=== PATIENT | male | born 1975 | race Caucasian/White ===

== ENCOUNTER 2016-10-22 23:28 | Emergency (ER) | payer MEDICAID ==
[~2016-10-22] VITALS: Ht 177.8 cm; Wt 70.0 kg
[~2016-10-22 23:28] MED LIST: ATOR20TA38 PO; GABA300C16 PO; GLYB5TAB3 PO; INSU100V23 SC; LANT3I SC; METF850T PO; MTF1000T PO; [UNRECOGNIZED DRUG - CODE] MC
[2016-10-22 23:36] VITALS: Ht 177.8 cm; Wt 70.0 kg
[2016-10-23 01:30] VITALS: TEMP 97.8
[2016-10-23] MEDS ORDERED: SOD CHLORIDE 0.9% 1,000 ML IV STA (01:32)
[2016-10-23] MEDS ORDERED: LORAZEPAM 0.5 MG TAB PO ONE (02:00)
[2016-10-23] MEDS ORDERED: SOD CHLORIDE 0.9% 1,000 ML IV ONE (02:00)
[2016-10-23] MEDS ORDERED: INSULIN ASPART [NOVOLOG] 3 ML PEN SC ONE ×2 (02:00→05:30)
[2016-10-23] MEDS ORDERED: LACTATED RINGER'S 1,000 ML IV ONE (02:00)
[2016-10-23 02:08] LABS: EOSINOPHILS # 0.1 10^3/ul (0.0-0.5)
[2016-10-23 02:14] LABS: BASOPHILS % 0.5 % (0.0-2.0); EOSINOPHILS % 1.1 % (0.0-7.0); HEMATOCRIT 41.9 % (42.0-52.0); HEMOGLOBIN 15.4 g/dl (14.0-18.0); LYMPHOCYTES % 35.6 % (15.0-51.0); MEAN CORPUSCULAR HEMOGLOBIN 30.4 pg (29.0-33.0); MEAN CORPUSCULAR HGB CONC 36.8 g/dl (32.0-37.0); MEAN CORPUSCULAR VOLUME 82.6 fl (82.0-101.0); MONOCYTE # 0.5 10^3/ul (0.3-0.9); MONOCYTES % 8.5 % (0.0-11.0); NEUTROPHILS % 53.9 % (39.0-77.0); PLATELET COUNT 150 10^3/UL (140-415); RED BLOOD COUNT 5.07 10^6/ul (4.70-6.10); RED CELL DISTRIBUTION WIDTH 11.9 % (11.5-14.5); WHITE BLOOD COUNT 5.5 10^3/ul (4.8-10.8)
[2016-10-23] MEDS ORDERED: GLUCOSE GEL 15 GRAM TUBE BUCCAL PRN (02:15)
[2016-10-23] MEDS ORDERED: GLUCOSE GEL 15 GRAM TUBE PO PRN ×2 (02:15)
[2016-10-23] MEDS ORDERED: DEXTROSE 50% 50 ML SYRINGE IV PRN ×2 (02:15)
[2016-10-23] MEDS ORDERED: GLUCAGON 1 MG INJ IM PRN (02:15)
[2016-10-23 02:18] LABS: MEAN PLATELET VOLUME 11.2 fl (7.4-10.4)
[2016-10-23 02:28] LABS: ALBUMIN 4.3 g/dl (3.3-4.9)
[2016-10-23 02:29] LABS: CHLORIDE 88 mmol/L (97-110); POTASSIUM 4.8 mmol/L (3.5-5.1); SODIUM 130 mmol/L (135-144)
[2016-10-23 02:31] LABS: ANION GAP 23 (8-16); ASPARTATE AMINO TRANSFERASE 16 IU/L (15-46); BILIRUBIN,INDIRECT 0.3 mg/dl (0-1.1); BILIRUBIN,TOTAL 0.3 mg/dl (0.2-1.3); CARBON DIOXIDE 24 mmol/L (21-31); CREATININE 0.55 mg/dl (0.61-1.24)
[2016-10-23 02:32] LABS: ALANINE AMINOTRANSFERASE 30 IU/L (13-69); ALKALINE PHOSPHATASE 129 IU/L (42-121); BLOOD UREA NITROGEN 16 mg/dl (7-20); CALCIUM 9.7 mg/dl (8.4-10.2); TOTAL PROTEIN 8.2 g/dl (6.1-8.1)
[2016-10-23 02:33] LABS: ADD UMIC NO; URINE BILIRUBIN (Dip) NEGATIVE (NEGATIVE); URINE BLOOD (Dip) NEGATIVE (NEGATIVE); URINE COLOR LT. YELLOW (YELLOW); URINE GLUCOSE (Dip) >=1000 % (NEGATIVE); URINE KETONES (Dip) 15 (NEGATIVE); URINE LEUKOCYTE ESTERASE (Dip) NEGATIVE (NEGATIVE); URINE NITRITE (Dip) NEGATIVE (NEGATIVE); URINE TOTAL PROTEIN (Dip) NEGATIVE (NEGATIVE); URINE UROBILINOGEN (Dip) 0.2 E.U./dL (0.1-1.0)
[2016-10-23] MEDS ORDERED: KETOROLAC 15 MG INJ IV ONE (02:46)
[2016-10-23 03:00] LABS: TROPONIN-I < 0.012 ng/ml (0.00-0.12)
--- NOTE | 2016-10-23 04:12 | ERD ---
ER Documentation Chief Complaint Date/Time DATE: 10/23/16 TIME: 03:57 Chief Complaint states high blood sugar at home HPI This is a 41-year-old man with a history of diabetes mellitus type 2 and recurrent hypoglycemia presenting with elevated blood sugar. He has been using methamphetamines tonight and recently and ran out of his insulin. His blood sugar was checked this evening and it was read as high and is roommate brought him here for evaluation. Patient denies fevers or chills, no dizziness or loss of consciousness, no chest pain or shortness of breath, no abdominal pain, no headache or blurry vision. Patient denies vomiting or diarrhea. ROS All systems reviewed and are negative except as per history of present illness. Medications Home Meds Active Scripts Metformin* (Glucophage*) 1,000 Mg Tablet, 1000 MG PO BID, #40 TAB Prov:JOSE LUIS SPARROW MD 08/16/16 Insulin Regular, Human* (Novolin R*) 100 U/Ml Vial, 0 SC SLIDING SCALE AC, #1 VIAL Prov:ASHLEY PARKER 04/08/16 Glyburide* (Glyburide*) 5 Mg Tablet, 5 MG PO BID, #60 TAB Prov:ASHLEY PARKER 04/08/16 [place], Insulin Disposable (Bd Ultra-Fine Mini Pen Needle) 1 Dis.ndl Dis.needle , 1 DIS.NDL MC QID, #360 3 Refills 1 pen needle four times daily with Lantus and NovoLog Prov:GRIS FIGUEROA MD 11/02/15 Insulin Glargine* (Lantus*) 100 Unit/Ml Soln, 42 UNIT SC QHS for 90 Days, 1 Refill Prov:GRIS FIGUEROA MD 11/02/15 Reported Medications Gabapentin* (Gabapentin*) 300 Mg Capsule, 300 MG PO QHS, #60 CAP 08/16/16 Atorvastatin Calcium* (Atorvastatin Calcium*) 20 Mg Tablet, 20 MG PO QHS, #30 TAB 08/16/16 Metformin Hcl* (Metformin Hcl*) 850 Mg Tablet, 850 MG PO BID, #30 TAB 08/16/16 Allergies Allergies: Coded Allergies: No Known Allergy (Unverified , 10/22/16) PMhx/Soc Diabetes mellitus type 2, methamphetamine abuse, dyslipidemia History of Surgery: No Anesthesia Reaction: No Hx Neurological Disorder: No Hx Respiratory Disorders: No Hx Cardiac Disorders: No Hx Psychiatric Problems: No Hx Miscellaneous Medical Probl: Yes (DM) Hx Alcohol Use: Yes (1x month) Hx Substance Use: Yes (crystal meth, marijuana last taken a few minutes ago) Hx Tobacco Use: Yes (1 pack a day) Smoking Status: Current every day smoker FmHx Family History: diabetes Physical Exam Vitals Vital Signs Date Time Temp Pulse Resp B/P Pulse Ox O2 Delivery O2 Flow Rate FiO2 10/23/16 01:30 97.8 94 20 133/97 100 Room Air 10/22/16 23:36 97.8 115 20 145/89 98 Physical Exam GENERAL: Well-developed, well-nourished, appears agitated and dehydrated, afebrile HEENT: Dry mucous membranes, pink conjunctiva, no cervical spine tenderness or step-off deformities, no goiter, no jaundice or icterus, extraocular movements intact without pain. No submandibular induration, and no pharyngeal erythema NEURO: Alert and oriented 3, cranial nerves II through XII intact bilaterally, pupils equal round reactive to light, no focal deficits or facial asymmetry, sensation intact distally Strength 5/5 in upper and lower extremities bilaterally CARDIAC: Tachycardic and regular, no murmurs rubs or gallops LUNGS: Clear bilaterally no wheezing crackles or stridor ABDOMEN: Soft nontender, no guarding, no rigidity, no rebound, no psoas sign no obturator sign. Normoactive bowel sounds SKIN: Warm and dry to touch, there is a dry superficial chronic appearing pressure ulceration to the sole of the right foot without surrounding skin erythema, no skin discharge and skin is otherwise without ulcers. There are superficial lesions to the skin of the face consistent with methamphetamine abuse and possible subcutaneous drug injection. EXTREMITIES: No clubbing cyanosis or edema, calves are bilaterally symmetrical, no Homans sign, no popliteal cord sign. Distal pulses equal and bilateral PSYCH: Agitated Result Diagram: 10/23/16 01510/23/16 015 Results 24 hrs Laboratory Tests Test 10/22/16 23:41 10/23/16 01:51 10/23/16 02:00 10/23/16 03:01 Bedside Glucose > 595mg/dL Alanine Aminotransferase (ALT/SGPT) 30IU/L Albumin 4.3g/dl Albumin/Globulin Ratio 1.10 Alkaline Phosphatase 129IU/L Anion Gap 23 Aspartate Amino Transf (AST/SGOT) 16IU/L Basophils # 0.010^3/ul Basophils % 0.5% Blood Urea Nitrogen 16mg/dl Calcium Level 9.7mg/dl Carbon Dioxide Level 24mmol/L Chloride Level 88mmol/L Creatinine 0.55mg/dl Direct Bilirubin 0.00mg/dl Eosinophils # 0.110^3/ul Eosinophils % 1.1% Globulin 3.90g/dl Glucose Level mg/dl Hematocrit 41.9% Hemoglobin 15.4g/dl Indirect Bilirubin 0.3mg/dl Lipase 232U/L Lymphocytes # 2.010^3/ul Lymphocytes % 35.6% Mean Corpuscular Hemoglobin 30.4pg Mean Corpuscular Hemoglobin Concent 36.8g/dl Mean Corpuscular Volume 82.6fl Mean Platelet Volume 11.2fl Monocytes # 0.510^3/ul Monocytes % 8.5% Neutrophils # 3.010^3/ul Neutrophils % 53.9% Nucleated Red Blood Cells # 0.010^3/ul Nucleated Red Blood Cells % 0.0/100WBC Platelet Count 68090^3/UL Potassium Level 4.8mmol/L Red Blood Count 5.0710^6/ul Red Cell Distribution Width 11.9% Sodium Level 130mmol/L Total Bilirubin 0.3mg/dl Total Protein 8.2g/dl Troponin I < 0.012ng/ml White Blood Count 5.510^3/ul Urine Bilirubin NEGATIVE Urine Clarity CLEAR Urine Color LT. YELLOW Urine Glucose >=1000% Urine Hemoglobin NEGATIVE Urine Ketones 15 Urine Leukocyte Esterase NEGATIVE Urine Nitrite NEGATIVE Urine Specific [place] <=1.005 Urine Total Protein NEGATIVE Urine Urobilinogen 0.2 E.U./dL Urine pH 5.5 Boy Test N/A Arterial Blood Date Drawn 10/23/2016 3:12:42 AM Arterial Blood Gas Puncture Site VENOUS LINE Blood Gas Modality ROOM AIR Blood Gas Notified Time 10/23/2016 3:16:10 AM Blood Gas Notified Whom MG Blood Gas Specimen Source Blood venous Blood Gas Temperature 37.0C Carboxyhemoglobin 3.4% FiO2 21.0% Venous Blood Base Excess -1.3mmol/L Venous Blood HCO3 25.0mmol/L Venous Blood Methemoglobin 0% Venous Blood Oxygen Saturation 56.4mmHG Venous Blood Oxyhemoglobin 54.5% Venous Blood Total Hemoglobin 17.2g/dl Venous Blood pCO2 (Temp Corrected) 47.5mmHG Venous Blood pH 7.339 Venous Blood pO2 (Temp Corrected) 28.6mmHG Test 10/23/16 04:01 Bedside Glucose 395mg/dL Current Medications Medications (Trade) Dose Ordered Sig/Juhi Route PRN Reason Start Time Stop Time Status Last Admin Dose Admin Sodium Chloride 1,000 ml @ 1,000 mls/hr Q1H STAT IV 10/23/16 01:32 10/23/16 02:31 10/23/16 02:19 Sodium Chloride 1,000 ml @ 1,000 mls/hr Q1H ONCE IV 10/23/16 02:00 10/23/16 02:59 10/23/16 02:19 Lactated Ringer's (Lr) 1,000 ml @ 1,000 mls/hr Q1H ONCE IV 10/23/16 02:00 10/23/16 02:59 10/23/16 02:16 Insulin Aspart (Novolog Insulin Pen) 30 unit ONCE ONCE SC 10/23/16 02:00 10/23/16 02:01 10/23/16 02:15 Lorazepam (Ativan) 0.5 mg ONCE ONCE PO 10/23/16 02:00 10/23/16 02:01 10/23/16 02:15 Miscellaneous Information 1 ea NOTE XX 10/23/16 02:15 Glucose (Glutose) 15 gm Q15M PRN PO DECREASED GLUCOSE 10/23/16 02:15 Glucose (Glutose) 22.5 gm Q15M PRN PO DECREASED GLUCOSE 10/23/16 02:15 Dextrose (D50w Syringe) 25 ml Q15M PRN IV DECREASED GLUCOSE 10/23/16 02:15 Dextrose (D50w Syringe) 50 ml Q15M PRN IV DECREASED GLUCOSE 10/23/16 02:15 Glucagon (Glucagen) 1 mg Q15M PRN IM DECREASED GLUCOSE 10/23/16 02:15 Glucose (Glutose) 15 gm Q15M PRN BUCCAL DECREASED GLUCOSE 10/23/16 02:15 Ketorolac Tromethamine (Toradol) 15 mg ONCE ONCE IV 10/23/16 02:46 10/23/16 02:47 10/23/16 02:51 Insulin Aspart (Novolog Insulin Pen) 20 unit ONCE ONCE SC 10/23/16 05:30 2/11/17 05:31 10/23/16 05:26 Procedures/MDM IV line was established patient was placed on playground monitor rhythm strip revealed a tachycardia at 100 bpm with upright P and T waves. Patient was afebrile. Blood sugar was initially elevated at over 600. I administered 2 L normal saline intravenously as well as 1 L of lactated Ringer 's for dehydration. I administered 30 units of insulin aspart subcutaneous. For agitation I administered lorazepam 1 mg p.o. with good effect. EKG performed, read by me: 94 bpm, normal sinus rhythm, normal axis, no acute ST segment changes, narrow QRS complex, with good R-wave progression in precordial leads. CBC was unremarkable, electrolytes revealed hyponatremia of 130, BUN/creatinine 16/0.6, liver function tests were unremarkable, troponin was negative. Blood sugar was initially over 600 although after above interventions prior to complete fluid resuscitation blood sugar fell to 395. I expect it will fall even more. Urine analysis is negative for infection. VBG revealed a pH of 7.34, PCO2 48. Patient's bicarb is 24. I do not suspect DKA given the patient's lab values and his overall appearance. His blood sugar has fallen and he is able to tolerate p.o. at this time he feels much better. Patient's mental status is also completely normal in fact he was generally hypervigilant due to the amphetamines. Although I considered it I do not suspect hyperosmolar nonketotic state. Critical Care: Time: 36 minutes, this was time separate from other procedures. Treatments/Evaluations: Close monitoring and treatment of unstable vital signs, cardiorespiratory, and neurologic status, while maintaining tight balance of fluid, respiratory, and cardiac interventions. I administered another dose of 20 units insulin aspart subcutaneous injection for continued hyperglycemia. Differential diagnoses considered, included but not limited to acute coronary syndrome, pulmonary embolism, aortic dissection, abdominal aortic aneurysm, sepsis, stroke, meningitis, encephalitis, pneumonia, appendicitis, cholecystitis , bowel obstruction, pyelonephritis, nephrolithiasis, cystitis, as well as metabolic, hematologic, and electrolyte abnormalities. As well as abscess, cellulitis, fractures, and dislocations. Patient feels much better at this time, and vital signs are normal, symptoms have improved. I did give strict instructions to return to the ED if symptoms continue or worsen, patient will otherwise follow-up with primary care physician. Patient understood instructions and agreed to plan. Departure Diagnosis: Primary Impression: Type II diabetes mellitus, uncontrolled Diabetes mellitus complication status: with hyperglycemia Diabetes mellitus assisted insulin use: without assisted use Qualified Code: E11.65 - Uncontrolled type 2 diabetes mellitus with hyperglycemia, without long-term current use of insulin Additional Impressions: Hyperglycemia Dehydration Methamphetamine abuse Condition: Good TONYA TRIANA MD Oct 23, 2016 04:10
[2016-10-23 04:53] LABS: MODE ROOM AIR; MetHgb Venous 0 %; Sample Type Blood venous; Venous COHb 3.4 %; Venous Fraction OxyHgb 54.5 %; Venous Total Hemglobin 17.2 g/dl
[2016-10-23 05:00] VITALS: BP 140/91; PULSE 88; RESP 23
[2016-10-23] MEDS ORDERED: METF500T4 PO (05:45)
[2016-10-23] MEDS ORDERED: NOVO3I SC (05:45)
== END 2016-10-23 05:58 | disposition home or self-care (01) ==
LOC: E/R 23:28
DX: E11.65 Type 2 diabetes mellitus with hyperglycemia (principal); E86.0 Dehydration; F15.20 Other stimulant dependence, uncomplicated; F17.210 Nicotine dependence, cigarettes, uncomplicated; Z79.4 Long term (current) use of insulin; Z79.84 Long term (current) use of oral hypoglycemic drugs
CPT/HCPCS: 36415; 80053; 81003; 82803; 82962; 83690; 84484; 85025; 96372; 96374; J1815; J1885; J7030; J7120; Z7502; Z7610; 93005

== ENCOUNTER 2016-11-16 11:52 | Inpatient (IN) | payer MEDICAID ==
[~2016-11-16] VITALS: Ht 177.8 cm; Wt 75.0 kg
[2016-11-16] MEDS: ACCU-CHEK XX SCH ×7 (00:30→22:53)
[~2016-11-16 11:52] MED LIST changes: +METF500T4 PO; +NOVO3I SC
[2016-11-16] MEDS ORDERED: LACTATED RINGER'S 1,000 ML IV STA (12:02)
[2016-11-16] MEDS ORDERED: SOD CHLORIDE 0.9% 2,000 ML IV STA (12:02)
[2016-11-16] MEDS ORDERED: DEXTROSE 50% 50 ML SYRINGE IV STA (12:05)
[2016-11-16 12:21] LABS: ADD SCAN DIFF NO
[2016-11-16 12:22] LABS: ABNORMAL IP MESSAGE 1; HEMATOCRIT 47.1 % (42.0-52.0); HEMOGLOBIN 16.8 g/dl (14.0-18.0); MEAN CORPUSCULAR HEMOGLOBIN 30.3 pg (29.0-33.0); MEAN CORPUSCULAR HGB CONC 35.7 g/dl (32.0-37.0); MEAN PLATELET VOLUME 10.9 fl (7.4-10.4); PLATELET COUNT 341 10^3/UL (140-415); RED BLOOD COUNT 5.54 10^6/ul (4.70-6.10); WHITE BLOOD COUNT 32.4 10^3/ul (4.8-10.8)
[2016-11-16] MEDS ORDERED: CEFEPIME 2GM/50 ML (PMX) 50 ML IVPB STA (12:27)
[2016-11-16] MEDS ORDERED: LORAZEPAM 2 MG INJ IV ONE (12:30)
[2016-11-16] MEDS ORDERED: VANCOMYCIN 1 GM (PMX) 250 ML IVPB ONE (12:30)
[2016-11-16 12:36] LABS: CHLORIDE 91 mmol/L (97-110); POTASSIUM 5.4 mmol/L (3.5-5.1); SODIUM 126 mmol/L (135-144)
[2016-11-16 12:39] LABS: CREATININE 1.96 mg/dl (0.61-1.24); INR 1.17; PT RATIO 1.2
[2016-11-16 12:40] LABS: BLOOD UREA NITROGEN 38 mg/dl (7-20); CALCIUM 9.1 mg/dl (8.4-10.2); PARTIAL THROMBOPLASTIN TIME 32.2 Sec (25.0-35.0)
[2016-11-16 12:49] LABS: ANION GAP 35 (8-16)
[2016-11-16 12:51] LABS: CARBON DIOXIDE < 5 mmol/L (21-31); GLUCOSE 1011 mg/dl (70-220)
[2016-11-16] MEDS ORDERED: ROCURONIUM 50 MG INJ IV STA (12:52)
[2016-11-16] MEDS ORDERED: PROPOFOL 100 ML IV STA (12:52)
[2016-11-16] MEDS ORDERED: ETOMIDATE 20 MG INJ IV STA (12:52)
[2016-11-16 12:54] LABS: LYMPHOCYTES # 3.9 10^3/ul (0.8-2.9); MONOCYTE # 1.6 10^3/ul (0.3-0.9)
[2016-11-16] MEDS ORDERED: SOD CHLORIDE 0.9% 1,000 ML IV STA (12:54)
[2016-11-16] MEDS ORDERED: MIDAZOLAM (DRIP) 50 mg/50 mL 50 ML IV STA (12:56)
[2016-11-16] MEDS ORDERED: HYDROmorphONE 1 MG/ML SYG IV ONE (13:00)
[2016-11-16 13:14] LABS: ACETAMINOPHEN < 10.0 ug/ml (10.0-30.0); SALICYLATE < 1.0 mg/dl (5.0-30.0)
--- NOTE | 2016-11-16 13:18 | RADRPT ---
PROCEDURE: XR Chest AP portable CLINICAL INDICATION: Post intubation TECHNIQUE: An AP portable radiograph of the chest was submitted. COMPARISON: 04/08/2016 FINDINGS: Support Hardware: The patient has been intubated with the tube tip satisfactory position. Cardiovascular: The cardiovascular silhouette appears unremarkable. Lung [place]: There is been interval development of an extensive alveolar infiltrate within the left lower lobe and a smaller alveolar infiltrate at the right lung base. Pleural Spaces: No pneumothorax or pleural effusion is identified. Osseous Structures: The osseous structures appear intact. Soft Tissues: The soft tissues appear unremarkable. IMPRESSION: 1. Interval satisfactory intubation. 2. Interval development of a large alveolar infiltrate within the left lower lobe and a smaller rachana eolar infiltrate in the right lower lobe. No effusion is identified. Physician Abdelrahman Date Time Electronically viewed and signed by Physician Abdelrahman on 11/16/2016 13:18 /
[2016-11-16 13:25] LABS: ETHANOL < 10.0 mg/dl
[2016-11-16] MEDS ORDERED: INSULIN REGULAR, HUMAN 100 UNIT in SOD CHLORIDE 0.9% 99 ML IV STA ×2 (13:37)
[2016-11-16 13:49] LABS: AADO2 Arterial 222.1 mmHg (7.0-24.0); Allen Test ACCEPTAB; Arterial Base Excess -34.1 mmol/L (-3.0-3); Arterial COHb 0.3 % (0.0-3.0); Arterial Fraction of Oxyhgb 98.7 % (93.0-99.0); Arterial HCO3 2.5 mmol/L (22.0-26.0); Arterial MetHb 0.2 % (0.0-1.5); Arterial Total Hemglobin 15.2 g/dl (12.0-18.0); MODE VENT - AC
[2016-11-16 13:56] LABS: ADD UMIC YES; URINE BILIRUBIN (Dip) NEGATIVE (NEGATIVE); URINE BLOOD (Dip) 2+ (NEGATIVE); URINE COLOR LT. YELLOW (YELLOW); URINE GLUCOSE (Dip) >=1000 % (NEGATIVE); URINE KETONES (Dip) 3+ (NEGATIVE); URINE LEUKOCYTE ESTERASE (Dip) NEGATIVE (NEGATIVE); URINE NITRITE (Dip) NEGATIVE (NEGATIVE); URINE TOTAL PROTEIN (Dip) 1+ (NEGATIVE); URINE UROBILINOGEN (Dip) 0.2 E.U./dL (0.1-1.0)
[2016-11-16 14:11] LABS: BACTERIA,URINE FEW
--- NOTE | 2016-11-16 14:39 | ERA ---
ER Documentation Chief Complaint Date/Time DATE: 11/16/16 TIME: 14:34 Chief Complaint ALOC FOUND ON GOUND BY FRIEND ROS All systems reviewed and are negative except as per history of present illness. Medications Home Meds Active Scripts Insulin Aspart* (Novolog Insulin Pen*) 100 Unit/Ml Soln, 1 UNIT SC WITH BREAKFAST, #1 PKG Prov:TONYA TRIANA MD 10/23/16 Metformin* (Glucophage*) 500 Mg Tab, 500 MG PO BID, #60 TAB Prov:TONYA TRIANA MD 10/23/16 Metformin* (Glucophage*) 1,000 Mg Tablet, 1000 MG PO BID, #40 TAB Prov:JOSE LUIS SPARROW MD 08/16/16 Insulin Regular, Human* (Novolin R*) 100 U/Ml Vial, 0 SC SLIDING SCALE AC, #1 VIAL Prov:ASHLEY PARKER 04/08/16 Glyburide* (Glyburide*) 5 Mg Tablet, 5 MG PO BID, #60 TAB Prov:ASHLEY PRAKER 04/08/16 Insulin Glargine* (Lantus*) 100 Unit/Ml Soln, 42 UNIT SC QHS for 90 Days, 1 Refill Prov:GRIS FIGUEROA MD 11/02/15 Reported Medications Gabapentin* (Gabapentin*) 300 Mg Capsule, 300 MG PO QHS, #60 CAP 08/16/16 Atorvastatin Calcium* (Atorvastatin Calcium*) 20 Mg Tablet, 20 MG PO QHS, #30 TAB 08/16/16 Metformin Hcl* (Metformin Hcl*) 850 Mg Tablet, 850 MG PO BID, #30 TAB 08/16/16 Discontinued Scripts [place], Insulin Disposable (Bd Ultra-Fine Mini Pen Needle) 1 Dis.ndl Dis.needle , 1 DIS.NDL MC QID, #360 3 Refills 1 pen needle four times daily with Lantus and NovoLog Prov:GRIS FIGUEROA MD 11/02/15 Allergies Allergies: Coded Allergies: No Known Allergy (Unverified , 10/22/16) PMhx/Soc History of Surgery: No Anesthesia Reaction: No Hx Neurological Disorder: No Hx Respiratory Disorders: No Hx Cardiac Disorders: No Hx Psychiatric Problems: No Hx Miscellaneous Medical Probl: Yes (DM) Hx Alcohol Use: Yes (1x month) Hx Substance Use: Yes (crystal meth, marijuana ) Hx Tobacco Use: Yes (1 pack a day) Smoking Status: Current every day smoker Physical Exam Vitals Vital Signs Date Time Temp Pulse Resp B/P Pulse Ox O2 Delivery O2 Flow Rate FiO2 11/16/16 14:15 53 21 115/78 100 Mechanical Ventilator 11/16/16 13:31 84.5 60 20 121/86 100 11/16/16 13:28 59 24 100 100 11/16/16 13:15 60 20 121/86 100 Mechanical Ventilator 11/16/16 12:33 49 10 111/76 100 Nasal Cannula 4.0 11/16/16 11:56 97.0 61 12 89 Physical Exam Const: [] Head: Atraumatic Eyes: Normal Conjunctiva ENT: Normal External Ears, Nose and Mouth. Neck: Full range of motion..~ No meningismus. Resp: Clear to auscultation bilaterally Cardio: Regular rate and rhythm, no murmurs Abd: Soft, non tender, non distended. Normal bowel sounds Skin: No petechiae or rashes Back: No midline or flank tenderness Ext: No cyanosis, or edema Neur: Awake and alert Psych: Normal Mood and Affect Result Diagram: 11/16/16 1210 11/16/16 1210 Results 24 hrs Laboratory Tests Test 11/16/16 12:06 11/16/16 12:10 11/16/16 12:52 11/16/16 13:13 Bedside Glucose > 595mg/dL Acetaminophen Level < 10.0ug/ml Activated Partial Thromboplast Time 32.2Sec Anion Gap 35 Band Neutrophils % 9.0% Blood Urea Nitrogen 38mg/dl Calcium Level 9.1mg/dl Carbon Dioxide Level < 5mmol/L Chloride Level 91mmol/L Creatinine 1.96mg/dl Ethyl Alcohol Level < 10.0mg/dl Glucose Level 1011mg/dl Hematocrit 47.1% Hemoglobin 16.8g/dl INR International Normalized Ratio 1.17 Lactic Acid Level 2.0mmol/L Lymphocytes # 3.910^3/ul Lymphocytes % 12.0% Mean Corpuscular Hemoglobin 30.3pg Mean Corpuscular Hemoglobin Concent 35.7g/dl Mean Corpuscular Volume 85.0fl Mean Platelet Volume 10.9fl Monocytes # 1.610^3/ul Monocytes % 5.0% Neutrophils # 24.010^3/ul Neutrophils % 74.0% Platelet Count 34525^3/UL Potassium Level 5.4mmol/L Prothrombin Time 15.0Sec Prothrombin Time Ratio 1.2 Red Blood Count 5.5410^6/ul Red Cell Distribution Width 13.0% Salicylates Level < 1.0mg/dl Sodium Level 126mmol/L White Blood Count 32.410^3/ul Arterial Blood HCO3 2.5mmol/L Arterial Blood Base Excess -34.1mmol/L Arterial Blood Oxygen Saturation 99.2mmHG Boy Test ACCEPTAB Arterial Blood Gas Puncture Site Right Brachial Arterial Blood Carboxyhemoglobin 0.3% Arterial Blood Date Drawn 11/16/2016 1:30:58 PM Arterial Blood Methemoglobin 0.2% Arterial Blood pCO2 (Temp correct) 21.7mmhg Arterial Blood pH (Temp corrected) 6.686 Arterial Blood pO2 (Temp corrected) 469.2mmHG Blood Gas A-a O2 Differential 222.1mmHg Blood Gas Actual Respiration Rate 24 Blood Gas Critical Value Read Back KYARA Riley MD Blood Gas Low PEEP Setting 5.0cmH2O Blood Gas Modality VENT - AC Blood Gas Notified Time 11/16/2016 1:48:42 PM Blood Gas Notified Whom JLD Blood Gas Respiration Rate 24.0 Blood Gas Specimen Source Blood arterial Blood Gas Temperature 37.0C Blood Gas Tidal Volume 500.0mL FiO2 100.0% Oxyhemoglobin Percent 98.7% Total Hemoglobin 15.2g/dl Urine Bacteria FEW Urine Bilirubin NEGATIVE Urine Clarity CLEAR Urine Color LT. YELLOW Urine Glucose >=1000% Urine Hemoglobin 2+ Urine Ketones 3+ Urine Leukocyte Esterase NEGATIVE Urine Microscopic RBC 2-5/HPF Urine Microscopic WBC 0-2/HPF Urine Nitrite NEGATIVE Urine Specific [place] 1.015 Urine Total Protein 1+ Urine Urobilinogen 0.2 E.U./dL Urine pH 5.0 Test 11/16/16 13:31 Bedside Glucose > 595mg/dL Current Medications Medications (Trade) Dose Ordered Sig/Juhi Route PRN Reason Start Time Stop Time Status Last Admin Dose Admin Sodium Chloride 2,000 ml @ 1,000 mls/hr Q2H STAT IV 11/16/16 12:02 11/16/16 14:01 DC 11/16/16 12:15 Lactated Ringer's (Lr) 1,000 ml @ 1,000 mls/hr Q1H STAT IV 11/16/16 12:02 11/16/16 13:01 DC 11/16/16 12:20 Dextrose (D50w Syringe) 50 ml ONCE STAT IV 11/16/16 12:05 11/16/16 12:07 DC Lorazepam 1 mg 1 mg ONCE ONCE IV 11/16/16 12:30 11/16/16 12:31 DC 11/16/16 12:31 Cefepime HCl 50 ml @ 100 mls/hr ONCE STAT IVPB 11/16/16 12:27 11/16/16 12:56 DC 11/16/16 12:35 Vancomycin HCl (Vancocin) 250 ml @ 125 mls/hr ONCE ONCE IVPB 11/16/16 12:30 11/16/16 14:29 DC 11/16/16 13:08 Rocuronium [place] (Zemuron) 70 mg ONCE STAT IV 11/16/16 12:52 11/16/16 12:53 DC Etomidate (Amidate) 20 mg ONCE STAT IV 11/16/16 12:52 11/16/16 12:53 DC Hydromorphone HCl 1 mg 1 mg ONCE ONCE IV 11/16/16 13:00 11/16/16 13:01 DC 11/16/16 13:08 Propofol 100 ml @ 2.1 mls/hr ONCE STAT IV 11/16/16 12:52 11/16/16 12:56 DC Sodium Chloride 1,000 ml @ 1,000 mls/hr Q1H STAT IV 11/16/16 12:54 11/16/16 13:53 DC 11/16/16 13:09 Midazolam HCl 50 ml @ 3 mls/hr ONCE STAT IV 11/16/16 12:56 11/17/16 05:35 11/16/16 13:06 Insulin Human Regular/Sodium Chloride (Humulin R/NS) 100 ml @ 7 mls/hr TITRATE STAT IV 11/16/16 13:37 11/17/16 03:54 11/16/16 14:18 Procedures/MDM EKG read by me: Rate/Rhythm: Sinus bradycardia rate of 58 Intervals: Normal Impression: Sinus bradycardia without evidence of ischemia CT brain pending at this time. Admit MDM: Patient's infectious symptoms have not stabilized and the patient is at risk of rapid decompensation. The patient will be admitted for careful hydration, antibiotic therapy, and infectious source control. Severe Sepsis criteria: Infectious source: Unclear etiology End organ damage indicated by: Lactate greater than 2 and altered mental status Sepsis Management: Time of recognition of sepsis: 12:10 Within 3 hours of recognition: Blood cultures x 2 before broad-spectrum antibiotics: [Yes] 30 ml/kg NS bolus [Completed] Initial lactate 2.0 Repeat lactate pending Time of recognition of septic shock: [No septic shock] Septic Shock Assessment: Any lactic acid > 4.0 [No] Persistent hypotension (SBP < 90 or 40 mmHg drop, MAP < 65) despite 30 mL/kg IV fluid bolus [No] Volume Re-assessment for Septic Shock (post 30 ml/kg bolus): No septic shock at this time Persistent Hypotension Treatment: Comfort care [No] Central line [Not Required] Vasopressor started [Not required] I considered further perfusion assessment with CVP measurement, SCVO2, bedside ultrasound volume assessment, passive leg raise, trial of further fluid bolus. And proceeded with [30 ml/kg fluid bolus of NSS, broad spectrum antibiotics, and admission.] The patient has acute diabetic ketoacidosis with a bicarb of less than 5. Sugar is greater than 1000. Patient was given 4 L for fluid resuscitation. The patient needed to be intubated as well he was in the emergency department his work of breathing decreased as he tired out. He needed to be intubated for airway protection. The patient was started on a tidal volume of 500 and a respiratory rate of 24 to help compensate for his significant acidosis. His ABG shows a pH of 6.68. He is extremely sick. Accepting Care Team Current data and ongoing care discussed. Admitting Physician: Dr. Ma as the patient has been admitted to Dr. 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 Provision of immediate and broad-spectrum antibiotic therapy. Simultaneous assessment for possible sources in order to direct targeted therapy. Consideration for invasive and chemical support to prevent cardiopulmonary collapse. Endotracheal Intubation by me: Pre assessment performed. Pre-oxygenation performed with 100% oxygen RSI: Performed w/o complication or hypoxic events. Medications as ordered. Blade: MAC 4 Glidescope ET Tube: 7.5 cm Depth: 23 cm at the lip Intubation confirmed by colorimetric CO2, equal breath sounds, quiet over the stomach. Chest X-ray 1V Interpreted by me: 0 cm above the kameron ET tube. Normal soft tissue, No pneumothorax. The ET tube was withdrawn 3 cm by respiratory on my request. 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
[2016-11-16 14:49] LABS: BARBITURATES NEGATIVE (NEGATIVE); BENZODIAZEPINES NEGATIVE (NEGATIVE); CANNABINOIDS NEGATIVE (NEGATIVE); COCAINE NEGATIVE (NEGATIVE); OPIATES NEGATIVE (NEGATIVE)
--- NOTE | 2016-11-16 14:51 | RADRPT ---
PROCEDURE: CT brain without contrast CLINICAL INDICATION: Hyperglycemia TECHNIQUE: CT of the brain without contrast was performed on a multidetector CT scanner, with multi planar reformats. One or more of the following dose reduction techniques were used: Automated expos ure control, adjustment in mA and / or kV according to patient size, use of iterative reconstructive technique. CTDIvol = 40 mGy; DLP = 634 mGy-cm. COMPARISON: None available FINDINGS: No acute intracranial hemorrhage is identified. No extra-axial fluid collection is seen. There is no mass effect. No midline shift is identified. Ventricles and sulci are within normal limits for size and configuration. The density of the brain is within normal limits. Denise-white differentiation is preserved. There is mild right parietal scalp swelling. No underlying fracture is identified. The osseous str uctures are unremarkable. Mastoid air cells and imaged paranasal sinuses grossly clear. IMPRESSION: Mild right parietal scalp swelling, without evidence of acute intracranial pathology. RPTAT: TT .Jimmie Carr MD, MD Date Time Electronically viewed and signed by .Jimmie Carr MD, on 11/16/2016 14:50 .O/
[2016-11-16] MEDS ORDERED: ACETAMINOPHEN 650MG/20.3ML CUP PO PRN (15:30)
[2016-11-16] MEDS ORDERED: NACL 0.9% 3 ML SYG IV SCH (15:30)
[2016-11-16] MEDS ORDERED: ALBUTEROL 0.083% (NEB) 2.5 MG/3 ML AMP NEB PRN (15:30)
[2016-11-16] MEDS ORDERED: IPRATROPIUM (NEB) 0.5 MG/2.5 ML AMP NEB PRN (15:30)
[2016-11-16 15:35] LABS: CHLORIDE 103 mmol/L (97-110); SODIUM 133 mmol/L (135-144)
[2016-11-16 15:36] LABS: POTASSIUM 4.7 mmol/L (3.5-5.1)
[2016-11-16 15:38] LABS: CREATININE 1.43 mg/dl (0.61-1.24)
[2016-11-16 15:39] LABS: BLOOD UREA NITROGEN 34 mg/dl (7-20); CALCIUM 7.8 mg/dl (8.4-10.2)
[2016-11-16 15:59] LABS: ANION GAP 30 (8-16)
[2016-11-16 16:00] LABS: CARBON DIOXIDE < 5 mmol/L (21-31); GLUCOSE 809 mg/dl (70-220)
--- NOTE | 2016-11-16 16:10 | CONS ---
DATE OF ADMISSION: 11/16/2016 DATE OF CONSULTATION: 11/16/2016 TYPE OF CONSULTATION: Infectious Disease. REASON FOR CONSULTATION: Antibiotic management. HISTORY OF PRESENT ILLNESS: Tariq Oglesby is a 41-year-old male with numerous problems who was found with altered level of consciousness, found on the ground by a friend and brought into the emergency room. His past problems include: 1. Insulin-dependent diabetes mellitus. 2. Diabetic neuropathy. 3. Hyperlipidemia. 4. Use of crystal meth and marijuana. PAST MEDICAL HISTORY: Operations as outlined. FAMILY HISTORY: Noncontributory. SOCIAL HISTORY: He smokes a pack a day for many years. He drinks. He abuses drugs. ALLERGIES: NONE TO PENICILLIN, SULFA OR FOODS. MEDICATIONS: Per chart. REVIEW OF SYSTEMS: As per HPI. LABORATORY DATA: On admission, his white count was 32.4, H and H 16.8 and 47.1, platelet count 341, 000. BUN and creatinine 38/1.96. His glucose was 1011. His CO2 was less than 5 consistent with se rafael metabolic acidosis. A chest x-ray showed intubation, interval development of extensive alveolar infiltrates within the l eft lower lobe and small alveolar infiltrates at the right lung base. No pneumothorax or pleural ef fusion. White count was 32.4, H and H 16.8 and 47.1 as noted previously, platelet count 341,000. CT scan of the brain was done which showed mild parietal scalp swelling without evidence of acute in tracranial pathology, probably as a result of his fall. PHYSICAL EXAMINATION GENERAL: Patient is intubated on a respirator. SKIN: Without generalized rash. HEENT: Within normal limits, slight swelling of the parietal aspect of the skull. ET tube. NECK: Supple. LYMPH NODES: None palpable. CHEST: Decreased breath sounds at the bases. HEART: Without murmur or gallop. ABDOMEN: Soft, nontender, without organosplenomegaly or masses. EXTREMITIES: Without cyanosis, clubbing, or edema. RECTAL AND GENITAL: Deferred. NEUROLOGIC: No focal neurological abnormalities. IMPRESSION AND PLAN: The patient was started on vancomycin and cefepime. It was felt that he was in septic shock. Lactic acid was greater than 2. Blood cultures were drawn. The patient has diabetic ketoacidosis with coma as well as sepsis with acute respiratory failure. We will continue him on la s current regimen of vancomycin and cefepime. I will dictate my findings to Dr. Ma. Dictated By: SARAHY LOU MD, JD/CLAUDY Conf#: [id number] DID#: [id number]
--- NOTE | 2016-11-16 16:16 | HP ---
DATE OF ADMISSION: 11/16/2016 HISTORY OF PRESENT ILLNESS: The patient is a 41-year-old male known to me from previous ad mission. The patient was previously admitted a year ago for diabetic hyperosmolar nonketotic state. The patient with history of diabetes mellitus, history of hypertension and medical noncompliance. The patient was brought to the emergency room by a friend who found him on the ground. The patient was unresponsive and had to be intubated for airway protection. The patient was placed on electromechanical technologist al ventilator. The patient's blood glucose was 1000 on admission. The patient was started on insul in drip. White blood cells were also elevated. The patient was resuscitated with IV fluids. The p atient underwent a chest x-ray which revealed interval development of large alveolar infiltrate with in the left lower lobe and small alveolar infiltrate in the right lower lobe. No effusion is identi fied during inspection at intervals of intubation. After blood cultures collected, the patient was started on broad spectrum antibiotics and was given vancomycin and cefepime. Patient's drug screen came back positive for amphetamine. Unfortunately, patient cannot provide any history. Most of the history was obtained from talking to nursing and medical staff at the emergency room and from medic al records. The patient's EKG reveals sinus bradycardia at a rate of 58. The patient will be admit anna for further management in the intensive care unit. PAST MEDICAL HISTORY: Per HPI. PAST SURGICAL HISTORY: Status post foreign body removal from the left eye more than 10 years ago. FAMILY HISTORY: Patient's father from cardiac problems at the age of 70, no family history of diabetes. SOCIAL HISTORY: Patient is a cigarette smoker, smokes about 1 pack of cigarettes per day, smoked fo r more than 10 years. ALLERGIES: NO KNOWN ALLERGIES. MEDICATIONS: From previous admission, the patient was discharged with a prescription for: 1. Lantus, NovoLog with meals and Metformin. 2. Glyburide. 3. Gabapentin. 4. Atorvastatin. REVIEW OF SYSTEMS: A 12-point review is unable to obtain due to patient's condition. PHYSICAL ASSESSMENT: GENERAL: Well-developed, well-nourished male, currently unresponsive, orally intubated. VITAL SIGNS: Temperature is 97.0, pulse is 53, blood pressure 115/78, respiratory rate 21, oxygen s aturation 100% on FIO2. HEENT: Pupils pinpoint. Oral mucosa is pink and moist. NECK: Supple, no cervical lymphadenopathy, no thyromegaly. LUNGS: Diminished at the bases. CARDIOVASCULAR: Normal S1, S2. No murmurs, gallops, clicks, rubs noted. ABDOMEN: Flat, soft, nondistended, nontender. Bowel sounds hypoactive. EXTREMITIES: There is no edema, clubbing, cyanosis. Pulses equal bilaterally 2+. SKIN: There is no rash, petechiae noted. NEUROLOGIC: Patient is unresponsive. Does not follow any commands. LABORATORY DATA: On admission, CBC: White blood cells 32.4, hemoglobin 16.8, hematocrit 47.1, plat elets 341. Chemistry: Sodium is 126, potassium 5.4, chloride 91, carbon dioxide 5, anion gap 35, B UN is 38, creatinine 1.96, glucose 1011. Lactic acid 2.0, calcium is 9.1. PT is ____, INR is 1.17, APTT 32.2. ASSESSMENT AND PLAN 1. Severe diabetic ketoacidosis with coma. 2. Diabetes mellitus type 2. Continue insulin drip. Dr. Andre is asked to see patient in endocr inology consultation. Continue IV fluids. 3. Severe sepsis. We will follow up on urine, blood and sputum cultures. 4. Possible community-acquired pneumonia. 5. Acute respiratory failure. Continue ventilatory support and Dr. Torres will be following the p atient in pulmonology consultation. 6. Altered level of consciousness. 7. Amphetamine screen positive. We will obtain a CT of the head when patient is stable. 8. Continue sequential compression device for deep venous thrombosis prophylaxis and Protonix for p eptic ulcer disease prophylaxis. Further recommendations based on clinical course. 9. We will ask Dr. Callaway to see patient in infectious disease consultation. Further recommendatio ns based on clinical course. Plan of care discussed with Dr. Newton. Dictated By: ALEA WHITAKER COIL STRAPPER for EMILIA NEWTON MD SR/NTS Conf#: [id number] DID#: [id number]
[2016-11-16 16:35] LABS: PHOSPHORUS 7.8 mg/dl (2.5-4.9)
[2016-11-16 16:36] LABS: MAGNESIUM 2.2 mg/dl (1.7-2.5)
[2016-11-16 16:46] LABS: CHLORIDE 105 mmol/L (97-110); POTASSIUM 4.4 mmol/L (3.5-5.1); SODIUM 137 mmol/L (135-144)
[2016-11-16 16:49] LABS: BLOOD UREA NITROGEN 35 mg/dl (7-20)
[2016-11-16 16:50] LABS: CALCIUM 8.6 mg/dl (8.4-10.2)
[2016-11-16] MEDS ORDERED: DEXTROSE 50% 50 ML SYRINGE IV PRN ×2 (17:00)
[2016-11-16] MEDS ORDERED: POTASSIUM CHLORIDE 40 MEQ in SOD CHLORIDE 0.9% 1,000 ML IV SCH (17:00)
[2016-11-16] MEDS ORDERED: INSULIN REGULAR, HUMAN 100 UNIT in SOD CHLORIDE 0.9% 99 ML IV SCH ×2 (17:00)
[2016-11-16 17:06] LABS: ANION GAP 31 (8-16); CARBON DIOXIDE < 5 mmol/L (21-31); GLUCOSE 769 mg/dl (70-220)
[2016-11-16 18:20] LABS: CHLORIDE 107 mmol/L (97-110)
[2016-11-16 18:21] LABS: POTASSIUM 4.1 mmol/L (3.5-5.1); SODIUM 139 mmol/L (135-144)
[2016-11-16 18:23] LABS: CREATININE 1.37 mg/dl (0.61-1.24)
--- NOTE | 2016-11-16 18:23 | CONS ---
Date/Time of Note Date/Time of Note DATE: 11/16/16 TIME: 18:14 Assessment/Plan Assessment/Plan Problems: (1) DKA (diabetic ketoacidoses) Status: Acute Comment: pH as low as I have seen. Cont. IV insulin drip at 0.1 mg/kg/hr and isotonic IVF at 250 mL/hr. Monitor electrolytes and replace. Will follow with you. Qualifiers: Qualified Code: E13.11 - Diabetic ketoacidosis with coma associated with other specified diabetes mellitus (2) Type II diabetes mellitus, uncontrolled Status: Chronic Comment: Rule out type 1 diabetes. Has not been checked here before. Qualifiers: Qualified Code: E11.8 - Uncontrolled type 2 diabetes mellitus with complication, unspecified chcf insulin use status Consultation Date/Type/Reason Admit Date/Time 11/16/2016 Date of Consultation: Nov 16, 2016 Type of Consultation: Endocrinology Reason for Consultation DKA Referring Provider: ALEA WHITAKER Hx of Present Illness 41 y/o H M w/ h/o poorly managed DM, type unknown, previously admitted to this institution twice in the past, both times w/ DM out of control (OOC). Pt. found down and brought into [facility]. In ER in DKA w/ glucose > 1000 mg/dL. Pt. w/ profound Kussmaul breathing and required intubation for ventilatory support. pH 6.69. Ketones (+). Pt. started on insulin drip and endo consulted. Subjective hx not possible: pt non-verbal, pt critical status Past Medical History Medical History: diabetes, other (non-compliance) Past Surgical History Past Surgical Hx: other (FB removal L eye) Family History Significant Family History: heart disease (father) Social History Alcohol Use: other (unknown) Smoking Status: Current every day smoker Drug Use: other (urine drug screen (+) for amphetamines) Exam/Review of Systems Vital Signs Vitals VS - Last 72 Hours, by Label Date Time Temp Pulse Resp B/P Pulse Ox O2 Delivery O2 Flow Rate FiO2 11/16/16 17:30 96.8 63 20 110/80 100 Mechanical Ventilator 11/16/16 17:01 58 24 100 70 11/16/16 16:45 61 20 108/77 100 Mechanical Ventilator 11/16/16 15:45 57 20 117/86 100 Mechanical Ventilator 11/16/16 15:30 95.8 60 20 125/89 100 11/16/16 15:20 53 24 70 11/16/16 14:45 53 21 118/84 100 Mechanical Ventilator 11/16/16 14:15 53 21 115/78 100 Mechanical Ventilator 11/16/16 13:31 84.5 60 20 121/86 100 11/16/16 13:28 59 24 100 100 11/16/16 13:15 60 20 121/86 100 Mechanical Ventilator 11/16/16 12:33 49 10 111/76 100 Nasal Cannula 4.0 11/16/16 11:56 97.0 61 12 89 Vital Signs Date Time Temp Pulse Resp B/P Pulse Ox O2 Delivery O2 Flow Rate FiO2 11/16/16 17:30 96.8 63 20 110/80 100 Mechanical Ventilator 11/16/16 17:01 70 11/16/16 12:33 4.0 Exam Constitutional: non-verbal, other (sedated), well developed, No alert, No oriented Head: atraumatic, normocephalic Eyes: other (chemosis B) ENMT: intubated, mucosa pink and moist, nl external ears & nose Neck: non-tender, supple, No bruits, No masses, No thyromegaly Respiratory: clear to auscultation, normal air movement Cardiovascular: nl pulses, regular rate and rhythm, No edema, No murmurs/extra sounds, No rub Gastrointestinal: bowel sounds, nl liver, spleen, non-tender, soft, No mass, No rebound or guarding Musculoskeletal: nl extremities to inspection Extremities: normal pulses, No clubbing, No cyanosis, No edema Neurological: unresponsive (sedated) Results Result Diagram: 11/16/16 1210 11/16/16 1620 Results 24 hrs Laboratory Tests Test 11/16/16 12:06 11/16/16 12:10 11/16/16 12:52 11/16/16 13:13 Bedside Glucose > 595 *H Acetaminophen Level < 10.0 L Activated Partial Thromboplast Time 32.2 Anion Gap 35 H Band Neutrophils % 9.0 H Blood Urea Nitrogen 38 H Calcium Level 9.1 Carbon Dioxide Level < 5 *L Chloride Level 91 L Creatinine 1.96 H Ethyl Alcohol Level < 10.0 Glucose Level 1011 *H Hematocrit 47.1 Hemoglobin 16.8 INR International Normalized Ratio 1.17 Lactic Acid Level 2.0 Lymphocytes # 3.9 H Lymphocytes % 12.0 L Mean Corpuscular Hemoglobin 30.3 Mean Corpuscular Hemoglobin Concent 35.7 Mean Corpuscular Volume 85.0 Mean Platelet Volume 10.9 H Monocytes # 1.6 H Monocytes % 5.0 Neutrophils # 24.0 H Neutrophils % 74.0 Platelet Count 341 # Potassium Level 5.4 H Prothrombin Time 15.0 H Prothrombin Time Ratio 1.2 Red Blood Count 5.54 Red Cell Distribution Width 13.0 Salicylates Level < 1.0 L Sodium Level 126 L White Blood Count 32.4 #H Arterial Blood HCO3 2.5 *L Arterial Blood Base Excess -34.1 L Arterial Blood Oxygen Saturation 99.2 H Boy Test ACCEPTAB Arterial Blood Gas Puncture Site Right Brachial Arterial Blood Carboxyhemoglobin 0.3 Arterial Blood Date Drawn 11/16/2016 1:30:58 PM Arterial Blood Methemoglobin 0.2 Arterial Blood pCO2 (Temp correct) 21.7 L Arterial Blood pH (Temp corrected) 6.686 *L Arterial Blood pO2 (Temp corrected) 469.2 H Blood Gas A-a O2 Differential 222.1 H Blood Gas Actual Respiration Rate 24 Blood Gas Critical Value Read Back KYARA Riley MD Blood Gas Low PEEP Setting 5.0 Blood Gas Modality VENT - AC Blood Gas Notified Time 11/16/2016 1:48:42 PM Blood Gas Notified Whom JLD Blood Gas Respiration Rate 24.0 Blood Gas Specimen Source Blood arterial Blood Gas Temperature 37.0 Blood Gas Tidal Volume 500.0 FiO2 100.0 Oxyhemoglobin Percent 98.7 Total Hemoglobin 15.2 Urine Amphetamines Screen POSITIVE Urine Bacteria FEW Urine Barbiturates NEGATIVE Urine Benzodiazepines Screen NEGATIVE Urine Bilirubin NEGATIVE Urine Cannabinoids NEGATIVE Urine Clarity CLEAR Urine Cocaine Screen NEGATIVE Urine Color LT. YELLOW Urine Glucose >=1000 Urine Hemoglobin 2+ H Urine Ketones 3+ H Urine Leukocyte Esterase NEGATIVE Urine Microscopic RBC 2-5 Urine Microscopic WBC 0-2 Urine Nitrite NEGATIVE Urine Opiates Screen NEGATIVE Urine Specific Rose 1.015 Urine Total Protein 1+ H Urine Urobilinogen 0.2 E.U./dL Urine pH 5.0 Test 11/16/16 13:31 11/16/16 14:05 11/16/16 14:10 11/16/16 15:25 Bedside Glucose > 595 *H > 595 *H Anion Gap 30 H Blood Urea Nitrogen 34 H Calcium Level 7.8 L Carbon Dioxide Level < 5 *L Chloride Level 103 # Creatinine 1.43 H Glucose Level 809 #*H Lactic Acid Level 1.4 Potassium Level 4.7 Sodium Level 133 L Troponin I < 0.012 Magnesium Level 2.2 Phosphorus Level 7.8 H Test 11/16/16 16:20 11/16/16 16:36 11/16/16 17:34 Anion Gap 31 H Blood Urea Nitrogen 35 H Calcium Level 8.6 Carbon Dioxide Level < 5 *L Chloride Level 105 Creatinine 1.40 H Glucose Level 769 *H Potassium Level 4.4 Sodium Level 137 Bedside Glucose > 595 *H > 595 *H Medications Medications Current Medications Ondansetron HCl (Zofran Inj) 4 mg Q6H PRN IV NAUSEA AND/OR VOMITING; Start 11/16 at 15:30 Acetaminophen (Tylenol Liquid) 650 mg Q6H PRN PO PAIN LEVEL 1-3 OR FEVER; Start 11/16/16 at 15:30 Morphine Sulfate (morphine) 2 mg Q4H PRN IV PAIN LEVEL 7-10; Start 11/16/16 at 15:30 Pantoprazole (Protonix Iv) 40 mg DAILY@06 IV ; Start 11/17/16 at 06:00 Dextrose (D50w Syringe) 50 ml Q15M PRN IV For BS 50 or less; Start 11/16/16 at 17:00 Dextrose (D50w Syringe) 25 ml Q15M PRN IV BS between 50-70; Start 11/16/16 at 17 :00 Diagnostic Test (Pha) 1 ea 1 ea Q1H XX Last administered on 11/16/16 17:36; Admin Dose 1 EA; Start 11/16/16 at 17:00 Potassium Chloride/Sodium Chloride (KCl/NS) 1,020 ml @ 250 mls/hr Q4H5M IV Last administered on 11/16/16 17:28; Admin Dose 250 MLS/HR; Start 11/16/16 at 17: 00 ROEG PAEZ MD Nov 16, 2016 18:22
[2016-11-16 18:24] LABS: BLOOD UREA NITROGEN 35 mg/dl (7-20); CALCIUM 8.7 mg/dl (8.4-10.2)
[2016-11-16 18:36] LABS: ANION GAP 31 (8-16); CARBON DIOXIDE < 5 mmol/L (21-31); GLUCOSE 698 mg/dl (70-220)
[2016-11-16 19:44] VITALS: BP 98/66; PULSE 77; RESP 24
[2016-11-16 20:49] VITALS: Ht 177.8 cm; Wt 75.0 kg
[2016-11-16 20:52] VITALS: BP 91/64; PULSE 89; RESP 18
[2016-11-16 21:33] VITALS: BP 87/56; PULSE 96; RESP 25
[2016-11-16 21:36] LABS: POTASSIUM 4.9 mmol/L (3.5-5.1)
[2016-11-16 21:39] LABS: CREATININE 1.16 mg/dl (0.61-1.24)
[2016-11-16 21:40] LABS: CALCIUM 8.5 mg/dl (8.4-10.2)
[2016-11-16 21:59] LABS: AADO2 Arterial 219.6 mmHg (7.0-24.0); Allen Test ACCEPTAB; Arterial Base Excess -24.7 mmol/L (-3.0-3); Arterial COHb 0.3 % (0.0-3.0); Arterial Fraction of Oxyhgb 97.6 % (93.0-99.0); Arterial HCO3 5.3 mmol/L (22.0-26.0); Arterial MetHb 0.3 % (0.0-1.5); Arterial Total Hemglobin 17.5 g/dl (12.0-18.0); MODE VENT - AC
[2016-11-16] MEDS ORDERED: SOD CHLORIDE 0.9% 1,000 ML IV ONE (22:00)
[2016-11-16 22:48] VITALS: BP 97/64; PULSE 102; PULSE 103; RESP 30
[2016-11-16] MEDS ORDERED: NS + KCL 20 MEQ 1,000 ML IV SCH (23:00)
[2016-11-16] MEDS ORDERED: VANCOMYCIN IV PER PHARMACY XX SCH (23:00)
[2016-11-17] VITALS (34 sets, daily range): BP systolic 89–155; BP diastolic 59–90; PULSE 89–115; RESP 23–35; TEMP 100
[2016-11-17] MEDS ORDERED: ETOMIDATE 20 MG INJ ONE
[2016-11-17] MEDS ORDERED: ROCURONIUM 50 MG INJ ONE
[2016-11-17] MEDS ORDERED: IMIPENEM/CILASTATIN 500 MG in SOD CHLORIDE 0.9% 250 ML IVPB SCH ×2
[2016-11-17 00:14] LABS: POTASSIUM 4.5 mmol/L (3.5-5.1)
[2016-11-17 00:16] LABS: CREATININE 1.05 mg/dl (0.61-1.24)
[2016-11-17 00:17] LABS: CALCIUM 8.3 mg/dl (8.4-10.2)
[2016-11-17] MEDS: MIDAZOLAM (DRIP) 50 mg/50 mL 50 ML IV SCH ×3 (00:18→23:02)
[2016-11-17] MEDS: ACCU-CHEK XX SCH ×24 (01:00→23:11)
[2016-11-17] MEDS ORDERED: VANCOMYCIN 1.25 GM in SOD CHLORIDE 0.9% 250 ML IVPB SCH (01:00)
[2016-11-17] MEDS: IMIPENEM-CILAST 500MG IV (PMX) 100 ML IVPB SCH ×4 (01:27→18:06)
[2016-11-17 01:46] LABS: POTASSIUM 4.4 mmol/L (3.5-5.1)
[2016-11-17] MEDS: D5W-0.45 NACL + KCL 20 MEQ 1,000 ML IV SCH ×2 (01:46→06:06)
[2016-11-17 01:49] LABS: CREATININE 0.95 mg/dl (0.61-1.24)
[2016-11-17 01:50] LABS: CALCIUM 8.1 mg/dl (8.4-10.2)
[2016-11-17 03:56] LABS: ADD SCAN DIFF NO
[2016-11-17 04:01] LABS: BASOPHILS % 0.1 % (0.0-2.0); HEMOGLOBIN 15.2 g/dl (14.0-18.0); LYMPHOCYTES # 1.2 10^3/ul (0.8-2.9); LYMPHOCYTES % 6.5 % (15.0-51.0); MEAN CORPUSCULAR HEMOGLOBIN 29.8 pg (29.0-33.0); MEAN CORPUSCULAR VOLUME 78.4 fl (82.0-101.0); MEAN PLATELET VOLUME 10.8 fl (7.4-10.4); MONOCYTE # 1.3 10^3/ul (0.3-0.9); MONOCYTES % 7.1 % (0.0-11.0); NEUTROPHIL # 14.6 10^3/ul (1.6-7.5); NEUTROPHILS % 82.7 % (39.0-77.0); PLATELET COUNT 225 10^3/UL (140-415); RED CELL DISTRIBUTION WIDTH 12.5 % (11.5-14.5); WHITE BLOOD COUNT 17.7 10^3/ul (4.8-10.8)
[2016-11-17 04:20] LABS: POTASSIUM 4.3 mmol/L (3.5-5.1)
[2016-11-17 04:22] LABS: CREATININE 0.87 mg/dl (0.61-1.24)
[2016-11-17 04:23] LABS: CALCIUM 8.5 mg/dl (8.4-10.2)
[2016-11-17 05:50] LABS: POTASSIUM 4.1 mmol/L (3.5-5.1)
[2016-11-17 05:53] LABS: CREATININE 0.83 mg/dl (0.61-1.24)
[2016-11-17 05:54] LABS: CALCIUM 8.2 mg/dl (8.4-10.2)
[2016-11-17] MEDS: PANTOPRAZOLE 40 MG INJ IV SCH (07:04)
--- NOTE | 2016-11-17 07:11 | RADRPT ---
PROCEDURE: XR Chest 1 View. CLINICAL INDICATION: Shortness of breath TECHNIQUE: AP view of the chest were obtained. COMPARISON: November 16, 2016 FINDINGS: The cardiomediastinal silhouette is within normal limits. Endotracheal tube is stable and appears in grossly appropriate location. Nasogastric tube has its distal end in the expected location of the stomach. The lungs are hyperexpanded. Elevation right hemidiaphragm continues to be identified. L eft lower lobe infiltrates have mildly decreased. Significant residual remains. Right basilar infi ltrates are stable. The osseous structures are unchanged. IMPRESSION: Nasogastric tube with its distal end in the expected location of the stomach. Hyperexpanded lungs with stable elevation of the right hemidiaphragm. Interval decrease in left lower lobe infiltrates. Significant residual remains. Stable infiltrates at the right lung base. RPTAT: AA .Guevara Cloud MD, Date Time Electronically viewed and signed by .Guevara Cloud MD, on 11/17/2016 07:11 .P/
[2016-11-17] MEDS ORDERED: POTASSIUM PHOSPHATE 30 MM in SOD CHLORIDE 0.9% 250 ML IVPB ONE (07:30)
[2016-11-17] MEDS: D5-0.2 NACL + KCL 20 MEQ 1,000 ML IV SCH ×4 (09:29→23:02)
[2016-11-17 10:00] LABS: POTASSIUM 4.1 mmol/L (3.5-5.1)
[2016-11-17 10:02] LABS: CREATININE 0.76 mg/dl (0.61-1.24)
[2016-11-17 10:03] LABS: CALCIUM 8.7 mg/dl (8.4-10.2)
[2016-11-17] MEDS: VANCOMYCIN 1 GM in NS 250 ML IVPB SCH ×2 (10:32→19:10)
--- NOTE | 2016-11-17 12:01 | CONS ---
Date/Time of Note Date/Time of Note DATE: 11/17/16 TIME: 11:58 Assessment/Plan Assessment/Plan Additional Assessment/Plan Chest x-ray was reviewed from yesterday which is showing left lower lobe infiltrate, chest x-ray also was reviewed from today which is showing significant improvement. Ventilator settings; AC of 24, tidal volume 500, PEEP of 5, 50% FiO2. Assessment recommendations; 1. Patient admitted for DKA as well as left lower lobe pneumonia possibly aspiration. 2. Severe metabolic acidosis with interval improvement. 3. History of hypertension. 4. History of noncompliance of medications. Continue current treatment. Continue current antibiotics. IV insulin drip. Fluid resuscitation. Wean down FiO2 to keep O2 sat around 92-94%. Obtain a repeat serum chemistry. Consultation Date/Type/Reason Admit Date/Time 11/16/2016 Date of Consultation: Nov 17, 2016 Type of Consultation: Pulmonary/critical care Reason for Consultation Pulmonary consultation obtained for evaluation of respiratory failure, pneumonia and DKA. History presenting; patient is a 41-year-old [place] male who was brought into the emergency room yesterday after he was found unresponsive at home. Upon evaluation here the patient was found to be in severe diverticular acidosis. He was intubated on scene by paramedics. Chest x-ray also was done which is showing left lower lobe pneumonia. By the time I saw the patient in ER the patient is or intubated sedated and did not appear to be in any distress. History was obtained from medical records. Past medical history; 1. History of diabetes insulin-dependent. 2. Hyperlipidemia. 3. Questionable compliance of medications 4. Hypertension. Allergies; none. Social history; patient is a current smoker. Family history; father has had coronary artery disease. Occupational history; not available. Review of systems; currently unable to be obtained. General exam; young male, or intubated, sedated currently in no distress. Past Medical History Medical History: diabetes, other (non-compliance) Past Surgical History Past Surgical Hx: other (FB removal L eye) Social History Alcohol Use: other (unknown) Smoking Status: Current every day smoker Drug Use: other (urine drug screen (+) for amphetamines) Exam/Review of Systems Vital Signs Vitals Vital Signs Date Time Temp Pulse Resp B/P Pulse Ox O2 Delivery O2 Flow Rate FiO2 11/17/16 11:07 92 28 116/88 100 11/17/16 09:13 Mechanical Ventilator 11/17/16 07:20 50 11/17/16 07:00 100.0 11/16/16 12:33 4.0 Intake and Output 11/16/16 11/16/16 11/17/16 15:00 23:00 07:00 Intake Total 4050 ml 2250 ml 1650 ml Output Total 1600 ml 2100 ml 1150 ml Balance 2450 ml 150 ml 500 ml Exam HEENT examination; supple neck, no JVD. No lymphadenopathy. Midline trachea. No thyromegaly. Orally intubated. No neck masses. Chest examination; clear to auscultation bilaterally. S1-S2 audible, no murmurs. Regular rhythm. Abdomen examination; soft, nondistended. No organomegaly. Bowel sounds audible. Umbilicus is inverted. Extremity examination; no peripheral edema. Pulses 1+ bilaterally. 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 Results Result Diagram: 11/17/16 0350 11/17/16 0920 Results 24 hrs Laboratory Tests Test 11/16/16 12:06 11/16/16 12:10 11/16/16 12:52 11/16/16 13:13 Bedside Glucose > 595 *H Acetaminophen Level < 10.0 L Activated Partial Thromboplast Time 32.2 Anion Gap 35 H Band Neutrophils % 9.0 H Blood Urea Nitrogen 38 H Calcium Level 9.1 Carbon Dioxide Level < 5 *L Chloride Level 91 L Creatinine 1.96 H Ethyl Alcohol Level < 10.0 Glucose Level 1011 *H Hematocrit 47.1 Hemoglobin 16.8 INR International Normalized Ratio 1.17 Lactic Acid Level 2.0 Lymphocytes # 3.9 H Lymphocytes % 12.0 L Mean Corpuscular Hemoglobin 30.3 Mean Corpuscular Hemoglobin Concent 35.7 Mean Corpuscular Volume 85.0 Mean Platelet Volume 10.9 H Monocytes # 1.6 H Monocytes % 5.0 Neutrophils # 24.0 H Neutrophils % 74.0 Platelet Count 341 # Potassium Level 5.4 H Prothrombin Time 15.0 H Prothrombin Time Ratio 1.2 Red Blood Count 5.54 Red Cell Distribution Width 13.0 Salicylates Level < 1.0 L Sodium Level 126 L White Blood Count 32.4 #H Arterial Blood HCO3 2.5 *L Arterial Blood Base Excess -34.1 L Arterial Blood Oxygen Saturation 99.2 H Boy Test ACCEPTAB Arterial Blood Gas Puncture Site Right Brachial Arterial Blood Carboxyhemoglobin 0.3 Arterial Blood Date Drawn 11/16/2016 1:30:58 PM Arterial Blood Methemoglobin 0.2 Arterial Blood pCO2 (Temp correct) 21.7 L Arterial Blood pH (Temp corrected) 6.686 *L Arterial Blood pO2 (Temp corrected) 469.2 H Blood Gas A-a O2 Differential 222.1 H Blood Gas Actual Respiration Rate 24 Blood Gas Critical Value Read Back KYARA Riley MD Blood Gas Low PEEP Setting 5.0 Blood Gas Modality VENT - AC Blood Gas Notified Time 11/16/2016 1:48:42 PM Blood Gas Notified Whom JLD Blood Gas Respiration Rate 24.0 Blood Gas Specimen Source Blood arterial Blood Gas Temperature 37.0 Blood Gas Tidal Volume 500.0 FiO2 100.0 Oxyhemoglobin Percent 98.7 Total Hemoglobin 15.2 Urine Amphetamines Screen POSITIVE Urine Bacteria FEW Urine Barbiturates NEGATIVE Urine Benzodiazepines Screen NEGATIVE Urine Bilirubin NEGATIVE Urine Cannabinoids NEGATIVE Urine Clarity CLEAR Urine Cocaine Screen NEGATIVE Urine Color LT. YELLOW Urine Glucose >=1000 Urine Hemoglobin 2+ H Urine Ketones 3+ H Urine Leukocyte Esterase NEGATIVE Urine Microscopic RBC 2-5 Urine Microscopic WBC 0-2 Urine Nitrite NEGATIVE Urine Opiates Screen NEGATIVE Urine Specific [place] 1.015 Urine Total Protein 1+ H Urine Urobilinogen 0.2 E.U./dL Urine pH 5.0 Test 11/16/16 13:31 11/16/16 14:05 11/16/16 14:10 11/16/16 15:25 Bedside Glucose > 595 *H > 595 *H Anion Gap 30 H Blood Urea Nitrogen 34 H Calcium Level 7.8 L Carbon Dioxide Level < 5 *L Chloride Level 103 # Creatinine 1.43 H Glucose Level 809 #*H Lactic Acid Level 1.4 Potassium Level 4.7 Sodium Level 133 L Troponin I < 0.012 Magnesium Level 2.2 Phosphorus Level 7.8 H Test 11/16/16 16:20 11/16/16 16:36 11/16/16 17:34 11/16/16 17:35 Anion Gap 31 H 31 H Blood Urea Nitrogen 35 H 35 H Calcium Level 8.6 8.7 Carbon Dioxide Level < 5 *L < 5 *L Chloride Level 105 107 Creatinine 1.40 H 1.37 H Glucose Level 769 *H 698 *H Potassium Level 4.4 4.1 Sodium Level 137 139 Bedside Glucose > 595 *H > 595 *H Lactic Acid Level 1.3 Phosphorus Level 6.6 H Test 11/16/16 18:48 11/16/16 19:48 11/16/16 21:10 11/16/16 21:30 Bedside Glucose 593 *H 565 *H 458 *H Anion Gap 26 H Blood Urea Nitrogen 37 H Calcium Level 8.5 Carbon Dioxide Level 7 *L Chloride Level 114 H Creatinine 1.16 Glucose Level 528 #*H Potassium Level 4.9 Sodium Level 142 Troponin I < 0.012 Test 11/16/16 21:33 11/16/16 22:19 11/16/16 23:23 11/16/16 23:40 Arterial Blood HCO3 5.3 *L Arterial Blood Base Excess -24.7 L Arterial Blood Oxygen Saturation 98.2 H Boy Test ACCEPTAB Arterial Blood Gas Puncture Site Right Radial Arterial Blood Carboxyhemoglobin 0.3 Arterial Blood Date Drawn 11/16/2016 9:45:54 PM Arterial Blood Methemoglobin 0.3 Arterial Blood pCO2 (Temp correct) 19.5 L Arterial Blood pH (Temp corrected) 7.032 *L Arterial Blood pO2 (Temp corrected) 118.6 H Blood Gas A-a O2 Differential 219.6 H Blood Gas Actual Respiration Rate 26 Blood Gas Critical Value Read Back QIAN QUINTERO Blood Gas Inspiratory Pressure 18.0 Blood Gas Low PEEP Setting 5.0 Blood Gas Modality VENT - AC Blood Gas Notified Time 11/16/2016 9:58:32 PM Blood Gas Notified Whom Blood Gas Respiration Rate 24.0 Blood Gas Specimen Source Blood arterial Blood Gas Temperature 34.0 Blood Gas Tidal Volume 500.0 FiO2 50.0 Oxyhemoglobin Percent 97.6 Total Hemoglobin 17.5 Bedside Glucose 413 *H 373 H Anion Gap 23 H Blood Urea Nitrogen 37 H Calcium Level 8.3 L Carbon Dioxide Level 9 *L Chloride Level 115 H Creatinine 1.05 Glucose Level 355 #H Potassium Level 4.5 Sodium Level 142 Test 11/17/16 00:51 11/17/16 01:25 11/17/16 02:04 11/17/16 03:03 Bedside Glucose 268 H 276 H 308 H Anion Gap 18 H Blood Urea Nitrogen 36 H Calcium Level 8.1 L Carbon Dioxide Level 11 L Chloride Level 117 H Creatinine 0.95 Glucose Level 272 H Potassium Level 4.4 Sodium Level 142 Test 11/17/16 03:50 11/17/16 04:27 11/17/16 05:12 11/17/16 05:54 Anion Gap 14 15 Basophils # 0.0 Basophils % 0.1 Blood Urea Nitrogen 38 H 36 H Calcium Level 8.5 8.2 L Carbon Dioxide Level 14 L 14 L Chloride Level 119 H 117 H Creatinine 0.87 0.83 Eosinophils # 0.0 Eosinophils % 0.0 Glucose Level 320 H 312 H Hematocrit 40.0 L Hemoglobin 15.2 Lymphocytes # 1.2 Lymphocytes % 6.5 L Mean Corpuscular Hemoglobin 29.8 Mean Corpuscular Hemoglobin Concent 38.0 H Mean Corpuscular Volume 78.4 L Mean Platelet Volume 10.8 H Monocytes # 1.3 H Monocytes % 7.1 Neutrophils # 14.6 H Neutrophils % 82.7 H Nucleated Red Blood Cells # 0.0 Nucleated Red Blood Cells % 0.0 Phosphorus Level 1.9 #L Platelet Count 225 # Potassium Level 4.3 4.1 Red Blood Count 5.10 Red Cell Distribution Width 12.5 Sodium Level 143 142 Troponin I < 0.012 White Blood Count 17.7 #H Bedside Glucose 346 H 314 H Test 11/17/16 07:20 11/17/16 08:38 11/17/16 09:16 11/17/16 09:20 Bedside Glucose 299 H 313 H 297 H Anion Gap 14 Blood Urea Nitrogen 34 H Calcium Level 8.7 Carbon Dioxide Level 15 L Chloride Level 117 H Creatinine 0.76 Glucose Level 294 H Potassium Level 4.1 Sodium Level 142 Test 11/17/16 10:04 11/17/16 11:06 Bedside Glucose 251 H 226 H Medications Medications Current Medications Ondansetron HCl (Zofran Inj) 4 mg Q6H PRN IV NAUSEA AND/OR VOMITING; Start 11/16 at 15:30 Acetaminophen (Tylenol Liquid) 650 mg Q6H PRN PO PAIN LEVEL 1-3 OR FEVER; Start 11/16/16 at 15:30 Morphine Sulfate (morphine) 2 mg Q4H PRN IV PAIN LEVEL 7-10; Start 11/16/16 at 15:30 Pantoprazole (Protonix Iv) 40 mg DAILY@06 IV Last administered on 11/17/16t 07: 04; Admin Dose 40 MG; Start 11/17/16 at 06:00 Dextrose (D50w Syringe) 50 ml Q15M PRN IV For BS 50 or less; Start 11/16/16 at 17:00 Dextrose (D50w Syringe) 25 ml Q15M PRN IV BS between 50-70; Start 11/16/16 at 17 :00 Diagnostic Test (Pha) 1 ea 1 ea Q1H XX Last administered on 11/17/16 09:32; Admin Dose 1 EA; Start 11/16/16 at 17:00 Imipenem/ Cilastatin Sodium 100 ml @ 100 mls/hr Q6 IVPB Last administered on 07:05; Admin Dose 100 MLS/HR; Start 11/17/16 at 00:00 Midazolam HCl 50 ml @ 2 mls/hr TITRATE IV Last administered on 11/17/16 01:45; Admin Dose 2 MLS/HR; Start 11/17/16 at 00:08 Potassium Chloride/Dextrose/ Sod Cl 1,000 ml @ 150 mls/hr Q6H40M IV Last administered on 11/17/16 09:29; Admin Dose 150 MLS/HR; Start 11/17/16 at 07:30 Vancomycin HCl (Vancocin) 250 ml @ 125 mls/hr Q8H IVPB Last administered on 10:32; Admin Dose 125 MLS/HR; Start 11/17/16 at 10:00 Miscellaneous Information (*Rx Drug Level Order Reminder*) VANCO TROUGH @ 0, 100 ON... ONCE ONCE XX ; Start 11/18/16 at 01:00; Stop 11/18/16 at 01:01 RIDDHI VELÁSQUEZ Nov 17, 2016 12:01
[2016-11-17] MEDS: ENOXAPARIN 30 MG/0.3 ML SYG SC SCH (13:27)
--- NOTE | 2016-11-17 14:22 | PN ---
DATE: 11/17/2016 SUBJECTIVE: The patient is intubated and sedated with Versed, on insulin drip, lying comfortably in bed. VITAL SIGNS: Temperature 100, pulse 98, respirations 28, blood pressure 116/88, saturation 100 on 5 0 FIO2. LABORATORY: WBC 17.7, H and H 15.2 and 40, platelets 225, neutrophils 82.7, no bands. BUN 34, crea tinine 0.76. Urinalysis on admission was negative. MICROBIOLOGY: Urine culture negative. DIAGNOSTICS: CT of the brain on admission revealed no evidence of acute intracranial pathology. est x-ray shows left lower lobe infiltrates. INDWELLINGS: NG tube, endotracheal tube, Hooper, peripheral IV. ANTIMICROBIALS: 1. Vancomycin. 2. Imipenem. PHYSICAL EXAMINATION: GENERAL: This is well-developed, middle-aged man who is intubated, sedated and in no distr ess. HEENT: Head atraumatic, normocephalic. Sclerae anicteric. Buccal mucosa dry. NECK: Supple, trachea midline. CHEST: Rise symmetrical. Breath sounds diminished at the bases. HEART: S1, S2. ABDOMEN: Soft. Bowel sounds present. EXTREMITIES: No cyanosis. ASSESSMENT: 1. Sepsis. 2. Diabetic ketoacidosis. 3. Acute respiratory failure. 4. Pneumonia, possibly aspiration. 5. Metabolic acidosis. 6. Polysubstance use. PLAN: The patient remains stable. We are going to send blood and sputum cultures. Continue on cur rent antibiotics. Follow recommendations of consultants. Dictated By: SANJAY GOEL SEO ENGINEER for SARAHY LAGOS/CLAUDY Conf#: [id number] DID#: [id number]
[2016-11-17 14:41] LABS: POTASSIUM 4.1 mmol/L (3.5-5.1)
[2016-11-17 14:43] LABS: CREATININE 0.7 mg/dl (0.61-1.24)
[2016-11-17 14:44] LABS: CALCIUM 8.3 mg/dl (8.4-10.2)
--- NOTE | 2016-11-17 14:51 | PN ---
Date/Time of Note Date/Time of Note DATE: 11/17/16 TIME: 14:46 Assessment/Plan VTE Prophylaxis VTE Prophylaxis Intervention: SCD's Lines/Catheters Urinary Cath still in place: Yes Reason Cath still needed: urinary retention Assessment/Plan Chief Complaint/Hosp Course ASSESSMENT AND PLAN 1. Severe diabetic ketoacidosis with coma. Continue insulin drip. Dr. Andre is asked to see patient in endocrinology consultation. Continue IV fluids. 2. Diabetes mellitus type 2. 3. Severe sepsis. We will follow up on urine, blood and sputum cultures. Dr. Callaway to see patient in infectious disease consultation. Continue broad- spectrum antibiotics. 4. Possible community-acquired pneumonia. 5. Acute respiratory failure. Continue ventilatory support and Dr. Torres is following the patient in pulmonology consultation. 6. Altered level of consciousness. CT head is negative. 7. Amphetamine screen positive. Continue sequential compression device for deep venous thrombosis prophylaxis and Protonix for peptic ulcer disease prophylaxis. Further recommendations based on clinical course. Plan of care discussed with Dr. Ma. Problems: Subjective 24 Hr Interval Summary Free Text/Dictation Patient is continued on insulin drip, restless during sedation vacation, orally intubated on ventilator support and sedation. Patient moves all extremities. Exam/Review of Systems Vital Signs Vitals Vital Signs Date Time Temp Pulse Resp B/P Pulse Ox O2 Delivery O2 Flow Rate FiO2 11/17/16 11:50 98 31 98 50 11/17/16 11:07 116/88 11/17/16 09:13 Mechanical Ventilator 11/17/16 07:00 100.0 11/16/16 12:33 4.0 Intake and Output 11/16/16 11/16/16 11/17/16 15:00 23:00 07:00 Intake Total 4050 ml 2250 ml 1650 ml Output Total 1600 ml 2100 ml 1150 ml Balance 2450 ml 150 ml 500 ml Exam PHYSICAL ASSESSMENT: GENERAL: Well-developed, well-nourished male, currently unresponsive, orally intubated. HEENT: Pupils pinpoint. Oral mucosa is pink and moist. NECK: Supple, no cervical lymphadenopathy, no thyromegaly. LUNGS: Diminished at the bases. CARDIOVASCULAR: Normal S1, S2. No murmurs, gallops, clicks, rubs noted. ABDOMEN: Flat, soft, nondistended, nontender. Bowel sounds hypoactive. EXTREMITIES: There is no edema, clubbing, cyanosis. Pulses equal bilaterally 2 +. SKIN: There is no rash, petechiae noted. NEUROLOGIC: Sedated. Results Result Diagram: 11/17/16 0350 11/17/16 0920 Results 24 hrs Laboratory Tests Test 11/16/16 15:25 11/16/16 16:20 11/16/16 16:36 11/16/16 17:34 Bedside Glucose > 595 *H > 595 *H > 595 *H Anion Gap 31 H Blood Urea Nitrogen 35 H Calcium Level 8.6 Carbon Dioxide Level < 5 *L Chloride Level 105 Creatinine 1.40 H Glucose Level 769 *H Potassium Level 4.4 Sodium Level 137 Test 11/16/16 17:35 11/16/16 18:48 11/16/16 19:48 11/16/16 21:10 Anion Gap 31 H 26 H Blood Urea Nitrogen 35 H 37 H Calcium Level 8.7 8.5 Carbon Dioxide Level < 5 *L 7 *L Chloride Level 107 114 H Creatinine 1.37 H 1.16 Glucose Level 698 *H 528 #*H Lactic Acid Level 1.3 Phosphorus Level 6.6 H Potassium Level 4.1 4.9 Sodium Level 139 142 Bedside Glucose 593 *H 565 *H Troponin I < 0.012 Test 11/16/16 21:30 11/16/16 21:33 11/16/16 22:19 11/16/16 23:23 Bedside Glucose 458 *H 413 *H 373 H Arterial Blood HCO3 5.3 *L Arterial Blood Base Excess -24.7 L Arterial Blood Oxygen Saturation 98.2 H Boy Test ACCEPTAB Arterial Blood Gas Puncture Site Right Radial Arterial Blood Carboxyhemoglobin 0.3 Arterial Blood Date Drawn 11/16/2016 9:45:54 PM Arterial Blood Methemoglobin 0.3 Arterial Blood pCO2 (Temp correct) 19.5 L Arterial Blood pH (Temp corrected) 7.032 *L Arterial Blood pO2 (Temp corrected) 118.6 H Blood Gas A-a O2 Differential 219.6 H Blood Gas Actual Respiration Rate 26 Blood Gas Critical Value Read Back QIAN RN Blood Gas Inspiratory Pressure 18.0 Blood Gas Low PEEP Setting 5.0 Blood Gas Modality VENT - AC Blood Gas Notified Time 11/16/2016 9:58:32 PM Blood Gas Notified Whom MH Blood Gas Respiration Rate 24.0 Blood Gas Specimen Source Blood arterial Blood Gas Temperature 34.0 Blood Gas Tidal Volume 500.0 FiO2 50.0 Oxyhemoglobin Percent 97.6 Total Hemoglobin 17.5 Test 11/16/16 23:40 11/17/16 00:51 11/17/16 01:25 11/17/16 02:04 Anion Gap 23 H 18 H Blood Urea Nitrogen 37 H 36 H Calcium Level 8.3 L 8.1 L Carbon Dioxide Level 9 *L 11 L Chloride Level 115 H 117 H Creatinine 1.05 0.95 Glucose Level 355 #H 272 H Potassium Level 4.5 4.4 Sodium Level 142 142 Bedside Glucose 268 H 276 H Test 11/17/16 03:03 11/17/16 03:50 11/17/16 04:27 11/17/16 05:12 Bedside Glucose 308 H 346 H Anion Gap 14 15 Basophils # 0.0 Basophils % 0.1 Blood Urea Nitrogen 38 H 36 H Calcium Level 8.5 8.2 L Carbon Dioxide Level 14 L 14 L Chloride Level 119 H 117 H Creatinine 0.87 0.83 Eosinophils # 0.0 Eosinophils % 0.0 Glucose Level 320 H 312 H Hematocrit 40.0 L Hemoglobin 15.2 Lymphocytes # 1.2 Lymphocytes % 6.5 L Mean Corpuscular Hemoglobin 29.8 Mean Corpuscular Hemoglobin Concent 38.0 H Mean Corpuscular Volume 78.4 L Mean Platelet Volume 10.8 H Monocytes # 1.3 H Monocytes % 7.1 Neutrophils # 14.6 H Neutrophils % 82.7 H Nucleated Red Blood Cells # 0.0 Nucleated Red Blood Cells % 0.0 Phosphorus Level 1.9 #L Platelet Count 225 # Potassium Level 4.3 4.1 Red Blood Count 5.10 Red Cell Distribution Width 12.5 Sodium Level 143 142 Troponin I < 0.012 White Blood Count 17.7 #H Test 11/17/16 05:54 11/17/16 07:20 11/17/16 08:38 11/17/16 09:16 Bedside Glucose 314 H 299 H 313 H 297 H Test 11/17/16 09:20 11/17/16 10:04 11/17/16 11:06 11/17/16 12:39 Anion Gap 14 Blood Urea Nitrogen 34 H Calcium Level 8.7 Carbon Dioxide Level 15 L Chloride Level 117 H Creatinine 0.76 Glucose Level 294 H Potassium Level 4.1 Sodium Level 142 Bedside Glucose 251 H 226 H 221 H Test 11/17/16 13:28 11/17/16 14:02 Bedside Glucose 173 186 Medications Medications Current Medications Ondansetron HCl (Zofran Inj) 4 mg Q6H PRN IV NAUSEA AND/OR VOMITING; Start 11/16 at 15:30 Acetaminophen (Tylenol Liquid) 650 mg Q6H PRN PO PAIN LEVEL 1-3 OR FEVER; Start 11/16/16 at 15:30 Morphine Sulfate (morphine) 2 mg Q4H PRN IV PAIN LEVEL 7-10; Start 11/16/16 at 15:30 Pantoprazole (Protonix Iv) 40 mg DAILY@06 IV Last administered on 11/17/16 07: 04; Admin Dose 40 MG; Start 11/17/16 at 06:00 Dextrose (D50w Syringe) 50 ml Q15M PRN IV For BS 50 or less; Start 11/16/16 at 17:00 Dextrose (D50w Syringe) 25 ml Q15M PRN IV BS between 50-70; Start 11/16/16 at 17 :00 Diagnostic Test (Pha) 1 ea 1 ea Q1H XX Last administered on 11/17/16 14:03; Admin Dose 1 EA; Start 11/16/16 at 17:00 Imipenem/ Cilastatin Sodium 100 ml @ 100 mls/hr Q6 IVPB Last administered on 13:26; Admin Dose 100 MLS/HR; Start 11/17/16 at 00:00 Midazolam HCl 50 ml @ 2 mls/hr TITRATE IV Last administered on 11/17/16 01:45; Admin Dose 2 MLS/HR; Start 11/17/16 at 00:08 Potassium Chloride/Dextrose/ Sod Cl 1,000 ml @ 200 mls/hr Q5H IV Last administered on 11/17/16 14:05; Admin Dose 200 MLS/HR; Start 11/17/16 at 07:30 Vancomycin HCl (Vancocin) 250 ml @ 125 mls/hr Q8H IVPB Last administered on 10:32; Admin Dose 125 MLS/HR; Start 11/17/16 at 10:00 Miscellaneous Information (*Rx Drug Level Order Reminder*) VANCO TROUGH @ 0, 100 ON... ONCE ONCE XX ; Start 11/18/16 at 01:00; Stop 11/18/16 at 01:01 Enoxaparin Sodium (Lovenox) 30 mg DAILY SC Last administered on 11/17/16t 13:27 ; Admin Dose 30 MG; Start 11/17/16 at 13:00 Eye Lubricant (Artificial Tears Oph) 2 drop QID BOTH EYES ; Start 11/17/16 at 17: 00 ALEA WHITAKER Nov 17, 2016 14:50
--- NOTE | 2016-11-17 16:21 | CONS ---
Date/Time of Note Date/Time of Note DATE: 11/17/16 TIME: 16:16 Assessment/Plan Assessment/Plan Problems: (1) DKA (diabetic ketoacidoses) Status: Acute Comment: DKA nearing resolution. AG closed. Have reduced tonicity of IVF in attempt to allow CO2 to increase as Cl- decreases. Expect by next lab draw, CO2 will be normal or near enough to normal that pt. can safely be switched to insulin drip protocol to control blood glucose and allow primary team to attempt to recover him from the rest of his critical state. Qualifiers: Diabetes mellitus type: other specified (including ROBERT) Diabetes mellitus complication detail: with coma Qualified Code: E13.11 - Diabetic ketoacidosis with coma associated with other specified diabetes mellitus Consultation Date/Type/Reason Admit Date/Time Nov 17, 2016 at 11:30 Initial Consult Date 11/17/16 Type of Consultation: Endocirnology Reason for Consultation DKA Referring Provider: ALEA WHITAKER 24 HR Interval Summary Subjective hx not possible: pt non-verbal, pt critical status Exam/Review of Systems Vital Signs Vitals VS - Last 72 Hours, by Label Date Time Temp Pulse Resp B/P Pulse Ox O2 Delivery O2 Flow Rate FiO2 11/17/16 15:10 96 28 100 35 11/17/16 13:50 96 28 100 40 11/17/16 11:50 98 31 98 50 11/17/16 11:07 92 28 116/88 100 11/17/16 09:13 94 28 15/79 100 Mechanical Ventilator 11/17/16 08:49 92 27 113/77 100 11/17/16 07:20 94 27 100 50 11/17/16 07:00 100.0 93 26 122/75 100 Mechanical Ventilator 11/17/16 06:20 99.6 94 26 96/74 100 11/17/16 05:32 98 23 89/67 100 Mechanical Ventilator 11/17/16 04:50 101 28 100 50 11/17/16 04:43 100 11/17/16 04:14 99 30 101/74 100 Mechanical Ventilator 11/17/16 03:25 100 27 100 50 11/17/16 01:59 111 35 95/64 100 Mechanical Ventilator 11/17/16 01:38 99.5 11/17/16 01:37 112 35 96/63 100 Mechanical Ventilator 11/17/16 01:05 108 30 100 50 11/17/16 00:58 112 33 96/63 100 Mechanical Ventilator 11/17/16 00:05 99.5 115 31 91/59 100 BIPAP 11/17/16 00:00 114 11/16/16 23:53 114 31 91/59 100 Mechanical Ventilator 11/16/16 23:15 110 29 100 50 11/16/16 22:48 96.2 103 30 97/64 100 Mechanical Ventilator 102 11/16/16 21:33 92.8 96 25 87/56 99 11/16/16 21:15 95 26 100 50 11/16/16 20:52 89 18 91/64 100 Mechanical Ventilator 11/16/16 20:05 80 28 100 50 11/16/16 19:44 88.9 77 24 98/66 100 Mechanical Ventilator 11/16/16 18:15 67 20 104/70 100 Mechanical Ventilator 11/16/16 17:30 96.8 63 20 110/80 100 Mechanical Ventilator 11/16/16 17:01 58 24 100 70 11/16/16 16:45 61 20 108/77 100 Mechanical Ventilator 11/16/16 15:45 57 20 117/86 100 Mechanical Ventilator 11/16/16 15:30 95.8 60 20 125/89 100 11/16/16 15:20 53 24 70 11/16/16 14:45 53 21 118/84 100 Mechanical Ventilator 11/16/16 14:15 53 21 115/78 100 Mechanical Ventilator 11/16/16 13:31 84.5 60 20 121/86 100 11/16/16 13:28 59 24 100 100 11/16/16 13:15 60 20 121/86 100 Mechanical Ventilator 11/16/16 12:33 49 10 111/76 100 Nasal Cannula 4.0 11/16/16 11:56 97.0 61 12 89 Vital Signs Date Time Temp Pulse Resp B/P Pulse Ox O2 Delivery O2 Flow Rate FiO2 11/17/16 15:10 96 28 100 35 11/17/16 11:07 116/88 11/17/16 09:13 Mechanical Ventilator 11/17/16 07:00 100.0 11/16/16 12:33 4.0 Intake and Output 11/16/16 11/16/16 11/17/16 15:00 23:00 07:00 Intake Total 4050 ml 2250 ml 1650 ml Output Total 1600 ml 2100 ml 1150 ml Balance 2450 ml 150 ml 500 ml Exam Constitutional: non-verbal, well developed, No alert ENMT: intubated Respiratory: clear to auscultation, normal air movement Cardiovascular: nl pulses, regular rate and rhythm, No edema, No murmurs/extra sounds, No rub Gastrointestinal: bowel sounds, nl liver, spleen, non-tender, soft, No mass, No rebound or guarding Musculoskeletal: nl extremities to inspection Extremities: normal pulses, No clubbing, No cyanosis, No edema Neurological: unresponsive Additional Comments Bedside Glucose - 72 Hours Test 11/16/16 12:06 11/16/16 13:31 11/16/16 15:25 11/16/16 16:36 Bedside Glucose > 595mg/dL (70-220) *H > 595mg/dL (70-220) *H > 595mg/dL (70-220) *H > 595mg/dL (70-220) *H Test 11/16/16 17:34 11/16/16 18:48 11/16/16 19:48 11/16/16 21:30 Bedside Glucose > 595mg/dL (70-220) *H 593mg/dL (70-220) *H 565mg/dL (70-220) *H 458mg/dL (70-220) *H Test 11/16/16 22:19 11/16/16 23:23 11/17/16 00:51 11/17/16 02:04 Bedside Glucose 413mg/dL (70-220) *H 373mg/dL (70-220) H 268mg/dL (70-220) H 276mg/dL (70-220) H Test 11/17/16 03:03 11/17/16 04:27 11/17/16 05:54 11/17/16 07:20 Bedside Glucose 308mg/dL (70-220) H 346mg/dL (70-220) H 314mg/dL (70-220) H 299mg/dL (70-220) H Test 11/17/16 08:38 11/17/16 09:16 11/17/16 10:04 11/17/16 11:06 Bedside Glucose 313mg/dL (70-220) H 297mg/dL (70-220) H 251mg/dL (70-220) H 226mg/dL (70-220) H Test 11/17/16 12:39 11/17/16 13:28 11/17/16 14:02 11/17/16 15:15 Bedside Glucose 221mg/dL (70-220) H 173mg/dL (70-220) 186mg/dL (70-220) 163mg/dL (70-220) Results Result Diagram: 11/17/16 0350 11/17/16 1340 Results 24 hrs Laboratory Tests Test 11/16/16 16:20 11/16/16 16:36 11/16/16 17:34 11/16/16 17:35 Anion Gap 31 H 31 H Blood Urea Nitrogen 35 H 35 H Calcium Level 8.6 8.7 Carbon Dioxide Level < 5 *L < 5 *L Chloride Level 105 107 Creatinine 1.40 H 1.37 H Glucose Level 769 *H 698 *H Potassium Level 4.4 4.1 Sodium Level 137 139 Bedside Glucose > 595 *H > 595 *H Lactic Acid Level 1.3 Phosphorus Level 6.6 H Test 11/16/16 18:48 11/16/16 19:48 11/16/16 21:10 11/16/16 21:30 Bedside Glucose 593 *H 565 *H 458 *H Anion Gap 26 H Blood Urea Nitrogen 37 H Calcium Level 8.5 Carbon Dioxide Level 7 *L Chloride Level 114 H Creatinine 1.16 Glucose Level 528 #*H Potassium Level 4.9 Sodium Level 142 Troponin I < 0.012 Test 11/16/16 21:33 11/16/16 22:19 11/16/16 23:23 11/16/16 23:40 Arterial Blood HCO3 5.3 *L Arterial Blood Base Excess -24.7 L Arterial Blood Oxygen Saturation 98.2 H Boy Test ACCEPTAB Arterial Blood Gas Puncture Site Right Radial Arterial Blood Carboxyhemoglobin 0.3 Arterial Blood Date Drawn 11/16/2016 9:45:54 PM Arterial Blood Methemoglobin 0.3 Arterial Blood pCO2 (Temp correct) 19.5 L Arterial Blood pH (Temp corrected) 7.032 *L Arterial Blood pO2 (Temp corrected) 118.6 H Blood Gas A-a O2 Differential 219.6 H Blood Gas Actual Respiration Rate 26 Blood Gas Critical Value Read Back QIAN RN Blood Gas Inspiratory Pressure 18.0 Blood Gas Low PEEP Setting 5.0 Blood Gas Modality VENT - AC Blood Gas Notified Time 11/16/2016 9:58:32 PM Blood Gas Notified Whom Blood Gas Respiration Rate 24.0 Blood Gas Specimen Source Blood arterial Blood Gas Temperature 34.0 Blood Gas Tidal Volume 500.0 FiO2 50.0 Oxyhemoglobin Percent 97.6 Total Hemoglobin 17.5 Bedside Glucose 413 *H 373 H Anion Gap 23 H Blood Urea Nitrogen 37 H Calcium Level 8.3 L Carbon Dioxide Level 9 *L Chloride Level 115 H Creatinine 1.05 Glucose Level 355 #H Potassium Level 4.5 Sodium Level 142 Test 11/17/16 00:51 11/17/16 01:25 11/17/16 02:04 11/17/16 03:03 Bedside Glucose 268 H 276 H 308 H Anion Gap 18 H Blood Urea Nitrogen 36 H Calcium Level 8.1 L Carbon Dioxide Level 11 L Chloride Level 117 H Creatinine 0.95 Glucose Level 272 H Potassium Level 4.4 Sodium Level 142 Test 11/17/16 03:50 11/17/16 04:27 11/17/16 05:12 11/17/16 05:54 Anion Gap 14 15 Basophils # 0.0 Basophils % 0.1 Blood Urea Nitrogen 38 H 36 H Calcium Level 8.5 8.2 L Carbon Dioxide Level 14 L 14 L Chloride Level 119 H 117 H Creatinine 0.87 0.83 Eosinophils # 0.0 Eosinophils % 0.0 Glucose Level 320 H 312 H Hematocrit 40.0 L Hemoglobin 15.2 Lymphocytes # 1.2 Lymphocytes % 6.5 L Mean Corpuscular Hemoglobin 29.8 Mean Corpuscular Hemoglobin Concent 38.0 H Mean Corpuscular Volume 78.4 L Mean Platelet Volume 10.8 H Monocytes # 1.3 H Monocytes % 7.1 Neutrophils # 14.6 H Neutrophils % 82.7 H Nucleated Red Blood Cells # 0.0 Nucleated Red Blood Cells % 0.0 Phosphorus Level 1.9 #L Platelet Count 225 # Potassium Level 4.3 4.1 Red Blood Count 5.10 Red Cell Distribution Width 12.5 Sodium Level 143 142 Troponin I < 0.012 White Blood Count 17.7 #H Bedside Glucose 346 H 314 H Test 11/17/16 07:20 11/17/16 08:38 11/17/16 09:16 11/17/16 09:20 Bedside Glucose 299 H 313 H 297 H Anion Gap 14 Blood Urea Nitrogen 34 H Calcium Level 8.7 Carbon Dioxide Level 15 L Chloride Level 117 H Creatinine 0.76 Glucose Level 294 H Potassium Level 4.1 Sodium Level 142 Test 11/17/16 10:04 11/17/16 11:06 11/17/16 12:39 11/17/16 13:28 Bedside Glucose 251 H 226 H 221 H 173 Test 11/17/16 13:40 11/17/16 14:02 11/17/16 15:15 Anion Gap 14 Blood Urea Nitrogen 31 H Calcium Level 8.3 L Carbon Dioxide Level 17 L Chloride Level 115 H Creatinine 0.70 Glucose Level 191 # Potassium Level 4.1 Sodium Level 142 Bedside Glucose 186 163 Medications Medications Current Medications Ondansetron HCl (Zofran Inj) 4 mg Q6H PRN IV NAUSEA AND/OR VOMITING; Start 11/16 at 15:30 Acetaminophen (Tylenol Liquid) 650 mg Q6H PRN PO PAIN LEVEL 1-3 OR FEVER; Start 11/16/16 at 15:30 Morphine Sulfate (morphine) 2 mg Q4H PRN IV PAIN LEVEL 7-10; Start 11/16/16 at 15:30 Pantoprazole (Protonix Iv) 40 mg DAILY@06 IV Last administered on 11/17/16 07: 04; Admin Dose 40 MG; Start 11/17/16 at 06:00 Dextrose (D50w Syringe) 50 ml Q15M PRN IV For BS 50 or less; Start 11/16/16 at 17:00 Dextrose (D50w Syringe) 25 ml Q15M PRN IV BS between 50-70; Start 11/16/16 at 17 :00 Diagnostic Test (Pha) 1 ea 1 ea Q1H XX Last administered on 11/17/16 15:18; Admin Dose 1 EA; Start 11/16/16 at 17:00 Imipenem/ Cilastatin Sodium 100 ml @ 100 mls/hr Q6 IVPB Last administered on 13:26; Admin Dose 100 MLS/HR; Start 11/17/16 at 00:00 Midazolam HCl 50 ml @ 2 mls/hr TITRATE IV Last administered on 11/17/16 01:45; Admin Dose 2 MLS/HR; Start 11/17/16 at 00:08 Potassium Chloride/Dextrose/ Sod Cl 1,000 ml @ 200 mls/hr Q5H IV Last administered on 11/17/16 14:05; Admin Dose 200 MLS/HR; Start 11/17/16 at 07:30 Vancomycin HCl (Vancocin) 250 ml @ 125 mls/hr Q8H IVPB Last administered on 10:32; Admin Dose 125 MLS/HR; Start 11/17/16 at 10:00 Miscellaneous Information (*Rx Drug Level Order Reminder*) VANCO TROUGH @ 0, 100 ON... ONCE ONCE XX ; Start 11/18/16 at 01:00; Stop 11/18/16 at 01:01 Enoxaparin Sodium (Lovenox) 30 mg DAILY SC Last administered on 11/17/16 13:27 ; Admin Dose 30 MG; Start 11/17/16 at 13:00 Eye Lubricant (Artificial Tears Oph) 2 drop QID BOTH EYES ; Start 11/17/16 at 17: 00 ROGE PAEZ MD Nov 17, 2016 16:20
[2016-11-17] MEDS ORDERED: DEXTROSE 50% 50 ML SYRINGE IV PRN ×2 (17:30)
[2016-11-17 18:06] LABS: POTASSIUM 3.8 mmol/L (3.5-5.1)
[2016-11-17] MEDS: ARTIFICIAL TEARS 15 ML OPH BOTH EYES SCH ×2 (18:06→21:03)
[2016-11-17 18:09] LABS: CREATININE 0.55 mg/dl (0.61-1.24)
[2016-11-17 18:10] LABS: CALCIUM 8.5 mg/dl (8.4-10.2)
[2016-11-17] MEDS: INSULIN REGULAR, HUMAN 100 UNIT in SOD CHLORIDE 0.9% 99 ML IV SCH ×2 (18:16)
[2016-11-17] MEDS ORDERED: MIDAZOLAM (DRIP) 50 mg/50 mL 50 ML IV SCH (18:30)
[2016-11-17 21:36] LABS: POTASSIUM 3.7 mmol/L (3.5-5.1)
[2016-11-17 21:38] LABS: CREATININE 0.57 mg/dl (0.61-1.24)
[2016-11-17 21:39] LABS: CALCIUM 8.7 mg/dl (8.4-10.2)
[2016-11-18] VITALS (40 sets, daily range): BP systolic 120–153; BP diastolic 78–100; PULSE 81–97; RESP 14–26
[2016-11-18] MEDS: morphine 2 MG INJ IV PRN ×2 (00:11→07:36)
[2016-11-18] MEDS: IMIPENEM-CILAST 500MG IV (PMX) 100 ML IVPB SCH ×5 (00:14→23:54)
[2016-11-18] MEDS: ACCU-CHEK XX SCH ×16 (00:15→23:54)
[2016-11-18] MEDS: VANCOMYCIN 1 GM in NS 250 ML IVPB SCH ×2 (02:30→10:36)
[2016-11-18] MEDS: D5-0.2 NACL + KCL 20 MEQ 1,000 ML IV SCH ×5 (05:03→21:00)
[2016-11-18] MEDS: PANTOPRAZOLE 40 MG INJ IV SCH (05:55)
[2016-11-18 07:21] LABS: ADD SCAN DIFF NO
[2016-11-18 07:26] LABS: BASOPHILS % 0.2 % (0.0-2.0); EOSINOPHILS # 0.1 10^3/ul (0.0-0.5); EOSINOPHILS % 0.3 % (0.0-7.0); HEMATOCRIT 39.6 % (42.0-52.0); HEMOGLOBIN 14.8 g/dl (14.0-18.0); LYMPHOCYTES # 3.1 10^3/ul (0.8-2.9); LYMPHOCYTES % 19.9 % (15.0-51.0); MEAN CORPUSCULAR HGB CONC 37.4 g/dl (32.0-37.0); MEAN CORPUSCULAR VOLUME 80.3 fl (82.0-101.0); MEAN PLATELET VOLUME 10.4 fl (7.4-10.4); MONOCYTE # 1.1 10^3/ul (0.3-0.9); NEUTROPHIL # 11.1 10^3/ul (1.6-7.5); NEUTROPHILS % 70.1 % (39.0-77.0); PLATELET COUNT 167 10^3/UL (140-415); RED BLOOD COUNT 4.93 10^6/ul (4.70-6.10); RED CELL DISTRIBUTION WIDTH 13.5 % (11.5-14.5); WHITE BLOOD COUNT 15.8 10^3/ul (4.8-10.8)
[2016-11-18 07:41] LABS: POTASSIUM 3.4 mmol/L (3.5-5.1)
[2016-11-18 07:44] LABS: CREATININE 0.47 mg/dl (0.61-1.24)
[2016-11-18 07:45] LABS: CALCIUM 8.5 mg/dl (8.4-10.2)
[2016-11-18] MEDS: ARTIFICIAL TEARS 15 ML OPH BOTH EYES SCH ×4 (08:24→20:15)
--- NOTE | 2016-11-18 08:55 | PN ---
Date/Time of Note Date/Time of Note DATE: 11/18/16 TIME: 08:38 Assessment/Plan VTE Prophylaxis VTE Prophylaxis Intervention: SCD's Lines/Catheters IV Catheter Type (from [facility]): Peripheral IV Urinary Cath still in place: Yes Reason Cath still needed: urinary retention Assessment/Plan Assessment/Plan 1. Severe diabetic ketoacidosis with coma. Continue insulin drip. - Dr. Andre in endocrinology consultation. - Continue IV fluids. 2. Diabetes mellitus type 2. - Glycemic control 3. Severe sepsis. - per Dr. Callaway in infectious disease consultation. Continue broad- spectrum antibiotics. - follow up on urine, blood and sputum cultures. 4. Possible community-acquired pneumonia. 5. Acute respiratory failure. - per Dr. Torres in pulmonology consultation. - Continue ventilatory support and 6. Altered level of consciousness. CT head is negative. 7. Amphetamine screen positive. 8. Hypokalemia- replet KCL, AM LABS 9. Amphetamine screen positive. 10. Sequential compression device for deep venous thrombosis prophylaxis 11. Protonix for peptic ulcer disease prophylaxis. Further recommendations based on clinical course. Total critical time spent is 40 mins.Plan of care discussed with Dr. Ma. Subjective 24 Hr Interval Summary Free Text/Dictation NAD, patient remains intubated, bs stable, ogt noted- connected to low intermittent suction, on versed at 5mcg/hr, insulin drip, d5 1/4 NS + 2- k , sacrum/coccyx DTI . afebrile. dw staff Subjective hx not possible: pt non-verbal Constitutional: requiring IVF, requiring O2 Exam/Review of Systems Vital Signs Vitals Vital Signs Date Time Temp Pulse Resp B/P Pulse Ox O2 Delivery O2 Flow Rate FiO2 11/18/16 08:00 88 24 123/86 100 Mechanical Ventilator 11/18/16 07:30 98.2 11/18/16 05:19 30 11/16/16 12:33 4.0 Intake and Output 11/17/16 11/17/16 11/18/16 15:00 23:00 07:00 Intake Total 9 ml 733.5 ml 1210.5 ml Output Total 1350 ml 1805 ml 1190 ml Balance -1341 ml -1071.5 ml 20.5 ml Exam Constitutional: non-verbal Psych: confusion Head: atraumatic Eyes: nl sclera ENMT: nl external ears & nose Neck: non-tender Respiratory: diminished breath sounds (bilateral at bases) Cardiovascular: nl pulses Gastrointestinal: non-tender, soft Musculoskeletal: nl extremities to inspection Extremities: normal pulses Neurological: unresponsive Skin: other (sacrum/coccyx DTI) Lymph: nontender Results Result Diagram: 11/18/16 0700 11/18/16 0700 Results 24 hrs Laboratory Tests Test 11/17/16 09:16 11/17/16 09:20 11/17/16 10:04 11/17/16 11:06 Bedside Glucose 297 H 251 H 226 H Anion Gap 14 Blood Urea Nitrogen 34 H Calcium Level 8.7 Carbon Dioxide Level 15 L Chloride Level 117 H Creatinine 0.76 Glucose Level 294 H Potassium Level 4.1 Sodium Level 142 Test 11/17/16 12:39 11/17/16 13:28 11/17/16 13:40 11/17/16 14:02 Bedside Glucose 221 H 173 186 Anion Gap 14 Blood Urea Nitrogen 31 H Calcium Level 8.3 L Carbon Dioxide Level 17 L Chloride Level 115 H Creatinine 0.70 Glucose Level 191 # Potassium Level 4.1 Sodium Level 142 Test 11/17/16 15:15 11/17/16 17:02 11/17/16 17:17 11/17/16 18:07 Bedside Glucose 163 136 151 Anion Gap 12 Blood Urea Nitrogen 28 H Calcium Level 8.5 Carbon Dioxide Level 17 L Chloride Level 115 H Creatinine 0.55 L Glucose Level 161 Potassium Level 3.8 Sodium Level 140 Test 11/17/16 19:12 11/17/16 20:03 11/17/16 20:35 11/17/16 21:00 Bedside Glucose 209 211 176 Anion Gap 12 Blood Urea Nitrogen 26 H Calcium Level 8.7 Carbon Dioxide Level 19 L Chloride Level 113 H Creatinine 0.57 L Glucose Level 192 Potassium Level 3.7 Sodium Level 140 Test 11/17/16 21:52 11/17/16 22:55 11/17/16 23:52 11/18/16 00:53 Bedside Glucose 196 239 H 227 H 143 Test 11/18/16 00:55 11/18/16 01:50 11/18/16 02:55 11/18/16 04:52 Vancomycin Level Trough 16.2 Bedside Glucose 91 91 120 Test 11/18/16 06:55 11/18/16 07:00 Bedside Glucose 111 Anion Gap 11 Basophils # 0.0 Basophils % 0.2 Blood Urea Nitrogen 20 Calcium Level 8.5 Carbon Dioxide Level 19 L Chloride Level 114 H Creatinine 0.47 L Eosinophils # 0.1 Eosinophils % 0.3 Glucose Level 112 # Hematocrit 39.6 L Hemoglobin 14.8 Lymphocytes # 3.1 H Lymphocytes % 19.9 Mean Corpuscular Hemoglobin 30.0 Mean Corpuscular Hemoglobin Concent 37.4 H Mean Corpuscular Volume 80.3 L Mean Platelet Volume 10.4 Monocytes # 1.1 H Monocytes % 7.0 Neutrophils # 11.1 H Neutrophils % 70.1 Nucleated Red Blood Cells # 0.0 Nucleated Red Blood Cells % 0.0 Platelet Count 167 # Potassium Level 3.4 L Red Blood Count 4.93 Red Cell Distribution Width 13.5 Sodium Level 141 White Blood Count 15.8 H Medications Medications Current Medications Ondansetron HCl (Zofran Inj) 4 mg Q6H PRN IV NAUSEA AND/OR VOMITING; Start 11/16 at 15:30 Acetaminophen (Tylenol Liquid) 650 mg Q6H PRN PO PAIN LEVEL 1-3 OR FEVER; Start 11/16/16 at 15:30 Morphine Sulfate (morphine) 2 mg Q4H PRN IV PAIN LEVEL 7-10 Last administered on 11/18/16 07:36; Admin Dose 2 MG; Start 11/16/16 at 15:30 Pantoprazole 40 mg 40 mg DAILY@06 IV Last administered on 11/18/16 05:55; Admin Dose 40 MG; Start 11/17/16 at 06:00 Imipenem/ Cilastatin Sodium 100 ml @ 100 mls/hr Q6 IVPB Last administered on 05:55; Admin Dose 100 MLS/HR; Start 11/17/16 at 00:00 Midazolam HCl 50 ml @ 2 mls/hr TITRATE IV Last administered on 11/17/16 23:02; Admin Dose 2 MLS/HR; Start 11/17/16 at 00:08 Potassium Chloride/Dextrose/ Sod Cl 1,000 ml @ 200 mls/hr Q5H IV Last administered on 11/18/16 08:23; Admin Dose 200 MLS/HR; Start 11/17/16 at 07:30 Vancomycin HCl (Vancocin) 250 ml @ 125 mls/hr Q8H IVPB Last administered on 02:30; Admin Dose 125 MLS/HR; Start 11/17/16 at 10:00 Enoxaparin Sodium (Lovenox) 30 mg DAILY SC Last administered on 11/17/16 13:27 ; Admin Dose 30 MG; Start 11/17/16 at 13:00 Eye Lubricant (Artificial Tears Oph) 2 drop QID BOTH EYES Last administered on 11/18/16 08:24; Admin Dose 2 DROP; Start 11/17/16 at 17:00 Dextrose (D50w Syringe) 25 ml Q15M PRN IV Till BS 80 mg/dL or above x2; Start 11/17/16 at 17:30 Dextrose 50 ml 50 ml Q15M PRN IV Till BS 80 mg/dL or above x2; Start 11/17/16 at 17:30 Midazolam HCl (Versed) 50 ml @ 1 mls/hr TITRATE IV ; Start 11/17/16 at 18:30 Diagnostic Test (Pha) (Accucheck) 1 ea Q2 XX ; Start 11/18/16 at 09:00 HANNAH DIAS Nov 18, 2016 08:51
[2016-11-18] MEDS: ENOXAPARIN 30 MG/0.3 ML SYG SC SCH (09:00)
[2016-11-18] MEDS ORDERED: POTASSIUM CHLORIDE 20 MEQ in SOD CHLORIDE 0.9% 100 ML IVPB ONE (09:00)
[2016-11-18] MEDS ORDERED: POTASSIUM CHLORIDE 50 ML IVPB SCH (09:00)
--- NOTE | 2016-11-18 09:50 | CONS ---
Date/Time of Note Date/Time of Note DATE: 11/18/16 TIME: 09:46 Assessment/Plan Assessment/Plan Additional Assessment/Plan Ventilator settings; AC of 24, tidal volume 500, PEEP of 5, 40% FiO2. Assessment recommendations; 1. Patient admitted for DKA and respiratory failure, with interval resolution of DKA. 2. Left lower lobe pneumonia with significant radiological improvement. Possibly aspiration pneumonia. 3. History of diabetes with frequent admissions. 4. History of hypertension. 5. History of noncompliance with medications. Decrease assist control rate to 14, discontinue sedation. When the patient is off sedation, he will be evaluated for weaning from ventilator. Meanwhile continue current treatment. We will plan on follow-up chest x-ray in 24 hours. Consultation Date/Type/Reason Admit Date/Time Nov 17, 2016 at 11:30 Initial Consult Date 11/17/16 Type of Consultation: Pulmonary/critical care Referring Provider: ALEA WHITAKER 24 HR Interval Summary Free Text/Dictation Patient condition remains critical. Still on full ventilatory support. Patient also has been on Versed drip for sedation. Has remained hemodynamically stable. Next General examination; young male, orally intubated, sedated. Currently in no distress Exam/Review of Systems Vital Signs Vitals Vital Signs Date Time Temp Pulse Resp B/P Pulse Ox O2 Delivery O2 Flow Rate FiO2 11/18/16 08:00 88 24 123/86 100 Mechanical Ventilator 11/18/16 07:30 98.2 11/18/16 05:19 30 11/16/16 12:33 4.0 Intake and Output 11/17/16 11/17/16 11/18/16 15:00 23:00 07:00 Intake Total 9 ml 733.5 ml 1210.5 ml Output Total 1350 ml 1805 ml 1190 ml Balance -1341 ml -1071.5 ml 20.5 ml Exam HEENT exam; supple, no JVD. No lymphadenopathy. Midline trachea. No thyromegaly. Orally intubated. Pupils are equal bilaterally. Fair dentition. No neck masses. Chest examination; clear to auscultation bilaterally. S1-S2 audible, no murmurs. Regular rhythm. Abdomen examination; soft, nondistended. No organomegaly. Both audible. Extremity examination; no peripheral edema. Pulses 2+ bilaterally. There is no clubbing. 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 Results Result Diagram: 11/18/16 0700 11/18/16 0700 Results 24 hrs Laboratory Tests Test 11/17/16 10:04 11/17/16 11:06 11/17/16 12:39 11/17/16 13:28 Bedside Glucose 251 H 226 H 221 H 173 Test 11/17/16 13:40 11/17/16 14:02 11/17/16 15:15 11/17/16 17:02 Anion Gap 14 Blood Urea Nitrogen 31 H Calcium Level 8.3 L Carbon Dioxide Level 17 L Chloride Level 115 H Creatinine 0.70 Glucose Level 191 # Potassium Level 4.1 Sodium Level 142 Bedside Glucose 186 163 136 Test 11/17/16 17:17 11/17/16 18:07 11/17/16 19:12 11/17/16 20:03 Anion Gap 12 Blood Urea Nitrogen 28 H Calcium Level 8.5 Carbon Dioxide Level 17 L Chloride Level 115 H Creatinine 0.55 L Glucose Level 161 Potassium Level 3.8 Sodium Level 140 Bedside Glucose 151 209 211 Test 11/17/16 20:35 11/17/16 21:00 11/17/16 21:52 11/17/16 22:55 Anion Gap 12 Blood Urea Nitrogen 26 H Calcium Level 8.7 Carbon Dioxide Level 19 L Chloride Level 113 H Creatinine 0.57 L Glucose Level 192 Potassium Level 3.7 Sodium Level 140 Bedside Glucose 176 196 239 H Test 11/17/16 23:52 11/18/16 00:53 11/18/16 00:55 11/18/16 01:50 Bedside Glucose 227 H 143 91 Vancomycin Level Trough 16.2 Test 11/18/16 02:55 11/18/16 04:52 11/18/16 06:55 11/18/16 07:00 Bedside Glucose 91 120 111 Anion Gap 11 Basophils # 0.0 Basophils % 0.2 Blood Urea Nitrogen 20 Calcium Level 8.5 Carbon Dioxide Level 19 L Chloride Level 114 H Creatinine 0.47 L Eosinophils # 0.1 Eosinophils % 0.3 Glucose Level 112 # Hematocrit 39.6 L Hemoglobin 14.8 Lymphocytes # 3.1 H Lymphocytes % 19.9 Mean Corpuscular Hemoglobin 30.0 Mean Corpuscular Hemoglobin Concent 37.4 H Mean Corpuscular Volume 80.3 L Mean Platelet Volume 10.4 Monocytes # 1.1 H Monocytes % 7.0 Neutrophils # 11.1 H Neutrophils % 70.1 Nucleated Red Blood Cells # 0.0 Nucleated Red Blood Cells % 0.0 Platelet Count 167 # Potassium Level 3.4 L Red Blood Count 4.93 Red Cell Distribution Width 13.5 Sodium Level 141 White Blood Count 15.8 H Test 11/18/16 08:54 Bedside Glucose 150 Medications Medications Current Medications Ondansetron HCl (Zofran Inj) 4 mg Q6H PRN IV NAUSEA AND/OR VOMITING; Start 11/16 at 15:30 Acetaminophen (Tylenol Liquid) 650 mg Q6H PRN PO PAIN LEVEL 1-3 OR FEVER; Start 11/16/16 at 15:30 Morphine Sulfate (morphine) 2 mg Q4H PRN IV PAIN LEVEL 7-10 Last administered on 11/18/16 07:36; Admin Dose 2 MG; Start 11/16/16 at 15:30 Pantoprazole 40 mg 40 mg DAILY@06 IV Last administered on 11/18/16 05:55; Admin Dose 40 MG; Start 11/17/16 at 06:00 Imipenem/ Cilastatin Sodium 100 ml @ 100 mls/hr Q6 IVPB Last administered on 05:55; Admin Dose 100 MLS/HR; Start 11/17/16 at 00:00 Midazolam HCl 50 ml @ 2 mls/hr TITRATE IV Last administered on 11/17/16 23:02; Admin Dose 2 MLS/HR; Start 11/17/16 at 00:08 Potassium Chloride/Dextrose/ Sod Cl 1,000 ml @ 200 mls/hr Q5H IV Last administered on 11/18/16 08:23; Admin Dose 200 MLS/HR; Start 11/17/16 at 07:30 Vancomycin HCl (Vancocin) 250 ml @ 125 mls/hr Q8H IVPB Last administered on 02:30; Admin Dose 125 MLS/HR; Start 11/17/16 at 10:00 Enoxaparin Sodium (Lovenox) 30 mg DAILY SC Last administered on 11/18/16 09:00 ; Admin Dose 30 MG; Start 11/17/16 at 13:00 Eye Lubricant (Artificial Tears Oph) 2 drop QID BOTH EYES Last administered on 11/18/16 08:24; Admin Dose 2 DROP; Start 11/17/16 at 17:00 Dextrose (D50w Syringe) 25 ml Q15M PRN IV Till BS 80 mg/dL or above x2; Start 11/17/16 at 17:30 Dextrose 50 ml 50 ml Q15M PRN IV Till BS 80 mg/dL or above x2; Start 11/17/16 at 17:30 Midazolam HCl (Versed) 50 ml @ 1 mls/hr TITRATE IV ; Start 11/17/16 at 18:30 Diagnostic Test (Pha) 1 ea 1 ea Q2 XX Last administered on 11/18/16 08:55; Admin Dose 1 EA; Start 11/18/16 at 09:00 Potassium Chloride (KCl 20 MEQ/50 ML SW) 50 ml @ 25 mls/hr ONCE IVPB Last administered on 11/18/16 09:01; Admin Dose 25 MLS/HR; Start 11/18/16 at 09:00; Stop 11/18/16 at 10:59 RIDDHI VELÁSQUEZ Nov 18, 2016 09:50
--- NOTE | 2016-11-18 13:16 | PN ---
DATE: 11/18/2016 SUBJECTIVE: No events overnight. No fevers. The patient is off sedation, still on insulin drip, i ntubated. Looks comfortable. LABORATORIES: WBC 15.8, platelets 167, no shift, no bands. BUN 20, creatinine 0.47. MICROBIOLOGY: Urine culture remains negative. Blood cultures pending. Sputum culture pending. INDWELLINGS: Endotracheal tube, NG tube, Hooper catheter. PHYSICAL EXAMINATION: GENERAL: Well-developed, middle-aged man who is in no distress. HEENT: Head atraumatic, normocephalic. Sclerae anicteric. Buccal mucosa dry. NECK: Supple. CHEST: Rise symmetrical. Breath sounds diminished to bases. HEART: S1, S2. ABDOMEN: Soft. Bowel tones present. EXTREMITIES: Without cyanosis. ASSESSMENT: 1. Severe sepsis. 2. Acute respiratory failure. 3. Pneumonia, possibly aspiration. 4. Diabetic ketoacidosis. 1. History of polysubstance abuse with positive urine drug screen for amphetamines. PLAN: Continue present care, antibiotics. Await final cultures. Weaning trial as per pulmonary. Endocrinology recommendations. Dictated By: SANJAY GOEL LEAD FRONT END DEVELOPER for SARAHY LAGOS/NTS Conf#: [id number] DID#: [id number]
--- NOTE | 2016-11-18 17:37 | CONS ---
Date/Time of Note Date/Time of Note DATE: 11/18/16 TIME: 17:34 Assessment/Plan Assessment/Plan Problems: (1) DKA (diabetic ketoacidoses) Status: Resolved Comment: This am CO2 19. Should be sufficient to say DKA resolved. Pt. changed to protocol insulin drip. Qualifiers: Diabetes mellitus type: other specified (including ROBERT) Diabetes mellitus complication detail: with coma Qualified Code: E13.11 - Diabetic ketoacidosis with coma associated with other specified diabetes mellitus (2) Type II diabetes mellitus, uncontrolled Status: Chronic Comment: Continue on insulin drip per protocol. Start lantus 18 units (weight- based dose) tonight and tomorrow will be able to turn drip off once pt. passes swallow eval. Will start Novolog 9 qac once pt. passes swallow eval. 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 insulin use: unspecified termite renewal inspector insulin use status Qualified Code: E11.8 - Uncontrolled type 2 diabetes mellitus with complication, unspecified [facility] insulin use status Consultation Date/Type/Reason Admit Date/Time Nov 17, 2016 at 11:30 Initial Consult Date 11/17/16 Type of Consultation: Endocrinology Reason for Consultation DKA Referring Provider: ALEA WHITAKER 24 HR Interval Summary Subjective hx not possible: pt non-verbal Exam/Review of Systems Vital Signs Vitals VS - Last 72 Hours, by Label Date Time Temp Pulse Resp B/P Pulse Ox O2 Delivery O2 Flow Rate FiO2 11/18/16 16:00 Nasal Cannula 3.0 11/18/16 16:00 85 11/18/16 16:00 97.7 85 20 140/87 100 Mechanical Ventilator 11/18/16 15:45 90 20 143/88 100 Mechanical Ventilator 11/18/16 15:30 93 22 131/97 100 Mechanical Ventilator 11/18/16 15:15 85 19 140/83 100 Mechanical Ventilator 11/18/16 15:00 89 16 147/84 100 Mechanical Ventilator 11/18/16 14:35 100 3.0 11/18/16 14:35 3.0 11/18/16 14:00 88 18 144/98 100 Mechanical Ventilator 11/18/16 13:09 30 11/18/16 13:09 95 21 100 30 11/18/16 13:00 85 18 141/94 100 Mechanical Ventilator 11/18/16 12:00 82 11/18/16 12:00 97.7 84 14 135/100 100 Mechanical Ventilator 11/18/16 11:45 99 16 100 30 11/18/16 11:30 84 18 133/87 100 Mechanical Ventilator 11/18/16 11:00 84 16 129/90 100 Mechanical Ventilator 11/18/16 10:30 87 19 134/93 100 Mechanical Ventilator 11/18/16 10:00 85 16 144/94 100 Mechanical Ventilator 11/18/16 09:47 92 18 100 30 11/18/16 09:30 87 19 148/98 100 Mechanical Ventilator 11/18/16 09:00 84 24 132/93 100 Mechanical Ventilator 11/18/16 08:30 86 24 120/86 100 Mechanical Ventilator 11/18/16 08:10 84 24 100 30 11/18/16 08:00 88 24 123/86 100 Mechanical Ventilator 11/18/16 08:00 90 11/18/16 08:00 30 11/18/16 07:30 98.2 94 26 151/92 100 Mechanical Ventilator 11/18/16 07:00 85 24 153/100 100 Mechanical Ventilator 11/18/16 06:30 87 24 150/93 100 Mechanical Ventilator 11/18/16 06:00 86 24 150/89 100 Mechanical Ventilator 11/18/16 05:19 83 24 100 30 11/18/16 05:00 87 24 133/89 100 Mechanical Ventilator 11/18/16 04:00 97.1 88 24 143/85 100 Mechanical Ventilator 11/18/16 04:00 85 11/18/16 03:05 91 24 100 30 11/18/16 03:00 92 24 130/85 100 Mechanical Ventilator 11/18/16 02:00 96 24 127/78 100 Mechanical Ventilator 11/18/16 01:46 96 24 100 30 11/18/16 01:00 97 23 124/80 100 Mechanical Ventilator 11/18/16 00:00 97.5 91 24 141/82 100 Mechanical Ventilator 11/18/16 00:00 95 11/17/16 23:11 91 24 100 30 11/17/16 23:00 89 24 145/83 100 Mechanical Ventilator 11/17/16 22:00 92 24 149/90 100 Mechanical Ventilator 11/17/16 21:24 91 24 100 30 11/17/16 21:00 93 24 139/85 100 Mechanical Ventilator 11/17/16 20:00 97.7 92 24 148/89 100 Mechanical Ventilator 11/17/16 20:00 90 11/17/16 20:00 30 11/17/16 19:47 90 24 100 30 11/17/16 19:00 89 24 143/79 100 Mechanical Ventilator 11/17/16 18:30 90 24 135/81 100 Mechanical Ventilator 11/17/16 18:00 93 26 132/78 100 Mechanical Ventilator 11/17/16 17:30 92 28 132/78 100 Mechanical Ventilator 11/17/16 17:00 97 28 137/85 100 Mechanical Ventilator 11/17/16 16:55 95 26 100 30 11/17/16 16:30 99.0 100 26 138/88 100 Mechanical Ventilator 11/17/16 16:00 101 11/17/16 16:00 100 26 134/89 100 Mechanical Ventilator 11/17/16 15:30 98 26 131/86 100 11/17/16 15:10 96 28 100 35 11/17/16 15:00 97 30 136/89 100 Mechanical Ventilator 11/17/16 14:30 95 25 134/84 100 11/17/16 14:00 95 27 141/88 Mechanical Ventilator 11/17/16 13:50 96 28 100 40 11/17/16 13:30 25 137/76 11/17/16 13:00 95 27 136/72 100 Mechanical Ventilator 11/17/16 12:30 96 26 121/78 11/17/16 12:00 98.9 100 33 155/71 100 Mechanical Ventilator 11/17/16 12:00 50 11/17/16 11:50 98 31 98 50 11/17/16 11:07 92 28 116/88 100 11/17/16 09:13 94 28 15/79 100 Mechanical Ventilator 11/17/16 08:49 92 27 113/77 100 11/17/16 07:20 94 27 100 50 11/17/16 07:00 100.0 93 26 122/75 100 Mechanical Ventilator 11/17/16 06:20 99.6 94 26 96/74 100 11/17/16 05:32 98 23 89/67 100 Mechanical Ventilator 11/17/16 04:50 101 28 100 50 11/17/16 04:43 100 11/17/16 04:14 99 30 101/74 100 Mechanical Ventilator 11/17/16 03:25 100 27 100 50 11/17/16 01:59 111 35 95/64 100 Mechanical Ventilator 11/17/16 01:38 99.5 11/17/16 01:37 112 35 96/63 100 Mechanical Ventilator 11/17/16 01:05 108 30 100 50 11/17/16 00:58 112 33 96/63 100 Mechanical Ventilator 11/17/16 00:05 99.5 115 31 91/59 100 BIPAP 11/17/16 00:00 114 11/16/16 23:53 114 31 91/59 100 Mechanical Ventilator 11/16/16 23:15 110 29 100 50 11/16/16 22:48 96.2 103 30 97/64 100 Mechanical Ventilator 102 11/16/16 21:33 92.8 96 25 87/56 99 11/16/16 21:15 95 26 100 50 11/16/16 20:52 89 18 91/64 100 Mechanical Ventilator 11/16/16 20:05 80 28 100 50 11/16/16 19:44 88.9 77 24 98/66 100 Mechanical Ventilator 11/16/16 18:15 67 20 104/70 100 Mechanical Ventilator 11/16/16 17:30 96.8 63 20 110/80 100 Mechanical Ventilator 11/16/16 17:01 58 24 100 70 11/16/16 16:45 61 20 108/77 100 Mechanical Ventilator 11/16/16 15:45 57 20 117/86 100 Mechanical Ventilator 11/16/16 15:30 95.8 60 20 125/89 100 11/16/16 15:20 53 24 70 11/16/16 14:45 53 21 118/84 100 Mechanical Ventilator 11/16/16 14:15 53 21 115/78 100 Mechanical Ventilator 11/16/16 13:31 84.5 60 20 121/86 100 11/16/16 13:28 59 24 100 100 11/16/16 13:15 60 20 121/86 100 Mechanical Ventilator 11/16/16 12:33 49 10 111/76 100 Nasal Cannula 4.0 11/16/16 11:56 97.0 61 12 89 Vital Signs Date Time Temp Pulse Resp B/P Pulse Ox O2 Delivery O2 Flow Rate FiO2 11/18/16 16:00 Nasal Cannula 3.0 11/18/16 16:00 85 11/18/16 16:00 97.7 20 140/87 100 11/18/16 13:09 30 Intake and Output 11/17/16 11/17/16 11/18/16 15:00 23:00 07:00 Intake Total 9 ml 733.5 ml 1210.5 ml Output Total 1350 ml 1805 ml 1190 ml Balance -1341 ml -1071.5 ml 20.5 ml Exam Constitutional: non-verbal, well developed, No alert Psych: nl mood/affect, no complaints ENMT: No intubated Respiratory: clear to auscultation, normal air movement Cardiovascular: nl pulses, regular rate and rhythm, No edema, No murmurs/extra sounds, No rub Gastrointestinal: bowel sounds, nl liver, spleen, non-tender, soft, No mass, No rebound or guarding Musculoskeletal: nl extremities to inspection Extremities: normal pulses, No clubbing, No cyanosis, No edema Neurological: unresponsive Additional Comments Bedside Glucose - 72 Hours Test 11/16/16 12:06 11/16/16 13:31 11/16/16 15:25 11/16/16 16:36 Bedside Glucose > 595mg/dL (70-220) *H > 595mg/dL (70-220) *H > 595mg/dL (70-220) *H > 595mg/dL (70-220) *H Test 11/16/16 17:34 11/16/16 18:48 11/16/16 19:48 11/16/16 21:30 Bedside Glucose > 595mg/dL (70-220) *H 593mg/dL (70-220) *H 565mg/dL (70-220) *H 458mg/dL (70-220) *H Test 11/16/16 22:19 11/16/16 23:23 11/17/16 00:51 11/17/16 02:04 Bedside Glucose 413mg/dL (70-220) *H 373mg/dL (70-220) H 268mg/dL (70-220) H 276mg/dL (70-220) H Test 11/17/16 03:03 11/17/16 04:27 11/17/16 05:54 11/17/16 07:20 Bedside Glucose 308mg/dL (70-220) H 346mg/dL (70-220) H 314mg/dL (70-220) H 299mg/dL (70-220) H Test 11/17/16 08:38 11/17/16 09:16 11/17/16 10:04 11/17/16 11:06 Bedside Glucose 313mg/dL (70-220) H 297mg/dL (70-220) H 251mg/dL (70-220) H 226mg/dL (70-220) H Test 11/17/16 12:39 11/17/16 13:28 11/17/16 14:02 11/17/16 15:15 Bedside Glucose 221mg/dL (70-220) H 173mg/dL (70-220) 186mg/dL (70-220) 163mg/dL (70-220) Test 11/17/16 17:02 11/17/16 18:07 11/17/16 19:12 11/17/16 20:03 Bedside Glucose 136mg/dL (70-220) 151mg/dL (70-220) 209mg/dL (70-220) 211mg/dL (70-220) Test 11/17/16 21:00 11/17/16 21:52 11/17/16 22:55 11/17/16 23:52 Bedside Glucose 176mg/dL (70-220) 196mg/dL (70-220) 239mg/dL (70-220) H 227mg/dL (70-220) H Test 11/18/16 00:53 11/18/16 01:50 11/18/16 02:55 11/18/16 04:52 Bedside Glucose 143mg/dL (70-220) 91mg/dL (70-220) 91mg/dL (70-220) 120mg/dL (70-220) Test 11/18/16 06:55 11/18/16 08:54 11/18/16 11:09 11/18/16 13:13 Bedside Glucose 111mg/dL (70-220) 150mg/dL (70-220) 148mg/dL (70-220) 129mg/dL (70-220) Test 11/18/16 14:57 11/18/16 17:07 Bedside Glucose 105mg/dL (70-220) 160mg/dL (70-220) Results Result Diagram: 11/18/16 0700 11/18/16 0700 Results 24 hrs Laboratory Tests Test 11/17/16 18:07 11/17/16 19:12 11/17/16 20:03 11/17/16 20:35 Bedside Glucose 151 209 211 Anion Gap 12 Blood Urea Nitrogen 26 H Calcium Level 8.7 Carbon Dioxide Level 19 L Chloride Level 113 H Creatinine 0.57 L Glucose Level 192 Potassium Level 3.7 Sodium Level 140 Test 11/17/16 21:00 11/17/16 21:52 11/17/16 22:55 11/17/16 23:52 Bedside Glucose 176 196 239 H 227 H Test 11/18/16 00:53 11/18/16 00:55 11/18/16 01:50 11/18/16 02:55 Bedside Glucose 143 91 91 Vancomycin Level Trough 16.2 Test 11/18/16 04:52 11/18/16 06:55 11/18/16 07:00 11/18/16 08:54 Bedside Glucose 120 111 150 Anion Gap 11 Basophils # 0.0 Basophils % 0.2 Blood Urea Nitrogen 20 Calcium Level 8.5 Carbon Dioxide Level 19 L Chloride Level 114 H Creatinine 0.47 L Eosinophils # 0.1 Eosinophils % 0.3 Glucose Level 112 # Hematocrit 39.6 L Hemoglobin 14.8 Lymphocytes # 3.1 H Lymphocytes % 19.9 Mean Corpuscular Hemoglobin 30.0 Mean Corpuscular Hemoglobin Concent 37.4 H Mean Corpuscular Volume 80.3 L Mean Platelet Volume 10.4 Monocytes # 1.1 H Monocytes % 7.0 Neutrophils # 11.1 H Neutrophils % 70.1 Nucleated Red Blood Cells # 0.0 Nucleated Red Blood Cells % 0.0 Platelet Count 167 # Potassium Level 3.4 L Red Blood Count 4.93 Red Cell Distribution Width 13.5 Sodium Level 141 White Blood Count 15.8 H Test 11/18/16 11:09 11/18/16 13:13 11/18/16 14:57 11/18/16 17:07 Bedside Glucose 148 129 105 160 Medications Medications Current Medications Ondansetron HCl (Zofran Inj) 4 mg Q6H PRN IV NAUSEA AND/OR VOMITING; Start 11/16 at 15:30 Acetaminophen (Tylenol Liquid) 650 mg Q6H PRN PO PAIN LEVEL 1-3 OR FEVER; Start 11/16/16 at 15:30 Morphine Sulfate (morphine) 2 mg Q4H PRN IV PAIN LEVEL 7-10 Last administered on 11/18/16 07:36; Admin Dose 2 MG; Start 11/16/16 at 15:30 Pantoprazole 40 mg 40 mg DAILY@06 IV Last administered on 11/18/16 05:55; Admin Dose 40 MG; Start 11/17/16 at 06:00 Imipenem/ Cilastatin Sodium 100 ml @ 100 mls/hr Q6 IVPB Last administered on 17:15; Admin Dose 100 MLS/HR; Start 11/17/16 at 00:00 Midazolam HCl 50 ml @ 2 mls/hr TITRATE IV Last administered on 11/17/16 23:02; Admin Dose 2 MLS/HR; Start 11/17/16 at 00:08 Potassium Chloride/Dextrose/ Sod Cl (D5-1/4ns + KCl 20 Meq) 1,000 ml @ 200 mls/ hr Q5H IV Last administered on 11/18/16 15:01; Admin Dose 200 MLS/HR; Start 11/17/16 at 07:30 Enoxaparin Sodium (Lovenox) 30 mg DAILY SC Last administered on 11/18/16 09:00 ; Admin Dose 30 MG; Start 11/17/16 at 13:00 Eye Lubricant (Artificial Tears Oph) 2 drop QID BOTH EYES Last administered on 11/18/16 17:09; Admin Dose 2 DROP; Start 11/17/16 at 17:00 Dextrose (D50w Syringe) 25 ml Q15M PRN IV Till BS 80 mg/dL or above x2; Start 11/17/16 at 17:30 Dextrose (D50w Syringe) 50 ml Q15M PRN IV Till BS 80 mg/dL or above x2; Start 11/17/16 at 17:30 Diagnostic Test (Pha) 1 ea 1 ea Q2 XX Last administered on 11/18/16 17:09; Admin Dose 1 EA; Start 11/18/16 at 09:00 Vancomycin HCl/ Sodium Chloride (Vancocin/NS) 150 ml @ 75 mls/hr Q8H IVPB ; Start 11/18/16 at 18:00 ROGE PAEZ MD Nov 18, 2016 17:37
[2016-11-18] MEDS: VANCOMYCIN 750 MG in SOD CHLORIDE 0.9% 150 ML IVPB SCH (18:13)
[2016-11-18] MEDS: INSULIN GLARGINE [LANtus] 3 ML PEN SC SCH (20:22)
[2016-11-19] VITALS (21 sets, daily range): BP systolic 98–134; BP diastolic 54–96; PULSE 77–109; RESP 15–25
[2016-11-19] MEDS: ACCU-CHEK XX SCH ×11 (01:04→23:00)
[2016-11-19] MEDS: INSULIN REGULAR, HUMAN 100 UNIT in SOD CHLORIDE 0.9% 99 ML IV SCH ×2 (02:00)
[2016-11-19] MEDS: VANCOMYCIN 750 MG in SOD CHLORIDE 0.9% 150 ML IVPB SCH (02:11)
[2016-11-19] MEDS: D5-0.2 NACL + KCL 20 MEQ 1,000 ML IV SCH ×2 (03:00→08:17)
[2016-11-19 05:00] LABS: ADD SCAN DIFF NO
[2016-11-19 05:06] LABS: BASOPHILS % 0.2 % (0.0-2.0); EOSINOPHILS % 0.3 % (0.0-7.0); HEMATOCRIT 38.6 % (42.0-52.0); HEMOGLOBIN 14.6 g/dl (14.0-18.0); LYMPHOCYTES # 1.6 10^3/ul (0.8-2.9); LYMPHOCYTES % 15.4 % (15.0-51.0); MEAN CORPUSCULAR HEMOGLOBIN 30.2 pg (29.0-33.0); MEAN CORPUSCULAR VOLUME 79.9 fl (82.0-101.0); MEAN PLATELET VOLUME 10.3 fl (7.4-10.4); MONOCYTE # 0.6 10^3/ul (0.3-0.9); MONOCYTES % 5.8 % (0.0-11.0); NEUTROPHIL # 8.2 10^3/ul (1.6-7.5); NEUTROPHILS % 77.7 % (39.0-77.0); PLATELET COUNT 178 10^3/UL (140-415); RED BLOOD COUNT 4.83 10^6/ul (4.70-6.10); RED CELL DISTRIBUTION WIDTH 13.2 % (11.5-14.5); WHITE BLOOD COUNT 10.6 10^3/ul (4.8-10.8)
[2016-11-19 05:11] LABS: MEAN CORPUSCULAR HGB CONC 37.8 g/dl (32.0-37.0)
[2016-11-19 05:24] LABS: ALBUMIN 2.6 g/dl (3.3-4.9)
[2016-11-19 05:25] LABS: POTASSIUM 3.3 mmol/L (3.5-5.1)
[2016-11-19 05:27] LABS: ALBUMIN/GLOBULIN RATIO 0.83; BILIRUBIN,INDIRECT 0.6 mg/dl (0-1.1); BILIRUBIN,TOTAL 0.6 mg/dl (0.2-1.3); CREATININE 0.39 mg/dl (0.61-1.24); TOTAL PROTEIN 5.7 g/dl (6.1-8.1)
[2016-11-19 05:28] LABS: CALCIUM 8.8 mg/dl (8.4-10.2)
[2016-11-19] MEDS: IMIPENEM-CILAST 500MG IV (PMX) 100 ML IVPB SCH (06:29)
[2016-11-19] MEDS: PANTOPRAZOLE 40 MG INJ IV SCH (06:29)
--- NOTE | 2016-11-19 09:02 | RADRPT ---
PROCEDURE: XR Chest. CLINICAL INDICATION: Pneumonia TECHNIQUE: A single AP view of the chest was obtained. COMPARISON: None. FINDINGS: The endotracheal tube and enteric tube have been removed. There are bibasilar interstitial opacities. No focal airspace opacification, pleural effusion or pn eumothorax is seen. The cardiomediastinal silhouette is within normal limits for size. The osseous structures are unremarkable. IMPRESSION: 1. Bibasilar interstitial opacities, at least partially related to atelectasis. Findings are mildl y improved when compared to the prior examination. 2. Interval removal of endotracheal tube and enteric tube. RPTAT: HH .Shelia Varghese MD, Date Time Electronically viewed and signed by .Shelia Varghese MD, on 11/19/2016 09:02 .G/
[2016-11-19] MEDS: ARTIFICIAL TEARS 15 ML OPH BOTH EYES SCH ×4 (09:52→22:13)
[2016-11-19] MEDS: ENOXAPARIN 30 MG/0.3 ML SYG SC SCH (09:59)
--- NOTE | 2016-11-19 10:17 | CONS ---
Date/Time of Note Date/Time of Note DATE: 11/19/16 TIME: 10:14 Assessment/Plan Assessment/Plan Additional Assessment/Plan Chest x-ray was reviewed from today reviewed showing a very minimal if any infiltrate left upper lobe. Next Assessment recommendations; 1. Patient admitted for severe DKA with interval resolution. 2. Scant left lower lobe pneumonia clinically and pathologically markedly improved. Likely from aspiration. 3. History of noncompliance of medications. Patient can be transferred to the medical floor. At this time I would recommend stopping vancomycin with continuation of imipenem only. We are going to sign off, thanks for the consult. Please reconsult if needed. Consultation Date/Type/Reason Admit Date/Time Nov 17, 2016 at 11:30 Initial Consult Date 11/17/16 Type of Consultation: Pulmonary/critical care Referring Provider: ALEA WHITAKER 24 HR Interval Summary Free Text/Dictation Patient condition is stable. He was successfully intubated yesterday afternoon. Remains awake and alert. Denies any nausea, vomiting. Any shortness of breath. General exam; young male, currently in no distress, awake and alert. Exam/Review of Systems Vital Signs Vitals Vital Signs Date Time Temp Pulse Resp B/P Pulse Ox O2 Delivery O2 Flow Rate FiO2 11/19/16 08:15 98.1 94 20 127/79 97 Room Air 11/19/16 02:00 3.0 11/18/16 13:09 30 Intake and Output 11/18/16 11/18/16 11/19/16 14:59 22:59 06:59 Intake Total 1737 ml 1320 ml 1820 ml Output Total 1380 ml 1950 ml 3100 ml Balance 357 ml -630 ml -1280 ml Exam HEENT exam; supple neck, no JVD. No lymphadenopathy. Midline trachea. No thyromegaly. Pharynx is clear. Pupils are midsize and reactive to light bilaterally. Chest examination; clear to auscultation bilaterally. S1-S2 audible, no murmurs. Regular rhythm. Abdomen examination; soft, nondistended. No organomegaly. Bowel sounds audible. Nontender. Extremity examination; no peripheral edema. Pulses 2+ bilaterally. TRANSCRIPTION COORDINATOR examination; no focal deficit. Results Result Diagram: 11/19/16 0450 11/19/16 0450 Results 24 hrs Laboratory Tests Test 11/18/16 11:09 11/18/16 13:13 11/18/16 14:57 11/18/16 17:07 Bedside Glucose 148 129 105 160 Test 11/18/16 19:24 11/18/16 20:18 11/18/16 21:11 11/18/16 22:58 Bedside Glucose 162 140 134 167 Test 11/19/16 01:03 11/19/16 03:00 11/19/16 04:50 11/19/16 05:05 Bedside Glucose 178 167 97 Alanine Aminotransferase (ALT/SGPT) 35 Albumin 2.6 L Albumin/Globulin Ratio 0.83 Alkaline Phosphatase 103 Anion Gap 13 Aspartate Amino Transf (AST/SGOT) 41 Basophils # 0.0 Basophils % 0.2 Blood Urea Nitrogen 7 # Calcium Level 8.8 Carbon Dioxide Level 25 Chloride Level 108 Creatinine 0.39 L Direct Bilirubin 0.00 Eosinophils # 0.0 Eosinophils % 0.3 Globulin 3.10 Glucose Level 124 Hematocrit 38.6 L Hemoglobin 14.6 Indirect Bilirubin 0.6 Lymphocytes # 1.6 Lymphocytes % 15.4 Mean Corpuscular Hemoglobin 30.2 Mean Corpuscular Hemoglobin Concent 37.8 H Mean Corpuscular Volume 79.9 L Mean Platelet Volume 10.3 Monocytes # 0.6 Monocytes % 5.8 Neutrophils # 8.2 H Neutrophils % 77.7 H Nucleated Red Blood Cells # 0.0 Nucleated Red Blood Cells % 0.0 Phosphorus Level 2.3 L Platelet Count 178 Potassium Level 3.3 L Red Blood Count 4.83 Red Cell Distribution Width 13.2 Sodium Level 143 Total Bilirubin 0.6 Total Protein 5.7 L White Blood Count 10.6 # Test 11/19/16 06:56 11/19/16 08:13 11/19/16 09:58 Bedside Glucose 163 174 220 Medications Medications Current Medications Ondansetron HCl (Zofran Inj) 4 mg Q6H PRN IV NAUSEA AND/OR VOMITING; Start 11/16 at 15:30 Acetaminophen (Tylenol Liquid) 650 mg Q6H PRN PO PAIN LEVEL 1-3 OR FEVER; Start 11/16/16 at 15:30 Morphine Sulfate (morphine) 2 mg Q4H PRN IV PAIN LEVEL 7-10 Last administered on 11/18/16t 07:36; Admin Dose 2 MG; Start 11/16/16 at 15:30 Pantoprazole 40 mg 40 mg DAILY@06 IV Last administered on 11/19/16 06:29; Admin Dose 40 MG; Start 11/17/16 at 06:00 Imipenem/ Cilastatin Sodium 100 ml @ 100 mls/hr Q6 IVPB Last administered on 06:29; Admin Dose 100 MLS/HR; Start 11/17/16 at 00:00 Midazolam HCl 50 ml @ 2 mls/hr TITRATE IV Last administered on 11/17/16 23:02; Admin Dose 2 MLS/HR; Start 11/17/16 at 00:08 Potassium Chloride/Dextrose/ Sod Cl (D5-1/4ns + KCl 20 Meq) 1,000 ml @ 200 mls/ hr Q5H IV Last administered on 11/19/16 08:17; Admin Dose 200 MLS/HR; Start at 07:30 Enoxaparin Sodium (Lovenox) 30 mg DAILY SC Last administered on 11/19/16 09:59 ; Admin Dose 30 MG; Start 11/17/16 at 13:00 Eye Lubricant (Artificial Tears Oph) 2 drop QID BOTH EYES Last administered on 11/19/16 09:52; Admin Dose 2 DROP; Start 11/17/16 at 17:00 Dextrose (D50w Syringe) 25 ml Q15M PRN IV Till BS 80 mg/dL or above x2; Start 11/17/16 at 17:30 Dextrose (D50w Syringe) 50 ml Q15M PRN IV Till BS 80 mg/dL or above x2; Start 11/17/16 at 17:30 Diagnostic Test (Pha) 1 ea 1 ea Q2 XX Last administered on 11/19/16 06:58; Admin Dose 1 EA; Start 11/18/16 at 09:00 Vancomycin HCl/ Sodium Chloride (Vancocin/NS) 150 ml @ 75 mls/hr Q8H IVPB Last administered on 11/19/16 02:11; Admin Dose 75 MLS/HR; Start 11/18/16 at 18: 00 Insulin Glargine (Lantus) 18 unit DAILY@20 SC Last administered on 11/18/16 20: 22; Admin Dose 18 UNIT; Start 11/18/16 at 20:00 RIDDHI VELÁSQUEZ Nov 19, 2016 10:16
--- NOTE | 2016-11-19 10:57 | PN ---
DATE: 11/19/2016 SUBJECTIVE: The patient was extubated. He is alert, looks comfortable, denies pain and wants to ea t. VITAL SIGNS: Stable. Temperature 98.1, pulse 91, respirations 20, blood pressure 107/61, saturatio n 98 on room air. LABORATORY: WBC 10.6, platelets 178, neutrophils 77.7. BUN 7, creatinine 0.39. MICROBIOLOGY: Cultures have been negative. DIAGNOSTICS: Chest x-ray today is mildly improved compared to prior examination. PHYSICAL EXAMINATION: GENERAL: Well-developed, middle-aged, man who is alert, in no distress. HEENT: Head atraumatic, normocephalic. Sclerae anicteric. Buccal mucosa pink, dry. NECK: Supple, trachea midline. CHEST: Rise symmetrical. Breath sounds diminished at the bases. HEART: S1, S2. ABDOMEN: Soft, bowel tones present. EXTREMITIES: Without cyanosis. ASSESSMENT: 1. Resolving sepsis. 2. Acute respiratory failure secondary to pneumonia, possibly aspiration. 3. Poorly controlled diabetes with diabetic ketoacidosis. 4. Substance abuse. PLAN: The patient remains stable post-extubation. All cultures have been negative. Chest x-ray im proving. We are going to change antibiotics to cefepime. Continue anti-aspiration measures. Kaylee olivera recommendations of consultants. Above was discussed with . Dictated By: SANJAY GOEL TORPEDO MAN for SARAHY LAGOS/CLAUDY Conf#: [id number] DID#: [id number]
[2016-11-19] MEDS: INSULIN ASPART [NOVOLOG] 3 ML PEN SC SCH ×5 (11:30→22:18)
[2016-11-19] MEDS: CEFEPIME 1GM/50 ML (PMX) 50 ML IVPB SCH ×2 (12:36→22:14)
--- NOTE | 2016-11-19 13:29 | PN ---
Date/Time of Note Date/Time of Note DATE: 11/19/16 TIME: 13:25 Assessment/Plan VTE Prophylaxis VTE Prophylaxis Intervention: SCD's Lines/Catheters IV Catheter Type (from [facility]): Peripheral IV Central line still needed: Yes Urinary Cath still in place: Yes Reason Cath still needed: urinary retention Assessment/Plan Chief Complaint/Hosp Course ASSESSMENT AND PLAN - Severe diabetic ketoacidosis with coma. Continue insulin per endo. Dr. Andre is following in endocrinology consultation. - Diabetes mellitus type 2. - Severe sepsis [address] Callaway is following in infectious disease consultation. Continue broad-spectrum antibiotics. - Community-acquired pneumonia vs aspiration. - Acute respiratory failure, resolving. Dr Disla s following the patient in pulmonology consultation. - Altered level of consciousness. CT head is negative. - Amphetamine screen positive. Continue sequential compression device for deep venous thrombosis prophylaxis and Protonix for peptic ulcer disease prophylaxis. Further recommendations based on clinical course. Plan of care discussed with Dr. Ma. Problems: Subjective 24 Hr Interval Summary Free Text/Dictation Patient is awake to name and situation, forgetful, unstable gait, was extubated yesterday, VS are stable, weaned off Insulin drip. Exam/Review of Systems Vital Signs Vitals Vital Signs Date Time Temp Pulse Resp B/P Pulse Ox O2 Delivery O2 Flow Rate FiO2 11/19/16 12:00 109 11/19/16 11:00 98.5 24 118/73 96 Room Air 11/19/16 02:00 3.0 11/18/16 13:09 30 Intake and Output 11/18/16 11/18/16 11/19/16 15:00 23:00 07:00 Intake Total 1737 ml 1523 ml 1818 ml Output Total 1405 ml 2175 ml 2725 ml Balance 332 ml -652 ml -907 ml Exam PHYSICAL ASSESSMENT: GENERAL: Well-developed, well-nourished male, awake alert HEENT: Head is normocephalic, PERRLA. NECK: Supple, no cervical lymphadenopathy, no thyromegaly. LUNGS: Diminished at the bases. CARDIOVASCULAR: Normal S1, S2. No murmurs, gallops, clicks, rubs noted. ABDOMEN: Flat, soft, nondistended, nontender. Bowel sounds present. EXTREMITIES: There is no edema, clubbing, cyanosis. Pulses equal bilaterally 2 +. SKIN: There is no rash, petechiae noted. NEUROLOGIC: Awake alert Results Result Diagram: 11/19/16 0450 11/19/16 0450 Results 24 hrs Laboratory Tests Test 11/18/16 14:57 11/18/16 17:07 11/18/16 19:24 11/18/16 20:18 Bedside Glucose 105 160 162 140 Test 11/18/16 21:11 11/18/16 22:58 11/19/16 01:03 11/19/16 03:00 Bedside Glucose 134 167 178 167 Test 11/19/16 04:50 11/19/16 05:05 11/19/16 06:56 11/19/16 08:13 Alanine Aminotransferase (ALT/SGPT) 35 Albumin 2.6 L Albumin/Globulin Ratio 0.83 Alkaline Phosphatase 103 Anion Gap 13 Aspartate Amino Transf (AST/SGOT) 41 Basophils # 0.0 Basophils % 0.2 Blood Urea Nitrogen 7 # Calcium Level 8.8 Carbon Dioxide Level 25 Chloride Level 108 Creatinine 0.39 L Direct Bilirubin 0.00 Eosinophils # 0.0 Eosinophils % 0.3 Globulin 3.10 Glucose Level 124 Hematocrit 38.6 L Hemoglobin 14.6 Indirect Bilirubin 0.6 Lymphocytes # 1.6 Lymphocytes % 15.4 Mean Corpuscular Hemoglobin 30.2 Mean Corpuscular Hemoglobin Concent 37.8 H Mean Corpuscular Volume 79.9 L Mean Platelet Volume 10.3 Monocytes # 0.6 Monocytes % 5.8 Neutrophils # 8.2 H Neutrophils % 77.7 H Nucleated Red Blood Cells # 0.0 Nucleated Red Blood Cells % 0.0 Phosphorus Level 2.3 L Platelet Count 178 Potassium Level 3.3 L Red Blood Count 4.83 Red Cell Distribution Width 13.2 Sodium Level 143 Total Bilirubin 0.6 Total Protein 5.7 L White Blood Count 10.6 # Bedside Glucose 97 163 174 Test 11/19/16 09:58 11/19/16 11:56 Bedside Glucose 220 89 Medications Medications Current Medications Ondansetron HCl (Zofran Inj) 4 mg Q6H PRN IV NAUSEA AND/OR VOMITING; Start 11/16 at 15:30 Acetaminophen (Tylenol Liquid) 650 mg Q6H PRN PO PAIN LEVEL 1-3 OR FEVER; Start 11/16/16 at 15:30 Morphine Sulfate (morphine) 2 mg Q4H PRN IV PAIN LEVEL 7-10 Last administered on 11/18/16 07:36; Admin Dose 2 MG; Start 11/16/16 at 15:30 Pantoprazole 40 mg 40 mg DAILY@06 IV Last administered on 11/19/16 06:29; Admin Dose 40 MG; Start 11/17/16 at 06:00 Midazolam HCl (Versed) 50 ml @ 2 mls/hr TITRATE IV Last administered on 23:02; Admin Dose 2 MLS/HR; Start 11/17/16 at 00:08 Enoxaparin Sodium (Lovenox) 30 mg DAILY SC Last administered on 11/19/16 09:59 ; Admin Dose 30 MG; Start 11/17/16 at 13:00 Eye Lubricant (Artificial Tears Oph) 2 drop QID BOTH EYES Last administered on 11/19/16 12:36; Admin Dose 2 DROP; Start 11/17/16 at 17:00 Dextrose (D50w Syringe) 25 ml Q15M PRN IV Till BS 80 mg/dL or above x2; Start 11/17/16 at 17:30 Dextrose (D50w Syringe) 50 ml Q15M PRN IV Till BS 80 mg/dL or above x2; Start 11/17/16 at 17:30 Diagnostic Test (Pha) (Accucheck) 1 ea Q2 XX Last administered on 11/19/16 06: 58; Admin Dose 1 EA; Start 11/18/16 at 09:00 Insulin Glargine 18 unit 18 unit DAILY@20 SC Last administered on 11/18/16 20: 22; Admin Dose 18 UNIT; Start 11/18/16 at 20:00 Cefepime HCl (Maxipime 1gm/50 ml (Pmx)) 50 ml @ 100 mls/hr Q12 IVPB Last administered on 11/19/16 12:36; Admin Dose 100 MLS/HR; Start 11/19/16 at 12:00 ALEA WHITAKER Nov 19, 2016 13:29
--- NOTE | 2016-11-19 17:00 | CONS ---
Date/Time of Note Date/Time of Note DATE: 11/19/16 TIME: 16:57 Assessment/Plan Assessment/Plan Problems: (1) Type II diabetes mellitus, uncontrolled Status: Chronic Comment: Suspect actually T1DM. Antibodies and c-peptide levels pending. Pt. has been advised he must stay on insulin to live. Cont. weight-based insulin, lantus 18 qhs, Novolog 9 qac. Will follow. Qualifiers: Diabetes mellitus complication status: with unspecified complications Diabetes mellitus termite helper insulin use: unspecified termite helper insulin use status Qualified Code: E11.8 - Uncontrolled type 2 diabetes mellitus with complication, unspecified termite helper insulin use status Consultation Date/Type/Reason Admit Date/Time Nov 17, 2016 at 11:30 Initial Consult Date 11/17/16 Type of Consultation: Endocrinology Reason for Consultation DKA Referring Provider: ALEA WHITAKER 24 HR Interval Summary Free Text/Dictation pt. awake. Able to state that he stopped taking insulin b/c he was homeless and his sister kicked him out. Constitutional: improved, no complaints Detailed Summary Respiratory: no complaints Cardiovascular: no complaints Gastrointestinal: no complaints Genitourinary: no complaints Musculoskeletal: no complaints Neurologic: no complaints Exam/Review of Systems Vital Signs Vitals VS - Last 72 Hours, by Label Date Time Temp Pulse Resp B/P Pulse Ox O2 Delivery O2 Flow Rate FiO2 11/19/16 16:21 92 11/19/16 15:20 97.4 117/74 96 Room Air 11/19/16 15:00 94 22 117/75 97 Room Air 11/19/16 13:00 92 20 118/78 99 Room Air 11/19/16 12:00 109 11/19/16 11:00 98.5 94 24 118/73 96 Room Air 11/19/16 10:00 91 21 107/61 98 Room Air 11/19/16 09:00 88 21 115/79 98 Room Air 11/19/16 08:15 98.1 94 20 127/79 97 Room Air 11/19/16 08:00 89 11/19/16 07:00 92 22 124/72 97 Room Air 11/19/16 06:00 100 25 122/74 97 Room Air 11/19/16 05:00 98.2 92 25 119/67 96 Room Air 11/19/16 04:00 77 16 134/72 100 Room Air 11/19/16 04:00 85 11/19/16 03:00 93 17 120/80 98 Room Air 11/19/16 02:00 86 20 127/84 100 Nasal Cannula 3.0 11/19/16 01:12 3.0 11/19/16 01:00 98.0 87 15 126/91 100 Nasal Cannula 3.0 11/19/16 00:00 86 17 132/96 100 Nasal Cannula 3.0 11/19/16 00:00 86 11/18/16 23:00 88 19 133/92 100 Nasal Cannula 3.0 11/18/16 22:00 81 19 136/90 100 Nasal Cannula 3.0 11/18/16 21:50 3.0 11/18/16 21:00 82 17 141/95 100 Nasal Cannula 3.0 11/18/16 20:15 Nasal Cannula 3.0 11/18/16 20:00 98.1 87 19 141/88 100 Nasal Cannula 3.0 11/18/16 20:00 86 11/18/16 19:00 86 18 149/99 100 Nasal Cannula 3.0 11/18/16 18:00 87 21 143/94 100 Nasal Cannula 3.0 11/18/16 17:00 89 21 137/83 100 Nasal Cannula 3.0 11/18/16 16:00 Nasal Cannula 3.0 11/18/16 16:00 85 11/18/16 16:00 97.7 85 20 140/87 100 Nasal Cannula 3.0 11/18/16 15:45 90 20 143/88 100 Nasal Cannula 3.0 11/18/16 15:30 93 22 131/97 100 Nasal Cannula 3.0 11/18/16 15:15 85 19 140/83 100 Nasal Cannula 3.0 11/18/16 15:00 89 16 147/84 100 Nasal Cannula 3.0 11/18/16 14:35 100 3.0 11/18/16 14:35 3.0 11/18/16 14:00 88 18 144/98 100 Mechanical Ventilator 11/18/16 13:09 30 11/18/16 13:09 95 21 100 30 11/18/16 13:00 85 18 141/94 100 Mechanical Ventilator 11/18/16 12:00 82 11/18/16 12:00 97.7 84 14 135/100 100 Mechanical Ventilator 11/18/16 11:45 99 16 100 30 11/18/16 11:30 84 18 133/87 100 Mechanical Ventilator 11/18/16 11:00 84 16 129/90 100 Mechanical Ventilator 11/18/16 10:30 87 19 134/93 100 Mechanical Ventilator 11/18/16 10:00 85 16 144/94 100 Mechanical Ventilator 11/18/16 09:47 92 18 100 30 11/18/16 09:30 87 19 148/98 100 Mechanical Ventilator 11/18/16 09:00 84 24 132/93 100 Mechanical Ventilator 11/18/16 08:30 86 24 120/86 100 Mechanical Ventilator 11/18/16 08:10 84 24 100 30 11/18/16 08:00 88 24 123/86 100 Mechanical Ventilator 11/18/16 08:00 90 11/18/16 08:00 30 11/18/16 07:30 98.2 94 26 151/92 100 Mechanical Ventilator 11/18/16 07:00 85 24 153/100 100 Mechanical Ventilator 11/18/16 06:30 87 24 150/93 100 Mechanical Ventilator 11/18/16 06:00 86 24 150/89 100 Mechanical Ventilator 11/18/16 05:19 83 24 100 30 11/18/16 05:00 87 24 133/89 100 Mechanical Ventilator 11/18/16 04:00 97.1 88 24 143/85 100 Mechanical Ventilator 11/18/16 04:00 85 11/18/16 03:05 91 24 100 30 11/18/16 03:00 92 24 130/85 100 Mechanical Ventilator 11/18/16 02:00 96 24 127/78 100 Mechanical Ventilator 11/18/16 01:46 96 24 100 30 11/18/16 01:00 97 23 124/80 100 Mechanical Ventilator 11/18/16 00:00 97.5 91 24 141/82 100 Mechanical Ventilator 11/18/16 00:00 95 11/17/16 23:11 91 24 100 30 11/17/16 23:00 89 24 145/83 100 Mechanical Ventilator 11/17/16 22:00 92 24 149/90 100 Mechanical Ventilator 11/17/16 21:24 91 24 100 30 11/17/16 21:00 93 24 139/85 100 Mechanical Ventilator 11/17/16 20:00 97.7 92 24 148/89 100 Mechanical Ventilator 11/17/16 20:00 90 11/17/16 20:00 30 11/17/16 19:47 90 24 100 30 11/17/16 19:00 89 24 143/79 100 Mechanical Ventilator 11/17/16 18:30 90 24 135/81 100 Mechanical Ventilator 11/17/16 18:00 93 26 132/78 100 Mechanical Ventilator 11/17/16 17:30 92 28 132/78 100 Mechanical Ventilator 11/17/16 17:00 97 28 137/85 100 Mechanical Ventilator 11/17/16 16:55 95 26 100 30 11/17/16 16:30 99.0 100 26 138/88 100 Mechanical Ventilator 11/17/16 16:00 101 11/17/16 16:00 100 26 134/89 100 Mechanical Ventilator 11/17/16 15:30 98 26 131/86 100 11/17/16 15:10 96 28 100 35 11/17/16 15:00 97 30 136/89 100 Mechanical Ventilator 11/17/16 14:30 95 25 134/84 100 11/17/16 14:00 95 27 141/88 Mechanical Ventilator 11/17/16 13:50 96 28 100 40 11/17/16 13:30 25 137/76 11/17/16 13:00 95 27 136/72 100 Mechanical Ventilator 11/17/16 12:30 96 26 121/78 11/17/16 12:00 98.9 100 33 155/71 100 Mechanical Ventilator 11/17/16 12:00 50 11/17/16 11:50 98 31 98 50 11/17/16 11:07 92 28 116/88 100 11/17/16 09:13 94 28 15/79 100 Mechanical Ventilator 11/17/16 08:49 92 27 113/77 100 11/17/16 07:20 94 27 100 50 11/17/16 07:00 100.0 93 26 122/75 100 Mechanical Ventilator 11/17/16 06:20 99.6 94 26 96/74 100 11/17/16 05:32 98 23 89/67 100 Mechanical Ventilator 11/17/16 04:50 101 28 100 50 11/17/16 04:43 100 11/17/16 04:14 99 30 101/74 100 Mechanical Ventilator 11/17/16 03:25 100 27 100 50 11/17/16 01:59 111 35 95/64 100 Mechanical Ventilator 11/17/16 01:38 99.5 11/17/16 01:37 112 35 96/63 100 Mechanical Ventilator 11/17/16 01:05 108 30 100 50 11/17/16 00:58 112 33 96/63 100 Mechanical Ventilator 11/17/16 00:05 99.5 115 31 91/59 100 BIPAP 11/17/16 00:00 114 11/16/16 23:53 114 31 91/59 100 Mechanical Ventilator 11/16/16 23:15 110 29 100 50 11/16/16 22:48 96.2 103 30 97/64 100 Mechanical Ventilator 102 11/16/16 21:33 92.8 96 25 87/56 99 11/16/16 21:15 95 26 100 50 11/16/16 20:52 89 18 91/64 100 Mechanical Ventilator 11/16/16 20:05 80 28 100 50 11/16/16 19:44 88.9 77 24 98/66 100 Mechanical Ventilator 11/16/16 18:15 67 20 104/70 100 Mechanical Ventilator 11/16/16 17:30 96.8 63 20 110/80 100 Mechanical Ventilator 11/16/16 17:01 58 24 100 70 Vital Signs Date Time Temp Pulse Resp B/P Pulse Ox O2 Delivery O2 Flow Rate FiO2 11/19/16 16:21 92 11/19/16 15:20 97.4 117/74 96 Room Air 11/19/16 15:00 22 11/19/16 02:00 3.0 11/18/16 13:09 30 Intake and Output 11/18/16 11/18/16 11/19/16 15:00 23:00 07:00 Intake Total 1737 ml 1523 ml 1818 ml Output Total 1405 ml 2175 ml 2725 ml Balance 332 ml -652 ml -907 ml Exam Constitutional: alert, oriented, well developed Psych: nl mood/affect, no complaints Respiratory: clear to auscultation, normal air movement Cardiovascular: nl pulses, regular rate and rhythm, No edema, No murmurs/extra sounds, No rub Gastrointestinal: bowel sounds, nl liver, spleen, non-tender, soft, No mass, No rebound or guarding Extremities: normal pulses, No clubbing, No cyanosis, No edema Neurological: MOUNTER HAND II-XII intact, lethargic, nl strength, No nl speech (slow) Additional Comments Bedside Glucose - 72 Hours Test 11/16/16 17:34 11/16/16 18:48 11/16/16 19:48 11/16/16 21:30 Bedside Glucose > 595mg/dL (70-220) *H 593mg/dL (70-220) *H 565mg/dL (70-220) *H 458mg/dL (70-220) *H Test 11/16/16 22:19 11/16/16 23:23 11/17/16 00:51 11/17/16 02:04 Bedside Glucose 413mg/dL (70-220) *H 373mg/dL (70-220) H 268mg/dL (70-220) H 276mg/dL (70-220) H Test 11/17/16 03:03 11/17/16 04:27 11/17/16 05:54 11/17/16 07:20 Bedside Glucose 308mg/dL (70-220) H 346mg/dL (70-220) H 314mg/dL (70-220) H 299mg/dL (70-220) H Test 11/17/16 08:38 11/17/16 09:16 11/17/16 10:04 11/17/16 11:06 Bedside Glucose 313mg/dL (70-220) H 297mg/dL (70-220) H 251mg/dL (70-220) H 226mg/dL (70-220) H Test 11/17/16 12:39 11/17/16 13:28 11/17/16 14:02 11/17/16 15:15 Bedside Glucose 221mg/dL (70-220) H 173mg/dL (70-220) 186mg/dL (70-220) 163mg/dL (70-220) Test 11/17/16 17:02 11/17/16 18:07 11/17/16 19:12 11/17/16 20:03 Bedside Glucose 136mg/dL (70-220) 151mg/dL (70-220) 209mg/dL (70-220) 211mg/dL (70-220) Test 11/17/16 21:00 11/17/16 21:52 11/17/16 22:55 11/17/16 23:52 Bedside Glucose 176mg/dL (70-220) 196mg/dL (70-220) 239mg/dL (70-220) H 227mg/dL (70-220) H Test 11/18/16 00:53 11/18/16 01:50 11/18/16 02:55 11/18/16 04:52 Bedside Glucose 143mg/dL (70-220) 91mg/dL (70-220) 91mg/dL (70-220) 120mg/dL (70-220) Test 11/18/16 06:55 11/18/16 08:54 11/18/16 11:09 11/18/16 13:13 Bedside Glucose 111mg/dL (70-220) 150mg/dL (70-220) 148mg/dL (70-220) 129mg/dL (70-220) Test 11/18/16 14:57 11/18/16 17:07 11/18/16 19:24 11/18/16 20:18 Bedside Glucose 105mg/dL (70-220) 160mg/dL (70-220) 162mg/dL (70-220) 140mg/dL (70-220) Test 11/18/16 21:11 11/18/16 22:58 11/19/16 01:03 11/19/16 03:00 Bedside Glucose 134mg/dL (70-220) 167mg/dL (70-220) 178mg/dL (70-220) 167mg/dL (70-220) Test 11/19/16 05:05 11/19/16 06:56 11/19/16 08:13 11/19/16 09:58 Bedside Glucose 97mg/dL (70-220) 163mg/dL (70-220) 174mg/dL (70-220) 220mg/dL (70-220) Test 11/19/16 11:56 Bedside Glucose 89mg/dL (70-220) Results Result Diagram: 11/19/16 0450 11/19/16 0450 Results 24 hrs Laboratory Tests Test 11/18/16 17:07 11/18/16 19:24 11/18/16 20:18 11/18/16 21:11 Bedside Glucose 160 162 140 134 Test 11/18/16 22:58 11/19/16 01:03 11/19/16 03:00 11/19/16 04:50 Bedside Glucose 167 178 167 Alanine Aminotransferase (ALT/SGPT) 35 Albumin 2.6 L Albumin/Globulin Ratio 0.83 Alkaline Phosphatase 103 Anion Gap 13 Aspartate Amino Transf (AST/SGOT) 41 Basophils # 0.0 Basophils % 0.2 Blood Urea Nitrogen 7 # Calcium Level 8.8 Carbon Dioxide Level 25 Chloride Level 108 Creatinine 0.39 L Direct Bilirubin 0.00 Eosinophils # 0.0 Eosinophils % 0.3 Globulin 3.10 Glucose Level 124 Hematocrit 38.6 L Hemoglobin 14.6 Indirect Bilirubin 0.6 Lymphocytes # 1.6 Lymphocytes % 15.4 Mean Corpuscular Hemoglobin 30.2 Mean Corpuscular Hemoglobin Concent 37.8 H Mean Corpuscular Volume 79.9 L Mean Platelet Volume 10.3 Monocytes # 0.6 Monocytes % 5.8 Neutrophils # 8.2 H Neutrophils % 77.7 H Nucleated Red Blood Cells # 0.0 Nucleated Red Blood Cells % 0.0 Phosphorus Level 2.3 L Platelet Count 178 Potassium Level 3.3 L Red Blood Count 4.83 Red Cell Distribution Width 13.2 Sodium Level 143 Total Bilirubin 0.6 Total Protein 5.7 L White Blood Count 10.6 # Test 11/19/16 05:05 11/19/16 06:56 11/19/16 08:13 11/19/16 09:58 Bedside Glucose 97 163 174 220 Test 11/19/16 11:56 Bedside Glucose 89 Medications Medications Current Medications Ondansetron HCl (Zofran Inj) 4 mg Q6H PRN IV NAUSEA AND/OR VOMITING; Start 11/16 at 15:30 Acetaminophen (Tylenol Liquid) 650 mg Q6H PRN PO PAIN LEVEL 1-3 OR FEVER; Start 11/16/16 at 15:30 Morphine Sulfate (morphine) 2 mg Q4H PRN IV PAIN LEVEL 7-10 Last administered on 11/18/16 07:36; Admin Dose 2 MG; Start 11/16/16 at 15:30 Pantoprazole 40 mg 40 mg DAILY@06 IV Last administered on 11/19/16 06:29; Admin Dose 40 MG; Start 11/17/16 at 06:00 Midazolam HCl (Versed) 50 ml @ 2 mls/hr TITRATE IV Last administered on 23:02; Admin Dose 2 MLS/HR; Start 11/17/16 at 00:08 Enoxaparin Sodium (Lovenox) 30 mg DAILY SC Last administered on 11/19/16 09:59 ; Admin Dose 30 MG; Start 11/17/16 at 13:00 Eye Lubricant (Artificial Tears Oph) 2 drop QID BOTH EYES Last administered on 11/19/16 12:36; Admin Dose 2 DROP; Start 11/17/16 at 17:00 Dextrose (D50w Syringe) 25 ml Q15M PRN IV Till BS 80 mg/dL or above x2; Start 11/17/16 at 17:30 Dextrose (D50w Syringe) 50 ml Q15M PRN IV Till BS 80 mg/dL or above x2; Start 11/17/16 at 17:30 Diagnostic Test (Pha) (Accucheck) 1 ea Q2 XX Last administered on 11/19/16 06: 58; Admin Dose 1 EA; Start 11/18/16 at 09:00 Insulin Glargine 18 unit 18 unit DAILY@20 SC Last administered on 11/18/16 20: 22; Admin Dose 18 UNIT; Start 11/18/16 at 20:00 Cefepime HCl (Maxipime 1gm/50 ml (Pmx)) 50 ml @ 100 mls/hr Q12 IVPB Last administered on 11/19/16 12:36; Admin Dose 100 MLS/HR; Start 11/19/16 at 12:00 ROGE PAEZ MD Nov 19, 2016 17:00
[2016-11-19] MEDS: INSULIN GLARGINE [LANtus] 3 ML PEN SC SCH (23:32)
[2016-11-20] VITALS (11 sets, daily range): BP systolic 112–131; BP diastolic 65–86; PULSE 85–94; RESP 18–20
[2016-11-20] MEDS: ACCU-CHEK XX SCH ×12 (01:00→23:00)
[2016-11-20] MEDS ORDERED: ACCU-CHEK XX SCH (02:00)
[2016-11-20] MEDS: PANTOPRAZOLE 40 MG INJ IV SCH (06:00)
[2016-11-20] MEDS: INSULIN ASPART [NOVOLOG] 3 ML PEN SC SCH ×7 (08:10→20:35)
[2016-11-20] MEDS: ARTIFICIAL TEARS 15 ML OPH BOTH EYES SCH ×4 (08:13→20:32)
[2016-11-20] MEDS: CEFEPIME 1GM/50 ML (PMX) 50 ML IVPB SCH ×2 (08:13→20:33)
[2016-11-20] MEDS: ENOXAPARIN 30 MG/0.3 ML SYG SC SCH (08:19)
--- NOTE | 2016-11-20 09:24 | CONS ---
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 This means type 1 diabetes and means he must have access to insulin. We will continue to adjust his regimen. Qualifiers: Diabetes mellitus type: other specified (including ROBERT) Diabetes mellitus complication detail: with coma Qualified Code: E13.11 - Diabetic ketoacidosis with coma associated with other specified diabetes mellitus (2) Noncompliance with medication regimen Status: Acute Comment: Counseled Consultation Date/Type/Reason Admit Date/Time Nov 17, 2016 at 11:30 Initial Consult Date 11/17/16 Type of Consultation: Endocrinology Reason for Consultation Diabetes mellitus type 1 presenting with DKA. Referring Provider: ALEA WHITAKER 24 HR Interval Summary Constitutional: no complaints Exam/Review of Systems Vital Signs Vitals Vital Signs Date Time Temp Pulse Resp B/P Pulse Ox O2 Delivery O2 Flow Rate FiO2 11/20/16 08:23 89 11/20/16 07:30 3.0 32 11/20/16 06:56 98.0 18 131/79 98 11/19/16 15:20 Room Air Intake and Output 11/19/16 11/19/16 11/20/16 15:00 23:00 07:00 Intake Total 660 ml 440 ml 1420 ml Output Total 1800 ml 650 ml 2450 ml Balance -1140 ml -210 ml -1030 ml Exam Constitutional: alert, oriented Respiratory: clear to auscultation, normal air movement Cardiovascular: nl pulses, regular rate and rhythm Results Result Diagram: 11/19/16 0450 11/19/16 0450 Results 24 hrs Laboratory Tests Test 11/19/16 09:58 11/19/16 11:56 11/19/16 17:52 11/19/16 22:10 Bedside Glucose 220 89 152 284 H Test 11/19/16 23:26 11/20/16 01:21 11/20/16 03:47 11/20/16 05:59 Bedside Glucose 267 H 237 H 252 H 258 H Test 11/20/16 07:44 11/20/16 09:04 Bedside Glucose 280 H 357 H Medications Medications Current Medications Ondansetron HCl (Zofran Inj) 4 mg Q6H PRN IV NAUSEA AND/OR VOMITING; Start 11/16 at 15:30 Acetaminophen (Tylenol Liquid) 650 mg Q6H PRN PO PAIN LEVEL 1-3 OR FEVER; Start 11/16/16 at 15:30 Morphine Sulfate (morphine) 2 mg Q4H PRN IV PAIN LEVEL 7-10 Last administered on 11/18/16 07:36; Admin Dose 2 MG; Start 11/16/16 at 15:30 Pantoprazole 40 mg 40 mg DAILY@06 IV Last administered on 11/20/16 06:00; Admin Dose 40 MG; Start 11/17/16 at 06:00 Midazolam HCl (Versed) 50 ml @ 2 mls/hr TITRATE IV Last administered on 23:02; Admin Dose 2 MLS/HR; Start 11/17/16 at 00:08 Enoxaparin Sodium (Lovenox) 30 mg DAILY SC Last administered on 11/20/16 08:19 ; Admin Dose 30 MG; Start 11/17/16 at 13:00 Eye Lubricant (Artificial Tears Oph) 2 drop QID BOTH EYES Last administered on 11/20/16 08:13; Admin Dose 2 DROP; Start 11/17/16 at 17:00 Dextrose (D50w Syringe) 25 ml Q15M PRN IV Till BS 80 mg/dL or above x2; Start 11/17/16 at 17:30 Dextrose (D50w Syringe) 50 ml Q15M PRN IV Till BS 80 mg/dL or above x2; Start 11/17/16 at 17:30 Diagnostic Test (Pha) (Accucheck) 1 ea Q2 XX Last administered on 11/20/16 09: 05; Admin Dose 1 EA; Start 11/18/16 at 09:00 Insulin Glargine 18 unit 18 unit DAILY@20 SC Last administered on 11/19/16 23: 32; Admin Dose 18 UNIT; Start 11/18/16 at 20:00 Cefepime HCl (Maxipime 1gm/50 ml (Pmx)) 50 ml @ 100 mls/hr Q12 IVPB Last administered on 11/20/16 08:13; Admin Dose 100 MLS/HR; Start 11/19/16 at 12:00 YASMIN LAMB MD Nov 20, 2016 09:24
--- NOTE | 2016-11-20 09:32 | CONS ---
Date/Time of Note Date/Time of Note DATE: 11/20/16 TIME: 09:31 Assessment/Plan Assessment/Plan Chief Complaint/Hosp Course ID PROGRESS NOTE TOTAL ABX DAY #4 => Cefepime s/p Vanco 24H INTERVAL SUMMARY * Awake, Alert, oriented, stable post extubation, feels better * Afebrile, WBC normalized * Patient reports recent (-)HIV test @ [facility] PHYSICAL EXAMINATION: GENERAL: Thin appearing 41 yo M HEENT: Unremarkable NECK: Supple, full ROM CHEST: Equal chest rise bilaterally, without dyspnea on observation HEART: Pulse RRR ABDOMEN: Soft EXTREMITIES: Warm SKIN: See hard chart skin assessment ID ASSESSMENT: 41 yo M admit with: 1. Sepsis on admission w/fevers/leukocytosis, hypotension = RESOLVED 2. Acute respiratory failure secondary to pneumonia, possibly aspiration =>s/p mechanical vent now Extubated * RESPIRATORY CULTURE Preliminary Organism 1 BRIAN ALBICANS QUANTITY 1+ Organism 2 STAPHYLOCOCCUS AUREUS QUANTITY RARE 3. Poorly controlled diabetes with diabetic ketoacidosis. 4. QUERY hx of Substance abuse? Denies hx of ETOH/illicit drugs * Amphetamine screen positive * w/recent (-)HIV screen @ [facility] 3-weeks ago (-)MRSA Nares INVASIVES: PIV ABX ALLERGY: KNDA CURRENT ABX: TOTAL ABX DAY #4 => Cefepime s/p Vanco ID RECOMMENDATIONS: 1. Await final ID STAPH PNA and will taper ABX to PO tomorrow 2. DC planning he reports he is homeless and is hoping for placement in suitable housing situation / Problems: Consultation Date/Type/Reason Admit Date/Time Nov 17, 2016 at 11:30 Initial Consult Date 11/17/16 Type of Consultation: ID Referring Provider: ALEA WHITAKER Exam/Review of Systems Vital Signs Vitals Vital Signs Date Time Temp Pulse Resp B/P Pulse Ox O2 Delivery O2 Flow Rate FiO2 11/20/16 08:23 89 11/20/16 07:30 3.0 32 11/20/16 06:56 98.0 18 131/79 98 11/19/16 15:20 Room Air Intake and Output 11/19/16 11/19/16 11/20/16 15:00 23:00 07:00 Intake Total 660 ml 440 ml 1420 ml Output Total 1800 ml 650 ml 2450 ml Balance -1140 ml -210 ml -1030 ml Results Result Diagram: 11/19/16 0450 11/19/16 0450 Results 24 hrs Laboratory Tests Test 11/19/16 09:58 11/19/16 11:56 11/19/16 17:52 11/19/16 22:10 Bedside Glucose 220 89 152 284 H Test 11/19/16 23:26 11/20/16 01:21 11/20/16 03:47 11/20/16 05:59 Bedside Glucose 267 H 237 H 252 H 258 H Test 11/20/16 07:44 11/20/16 09:04 Bedside Glucose 280 H 357 H Medications Medications Current Medications Ondansetron HCl (Zofran Inj) 4 mg Q6H PRN IV NAUSEA AND/OR VOMITING; Start 11/16 at 15:30 Acetaminophen (Tylenol Liquid) 650 mg Q6H PRN PO PAIN LEVEL 1-3 OR FEVER; Start 11/16/16 at 15:30 Morphine Sulfate (morphine) 2 mg Q4H PRN IV PAIN LEVEL 7-10 Last administered on 11/18/16 07:36; Admin Dose 2 MG; Start 11/16/16 at 15:30 Pantoprazole 40 mg 40 mg DAILY@06 IV Last administered on 11/20/16 06:00; Admin Dose 40 MG; Start 11/17/16 at 06:00 Midazolam HCl (Versed) 50 ml @ 2 mls/hr TITRATE IV Last administered on 23:02; Admin Dose 2 MLS/HR; Start 11/17/16 at 00:08 Enoxaparin Sodium (Lovenox) 30 mg DAILY SC Last administered on 11/20/16 08:19 ; Admin Dose 30 MG; Start 11/17/16 at 13:00 Eye Lubricant (Artificial Tears Oph) 2 drop QID BOTH EYES Last administered on 11/20/16 08:13; Admin Dose 2 DROP; Start 11/17/16 at 17:00 Dextrose (D50w Syringe) 25 ml Q15M PRN IV Till BS 80 mg/dL or above x2; Start 11/17/16 at 17:30 Dextrose (D50w Syringe) 50 ml Q15M PRN IV Till BS 80 mg/dL or above x2; Start 11/17/16 at 17:30 Diagnostic Test (Pha) 1 ea 1 ea Q2 XX Last administered on 11/20/16 09:05; Admin Dose 1 EA; Start 11/18/16 at 09:00 Cefepime HCl (Maxipime 1gm/50 ml (Pmx)) 50 ml @ 100 mls/hr Q12 IVPB Last administered on 11/20/16 08:13; Admin Dose 100 MLS/HR; Start 11/19/16 at 12:00 Insulin Glargine (Lantus) 20 unit DAILY@20 SC ; Start 11/20/16 at 20:00; Status THAI DIAZ NP Nov 20, 2016 09:32
[2016-11-20 10:19] LABS: ADD SCAN DIFF NO
[2016-11-20 10:24] LABS: BASOPHILS % 0.3 % (0.0-2.0); EOSINOPHILS # 0.1 10^3/ul (0.0-0.5); EOSINOPHILS % 0.9 % (0.0-7.0); HEMATOCRIT 36.2 % (42.0-52.0); HEMOGLOBIN 13.3 g/dl (14.0-18.0); LYMPHOCYTES # 1.2 10^3/ul (0.8-2.9); LYMPHOCYTES % 16.4 % (15.0-51.0); MEAN CORPUSCULAR HEMOGLOBIN 30.2 pg (29.0-33.0); MEAN CORPUSCULAR HGB CONC 36.7 g/dl (32.0-37.0); MEAN CORPUSCULAR VOLUME 82.1 fl (82.0-101.0); MEAN PLATELET VOLUME 10.5 fl (7.4-10.4); MONOCYTE # 0.5 10^3/ul (0.3-0.9); MONOCYTES % 6.9 % (0.0-11.0); NEUTROPHIL # 5.7 10^3/ul (1.6-7.5); NEUTROPHILS % 75.2 % (39.0-77.0); PLATELET COUNT 170 10^3/UL (140-415); RED BLOOD COUNT 4.41 10^6/ul (4.70-6.10); RED CELL DISTRIBUTION WIDTH 12.7 % (11.5-14.5); WHITE BLOOD COUNT 7.6 10^3/ul (4.8-10.8)
[2016-11-20 10:38] LABS: POTASSIUM 3.3 mmol/L (3.5-5.1)
[2016-11-20 10:41] LABS: CREATININE 0.47 mg/dl (0.61-1.24)
[2016-11-20 10:42] LABS: CALCIUM 8.7 mg/dl (8.4-10.2)
--- NOTE | 2016-11-20 13:04 | PN ---
Date/Time of Note Date/Time of Note DATE: 11/20/16 TIME: 13:03 Assessment/Plan VTE Prophylaxis VTE Prophylaxis Intervention: SCD's Lines/Catheters IV C[facility] Type (from [facility] Saline Lock Urinary Cath still in place: Yes Reason Cath still needed: urinary retention Assessment/Plan Assessment/Plan 1. Severe diabetic ketoacidosis with coma. Continue insulin drip. - Dr. Andre in endocrinology consultation. - Continue IV fluids. 2. Diabetes mellitus type 2. - Glycemic control 3. Severe sepsis secondary PNA. - per Dr. Callaway in infectious disease consultation. Continue broad- spectrum antibiotics. - follow up on urine, blood and sputum cultures. 4. Possible community-acquired pneumonia. 5. Acute respiratory failure. - per Dr. Torres in pulmonology consultation. - Continue ventilatory support and 6. Altered level of consciousness. CT head is negative. 6. Metabolic Encephalopathy 7. Amphetamine screen positive. 8. Hypokalemia- replet KCL, AM LABS 9. Amphetamine screen positive. 10. Sequential compression device for deep venous thrombosis prophylaxis 11. Protonix for peptic ulcer disease prophylaxis. Further recommendations based on clinical course. Total critical time spent is 40 mins.Plan of care discussed with Dr. Ma. Subjective 24 Hr Interval Summary Free Text/Dictation NAD, patient remains intubated, ogt noted- connected to low intermittent suction , on versed , insulin drip, d5 1/4 NS + 2- k , sacrum/coccyx DTI . afebrile. dw staff Constitutional: no complaints Eyes: no complaints ENT: no complaints Respiratory: no complaints Cardiovascular: no complaints Gastrointestinal: no complaints Genitourinary: no complaints Musculoskeletal: no complaints Skin: no complaints Neurologic: no complaints Endocrine: no complaints Psychological: no complaints Immunologic: no complaints Exam/Review of Systems Vital Signs Vitals Vital Signs Date Time Temp Pulse Resp B/P Pulse Ox O2 Delivery O2 Flow Rate FiO2 11/20/16 11:54 98.3 93 20 117/65 98 11/20/16 07:30 3.0 32 11/19/16 15:20 Room Air Intake and Output 11/19/16 11/19/16 11/20/16 15:00 23:00 07:00 Intake Total 660 ml 440 ml 1420 ml Output Total 1800 ml 650 ml 2450 ml Balance -1140 ml -210 ml -1030 ml Exam Constitutional: alert, oriented, well developed Psych: no complaints Head: atraumatic Eyes: EOMI, PERRL, nl sclera ENMT: nl external ears & nose Neck: non-tender Respiratory: diminished breath sounds Cardiovascular: nl pulses Gastrointestinal: non-tender, soft Musculoskeletal: nl extremities to inspection Extremities: normal pulses Neurological: nl mental status, nl speech Skin: nl turgor Lymph: nontender Results Result Diagram: 11/20/16 0953 11/20/16 0953 Results 24 hrs Laboratory Tests Test 11/19/16 17:52 11/19/16 22:10 11/19/16 23:26 11/20/16 01:21 Bedside Glucose 152 284 H 267 H 237 H Test 11/20/16 03:47 11/20/16 05:59 11/20/16 07:44 11/20/16 09:04 Bedside Glucose 252 H 258 H 280 H 357 H Test 11/20/16 09:53 11/20/16 11:17 Anion Gap 11 Basophils # 0.0 Basophils % 0.3 Blood Urea Nitrogen 9 Calcium Level 8.7 Carbon Dioxide Level 29 Chloride Level 101 Creatinine 0.47 L Eosinophils # 0.1 Eosinophils % 0.9 Glucose Level 296 #H Hematocrit 36.2 L Hemoglobin 13.3 L Lymphocytes # 1.2 Lymphocytes % 16.4 Mean Corpuscular Hemoglobin 30.2 Mean Corpuscular Hemoglobin Concent 36.7 Mean Corpuscular Volume 82.1 Mean Platelet Volume 10.5 H Monocytes # 0.5 Monocytes % 6.9 Neutrophils # 5.7 Neutrophils % 75.2 Nucleated Red Blood Cells # 0.0 Nucleated Red Blood Cells % 0.0 Platelet Count 170 Potassium Level 3.3 L Red Blood Count 4.41 L Red Cell Distribution Width 12.7 Sodium Level 138 White Blood Count 7.6 # Bedside Glucose 290 H Medications Medications Current Medications Ondansetron HCl (Zofran Inj) 4 mg Q6H PRN IV NAUSEA AND/OR VOMITING; Start 11/16 at 15:30 Acetaminophen (Tylenol Liquid) 650 mg Q6H PRN PO PAIN LEVEL 1-3 OR FEVER; Start 11/16/16 at 15:30 Morphine Sulfate (morphine) 2 mg Q4H PRN IV PAIN LEVEL 7-10 Last administered on 11/18/16t 07:36; Admin Dose 2 MG; Start 11/16/16 at 15:30 Enoxaparin Sodium (Lovenox) 30 mg DAILY SC Last administered on 11/20/16 08:19 ; Admin Dose 30 MG; Start 11/17/16 at 13:00 Eye Lubricant (Artificial Tears Oph) 2 drop QID BOTH EYES Last administered on 11/20/16 08:13; Admin Dose 2 DROP; Start 11/17/16 at 17:00 Dextrose (D50w Syringe) 25 ml Q15M PRN IV Till BS 80 mg/dL or above x2; Start 11/17/16 at 17:30 Dextrose (D50w Syringe) 50 ml Q15M PRN IV Till BS 80 mg/dL or above x2; Start 11/17/16 at 17:30 Diagnostic Test (Pha) 1 ea 1 ea Q2 XX Last administered on 11/20/16 11:23; Admin Dose 1 EA; Start 11/18/16 at 09:00 Cefepime HCl (Maxipime 1gm/50 ml (Pmx)) 50 ml @ 100 mls/hr Q12 IVPB Last administered on 11/20/16 08:13; Admin Dose 100 MLS/HR; Start 11/19/16 at 12:00 Insulin Glargine (Lantus) 20 unit DAILY@20 SC ; Start 11/20/16 at 20:00 Pantoprazole (Protonix Tab) 40 mg DAILY@06 PO ; Start 11/21/16 at 06:00 HANNAH DIAS Nov 20, 2016 13:04
[2016-11-20] MEDS: morphine 2 MG INJ IV PRN (17:39)
[2016-11-20] MEDS ORDERED: POTASSIUM CHLORIDE 20 MEQ in SOD CHLORIDE 0.9% 100 ML IVPB ONE (18:30)
[2016-11-20] MEDS ORDERED: INSULIN GLARGINE [LANtus] 3 ML PEN SC SCH (20:00)
[2016-11-20] MEDS ORDERED: POTASSIUM CHLORIDE (SR) 20 MEQ TAB PO ONE (21:00)
[2016-11-21] VITALS (11 sets, daily range): BP systolic 118–148; BP diastolic 75–93; PULSE 84–93; RESP 18–19
[2016-11-21] MEDS: ACCU-CHEK XX SCH ×12 (01:00→23:29)
[2016-11-21] MEDS: PANTOPRAZOLE (EC) 40 MG TAB PO SCH (05:54)
[2016-11-21 06:05] LABS: ADD SCAN DIFF NO
[2016-11-21 06:08] LABS: BASOPHILS % 0.5 % (0.0-2.0); EOSINOPHILS # 0.1 10^3/ul (0.0-0.5); EOSINOPHILS % 2.1 % (0.0-7.0); HEMATOCRIT 37.3 % (42.0-52.0); HEMOGLOBIN 13.5 g/dl (14.0-18.0); LYMPHOCYTES % 33.2 % (15.0-51.0); MEAN CORPUSCULAR HEMOGLOBIN 29.8 pg (29.0-33.0); MEAN CORPUSCULAR HGB CONC 36.2 g/dl (32.0-37.0); MEAN CORPUSCULAR VOLUME 82.3 fl (82.0-101.0); MEAN PLATELET VOLUME 10.2 fl (7.4-10.4); MONOCYTE # 0.6 10^3/ul (0.3-0.9); MONOCYTES % 10.5 % (0.0-11.0); NEUTROPHIL # 3.3 10^3/ul (1.6-7.5); NEUTROPHILS % 53.4 % (39.0-77.0); PLATELET COUNT 202 10^3/UL (140-415); RED BLOOD COUNT 4.53 10^6/ul (4.70-6.10); RED CELL DISTRIBUTION WIDTH 12.5 % (11.5-14.5); WHITE BLOOD COUNT 6.1 10^3/ul (4.8-10.8)
[2016-11-21 06:23] LABS: CREATININE 0.44 mg/dl (0.61-1.24)
[2016-11-21 06:24] LABS: CALCIUM 8.7 mg/dl (8.4-10.2)
[2016-11-21 07:01] LABS: POTASSIUM 3.7 mmol/L (3.5-5.1)
[2016-11-21] MEDS: ARTIFICIAL TEARS 15 ML OPH BOTH EYES SCH ×4 (08:25→20:08)
[2016-11-21] MEDS: CEFEPIME 1GM/50 ML (PMX) 50 ML IVPB SCH (08:25)
[2016-11-21] MEDS: ENOXAPARIN 30 MG/0.3 ML SYG SC SCH (08:32)
[2016-11-21] MEDS: INSULIN ASPART [NOVOLOG] 3 ML PEN SC SCH ×7 (08:32→21:35)
--- NOTE | 2016-11-21 12:44 | CONS ---
Date/Time of Note Date/Time of Note DATE: 11/21/16 TIME: 12:42 Assessment/Plan Assessment/Plan Problems: (1) Type II diabetes mellitus, uncontrolled Status: Chronic Comment: As noted in prior notes this patient has pancreatic beta cell insufficiency with resistance. As such being on insulin therapy is a mandate. Discharge planning will be critical. 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 Consultation Date/Type/Reason Admit Date/Time Nov 17, 2016 at 11:30 Initial Consult Date 11/17/16 Type of Consultation: Endocrinology Reason for Consultation Diabetes mellitus type 1 with some degree of insulin resistance Referring Provider: ALEA WHITAKER 24 HR Interval Summary Free Text/Dictation No changes Exam/Review of Systems Vital Signs Vitals Vital Signs Date Time Temp Pulse Resp B/P Pulse Ox O2 Delivery O2 Flow Rate FiO2 11/21/16 11:41 97.9 92 19 148/93 97 11/21/16 09:51 21 11/20/16 18:19 3.0 11/19/16 15:20 Room Air Intake and Output 11/20/16 11/20/16 11/21/16 15:00 23:00 07:00 Intake Total 50 ml 1500 ml 400 ml Output Total 3000 ml 1300 ml Balance 50 ml -1500 ml -900 ml Exam No changes Results Result Diagram: 11/21/16 0529 11/21/16 0529 Results 24 hrs Laboratory Tests Test 11/20/16 13:32 11/20/16 15:29 11/20/16 17:31 11/20/16 20:25 Bedside Glucose 299 H 199 133 192 Test 11/21/16 00:15 11/21/16 03:13 11/21/16 05:29 11/21/16 05:56 Bedside Glucose 165 198 202 Anion Gap 10 Basophils # 0.0 Basophils % 0.5 Blood Urea Nitrogen 10 Calcium Level 8.7 Carbon Dioxide Level 33 H Chloride Level 100 Creatinine 0.44 L Eosinophils # 0.1 Eosinophils % 2.1 Glucose Level 219 Hematocrit 37.3 L Hemoglobin 13.5 L Lymphocytes # 2.0 Lymphocytes % 33.2 Mean Corpuscular Hemoglobin 29.8 Mean Corpuscular Hemoglobin Concent 36.2 Mean Corpuscular Volume 82.3 Mean Platelet Volume 10.2 Monocytes # 0.6 Monocytes % 10.5 Neutrophils # 3.3 Neutrophils % 53.4 Nucleated Red Blood Cells # 0.0 Nucleated Red Blood Cells % 0.0 Platelet Count 202 Potassium Level 3.7 Red Blood Count 4.53 L Red Cell Distribution Width 12.5 Sodium Level 139 White Blood Count 6.1 Test 11/21/16 07:43 11/21/16 09:57 11/21/16 10:56 11/21/16 11:41 Bedside Glucose 215 260 H 238 H Lab Scanned Report REFERENCE LAB Medications Medications Current Medications Ondansetron HCl (Zofran Inj) 4 mg Q6H PRN IV NAUSEA AND/OR VOMITING; Start 11/16 at 15:30 Acetaminophen (Tylenol Liquid) 650 mg Q6H PRN PO PAIN LEVEL 1-3 OR FEVER; Start 11/16/16 at 15:30 Morphine Sulfate (morphine) 2 mg Q4H PRN IV PAIN LEVEL 7-10 Last administered on 11/20/16 17:39; Admin Dose 2 MG; Start 11/16/16 at 15:30 Enoxaparin Sodium (Lovenox) 30 mg DAILY SC Last administered on 11/21/16 08:32 ; Admin Dose 30 MG; Start 11/17/16 at 13:00 Eye Lubricant (Artificial Tears Oph) 2 drop QID BOTH EYES Last administered on 11/21/16 12:27; Admin Dose 2 DROP; Start 11/17/16 at 17:00 Dextrose (D50w Syringe) 25 ml Q15M PRN IV Till BS 80 mg/dL or above x2; Start 11/17/16 at 17:30 Dextrose (D50w Syringe) 50 ml Q15M PRN IV Till BS 80 mg/dL or above x2; Start 11/17/16 at 17:30 Diagnostic Test (Pha) 1 ea 1 ea Q2 XX Last administered on 11/21/16 12:03; Admin Dose 1 EA; Start 11/18/16 at 09:00 Cefepime HCl (Maxipime 1gm/50 ml (Pmx)) 50 ml @ 100 mls/hr Q12 IVPB Last administered on 11/21/16 08:25; Admin Dose 100 MLS/HR; Start 11/19/16 at 12:00 Pantoprazole (Protonix Tab) 40 mg DAILY@06 PO Last administered on 11/21/16t 05 :54; Admin Dose 40 MG; Start 11/21/16 at 06:00 Influenza Virus Vaccine (Fluzone) 0.5 ml ONCE ONCE IM* ; Start 11/22/16 at 09:00 ; Stop 11/22/16 at 09:01 YASMIN LAMB MD Nov 21, 2016 12:44
--- NOTE | 2016-11-21 14:56 | PN ---
Date/Time of Note Date/Time of Note DATE: 11/21/16 TIME: 14:55 Assessment/Plan VTE Prophylaxis VTE Prophylaxis Intervention: SCD's Lines/Catheters IV [facility] Saline Lock Urinary Cath still in place: Yes Reason Cath still needed: urinary retention Assessment/Plan Assessment/Plan 1. Severe diabetic ketoacidosis with coma. Continue insulin drip. - Dr. Andre in endocrinology consultation. - Continue IV fluids. 2. Acute metabolic encephalopathy 2. Diabetes mellitus type 2. - Glycemic control 3. Severe sepsis secondary PNA. - per Dr. Callaway in infectious disease consultation. Continue Levaquin - follow up on urine, blood and sputum cultures. - aspiration precautions 4. Community-acquired pneumonia vs aspiration. - per ID - aspiration precautions 5. Acute respiratory failure, resolved. - per Dr. Torres in pulmonology consultation. - Continue ventilatory support - aspiration precautions 6. Altered level of consciousness. CT head is negative. 7. Sacrococcyx DTI present on admission, continue current wound care, vitamin C , multivitamins, offloading 8. Hypokalemia- resolved, AM LABS 9. Amphetamine screen positive. 10. Sequential compression device for deep venous thrombosis prophylaxis 11. Protonix for peptic ulcer disease prophylaxis. Further recommendations based on clinical course. Total critical time spent is 30 mins.Plan of care discussed with Dr. Ma. Subjective 24 Hr Interval Summary Constitutional: other (c/o generelized weakness) Eyes: no complaints ENT: no complaints Respiratory: no complaints Cardiovascular: no complaints Gastrointestinal: no complaints Genitourinary: no complaints Musculoskeletal: no complaints Skin: no complaints Neurologic: no complaints Endocrine: no complaints Lymphatic: no complaints Psychological: no complaints Immunologic: no complaints Exam/Review of Systems Vital Signs Vitals Vital Signs Date Time Temp Pulse Resp B/P Pulse Ox O2 Delivery O2 Flow Rate FiO2 11/21/16 12:52 21 11/21/16 12:44 93 11/21/16 11:41 97.9 19 148/93 97 11/20/16 18:19 3.0 11/19/16 15:20 Room Air Intake and Output 11/20/16 11/20/16 11/21/16 15:00 23:00 07:00 Intake Total 50 ml 1500 ml 400 ml Output Total 3000 ml 1300 ml Balance 50 ml -1500 ml -900 ml Exam Constitutional: alert, oriented, well developed Eyes: EOMI, PERRL, nl sclera ENMT: nl external ears & nose Neck: non-tender Respiratory: clear to auscultation Cardiovascular: nl pulses Gastrointestinal: non-tender, soft Musculoskeletal: nl extremities to inspection Extremities: normal pulses Neurological: nl mental status, nl speech Skin: nl turgor Lymph: nontender Results Result Diagram: 11/21/16 0529 11/21/16 0529 Results 24 hrs Laboratory Tests Test 11/20/16 15:29 11/20/16 17:31 11/20/16 20:25 11/21/16 00:15 Bedside Glucose 199 133 192 165 Test 11/21/16 03:13 11/21/16 05:29 11/21/16 05:56 11/21/16 07:43 Bedside Glucose 198 202 215 Anion Gap 10 Basophils # 0.0 Basophils % 0.5 Blood Urea Nitrogen 10 Calcium Level 8.7 Carbon Dioxide Level 33 H Chloride Level 100 Creatinine 0.44 L Eosinophils # 0.1 Eosinophils % 2.1 Glucose Level 219 Hematocrit 37.3 L Hemoglobin 13.5 L Lymphocytes # 2.0 Lymphocytes % 33.2 Mean Corpuscular Hemoglobin 29.8 Mean Corpuscular Hemoglobin Concent 36.2 Mean Corpuscular Volume 82.3 Mean Platelet Volume 10.2 Monocytes # 0.6 Monocytes % 10.5 Neutrophils # 3.3 Neutrophils % 53.4 Nucleated Red Blood Cells # 0.0 Nucleated Red Blood Cells % 0.0 Platelet Count 202 Potassium Level 3.7 Red Blood Count 4.53 L Red Cell Distribution Width 12.5 Sodium Level 139 White Blood Count 6.1 Test 11/21/16 09:57 11/21/16 10:56 11/21/16 11:41 11/21/16 13:04 Bedside Glucose 260 H 238 H 304 H Lab Scanned Report REFERENCE LAB Medications Medications Current Medications Ondansetron HCl (Zofran Inj) 4 mg Q6H PRN IV NAUSEA AND/OR VOMITING; Start 11/16 at 15:30 Acetaminophen (Tylenol Liquid) 650 mg Q6H PRN PO PAIN LEVEL 1-3 OR FEVER; Start 11/16/16 at 15:30 Morphine Sulfate (morphine) 2 mg Q4H PRN IV PAIN LEVEL 7-10 Last administered on 11/20/16t 17:39; Admin Dose 2 MG; Start 11/16/16 at 15:30 Enoxaparin Sodium (Lovenox) 30 mg DAILY SC Last administered on 11/21/16 08:32 ; Admin Dose 30 MG; Start 11/17/16 at 13:00 Eye Lubricant (Artificial Tears Oph) 2 drop QID BOTH EYES Last administered on 11/21/16 12:27; Admin Dose 2 DROP; Start 11/17/16 at 17:00 Dextrose (D50w Syringe) 25 ml Q15M PRN IV Till BS 80 mg/dL or above x2; Start 11/17/16 at 17:30 Dextrose (D50w Syringe) 50 ml Q15M PRN IV Till BS 80 mg/dL or above x2; Start 11/17/16 at 17:30 Diagnostic Test (Pha) 1 ea 1 ea Q2 XX Last administered on 11/21/16 13:00; Admin Dose 1 EA; Start 11/18/16 at 09:00 Cefepime HCl (Maxipime 1gm/50 ml (Pmx)) 50 ml @ 100 mls/hr Q12 IVPB Last administered on 11/21/16 08:25; Admin Dose 100 MLS/HR; Start 11/19/16 at 12:00 Pantoprazole (Protonix Tab) 40 mg DAILY@06 PO Last administered on 11/21/16 05 :54; Admin Dose 40 MG; Start 11/21/16 at 06:00 Influenza Virus Vaccine (Fluzone) 0.5 ml ONCE ONCE IM* ; Start 11/22/16 at 09:00 ; Stop 11/22/16 at 09:01 Insulin Glargine (Lantus) 24 unit DAILY@20 SC ; Start 11/21/16 at 20:00 HANNAH DIAS Nov 21, 2016 14:56
--- NOTE | 2016-11-21 15:01 | CONS ---
Date/Time of Note Date/Time of Note DATE: 11/21/16 TIME: 14:51 Assessment/Plan Assessment/Plan Chief Complaint/Hosp Course ID PROGRESS NOTE TOTAL ABX DAY #5 => Cefepime s/p Vanco 24H INTERVAL SUMMARY * Clinically much improved => Awake, Alert, oriented, Afebrile, WBC normalized * Per notes: Pt is a Type1-DM and needs insulin * Patient reports recent (-)HIV test @ [facility] RESPIRATORY CULTURE Final Organism 1 BRIAN ALBICANS QUANTITY 1+ Organism 2 STAPHYLOCOCCUS AUREUS QUANTITY RARE S AUREUS M.I.C. RX --------- --- CEFAZOLIN S CIPROFLOXACIN <=0.5 S CLINDAMYCIN <=0.25 S DOXYCYCLINE S ERYTHROMYCIN <=0.25 S LEVOFLOXACIN 0.25 S OXACILLIN 0.5 S PENICILLIN-G >=0.5 R RIFAMPIN <=0.5 S VANCOMYCIN <=0.5 S TRIMETHOPRIM/SULFAMETHOXAZOLE <=10 S PHYSICAL EXAMINATION: GENERAL: Thin appearing 41 yo M HEENT: Unremarkable NECK: Supple, full ROM CHEST: Equal chest rise bilaterally, without dyspnea on observation HEART: Pulse RRR ABDOMEN: Soft EXTREMITIES: Warm SKIN: See hard chart skin assessment ID ASSESSMENT: 41 yo M admit with: 1. Sepsis on admission w/fevers/leukocytosis, hypotension = RESOLVED 2. s/p Acute respiratory failure secondary to pneumonia, possibly aspiration => s/p mechanical vent now Extubated * RESPIRATORY CULTURE Final Organism 1 BRIAN ALBICANS QUANTITY 1+ Organism 2 STAPHYLOCOCCUS AUREUS => (+)BARRON QUANTITY RARE 3. Poorly controlled DM-T1 s/p DKA 4. QUERY hx of Substance abuse? Denies hx of ETOH/illicit drugs * Amphetamine screen positive * w/recent (-)HIV screen @ [facility] 3-weeks ago (-)MRSA Nares INVASIVES: PIV ABX ALLERGY: KNDA CURRENT ABX: TOTAL ABX DAY #5 => Cefepime s/p Vanco ID RECOMMENDATIONS: 1. DC Cefepime -> taper to Levaquin 500mg po x 3 days 2. Oral Nystatin swish/spit 2. DC planning he reports he is homeless and is hoping for placement in suitable housing situation / Problems: Consultation Date/Type/Reason Admit Date/Time Nov 17, 2016 at 11:30 Initial Consult Date 11/17/16 Type of Consultation: ID Referring Provider: ALEA WHITAKER Exam/Review of Systems Vital Signs Vitals Vital Signs Date Time Temp Pulse Resp B/P Pulse Ox O2 Delivery O2 Flow Rate FiO2 11/21/16 12:52 21 11/21/16 12:44 93 11/21/16 11:41 97.9 19 148/93 97 11/20/16 18:19 3.0 11/19/16 15:20 Room Air Intake and Output 11/20/16 11/20/16 11/21/16 15:00 23:00 07:00 Intake Total 50 ml 1500 ml 400 ml Output Total 3000 ml 1300 ml Balance 50 ml -1500 ml -900 ml Results Result Diagram: 11/21/16 0529 11/21/16 0529 Results 24 hrs Laboratory Tests Test 11/20/16 15:29 11/20/16 17:31 11/20/16 20:25 11/21/16 00:15 Bedside Glucose 199 133 192 165 Test 11/21/16 03:13 11/21/16 05:29 11/21/16 05:56 11/21/16 07:43 Bedside Glucose 198 202 215 Anion Gap 10 Basophils # 0.0 Basophils % 0.5 Blood Urea Nitrogen 10 Calcium Level 8.7 Carbon Dioxide Level 33 H Chloride Level 100 Creatinine 0.44 L Eosinophils # 0.1 Eosinophils % 2.1 Glucose Level 219 Hematocrit 37.3 L Hemoglobin 13.5 L Lymphocytes # 2.0 Lymphocytes % 33.2 Mean Corpuscular Hemoglobin 29.8 Mean Corpuscular Hemoglobin Concent 36.2 Mean Corpuscular Volume 82.3 Mean Platelet Volume 10.2 Monocytes # 0.6 Monocytes % 10.5 Neutrophils # 3.3 Neutrophils % 53.4 Nucleated Red Blood Cells # 0.0 Nucleated Red Blood Cells % 0.0 Platelet Count 202 Potassium Level 3.7 Red Blood Count 4.53 L Red Cell Distribution Width 12.5 Sodium Level 139 White Blood Count 6.1 Test 11/21/16 09:57 11/21/16 10:56 11/21/16 11:41 11/21/16 13:04 Bedside Glucose 260 H 238 H 304 H Lab Scanned Report REFERENCE LAB Medications Medications Current Medications Ondansetron HCl (Zofran Inj) 4 mg Q6H PRN IV NAUSEA AND/OR VOMITING; Start 11/16 at 15:30 Acetaminophen (Tylenol Liquid) 650 mg Q6H PRN PO PAIN LEVEL 1-3 OR FEVER; Start 11/16/16 at 15:30 Morphine Sulfate (morphine) 2 mg Q4H PRN IV PAIN LEVEL 7-10 Last administered on 11/20/16 17:39; Admin Dose 2 MG; Start 11/16/16 at 15:30 Enoxaparin Sodium (Lovenox) 30 mg DAILY SC Last administered on 11/21/16 08:32 ; Admin Dose 30 MG; Start 11/17/16 at 13:00 Eye Lubricant (Artificial Tears Oph) 2 drop QID BOTH EYES Last administered on 11/21/16 12:27; Admin Dose 2 DROP; Start 11/17/16 at 17:00 Dextrose (D50w Syringe) 25 ml Q15M PRN IV Till BS 80 mg/dL or above x2; Start 11/17/16 at 17:30 Dextrose (D50w Syringe) 50 ml Q15M PRN IV Till BS 80 mg/dL or above x2; Start 11/17/16 at 17:30 Diagnostic Test (Pha) 1 ea 1 ea Q2 XX Last administered on 11/21/16 13:00; Admin Dose 1 EA; Start 11/18/16 at 09:00 Cefepime HCl (Maxipime 1gm/50 ml (Pmx)) 50 ml @ 100 mls/hr Q12 IVPB Last administered on 11/21/16 08:25; Admin Dose 100 MLS/HR; Start 11/19/16 at 12:00 Pantoprazole (Protonix Tab) 40 mg DAILY@06 PO Last administered on 11/21/16 05 :54; Admin Dose 40 MG; Start 11/21/16 at 06:00 Influenza Virus Vaccine (Fluzone) 0.5 ml ONCE ONCE IM* ; Start 11/22/16 at 09:00 ; Stop 11/22/16 at 09:01 Insulin Glargine (Lantus) 24 unit DAILY@20 SC ; Start 3/12/17 at 20:00 THAI GARRETT NP Nov 21, 2016 15:01
[2016-11-21] MEDS ORDERED: GLUCAGON 1 MG INJ IM PRN (15:30)
[2016-11-21] MEDS ORDERED: GLUCOSE GEL 15 GRAM TUBE BUCCAL PRN (15:30)
[2016-11-21] MEDS ORDERED: GLUCOSE GEL 15 GRAM TUBE PO PRN ×2 (15:30)
[2016-11-21] MEDS ORDERED: DEXTROSE 50% 50 ML SYRINGE IV PRN (15:30)
[2016-11-21] MEDS: LEVOFLOXACIN 500 MG TAB PO SCH (16:34)
[2016-11-21] MEDS: NYSTATIN SUSP 5 ML CUP PO SCH ×2 (16:34→20:08)
[2016-11-21] MEDS ORDERED: INSULIN GLARGINE [LANtus] 3 ML PEN SC SCH (20:00)
[2016-11-22] VITALS (13 sets, daily range): BP systolic 119–144; BP diastolic 61–84; PULSE 83–92; RESP 18–20
[2016-11-22] MEDS: ACCU-CHEK XX SCH ×7 (01:00→17:21)
[2016-11-22] MEDS: LEVOFLOXACIN 500 MG TAB PO SCH (06:03)
[2016-11-22] MEDS: PANTOPRAZOLE (EC) 40 MG TAB PO SCH (06:03)
[2016-11-22 07:06] LABS: ADD SCAN DIFF NO
[2016-11-22 07:18] LABS: BASOPHILS % 0.5 % (0.0-2.0); EOSINOPHILS # 0.1 10^3/ul (0.0-0.5); EOSINOPHILS % 1.8 % (0.0-7.0); HEMATOCRIT 36.1 % (42.0-52.0); HEMOGLOBIN 12.8 g/dl (14.0-18.0); LYMPHOCYTES # 2.4 10^3/ul (0.8-2.9); LYMPHOCYTES % 35.9 % (15.0-51.0); MEAN CORPUSCULAR HGB CONC 35.5 g/dl (32.0-37.0); MEAN CORPUSCULAR VOLUME 84.7 fl (82.0-101.0); MEAN PLATELET VOLUME 9.8 fl (7.4-10.4); MONOCYTE # 0.9 10^3/ul (0.3-0.9); MONOCYTES % 13.7 % (0.0-11.0); NEUTROPHIL # 3.2 10^3/ul (1.6-7.5); NEUTROPHILS % 47.6 % (39.0-77.0); PLATELET COUNT 231 10^3/UL (140-415); RED BLOOD COUNT 4.26 10^6/ul (4.70-6.10); RED CELL DISTRIBUTION WIDTH 12.6 % (11.5-14.5); WHITE BLOOD COUNT 6.7 10^3/ul (4.8-10.8)
[2016-11-22 07:32] LABS: CREATININE 0.42 mg/dl (0.61-1.24); POTASSIUM 3.3 mmol/L (3.5-5.1)
[2016-11-22 07:33] LABS: CALCIUM 8.3 mg/dl (8.4-10.2)
[2016-11-22] MEDS: NYSTATIN SUSP 5 ML CUP PO SCH ×4 (08:30→20:14)
[2016-11-22] MEDS: ARTIFICIAL TEARS 15 ML OPH BOTH EYES SCH ×4 (08:30→20:14)
[2016-11-22] MEDS: ENOXAPARIN 30 MG/0.3 ML SYG SC SCH (08:34)
[2016-11-22] MEDS: INSULIN ASPART [NOVOLOG] 3 ML PEN SC SCH ×7 (08:35→20:22)
[2016-11-22] MEDS ORDERED: INFLUENZA VIRUS VACCINE 0.5 ML (DISPENSING) IM* ONE (09:00)
--- NOTE | 2016-11-22 12:38 | CONS ---
Date/Time of Note Date/Time of Note DATE: 11/22/16 TIME: 12:37 Assessment/Plan Assessment/Plan Chief Complaint/Hosp Course SUBJECTIVE: The patient is alert, looks comfortable, denies pain, no fevers PHYSICAL EXAMINATION: GENERAL: Well-developed, middle-aged, man who is alert, in no distress. HEENT: Head atraumatic, normocephalic. Sclerae anicteric. Buccal mucosa pink , dry. NECK: Supple, trachea midline. CHEST: Rise symmetrical. Breath sounds diminished at the bases. HEART: S1, S2. ABDOMEN: Soft, bowel tones present. EXTREMITIES: Without cyanosis. ASSESSMENT: 1. Resolving sepsis. 2. S/p acute respiratory failure secondary to pneumonia, possibly aspiration. 3. Poorly controlled diabetes ==> s/p diabetic ketoacidosis. 4. Substance abuse. PLAN: The patient remains stable, continue Levaquin, dc Hooper. Follow recommendations of consultants DW patient Problems: Consultation Date/Type/Reason Admit Date/Time Nov 17, 2016 at 11:30 Initial Consult Date 11/17/16 Type of Consultation: ID Referring Provider: ALEA WHITAKER Exam/Review of Systems Vital Signs Vitals Vital Signs Date Time Temp Pulse Resp B/P Pulse Ox O2 Delivery O2 Flow Rate FiO2 11/22/16 08:21 92 11/22/16 07:53 98.0 18 122/79 98 11/21/16 17:53 21 11/20/16 18:19 3.0 11/19/16 15:20 Room Air Intake and Output 11/21/16 11/21/16 11/22/16 15:00 23:00 07:00 Intake Total 1000 ml 500 ml Output Total 2100 ml 2000 ml Balance -1100 ml -1500 ml Results Result Diagram: 11/22/16 0600 11/22/16 0600 Results 24 hrs Laboratory Tests Test 11/21/16 13:04 11/21/16 15:19 11/21/16 16:35 11/21/16 19:42 Bedside Glucose 304 H 117 167 275 H Test 11/21/16 21:27 11/21/16 23:29 11/22/16 02:32 11/22/16 06:00 Bedside Glucose 201 241 H 312 H Anion Gap 11 Basophils # 0.0 Basophils % 0.5 Blood Urea Nitrogen 9 Calcium Level 8.3 L Carbon Dioxide Level 33 H Chloride Level 95 L Creatinine 0.42 L Eosinophils # 0.1 Eosinophils % 1.8 Glucose Level 236 H Hematocrit 36.1 L Hemoglobin 12.8 L Lymphocytes # 2.4 Lymphocytes % 35.9 Mean Corpuscular Hemoglobin 30.0 Mean Corpuscular Hemoglobin Concent 35.5 Mean Corpuscular Volume 84.7 Mean Platelet Volume 9.8 Monocytes # 0.9 Monocytes % 13.7 H Neutrophils # 3.2 Neutrophils % 47.6 Nucleated Red Blood Cells # 0.0 Nucleated Red Blood Cells % 0.0 Platelet Count 231 Potassium Level 3.3 L Red Blood Count 4.26 L Red Cell Distribution Width 12.6 Sodium Level 136 White Blood Count 6.7 Test 11/22/16 06:02 11/22/16 08:06 11/22/16 09:55 11/22/16 11:51 Bedside Glucose 226 H 201 290 H 331 H Medications Medications Current Medications Ondansetron HCl (Zofran Inj) 4 mg Q6H PRN IV NAUSEA AND/OR VOMITING; Start 11/16 at 15:30 Acetaminophen (Tylenol Liquid) 650 mg Q6H PRN PO PAIN LEVEL 1-3 OR FEVER; Start 11/16/16 at 15:30 Morphine Sulfate (morphine) 2 mg Q4H PRN IV PAIN LEVEL 7-10 Last administered on 11/20/16 17:39; Admin Dose 2 MG; Start 11/16/16 at 15:30 Enoxaparin Sodium (Lovenox) 30 mg DAILY SC Last administered on 11/22/16 08:34 ; Admin Dose 30 MG; Start 11/17/16 at 13:00 Eye Lubricant (Artificial Tears Oph) 2 drop QID BOTH EYES Last administered on 11/22/16 08:30; Admin Dose 2 DROP; Start 11/17/16 at 17:00 Pantoprazole (Protonix Tab) 40 mg DAILY@06 PO Last administered on 11/22/16 06 :03; Admin Dose 40 MG; Start 11/21/16 at 06:00 Insulin Glargine (Lantus) 24 unit DAILY@20 SC Last administered on 11/21/16 20 :40; Admin Dose 24 UNIT; Start 11/21/16 at 20:00 Levofloxacin (Levaquin) 500 mg DAILY@06 PO Last administered on 11/22/16 06:03 ; Admin Dose 500 MG; Start 11/21/16 at 15:00; Stop 11/24/16 at 16:00 Nystatin (Nystatin Susp) 5 ml QID PO Last administered on 11/22/16 08:30; Admin Dose 5 ML; Start 11/21/16 at 17:00; Stop 11/24/16 at 16:00 Miscellaneous Information 1 ea NOTE XX ; Start 11/21/16 at 15:30 Glucose (Glutose) 15 gm Q15M PRN PO DECREASED GLUCOSE; Start 11/21/16 at 15:30 Glucose (Glutose) 22.5 gm Q15M PRN PO DECREASED GLUCOSE; Start 11/21/16 at 15: 30 Dextrose (D50w Syringe) 25 ml Q15M PRN IV DECREASED GLUCOSE; Start 11/21/16 at 15:30 Dextrose (D50w Syringe) 50 ml Q15M PRN IV DECREASED GLUCOSE; Start 11/21/16 at 15:30 Glucagon (Glucagen) 1 mg Q15M PRN IM DECREASED GLUCOSE; Start 11/21/16 at 15:30 Glucose (Glutose) 15 gm Q15M PRN BUCCAL DECREASED GLUCOSE; Start 11/21/16 at 15 :30 SANJAY GOEL NP Nov 22, 2016 12:38
--- NOTE | 2016-11-22 17:50 | CONS ---
Date/Time of Note Date/Time of Note DATE: 11/22/16 TIME: 17:47 Assessment/Plan Assessment/Plan Problems: (1) Type II diabetes mellitus, uncontrolled Status: Chronic Comment: FS remain above goal. Increase lantus from 24 to 32 qhs. Increase Novolog from 13 qac to 16 qac. Increase intensity of correction from mild to moderate. Will monitor and reeval tomorrow. Await results of antibody studies. Qualifiers: Diabetes mellitus complication status: with unspecified complications Diabetes mellitus mcfp insulin use: unspecified mcfp insulin use status Qualified Code: E11.8 - Uncontrolled type 2 diabetes mellitus with complication, unspecified mcfp insulin use status (2) Homelessness Status: Chronic Comment: Pt. needs to be d/c'ed somewhere safe that he can continue to adhere w / his insulin after d/c. Consultation Date/Type/Reason Admit Date/Time Nov 17, 2016 at 11:30 Initial Consult Date 11/17/16 Type of Consultation: Endocrinology Reason for Consultation DKA Referring Provider: ALEA WHITAKER 24 HR Interval Summary Constitutional: improved, no complaints Detailed Summary Respiratory: no complaints Cardiovascular: no complaints Gastrointestinal: no complaints Genitourinary: no complaints Musculoskeletal: no complaints Neurologic: no complaints Exam/Review of Systems Vital Signs Vitals VS - Last 72 Hours, by Label Date Time Temp Pulse Resp B/P Pulse Ox O2 Delivery O2 Flow Rate FiO2 11/22/16 16:50 98.0 87 18 125/61 78 11/22/16 16:28 86 11/22/16 13:01 98.0 89 18 144/63 98 11/22/16 12:16 89 11/22/16 08:21 92 11/22/16 07:53 98.0 82 18 122/79 98 11/22/16 04:52 89 11/22/16 04:13 98.2 85 19 119/77 97 11/22/16 00:59 87 11/22/16 00:00 98.6 88 18 126/84 98 11/21/16 20:29 87 11/21/16 20:23 98.8 85 18 119/79 99 11/21/16 17:53 21 11/21/16 16:25 86 11/21/16 12:52 21 11/21/16 12:44 93 11/21/16 11:41 97.9 92 19 148/93 97 11/21/16 09:51 21 11/21/16 08:35 85 11/21/16 07:24 97.6 89 18 126/81 98 11/21/16 04:36 98.3 88 19 122/85 99 11/21/16 04:23 84 11/21/16 00:53 86 11/21/16 00:36 98.2 87 19 118/75 99 11/20/16 21:02 95 21 11/20/16 20:59 82 20 95 21 11/20/16 20:34 85 11/20/16 19:37 98.0 85 20 119/79 98 11/20/16 18:19 3.0 32 11/20/16 16:11 87 11/20/16 15:38 98.0 88 20 112/67 98 11/20/16 12:19 87 11/20/16 11:54 98.3 93 20 117/65 98 11/20/16 08:23 89 11/20/16 07:30 3.0 32 11/20/16 06:56 98.0 92 18 131/79 98 11/20/16 04:22 91 11/20/16 03:26 98.3 90 20 131/86 99 11/20/16 00:19 94 11/19/16 23:41 98.1 75 20 103/59 97 11/19/16 20:54 97.9 78 20 98/54 97 11/19/16 20:31 89 Vital Signs Date Time Temp Pulse Resp B/P Pulse Ox O2 Delivery O2 Flow Rate FiO2 11/22/16 16:50 98.0 87 18 125/61 78 11/21/16 17:53 21 11/20/16 18:19 3.0 11/19/16 15:20 Room Air Intake and Output 11/21/16 11/21/16 11/22/16 15:00 23:00 07:00 Intake Total 1000 ml 500 ml Output Total 2100 ml 2000 ml Balance -1100 ml -1500 ml Exam Constitutional: alert, oriented, well developed Respiratory: clear to auscultation, normal air movement Cardiovascular: nl pulses, regular rate and rhythm, No edema, No murmurs/extra sounds, No rub Gastrointestinal: bowel sounds, nl liver, spleen, non-tender, soft, No mass, No rebound or guarding Musculoskeletal: nl extremities to inspection Extremities: normal pulses, No clubbing, No cyanosis, No edema Neurological: MOSAIC LAYER II-XII intact, nl mental status, nl speech, nl strength Additional Comments Bedside Glucose - 72 Hours Test 11/19/16 17:52 11/19/16 22:10 11/19/16 23:26 11/20/16 01:21 Bedside Glucose 152mg/dL (70-220) 284mg/dL (70-220) H 267mg/dL (70-220) H 237mg/dL (70-220) H Test 11/20/16 03:47 11/20/16 05:59 11/20/16 07:44 11/20/16 09:04 Bedside Glucose 252mg/dL (70-220) H 258mg/dL (70-220) H 280mg/dL (70-220) H 357mg/dL (70-220) H Test 11/20/16 11:17 11/20/16 13:32 11/20/16 15:29 11/20/16 17:31 Bedside Glucose 290mg/dL (70-220) H 299mg/dL (70-220) H 199mg/dL (70-220) 133mg/dL (70-220) Test 11/20/16 20:25 11/21/16 00:15 11/21/16 03:13 11/21/16 05:56 Bedside Glucose 192mg/dL (70-220) 165mg/dL (70-220) 198mg/dL (70-220) 202mg/dL (70-220) Test 11/21/16 07:43 11/21/16 09:57 11/21/16 11:41 11/21/16 13:04 Bedside Glucose 215mg/dL (70-220) 260mg/dL (70-220) H 238mg/dL (70-220) H 304mg/dL (70-220) H Test 11/21/16 15:19 11/21/16 16:35 11/21/16 19:42 11/21/16 21:27 Bedside Glucose 117mg/dL (70-220) 167mg/dL (70-220) 275mg/dL (70-220) H 201mg/dL (70-220) Test 11/21/16 23:29 11/22/16 02:32 11/22/16 06:02 11/22/16 08:06 Bedside Glucose 241mg/dL (70-220) H 312mg/dL (70-220) H 226mg/dL (70-220) H 201mg/dL (70-220) Test 11/22/16 09:55 11/22/16 11:51 11/22/16 17:20 Bedside Glucose 290mg/dL (70-220) H 331mg/dL (70-220) H 195mg/dL (70-220) Results Result Diagram: 11/22/16 0600 11/22/16 0600 Results 24 hrs Laboratory Tests Test 11/21/16 19:42 11/21/16 21:27 11/21/16 23:29 11/22/16 02:32 Bedside Glucose 275 H 201 241 H 312 H Test 11/22/16 06:00 11/22/16 06:02 11/22/16 08:06 11/22/16 09:55 Anion Gap 11 Basophils # 0.0 Basophils % 0.5 Blood Urea Nitrogen 9 Calcium Level 8.3 L Carbon Dioxide Level 33 H Chloride Level 95 L Creatinine 0.42 L Eosinophils # 0.1 Eosinophils % 1.8 Glucose Level 236 H Hematocrit 36.1 L Hemoglobin 12.8 L Lymphocytes # 2.4 Lymphocytes % 35.9 Mean Corpuscular Hemoglobin 30.0 Mean Corpuscular Hemoglobin Concent 35.5 Mean Corpuscular Volume 84.7 Mean Platelet Volume 9.8 Monocytes # 0.9 Monocytes % 13.7 H Neutrophils # 3.2 Neutrophils % 47.6 Nucleated Red Blood Cells # 0.0 Nucleated Red Blood Cells % 0.0 Platelet Count 231 Potassium Level 3.3 L Red Blood Count 4.26 L Red Cell Distribution Width 12.6 Sodium Level 136 White Blood Count 6.7 Bedside Glucose 226 H 201 290 H Test 11/22/16 11:51 11/22/16 17:20 Bedside Glucose 331 H 195 Medications Medications Current Medications Ondansetron HCl (Zofran Inj) 4 mg Q6H PRN IV NAUSEA AND/OR VOMITING; Start 11/16 at 15:30 Acetaminophen (Tylenol Liquid) 650 mg Q6H PRN PO PAIN LEVEL 1-3 OR FEVER; Start 11/16/16 at 15:30 Morphine Sulfate (morphine) 2 mg Q4H PRN IV PAIN LEVEL 7-10 Last administered on 11/20/16 17:39; Admin Dose 2 MG; Start 11/16/16 at 15:30 Enoxaparin Sodium (Lovenox) 30 mg DAILY SC Last administered on 11/22/16 08:34 ; Admin Dose 30 MG; Start 11/17/16 at 13:00 Eye Lubricant (Artificial Tears Oph) 2 drop QID BOTH EYES Last administered on 11/22/16 17:21; Admin Dose 2 DROP; Start 11/17/16 at 17:00 Pantoprazole (Protonix Tab) 40 mg DAILY@06 PO Last administered on 11/22/16 06 :03; Admin Dose 40 MG; Start 11/21/16 at 06:00 Levofloxacin (Levaquin) 500 mg DAILY@06 PO Last administered on 11/22/16 06:03 ; Admin Dose 500 MG; Start 11/21/16 at 15:00; Stop 11/24/16 at 16:00 Nystatin (Nystatin Susp) 5 ml QID PO Last administered on 11/22/16 17:21; Admin Dose 5 ML; Start 11/21/16 at 17:00; Stop 11/24/16 at 16:00 Miscellaneous Information 1 ea NOTE XX ; Start 11/21/16 at 15:30 Glucose (Glutose) 15 gm Q15M PRN PO DECREASED GLUCOSE; Start 11/21/16 at 15:30 Glucose (Glutose) 22.5 gm Q15M PRN PO DECREASED GLUCOSE; Start 11/21/16 at 15: 30 Dextrose (D50w Syringe) 25 ml Q15M PRN IV DECREASED GLUCOSE; Start 11/21/16 at 15:30 Dextrose (D50w Syringe) 50 ml Q15M PRN IV DECREASED GLUCOSE; Start 11/21/16 at 15:30 Glucagon (Glucagen) 1 mg Q15M PRN IM DECREASED GLUCOSE; Start 11/21/16 at 15:30 Glucose (Glutose) 15 gm Q15M PRN BUCCAL DECREASED GLUCOSE; Start 11/21/16 at 15 :30 Insulin Glargine (Lantus) 32 unit DAILY@20 SC ; Start 11/22/16 at 20:00 Diagnostic Test (Pha) (Accucheck) 1 ea 02 XX ; Start 11/23/16 at 02:00 ROGE PAEZ MD Nov 22, 2016 17:50
--- NOTE | 2016-11-22 18:40 | PN ---
Date/Time of Note Date/Time of Note DATE: 11/22/16 TIME: 18:36 Assessment/Plan VTE Prophylaxis VTE Prophylaxis Intervention: SCD's Lines/Catheters IV C[facility]ter Type (from [facility] Saline Lock Urinary Cath still in place: No Assessment/Plan Chief Complaint/Hosp Course ASSESSMENT AND PLAN - Severe diabetic ketoacidosis with coma, resolved. Dr. Andre is following in endocrinology consultation. - Diabetes mellitus type 2. Continue Lantus , pre-meal NovoLog and NovoLog per sliding scale. - Acute metabolic encephalopathy, resolved. - Severe sepsis 2 PNA, resolved. Dr. Callaway is following in infectious disease consultation. Continue Levaquin. - Community-acquired pneumonia vs aspiration. - Acute respiratory failure, resolved. Dr Disla s following the patient in pulmonology consultation. - Altered level of consciousness. CT head is negative. - Amphetamine screen positive. - Homelessness, telephonic nurse case manager and social insurance analyst for discharge planning. Continue sequential compression device for deep venous thrombosis prophylaxis and Protonix for peptic ulcer disease prophylaxis. Further recommendations based on clinical course. Plan of care discussed with Dr. Ma. Problems: Subjective 24 Hr Interval Summary Free Text/Dictation Patient is awake alert follow immediate commands, Hooper discontinued, patient still with unstable gait, continue physical therapy. Sinus rhythm on telemetry. Exam/Review of Systems Vital Signs Vitals Vital Signs Date Time Temp Pulse Resp B/P Pulse Ox O2 Delivery O2 Flow Rate FiO2 11/22/16 16:50 98.0 87 18 125/61 78 11/21/16 17:53 21 11/20/16 18:19 3.0 11/19/16 15:20 Room Air Intake and Output 11/21/16 11/21/16 11/22/16 15:00 23:00 07:00 Intake Total 1000 ml 500 ml Output Total 2100 ml 2000 ml Balance -1100 ml -1500 ml Exam PHYSICAL ASSESSMENT: GENERAL: Well-developed, well-nourished male, awake alert HEENT: Head is normocephalic, PERRLA. NECK: Supple, no cervical lymphadenopathy, no thyromegaly. LUNGS: Diminished at the bases. CARDIOVASCULAR: Normal S1, S2. No murmurs, gallops, clicks, rubs noted. ABDOMEN: Flat, soft, nondistended, nontender. Bowel sounds present. EXTREMITIES: There is no edema, clubbing, cyanosis. Pulses equal bilaterally 2 +. SKIN: There is no rash, petechiae noted. NEUROLOGIC: Awake alert Results Result Diagram: 11/22/16 0600 11/22/16 0600 Results 24 hrs Laboratory Tests Test 11/21/16 19:42 11/21/16 21:27 11/21/16 23:29 11/22/16 02:32 Bedside Glucose 275 H 201 241 H 312 H Test 11/22/16 06:00 11/22/16 06:02 11/22/16 08:06 11/22/16 09:55 Anion Gap 11 Basophils # 0.0 Basophils % 0.5 Blood Urea Nitrogen 9 Calcium Level 8.3 L Carbon Dioxide Level 33 H Chloride Level 95 L Creatinine 0.42 L Eosinophils # 0.1 Eosinophils % 1.8 Glucose Level 236 H Hematocrit 36.1 L Hemoglobin 12.8 L Lymphocytes # 2.4 Lymphocytes % 35.9 Mean Corpuscular Hemoglobin 30.0 Mean Corpuscular Hemoglobin Concent 35.5 Mean Corpuscular Volume 84.7 Mean Platelet Volume 9.8 Monocytes # 0.9 Monocytes % 13.7 H Neutrophils # 3.2 Neutrophils % 47.6 Nucleated Red Blood Cells # 0.0 Nucleated Red Blood Cells % 0.0 Platelet Count 231 Potassium Level 3.3 L Red Blood Count 4.26 L Red Cell Distribution Width 12.6 Sodium Level 136 White Blood Count 6.7 Bedside Glucose 226 H 201 290 H Test 11/22/16 11:51 11/22/16 17:20 Bedside Glucose 331 H 195 Medications Medications Current Medications Ondansetron HCl (Zofran Inj) 4 mg Q6H PRN IV NAUSEA AND/OR VOMITING; Start 11/16 at 15:30 Acetaminophen (Tylenol Liquid) 650 mg Q6H PRN PO PAIN LEVEL 1-3 OR FEVER; Start 11/16/16 at 15:30 Morphine Sulfate (morphine) 2 mg Q4H PRN IV PAIN LEVEL 7-10 Last administered on 11/20/16 17:39; Admin Dose 2 MG; Start 11/16/16 at 15:30 Enoxaparin Sodium (Lovenox) 30 mg DAILY SC Last administered on 11/22/16 08:34 ; Admin Dose 30 MG; Start 11/17/16 at 13:00 Eye Lubricant (Artificial Tears Oph) 2 drop QID BOTH EYES Last administered on 11/22/16 17:21; Admin Dose 2 DROP; Start 11/17/16 at 17:00 Pantoprazole (Protonix Tab) 40 mg DAILY@06 PO Last administered on 11/22/16 06 :03; Admin Dose 40 MG; Start 11/21/16 at 06:00 Levofloxacin (Levaquin) 500 mg DAILY@06 PO Last administered on 11/22/16 06:03 ; Admin Dose 500 MG; Start 11/21/16 at 15:00; Stop 11/24/16 at 16:00 Nystatin (Nystatin Susp) 5 ml QID PO Last administered on 11/22/16 17:21; Admin Dose 5 ML; Start 11/21/16 at 17:00; Stop 11/24/16 at 16:00 Miscellaneous Information 1 ea NOTE XX ; Start 11/21/16 at 15:30 Glucose (Glutose) 15 gm Q15M PRN PO DECREASED GLUCOSE; Start 11/21/16 at 15:30 Glucose (Glutose) 22.5 gm Q15M PRN PO DECREASED GLUCOSE; Start 11/21/16 at 15: 30 Dextrose (D50w Syringe) 25 ml Q15M PRN IV DECREASED GLUCOSE; Start 11/21/16 at 15:30 Dextrose (D50w Syringe) 50 ml Q15M PRN IV DECREASED GLUCOSE; Start 11/21/16 at 15:30 Glucagon (Glucagen) 1 mg Q15M PRN IM DECREASED GLUCOSE; Start 11/21/16 at 15:30 Glucose (Glutose) 15 gm Q15M PRN BUCCAL DECREASED GLUCOSE; Start 11/21/16 at 15 :30 Insulin Glargine (Lantus) 32 unit DAILY@20 SC ; Start 11/22/16 at 20:00 Diagnostic Test (Pha) (Accucheck) 1 ea 02 XX ; Start 11/23/16 at 02:00 ALEA WHITAKER Nov 22, 2016 18:40
[2016-11-22] MEDS: INSULIN GLARGINE [LANtus] 3 ML PEN SC SCH (20:17)
[2016-11-23] MEDS: ACCU-CHEK XX SCH (02:00)
[2016-11-23 02:53] VITALS: BP 124/70; PULSE 86; RESP 19
[2016-11-23 04:49] LABS: ADD SCAN DIFF NO
[2016-11-23 05:07] LABS: BASOPHILS % 0.5 % (0.0-2.0); EOSINOPHILS # 0.2 10^3/ul (0.0-0.5); EOSINOPHILS % 2.7 % (0.0-7.0); HEMATOCRIT 36.4 % (42.0-52.0); HEMOGLOBIN 13.1 g/dl (14.0-18.0); LYMPHOCYTES # 1.9 10^3/ul (0.8-2.9); MEAN CORPUSCULAR HEMOGLOBIN 30.1 pg (29.0-33.0); MEAN CORPUSCULAR VOLUME 83.7 fl (82.0-101.0); MEAN PLATELET VOLUME 9.2 fl (7.4-10.4); MONOCYTE # 0.9 10^3/ul (0.3-0.9); MONOCYTES % 16.3 % (0.0-11.0); NEUTROPHIL # 2.6 10^3/ul (1.6-7.5); NEUTROPHILS % 46.1 % (39.0-77.0); PLATELET COUNT 299 10^3/UL (140-415); RED BLOOD COUNT 4.35 10^6/ul (4.70-6.10); RED CELL DISTRIBUTION WIDTH 12.2 % (11.5-14.5); WHITE BLOOD COUNT 5.7 10^3/ul (4.8-10.8)
[2016-11-23 05:23] LABS: POTASSIUM 3.4 mmol/L (3.5-5.1)
[2016-11-23 05:25] LABS: CREATININE 0.43 mg/dl (0.61-1.24)
[2016-11-23 05:26] LABS: CALCIUM 8.5 mg/dl (8.4-10.2)
[2016-11-23] MEDS ORDERED: POTASSIUM CHLORIDE (SR) 20 MEQ TAB PO STA (05:51)
[2016-11-23] MEDS: PANTOPRAZOLE (EC) 40 MG TAB PO SCH (06:22)
[2016-11-23] MEDS: LEVOFLOXACIN 500 MG TAB PO SCH (07:10)
[2016-11-23 07:34] VITALS: BP 126/84; RESP 20
[2016-11-23] MEDS: INSULIN ASPART [NOVOLOG] 3 ML PEN SC SCH ×7 (07:55→20:11)
[2016-11-23] MEDS: NYSTATIN SUSP 5 ML CUP PO SCH ×4 (09:04→20:10)
[2016-11-23] MEDS: ARTIFICIAL TEARS 15 ML OPH BOTH EYES SCH ×4 (09:04→20:10)
[2016-11-23] MEDS: ENOXAPARIN 30 MG/0.3 ML SYG SC SCH (09:05)
[2016-11-23] MEDS: COLLAGENASE 30 GM TUBE TOP SCH (12:30)
--- NOTE | 2016-11-23 15:07 | PN ---
Date/Time of Note Date/Time of Note DATE: 11/23/16 TIME: 15:02 Assessment/Plan VTE Prophylaxis VTE Prophylaxis Intervention: SCD's Lines/Catheters [facility] Lock Urinary Cath still in place: No Assessment/Plan Chief Complaint/Hosp Course ASSESSMENT AND PLAN - Severe diabetic ketoacidosis with coma, resolved. Dr. Andre is following in endocrinology consultation. - Diabetes mellitus type 2. Continue Lantus , pre-meal NovoLog and NovoLog per sliding scale. - Acute metabolic encephalopathy, resolved. - Severe sepsis 2 PNA, resolved. Dr. Callaway is following in infectious disease consultation. Continue Levaquin. - Community-acquired pneumonia vs aspiration. - Acute respiratory failure, resolved. Dr Disla s following the patient in pulmonology consultation. - Altered level of consciousness. CT head is negative. - Sacrococcyx DTI present on admission, continue current wound care, vitamin C, multivitamins, offloading - Amphetamine screen positive. - Homelessness, disability case manager and social services counselor for discharge planning. Continue sequential compression device for deep venous thrombosis prophylaxis and Protonix for peptic ulcer disease prophylaxis. Further recommendations based on clinical course. Plan of care discussed with Dr. Ma. Problems: Subjective 24 Hr Interval Summary Free Text/Dictation Patient is awake alert, blood sugar is stable, no nausea no vomiting. Exam/Review of Systems Vital Signs Vitals Vital Signs Date Time Temp Pulse Resp B/P Pulse Ox O2 Delivery O2 Flow Rate FiO2 11/23/16 07:34 99.0 73 20 126/84 97 11/23/16 02:53 Room Air 11/21/16 17:53 21 11/20/16 18:19 3.0 Intake and Output 11/22/16 11/22/16 11/23/16 15:00 23:00 07:00 Intake Total 800 ml 240 ml Output Total 2900 ml 600 ml Balance -2100 ml -360 ml Exam PHYSICAL ASSESSMENT: GENERAL: Well-developed, well-nourished male, awake alert HEENT: Head is normocephalic, PERRLA. NECK: Supple, no cervical lymphadenopathy, no thyromegaly. LUNGS: Diminished at the bases. CARDIOVASCULAR: Normal S1, S2. No murmurs, gallops, clicks, rubs noted. ABDOMEN: Flat, soft, nondistended, nontender. Bowel sounds present. EXTREMITIES: There is no edema, clubbing, cyanosis. Pulses equal bilaterally 2 +. SKIN: There is no rash, petechiae noted. NEUROLOGIC: Awake alert Results Result Diagram: 11/23/16 0425 11/23/16 0425 Results 24 hrs Laboratory Tests Test 11/22/16 17:20 11/22/16 20:12 11/23/16 04:25 11/23/16 07:52 Bedside Glucose 195 174 165 Anion Gap 11 Basophils # 0.0 Basophils % 0.5 Blood Urea Nitrogen 10 Calcium Level 8.5 Carbon Dioxide Level 34 H Chloride Level 97 Creatinine 0.43 L Eosinophils # 0.2 Eosinophils % 2.7 Glucose Level 219 Hematocrit 36.4 L Hemoglobin 13.1 L Lymphocytes # 1.9 Lymphocytes % 34.0 Mean Corpuscular Hemoglobin 30.1 Mean Corpuscular Hemoglobin Concent 36.0 Mean Corpuscular Volume 83.7 Mean Platelet Volume 9.2 Monocytes # 0.9 Monocytes % 16.3 H Neutrophils # 2.6 Neutrophils % 46.1 Nucleated Red Blood Cells # 0.0 Nucleated Red Blood Cells % 0.0 Platelet Count 299 # Potassium Level 3.4 L Prealbumin 13.5 L Red Blood Count 4.35 L Red Cell Distribution Width 12.2 Sodium Level 139 White Blood Count 5.7 Test 11/23/16 12:02 Bedside Glucose 186 Medications Medications Current Medications Ondansetron HCl (Zofran Inj) 4 mg Q6H PRN IV NAUSEA AND/OR VOMITING; Start 11/16 at 15:30 Acetaminophen (Tylenol Liquid) 650 mg Q6H PRN PO PAIN LEVEL 1-3 OR FEVER; Start 11/16/16 at 15:30 Morphine Sulfate (morphine) 2 mg Q4H PRN IV PAIN LEVEL 7-10 Last administered on 11/20/16 17:39; Admin Dose 2 MG; Start 11/16/16 at 15:30 Enoxaparin Sodium (Lovenox) 30 mg DAILY SC Last administered on 11/23/16 09:05 ; Admin Dose 30 MG; Start 11/17/16 at 13:00 Eye Lubricant (Artificial Tears Oph) 2 drop QID BOTH EYES Last administered on 11/23/16 14:02; Admin Dose 2 DROP; Start 11/17/16 at 17:00 Pantoprazole (Protonix Tab) 40 mg DAILY@06 PO Last administered on 11/23/16 06 :22; Admin Dose 40 MG; Start 11/21/16 at 06:00 Levofloxacin (Levaquin) 500 mg DAILY@06 PO Last administered on 11/23/16 07:10 ; Admin Dose 500 MG; Start 11/21/16 at 15:00; Stop 11/24/16 at 16:00 Nystatin (Nystatin Susp) 5 ml QID PO Last administered on 11/23/16 14:02; Admin Dose 5 ML; Start 11/21/16 at 17:00; Stop 11/24/16 at 16:00 Miscellaneous Information 1 ea NOTE XX ; Start 11/21/16 at 15:30 Glucose (Glutose) 15 gm Q15M PRN PO DECREASED GLUCOSE; Start 11/21/16 at 15:30 Glucose (Glutose) 22.5 gm Q15M PRN PO DECREASED GLUCOSE; Start 11/21/16 at 15: 30 Dextrose (D50w Syringe) 25 ml Q15M PRN IV DECREASED GLUCOSE; Start 11/21/16 at 15:30 Dextrose (D50w Syringe) 50 ml Q15M PRN IV DECREASED GLUCOSE; Start 11/21/16 at 15:30 Glucagon (Glucagen) 1 mg Q15M PRN IM DECREASED GLUCOSE; Start 11/21/16 at 15:30 Glucose (Glutose) 15 gm Q15M PRN BUCCAL DECREASED GLUCOSE; Start 11/21/16 at 15 :30 Insulin Glargine (Lantus) 32 unit DAILY@20 SC Last administered on 11/22/16 20 :17; Admin Dose 32 UNIT; Start 11/22/16 at 20:00 Diagnostic Test (Pha) (Accucheck) 1 ea 02 XX ; Start 11/23/16 at 02:00 Collagenase (Santyl) 1 applic DAILY TOP Last administered on 11/23/16 12:30; Admin Dose 1 APPLIC; Start 11/23/16 at 12:30 ALEA WHITAKER Nov 23, 2016 15:07
--- NOTE | 2016-11-23 19:24 | CONS ---
Date/Time of Note Date/Time of Note DATE: 11/23/16 TIME: 19:21 Assessment/Plan Assessment/Plan Problems: (1) Type II diabetes mellitus, uncontrolled Status: Chronic Comment: Improved glycemic control. Cont. current insulin doses. Await insulin antibody levels to help determine DM type. Qualifiers: Diabetes mellitus complication status: with unspecified complications Diabetes mellitus buttermaker continuous churn insulin use: unspecified buttermaker continuous churn insulin use status Qualified Code: E11.8 - Uncontrolled type 2 diabetes mellitus with complication, unspecified residential insulin use status (2) Homelessness Status: Chronic Comment: SW consult to help w/ placement so that pt. does not get readmitted due to insulin deficiency. Consultation Date/Type/Reason Admit Date/Time Nov 17, 2016 at 11:30 Initial Consult Date 11/17/16 Type of Consultation: Endocrinology Reason for Consultation DKA Referring Provider: ALEA WHITAKER 24 HR Interval Summary Constitutional: improved, no complaints Detailed Summary Respiratory: no complaints Cardiovascular: no complaints Gastrointestinal: no complaints Genitourinary: no complaints Musculoskeletal: no complaints Neurologic: no complaints Exam/Review of Systems Vital Signs Vitals VS - Last 72 Hours, by Label Date Time Temp Pulse Resp B/P Pulse Ox O2 Delivery O2 Flow Rate FiO2 11/23/16 07:34 99.0 73 20 126/84 97 11/23/16 02:53 97.9 86 19 124/70 98 Room Air 11/22/16 23:57 97.6 90 20 128/70 84 11/22/16 20:32 83 11/22/16 19:55 98.2 20 121/77 99 11/22/16 16:50 98.0 87 18 125/61 78 11/22/16 16:28 86 11/22/16 13:01 98.0 89 18 144/63 98 11/22/16 12:16 89 11/22/16 08:21 92 11/22/16 07:53 98.0 82 18 122/79 98 11/22/16 04:52 89 11/22/16 04:13 98.2 85 19 119/77 97 11/22/16 00:59 87 11/22/16 00:00 98.6 88 18 126/84 98 11/21/16 20:29 87 11/21/16 20:23 98.8 85 18 119/79 99 11/21/16 17:53 21 3/12/17 16:25 86 11/21/16 12:52 21 11/21/16 12:44 93 11/21/16 11:41 97.9 92 19 148/93 97 11/21/16 09:51 21 11/21/16 08:35 85 11/21/16 07:24 97.6 89 18 126/81 98 11/21/16 04:36 98.3 88 19 122/85 99 11/21/16 04:23 84 11/21/16 00:53 86 11/21/16 00:36 98.2 87 19 118/75 99 11/20/16 21:02 95 21 11/20/16 20:59 82 20 95 21 11/20/16 20:34 85 11/20/16 19:37 98.0 85 20 119/79 98 Vital Signs Date Time Temp Pulse Resp B/P Pulse Ox O2 Delivery O2 Flow Rate FiO2 11/23/16 07:34 99.0 73 20 126/84 97 11/23/16 02:53 Room Air 11/21/16 17:53 21 11/20/16 18:19 3.0 Intake and Output 11/22/16 11/22/16 11/23/16 15:00 23:00 07:00 Intake Total 800 ml 240 ml Output Total 2900 ml 600 ml Balance -2100 ml -360 ml Exam Constitutional: alert, oriented, well developed Psych: nl mood/affect, no complaints Respiratory: clear to auscultation, normal air movement Cardiovascular: nl pulses, regular rate and rhythm, No edema, No murmurs/extra sounds, No rub Gastrointestinal: bowel sounds, nl liver, spleen, non-tender, soft, No mass, No rebound or guarding Musculoskeletal: nl extremities to inspection Extremities: normal pulses, No clubbing, No cyanosis, No edema Neurological: LOT ASSOCIATE II-XII intact, nl mental status, nl speech, nl strength Additional Comments Bedside Glucose - 72 Hours Test 11/20/16 20:25 11/21/16 00:15 11/21/16 03:13 11/21/16 05:56 Bedside Glucose 192mg/dL (70-220) 165mg/dL (70-220) 198mg/dL (70-220) 202mg/dL (70-220) Test 11/21/16 07:43 11/21/16 09:57 11/21/16 11:41 11/21/16 13:04 Bedside Glucose 215mg/dL (70-220) 260mg/dL (70-220) H 238mg/dL (70-220) H 304mg/dL (70-220) H Test 11/21/16 15:19 11/21/16 16:35 11/21/16 19:42 11/21/16 21:27 Bedside Glucose 117mg/dL (70-220) 167mg/dL (70-220) 275mg/dL (70-220) H 201mg/dL (70-220) Test 11/21/16 23:29 11/22/16 02:32 11/22/16 06:02 11/22/16 08:06 Bedside Glucose 241mg/dL (70-220) H 312mg/dL (70-220) H 226mg/dL (70-220) H 201mg/dL (70-220) Test 11/22/16 09:55 11/22/16 11:51 11/22/16 17:20 11/22/16 20:12 Bedside Glucose 290mg/dL (70-220) H 331mg/dL (70-220) H 195mg/dL (70-220) 174mg/dL (70-220) Test 11/23/16 07:52 11/23/16 12:02 11/23/16 17:52 Bedside Glucose 165mg/dL (70-220) 186mg/dL (70-220) 121mg/dL (70-220) Results Result Diagram: 11/23/16 0425 11/23/16 0425 Results 24 hrs Laboratory Tests Test 11/22/16 20:12 11/23/16 04:25 11/23/16 07:52 11/23/16 12:02 Bedside Glucose 174 165 186 Anion Gap 11 Basophils # 0.0 Basophils % 0.5 Blood Urea Nitrogen 10 Calcium Level 8.5 Carbon Dioxide Level 34 H Chloride Level 97 Creatinine 0.43 L Eosinophils # 0.2 Eosinophils % 2.7 Glucose Level 219 Hematocrit 36.4 L Hemoglobin 13.1 L Lymphocytes # 1.9 Lymphocytes % 34.0 Mean Corpuscular Hemoglobin 30.1 Mean Corpuscular Hemoglobin Concent 36.0 Mean Corpuscular Volume 83.7 Mean Platelet Volume 9.2 Monocytes # 0.9 Monocytes % 16.3 H Neutrophils # 2.6 Neutrophils % 46.1 Nucleated Red Blood Cells # 0.0 Nucleated Red Blood Cells % 0.0 Platelet Count 299 # Potassium Level 3.4 L Prealbumin 13.5 L Red Blood Count 4.35 L Red Cell Distribution Width 12.2 Sodium Level 139 White Blood Count 5.7 Test 11/23/16 17:52 Bedside Glucose 121 Medications Medications Current Medications Ondansetron HCl (Zofran Inj) 4 mg Q6H PRN IV NAUSEA AND/OR VOMITING; Start 11/16 at 15:30 Acetaminophen (Tylenol Liquid) 650 mg Q6H PRN PO PAIN LEVEL 1-3 OR FEVER; Start 11/16/16 at 15:30 Morphine Sulfate (morphine) 2 mg Q4H PRN IV PAIN LEVEL 7-10 Last administered on 11/20/16 17:39; Admin Dose 2 MG; Start 11/16/16 at 15:30 Enoxaparin Sodium (Lovenox) 30 mg DAILY SC Last administered on 11/23/16 09:05 ; Admin Dose 30 MG; Start 11/17/16 at 13:00 Eye Lubricant (Artificial Tears Oph) 2 drop QID BOTH EYES Last administered on 11/23/16 17:51; Admin Dose 2 DROP; Start 11/17/16 at 17:00 Pantoprazole (Protonix Tab) 40 mg DAILY@06 PO Last administered on 11/23/16 06 :22; Admin Dose 40 MG; Start 11/21/16 at 06:00 Levofloxacin (Levaquin) 500 mg DAILY@06 PO Last administered on 11/23/16 07:10 ; Admin Dose 500 MG; Start 11/21/16 at 15:00; Stop 11/24/16 at 16:00 Nystatin (Nystatin Susp) 5 ml QID PO Last administered on 11/23/16 17:51; Admin Dose 5 ML; Start 11/21/16 at 17:00; Stop 11/24/16 at 16:00 Miscellaneous Information 1 ea NOTE XX ; Start 11/21/16 at 15:30 Glucose (Glutose) 15 gm Q15M PRN PO DECREASED GLUCOSE; Start 11/21/16 at 15:30 Glucose (Glutose) 22.5 gm Q15M PRN PO DECREASED GLUCOSE; Start 11/21/16 at 15: 30 Dextrose (D50w Syringe) 25 ml Q15M PRN IV DECREASED GLUCOSE; Start 11/21/16 at 15:30 Dextrose (D50w Syringe) 50 ml Q15M PRN IV DECREASED GLUCOSE; Start 11/21/16 at 15:30 Glucagon (Glucagen) 1 mg Q15M PRN IM DECREASED GLUCOSE; Start 11/21/16 at 15:30 Glucose (Glutose) 15 gm Q15M PRN BUCCAL DECREASED GLUCOSE; Start 11/21/16 at 15 :30 Insulin Glargine (Lantus) 32 unit DAILY@20 SC Last administered on 11/22/16t 20 :17; Admin Dose 32 UNIT; Start 11/22/16 at 20:00 Diagnostic Test (Pha) (Accucheck) 1 ea 02 XX ; Start 11/23/16 at 02:00 Collagenase (Santyl) 1 applic DAILY TOP Last administered on 11/23/16t 12:30; Admin Dose 1 APPLIC; Start 11/23/16 at 12:30 Ascorbic Acid (Vitamin C) 500 mg BID GTB ; Start 11/23/16 at 21:00 Multivitamins Therapeutic (Theragran) 1 tab DAILY PO ; Start 11/24/16 at 09:00 ROGE PAEZ MD Nov 23, 2016 19:24
[2016-11-23 19:42] VITALS: BP 125/76; RESP 20
[2016-11-23] MEDS: ASCORBIC ACID 500 MG TAB GTB SCH (20:10)
[2016-11-23] MEDS: INSULIN GLARGINE [LANtus] 3 ML PEN SC SCH (20:15)
[2016-11-24] MEDS: ACCU-CHEK XX SCH (02:00)
[2016-11-24 05:01] LABS: ADD SCAN DIFF NO
[2016-11-24 05:19] LABS: BASOPHIL # 0.1 10^3/ul (0.0-0.1); BASOPHILS % 0.7 % (0.0-2.0); EOSINOPHILS # 0.2 10^3/ul (0.0-0.5); EOSINOPHILS % 2.4 % (0.0-7.0); HEMATOCRIT 37.2 % (42.0-52.0); HEMOGLOBIN 13.2 g/dl (14.0-18.0); LYMPHOCYTES # 2.3 10^3/ul (0.8-2.9); LYMPHOCYTES % 31.9 % (15.0-51.0); MEAN CORPUSCULAR HEMOGLOBIN 30.3 pg (29.0-33.0); MEAN CORPUSCULAR HGB CONC 35.5 g/dl (32.0-37.0); MEAN CORPUSCULAR VOLUME 85.3 fl (82.0-101.0); NEUTROPHIL # 3.6 10^3/ul (1.6-7.5); NEUTROPHILS % 50.4 % (39.0-77.0); PLATELET COUNT 378 10^3/UL (140-415); RED BLOOD COUNT 4.36 10^6/ul (4.70-6.10); RED CELL DISTRIBUTION WIDTH 12.4 % (11.5-14.5); WHITE BLOOD COUNT 7.1 10^3/ul (4.8-10.8)
[2016-11-24] MEDS: LEVOFLOXACIN 500 MG TAB PO SCH (05:20)
[2016-11-24] MEDS: PANTOPRAZOLE (EC) 40 MG TAB PO SCH (05:20)
[2016-11-24 05:42] LABS: POTASSIUM 3.6 mmol/L (3.5-5.1)
[2016-11-24 05:44] LABS: CREATININE 0.46 mg/dl (0.61-1.24)
[2016-11-24 05:46] LABS: CALCIUM 8.6 mg/dl (8.4-10.2)
[2016-11-24] MEDS: COLLAGENASE 30 GM TUBE TOP SCH ×2 (06:22→08:42)
[2016-11-24 07:45] VITALS: BP 138/87; RESP 20
[2016-11-24] MEDS: INSULIN ASPART [NOVOLOG] 3 ML PEN SC SCH ×7 (08:00→21:10)
[2016-11-24] MEDS: ASCORBIC ACID 500 MG TAB GTB SCH ×2 (08:31→21:03)
[2016-11-24] MEDS: NYSTATIN SUSP 5 ML CUP PO SCH ×2 (08:31→13:20)
[2016-11-24] MEDS: ENOXAPARIN 30 MG/0.3 ML SYG SC SCH (08:32)
[2016-11-24] MEDS: MULTIVITAMINS THERAPEUTIC TAB PO SCH (08:36)
[2016-11-24] MEDS: ARTIFICIAL TEARS 15 ML OPH BOTH EYES SCH ×4 (08:36→21:03)
--- NOTE | 2016-11-24 12:25 | PN ---
Date/Time of Note Date/Time of Note DATE: 11/24/16 TIME: 12:24 Assessment/Plan VTE Prophylaxis VTE Prophylaxis Intervention: SCD's Lines/Catheters [facility]from [facility] Urinary Cath still in place: No Assessment/Plan Chief Complaint/Hosp Course ASSESSMENT AND PLAN - Severe diabetic ketoacidosis with coma, resolved. Dr. Andre is following in endocrinology consultation. - Diabetes mellitus type 2. Continue Lantus , pre-meal NovoLog and NovoLog per sliding scale. - Acute metabolic encephalopathy, resolved. - Severe sepsis 2 PNA, resolved. Dr. Callaway is following in infectious disease consultation. Continue Levaquin. - Community-acquired pneumonia vs aspiration. - Acute respiratory failure, resolved. Dr Disla s following the patient in pulmonology consultation. - Altered level of consciousness. CT head is negative. - Sacrococcyx DTI present on admission, continue current wound care, vitamin C, multivitamins, offloading - Amphetamine screen positive. - Homelessness, bottle caser and addiction social worker for discharge planning. Continue sequential compression device for deep venous thrombosis prophylaxis and Protonix for peptic ulcer disease prophylaxis. Further recommendations based on clinical course. Plan of care discussed with Dr. Ma. Problems: Exam/Review of Systems Vital Signs Vitals Vital Signs Date Time Temp Pulse Resp B/P Pulse Ox O2 Delivery O2 Flow Rate FiO2 11/24/16 07:45 98.5 89 20 138/87 98 11/23/16 02:53 Room Air 11/21/16 17:53 21 11/20/16 18:19 3.0 Intake and Output 11/23/16 11/23/16 11/24/16 15:00 23:00 07:00 Intake Total 1440 ml 1050 ml Output Total 1800 ml 1600 ml Balance -360 ml -550 ml Exam PHYSICAL ASSESSMENT: GENERAL: Well-developed, well-nourished male, awake alert HEENT: Head is normocephalic, PERRLA. NECK: Supple, no cervical lymphadenopathy, no thyromegaly. LUNGS: Diminished at the bases. CARDIOVASCULAR: Normal S1, S2. No murmurs, gallops, clicks, rubs noted. ABDOMEN: Flat, soft, nondistended, nontender. Bowel sounds present. EXTREMITIES: There is no edema, clubbing, cyanosis. Pulses equal bilaterally 2 +. SKIN: There is no rash, petechiae noted. NEUROLOGIC: Awake alert Results Result Diagram: 11/24/16 0420 11/24/16 0420 Results 24 hrs Laboratory Tests Test 11/23/16 17:52 11/23/16 19:35 11/24/16 02:17 11/24/16 04:20 Bedside Glucose 121 137 94 Anion Gap 11 Basophils # 0.1 Basophils % 0.7 Blood Urea Nitrogen 8 Calcium Level 8.6 Carbon Dioxide Level 36 H Chloride Level 97 Creatinine 0.46 L Eosinophils # 0.2 Eosinophils % 2.4 Glucose Level 108 # Hematocrit 37.2 L Hemoglobin 13.2 L Lymphocytes # 2.3 Lymphocytes % 31.9 Mean Corpuscular Hemoglobin 30.3 Mean Corpuscular Hemoglobin Concent 35.5 Mean Corpuscular Volume 85.3 Mean Platelet Volume 9.0 Monocytes # 1.0 H Monocytes % 14.0 H Neutrophils # 3.6 Neutrophils % 50.4 Nucleated Red Blood Cells # 0.0 Nucleated Red Blood Cells % 0.0 Platelet Count 378 # Potassium Level 3.6 Red Blood Count 4.36 L Red Cell Distribution Width 12.4 Sodium Level 140 White Blood Count 7.1 # Test 11/24/16 07:49 11/24/16 11:23 Bedside Glucose 131 88 Medications Medications Current Medications Ondansetron HCl (Zofran Inj) 4 mg Q6H PRN IV NAUSEA AND/OR VOMITING; Start 11/16 at 15:30 Acetaminophen (Tylenol Liquid) 650 mg Q6H PRN PO PAIN LEVEL 1-3 OR FEVER; Start 11/16/16 at 15:30 Morphine Sulfate (morphine) 2 mg Q4H PRN IV PAIN LEVEL 7-10 Last administered on 11/20/16 17:39; Admin Dose 2 MG; Start 11/16/16 at 15:30 Enoxaparin Sodium (Lovenox) 30 mg DAILY SC Last administered on 11/24/16 08:32 ; Admin Dose 30 MG; Start 11/17/16 at 13:00 Eye Lubricant (Artificial Tears Oph) 2 drop QID BOTH EYES Last administered on 11/24/16 08:36; Admin Dose 2 DROP; Start 11/17/16 at 17:00 Pantoprazole (Protonix Tab) 40 mg DAILY@06 PO Last administered on 11/24/16 05 :20; Admin Dose 40 MG; Start 11/21/16 at 06:00 Levofloxacin (Levaquin) 500 mg DAILY@06 PO Last administered on 11/24/16 05:20 ; Admin Dose 500 MG; Start 11/21/16 at 15:00; Stop 11/24/16 at 16:00 Nystatin (Nystatin Susp) 5 ml QID PO Last administered on 11/24/16 08:31; Admin Dose 5 ML; Start 11/21/16 at 17:00; Stop 11/24/16 at 16:00 Miscellaneous Information 1 ea NOTE XX ; Start 11/21/16 at 15:30 Glucose (Glutose) 15 gm Q15M PRN PO DECREASED GLUCOSE; Start 11/21/16 at 15:30 Glucose (Glutose) 22.5 gm Q15M PRN PO DECREASED GLUCOSE; Start 11/21/16 at 15: 30 Dextrose (D50w Syringe) 25 ml Q15M PRN IV DECREASED GLUCOSE; Start 11/21/16 at 15:30 Dextrose (D50w Syringe) 50 ml Q15M PRN IV DECREASED GLUCOSE; Start 11/21/16 at 15:30 Glucagon (Glucagen) 1 mg Q15M PRN IM DECREASED GLUCOSE; Start 11/21/16 at 15:30 Glucose (Glutose) 15 gm Q15M PRN BUCCAL DECREASED GLUCOSE; Start 11/21/16 at 15 :30 Insulin Glargine (Lantus) 32 unit DAILY@20 SC Last administered on 11/23/16 20 :15; Admin Dose 32 UNIT; Start 11/22/16 at 20:00 Diagnostic Test (Pha) (Accucheck) 1 ea 02 XX ; Start 11/23/16 at 02:00 Collagenase (Santyl) 1 applic DAILY TOP Last administered on 11/24/16 06:22; Admin Dose 1 APPLIC; Start 11/23/16 at 12:30 Ascorbic Acid (Vitamin C) 500 mg BID GTB Last administered on 11/24/16 08:31; Admin Dose 500 MG; Start 11/23/16 at 21:00 Multivitamins Therapeutic (Theragran) 1 tab DAILY PO Last administered on 08:36; Admin Dose 1 TAB; Start 11/24/16 at 09:00 ALEA WHITAKER Nov 24, 2016 12:24
[2016-11-24] MEDS ORDERED: INSULIN GLARGINE [LANtus] 3 ML PEN SC SCH (20:00)
[2016-11-24 20:02] VITALS: BP 118/74; RESP 18
--- NOTE | 2016-11-24 20:34 | CONS ---
Date/Time of Note Date/Time of Note DATE: 11/24/16 TIME: 20:23 Assessment/Plan Assessment/Plan Problems: (1) Type II diabetes mellitus, uncontrolled Status: Chronic Comment: Pt. w/ hypoglycemia today. Will reduce lantus from 32 to 28 qhs and Novolog from 16 qac to 12 qac. Qualifiers: Diabetes mellitus complication status: with unspecified complications Diabetes mellitus buttermaker continuous churn insulin use: unspecified buttermaker continuous churn insulin use status Qualified Code: E11.8 - Uncontrolled type 2 diabetes mellitus with complication, unspecified half-way insulin use status (2) Homelessness Status: Chronic Comment: Pt. will go to sober living on d/c which should improve his chances for a good outcome. Appreciate SW arranging this. Consultation Date/Type/Reason Admit Date/Time Nov 17, 2016 at 11:30 Initial Consult Date 11/17/16 Type of Consultation: Endocrinology Reason for Consultation DKA Referring Provider: ALEA WHITAKER 24 HR Interval Summary Constitutional: improved, no complaints Detailed Summary Respiratory: no complaints Cardiovascular: no complaints Gastrointestinal: no complaints Genitourinary: no complaints Musculoskeletal: no complaints Neurologic: no complaints Exam/Review of Systems Vital Signs Vitals VS - Last 72 Hours, by Label Date Time Temp Pulse Resp B/P Pulse Ox O2 Delivery O2 Flow Rate FiO2 11/24/16 07:45 98.5 89 20 138/87 98 11/23/16 19:42 98.4 90 20 125/76 99 11/23/16 07:34 99.0 73 20 126/84 97 11/23/16 02:53 97.9 86 19 124/70 98 Room Air 11/22/16 23:57 97.6 90 20 128/70 84 11/22/16 20:32 83 11/22/16 19:55 98.2 20 121/77 99 11/22/16 16:50 98.0 87 18 125/61 78 11/22/16 16:28 86 11/22/16 13:01 98.0 89 18 144/63 98 11/22/16 12:16 89 11/22/16 08:21 92 11/22/16 07:53 98.0 82 18 122/79 98 11/22/16 04:52 89 11/22/16 04:13 98.2 85 19 119/77 97 11/22/16 00:59 87 11/22/16 00:00 98.6 88 18 126/84 98 11/21/16 20:29 87 Vital Signs Date Time Temp Pulse Resp B/P Pulse Ox O2 Delivery O2 Flow Rate FiO2 11/24/16 07:45 98.5 89 20 138/87 98 11/23/16 02:53 Room Air 11/21/16 17:53 21 11/20/16 18:19 3.0 Intake and Output 11/23/16 11/23/16 11/24/16 15:00 23:00 07:00 Intake Total 1440 ml 1050 ml Output Total 1800 ml 1600 ml Balance -360 ml -550 ml Exam Constitutional: alert, oriented, well developed Psych: nl mood/affect, no complaints Respiratory: clear to auscultation, normal air movement Cardiovascular: nl pulses, regular rate and rhythm, No edema, No murmurs/extra sounds, No rub Gastrointestinal: bowel sounds, nl liver, spleen, non-tender, soft, No mass, No rebound or guarding Musculoskeletal: nl extremities to inspection Extremities: normal pulses Neurological: PROMOTION OFFICER II-XII intact, nl mental status, nl speech, nl strength Additional Comments Bedside Glucose - 72 Hours Test 11/21/16 21:27 11/21/16 23:29 11/22/16 02:32 11/22/16 06:02 Bedside Glucose 201mg/dL (70-220) 241mg/dL (70-220) H 312mg/dL (70-220) H 226mg/dL (70-220) H Test 11/22/16 08:06 11/22/16 09:55 11/22/16 11:51 11/22/16 17:20 Bedside Glucose 201mg/dL (70-220) 290mg/dL (70-220) H 331mg/dL (70-220) H 195mg/dL (70-220) Test 11/22/16 20:12 11/23/16 07:52 11/23/16 12:02 11/23/16 17:52 Bedside Glucose 174mg/dL (70-220) 165mg/dL (70-220) 186mg/dL (70-220) 121mg/dL (70-220) Test 11/23/16 19:35 11/24/16 02:17 11/24/16 07:49 11/24/16 11:23 Bedside Glucose 137mg/dL (70-220) 94mg/dL (70-220) 131mg/dL (70-220) 88mg/dL (70-220) Test 11/24/16 13:36 11/24/16 14:03 11/24/16 14:39 11/24/16 16:54 Bedside Glucose 49mg/dL (70-220) *L 84mg/dL (70-220) 87mg/dL (70-220) 239mg/dL (70-220) H Results Result Diagram: 11/24/16 0420 11/24/16 1400 Results 24 hrs Laboratory Tests Test 11/24/16 02:17 11/24/16 04:20 11/24/16 07:49 11/24/16 11:23 Bedside Glucose 94 131 88 Anion Gap 11 Basophils # 0.1 Basophils % 0.7 Blood Urea Nitrogen 8 Calcium Level 8.6 Carbon Dioxide Level 36 H Chloride Level 97 Creatinine 0.46 L Eosinophils # 0.2 Eosinophils % 2.4 Glucose Level 108 # Hematocrit 37.2 L Hemoglobin 13.2 L Lymphocytes # 2.3 Lymphocytes % 31.9 Mean Corpuscular Hemoglobin 30.3 Mean Corpuscular Hemoglobin Concent 35.5 Mean Corpuscular Volume 85.3 Mean Platelet Volume 9.0 Monocytes # 1.0 H Monocytes % 14.0 H Neutrophils # 3.6 Neutrophils % 50.4 Nucleated Red Blood Cells # 0.0 Nucleated Red Blood Cells % 0.0 Platelet Count 378 # Potassium Level 3.6 Red Blood Count 4.36 L Red Cell Distribution Width 12.4 Sodium Level 140 White Blood Count 7.1 # Test 11/24/16 13:36 11/24/16 14:00 11/24/16 14:03 11/24/16 14:39 Bedside Glucose 49 *L 84 87 Glucose Level 69 #L Test 11/24/16 16:54 Bedside Glucose 239 H Medications Medications Current Medications Ondansetron HCl (Zofran Inj) 4 mg Q6H PRN IV NAUSEA AND/OR VOMITING; Start 11/16 at 15:30 Acetaminophen (Tylenol Liquid) 650 mg Q6H PRN PO PAIN LEVEL 1-3 OR FEVER; Start 11/16/16 at 15:30 Morphine Sulfate (morphine) 2 mg Q4H PRN IV PAIN LEVEL 7-10 Last administered on 11/20/16 17:39; Admin Dose 2 MG; Start 11/16/16 at 15:30 Enoxaparin Sodium (Lovenox) 30 mg DAILY SC Last administered on 11/24/16 08:32 ; Admin Dose 30 MG; Start 11/17/16 at 13:00 Eye Lubricant (Artificial Tears Oph) 2 drop QID BOTH EYES Last administered on 11/24/16 16:57; Admin Dose 2 DROP; Start 11/17/16 at 17:00 Pantoprazole (Protonix Tab) 40 mg DAILY@06 PO Last administered on 11/24/16 05 :20; Admin Dose 40 MG; Start 11/21/16 at 06:00 Miscellaneous Information 1 ea NOTE XX ; Start 11/21/16 at 15:30 Glucose (Glutose) 15 gm Q15M PRN PO DECREASED GLUCOSE; Start 11/21/16 at 15:30 Glucose (Glutose) 22.5 gm Q15M PRN PO DECREASED GLUCOSE; Start 11/21/16 at 15: 30 Dextrose (D50w Syringe) 25 ml Q15M PRN IV DECREASED GLUCOSE; Start 11/21/16 at 15:30 Dextrose (D50w Syringe) 50 ml Q15M PRN IV DECREASED GLUCOSE; Start 11/21/16 at 15:30 Glucagon (Glucagen) 1 mg Q15M PRN IM DECREASED GLUCOSE; Start 11/21/16 at 15:30 Glucose (Glutose) 15 gm Q15M PRN BUCCAL DECREASED GLUCOSE; Start 11/21/16 at 15 :30 Diagnostic Test (Pha) (Accucheck) 1 ea 02 XX ; Start 11/23/16 at 02:00 Collagenase (Santyl) 1 applic DAILY TOP Last administered on 11/24/16 06:22; Admin Dose 1 APPLIC; Start 11/23/16 at 12:30 Ascorbic Acid (Vitamin C) 500 mg BID GTB Last administered on 11/24/16 08:31; Admin Dose 500 MG; Start 11/23/16 at 21:00 Multivitamins Therapeutic (Theragran) 1 tab DAILY PO Last administered on 08:36; Admin Dose 1 TAB; Start 11/24/16 at 09:00 Insulin Glargine (Lantus) 28 unit DAILY@20 SC Last administered on 3/15/17at 20 :10; Admin Dose 28 UNIT; Start 11/24/16 at 20:00 ROGE PAEZ MD Nov 24, 2016 20:33
[2016-11-25] MEDS: ACCU-CHEK XX SCH (02:15)
[2016-11-25] MEDS: PANTOPRAZOLE (EC) 40 MG TAB PO SCH (05:38)
[2016-11-25 08:08] VITALS: BP 133/88; RESP 20
[2016-11-25] MEDS: ASCORBIC ACID 500 MG TAB GTB SCH ×2 (09:06→20:42)
[2016-11-25] MEDS: ARTIFICIAL TEARS 15 ML OPH BOTH EYES SCH ×4 (09:06→20:42)
[2016-11-25] MEDS: MULTIVITAMINS THERAPEUTIC TAB PO SCH (09:06)
[2016-11-25] MEDS: INSULIN ASPART [NOVOLOG] 3 ML PEN SC SCH ×7 (09:07→20:57)
[2016-11-25] MEDS: ENOXAPARIN 30 MG/0.3 ML SYG SC SCH (09:08)
[2016-11-25] MEDS: COLLAGENASE 30 GM TUBE TOP SCH (09:10)
--- NOTE | 2016-11-25 16:01 | PN ---
Date/Time of Note Date/Time of Note DATE: 11/25/16 TIME: 15:59 Assessment/Plan VTE Prophylaxis VTE Prophylaxis Intervention: SCD's Lines/Catheters [facility] Sal[facility] Lock Urinary Cath still in place: No Assessment/Plan Assessment/Plan 1. Severe diabetic ketoacidosis with coma - resolved - Dr. Andre in endocrinology consultation. - Continue IV fluids. 2. Acute metabolic encephalopathy, resolved. 2. Diabetes mellitus type 2. - Glycemic control 3. Severe sepsis secondary PNA. - per Dr. Callaway in infectious disease consultation. Continue Levaquin - follow up on urine, blood and sputum cultures. - aspiration precautions 4. Community-acquired pneumonia vs aspiration. - per ID - aspiration precautions 5. Acute respiratory failure, resolved. - per Dr. Torres in pulmonology consultation. - Continue ventilatory support - aspiration precautions 6. Altered level of consciousness. CT head is negative. 7. Sacrococcyx DTI present on admission, continue current wound care, vitamin C , multivitamins, offloading 8. Hypokalemia- resolved, AM LABS 9. Amphetamine screen positive. 10. Sequential compression device for deep venous thrombosis prophylaxis 11. Protonix for peptic ulcer disease prophylaxis. 12. Homelessness, counseling case manager and social insurance administrator for discharge planning. Further recommendations based on clinical course.Plan of care discussed with Dr. Ma. Subjective 24 Hr Interval Summary Constitutional: requiring IVF, requiring O2 Exam/Review of Systems Vital Signs Vitals Vital Signs Date Time Temp Pulse Resp B/P Pulse Ox O2 Delivery O2 Flow Rate FiO2 11/25/16 08:08 98.1 85 20 133/88 100 11/23/16 02:53 Room Air 11/21/16 17:53 21 Intake and Output 11/24/16 11/24/16 11/25/16 15:00 23:00 07:00 Intake Total 1800 ml 1200 ml Output Total 1700 ml 1500 ml Balance 100 ml -300 ml Results Result Diagram: 11/24/16 0420 11/24/16 1400 Results 24 hrs Laboratory Tests Test 11/24/16 16:54 11/24/16 20:08 11/24/16 21:08 11/25/16 02:11 Bedside Glucose 239 H 203 209 189 Test 11/25/16 09:05 11/25/16 09:25 11/25/16 11:38 Bedside Glucose 234 H 190 Lab Scanned Report REFERENCE LAB Medications Medications Current Medications Ondansetron HCl (Zofran Inj) 4 mg Q6H PRN IV NAUSEA AND/OR VOMITING; Start 11/16 at 15:30 Acetaminophen (Tylenol Liquid) 650 mg Q6H PRN PO PAIN LEVEL 1-3 OR FEVER; Start 11/16/16 at 15:30 Morphine Sulfate (morphine) 2 mg Q4H PRN IV PAIN LEVEL 7-10 Last administered on 11/20/16 17:39; Admin Dose 2 MG; Start 11/16/16 at 15:30 Enoxaparin Sodium (Lovenox) 30 mg DAILY SC Last administered on 11/25/16 09:08 ; Admin Dose 30 MG; Start 11/17/16 at 13:00 Eye Lubricant (Artificial Tears Oph) 2 drop QID BOTH EYES Last administered on 11/25/16 11:45; Admin Dose 2 DROP; Start 11/17/16 at 17:00 Pantoprazole (Protonix Tab) 40 mg DAILY@06 PO Last administered on 11/25/16 05 :38; Admin Dose 40 MG; Start 11/21/16 at 06:00 Miscellaneous Information 1 ea NOTE XX ; Start 11/21/16 at 15:30 Glucose (Glutose) 15 gm Q15M PRN PO DECREASED GLUCOSE; Start 11/21/16 at 15:30 Glucose (Glutose) 22.5 gm Q15M PRN PO DECREASED GLUCOSE; Start 11/21/16 at 15: 30 Dextrose (D50w Syringe) 25 ml Q15M PRN IV DECREASED GLUCOSE; Start 11/21/16 at 15:30 Dextrose (D50w Syringe) 50 ml Q15M PRN IV DECREASED GLUCOSE; Start 11/21/16 at 15:30 Glucagon (Glucagen) 1 mg Q15M PRN IM DECREASED GLUCOSE; Start 11/21/16 at 15:30 Glucose (Glutose) 15 gm Q15M PRN BUCCAL DECREASED GLUCOSE; Start 11/21/16 at 15 :30 Diagnostic Test (Pha) (Accucheck) 1 ea 02 XX Last administered on 11/25/16 02: 15; Admin Dose 1 EA; Start 11/23/16 at 02:00 Collagenase (Santyl) 1 applic DAILY TOP Last administered on 11/25/16 09:10; Admin Dose 1 APPLIC; Start 11/23/16 at 12:30 Ascorbic Acid (Vitamin C) 500 mg BID GTB Last administered on 11/25/16 09:06; Admin Dose 500 MG; Start 11/23/16 at 21:00 Multivitamins Therapeutic (Theragran) 1 tab DAILY PO Last administered on 09:06; Admin Dose 1 TAB; Start 11/24/16 at 09:00 Insulin Glargine (Lantus) 30 unit DAILY@20 SC ; Start 11/25/16 at 20:00 HANNAH DIAS Nov 25, 2016 16:00
--- NOTE | 2016-11-25 18:20 | CONS ---
Date/Time of Note Date/Time of Note DATE: 11/25/16 TIME: 18:18 Assessment/Plan Assessment/Plan Problems: (1) Type II diabetes mellitus, uncontrolled Status: Chronic Comment: T2DM generally confirmed w/ 2 antibodies (-) for T1DM. Insulin doses more effective today. Cont. Lantus 30 qhs, Novolog 14 qac. Qualifiers: Diabetes mellitus complication status: with unspecified complications Diabetes mellitus detention insulin use: unspecified detention insulin use status Qualified Code: E11.8 - Uncontrolled type 2 diabetes mellitus with complication, unspecified manager long term care insulin use status Consultation Date/Type/Reason Admit Date/Time Nov 17, 2016 at 11:30 Initial Consult Date 11/17/16 Type of Consultation: Endocrinology Reason for Consultation DKA Referring Provider: ALEA WHITAKER 24 HR Interval Summary Subjective hx not possible: pt non-verbal (sleeping) Exam/Review of Systems Vital Signs Vitals VS - Last 72 Hours, by Label Date Time Temp Pulse Resp B/P Pulse Ox O2 Delivery O2 Flow Rate FiO2 11/25/16 08:08 98.1 85 20 133/88 100 11/24/16 20:02 98.4 103 18 118/74 99 11/24/16 07:45 98.5 89 20 138/87 98 11/23/16 19:42 98.4 90 20 125/76 99 11/23/16 07:34 99.0 73 20 126/84 97 11/23/16 02:53 97.9 86 19 124/70 98 Room Air 11/22/16 23:57 97.6 90 20 128/70 84 11/22/16 20:32 83 11/22/16 19:55 98.2 20 121/77 99 Vital Signs Date Time Temp Pulse Resp B/P Pulse Ox O2 Delivery O2 Flow Rate FiO2 11/25/16 08:08 98.1 85 20 133/88 100 11/23/16 02:53 Room Air 11/21/16 17:53 21 Intake and Output 11/24/16 11/24/16 11/25/16 15:00 23:00 07:00 Intake Total 1800 ml 1200 ml Output Total 1700 ml 1500 ml Balance 100 ml -300 ml Exam Constitutional: non-verbal (sleeping) Respiratory: clear to auscultation, normal air movement Cardiovascular: nl pulses, regular rate and rhythm, No edema, No murmurs/extra sounds, No rub Gastrointestinal: bowel sounds, nl liver, spleen, non-tender, soft, No mass, No rebound or guarding Musculoskeletal: nl extremities to inspection Extremities: normal pulses, No clubbing, No cyanosis, No edema Neurological: ADULT CAREGIVER II-XII intact, nl mental status, nl speech, nl strength Additional Comments Bedside Glucose - 72 Hours Test 11/22/16 20:12 11/23/16 07:52 11/23/16 12:02 11/23/16 17:52 Bedside Glucose 174mg/dL (70-220) 165mg/dL (70-220) 186mg/dL (70-220) 121mg/dL (70-220) Test 11/23/16 19:35 11/24/16 02:17 11/24/16 07:49 11/24/16 11:23 Bedside Glucose 137mg/dL (70-220) 94mg/dL (70-220) 131mg/dL (70-220) 88mg/dL (70-220) Test 11/24/16 13:36 11/24/16 14:03 11/24/16 14:39 11/24/16 16:54 Bedside Glucose 49mg/dL (70-220) *L 84mg/dL (70-220) 87mg/dL (70-220) 239mg/dL (70-220) H Test 11/24/16 20:08 11/24/16 21:08 11/25/16 02:11 11/25/16 09:05 Bedside Glucose 203mg/dL (70-220) 209mg/dL (70-220) 189mg/dL (70-220) 234mg/dL (70-220) H Test 11/25/16 11:38 11/25/16 16:54 Bedside Glucose 190mg/dL (70-220) 98mg/dL (70-220) Results Result Diagram: 11/24/16 0420 11/24/16 1400 Results 24 hrs Laboratory Tests Test 11/24/16 20:08 11/24/16 21:08 11/25/16 02:11 11/25/16 09:05 Bedside Glucose 203 209 189 234 H Test 11/25/16 09:25 11/25/16 11:38 11/25/16 16:54 Lab Scanned Report REFERENCE LAB Bedside Glucose 190 98 Medications Medications Current Medications Ondansetron HCl (Zofran Inj) 4 mg Q6H PRN IV NAUSEA AND/OR VOMITING; Start 11/16 at 15:30 Acetaminophen (Tylenol Liquid) 650 mg Q6H PRN PO PAIN LEVEL 1-3 OR FEVER; Start 11/16/16 at 15:30 Morphine Sulfate (morphine) 2 mg Q4H PRN IV PAIN LEVEL 7-10 Last administered on 11/20/16 17:39; Admin Dose 2 MG; Start 11/16/16 at 15:30 Enoxaparin Sodium (Lovenox) 30 mg DAILY SC Last administered on 11/25/16 09:08 ; Admin Dose 30 MG; Start 11/17/16 at 13:00 Eye Lubricant (Artificial Tears Oph) 2 drop QID BOTH EYES Last administered on 11/25/16 17:21; Admin Dose 2 DROP; Start 11/17/16 at 17:00 Pantoprazole (Protonix Tab) 40 mg DAILY@06 PO Last administered on 11/25/16 05 :38; Admin Dose 40 MG; Start 11/21/16 at 06:00 Miscellaneous Information 1 ea NOTE XX ; Start 11/21/16 at 15:30 Glucose (Glutose) 15 gm Q15M PRN PO DECREASED GLUCOSE; Start 11/21/16 at 15:30 Glucose (Glutose) 22.5 gm Q15M PRN PO DECREASED GLUCOSE; Start 11/21/16 at 15: 30 Dextrose (D50w Syringe) 25 ml Q15M PRN IV DECREASED GLUCOSE; Start 11/21/16 at 15:30 Dextrose (D50w Syringe) 50 ml Q15M PRN IV DECREASED GLUCOSE; Start 11/21/16 at 15:30 Glucagon (Glucagen) 1 mg Q15M PRN IM DECREASED GLUCOSE; Start 11/21/16 at 15:30 Glucose (Glutose) 15 gm Q15M PRN BUCCAL DECREASED GLUCOSE; Start 11/21/16 at 15 :30 Diagnostic Test (Pha) (Accucheck) 1 ea 02 XX Last administered on 11/25/16 02: 15; Admin Dose 1 EA; Start 11/23/16 at 02:00 Collagenase (Santyl) 1 applic DAILY TOP Last administered on 11/25/16 09:10; Admin Dose 1 APPLIC; Start 11/23/16 at 12:30 Ascorbic Acid (Vitamin C) 500 mg BID GTB Last administered on 11/25/16 09:06; Admin Dose 500 MG; Start 11/23/16 at 21:00 Multivitamins Therapeutic (Theragran) 1 tab DAILY PO Last administered on 09:06; Admin Dose 1 TAB; Start 11/24/16 at 09:00 Insulin Glargine (Lantus) 30 unit DAILY@20 SC ; Start 11/25/16 at 20:00 ROGE PAEZ MD Nov 25, 2016 18:19
[2016-11-25 20:00] VITALS: BP 123/80; RESP 19
[2016-11-25] MEDS: INSULIN GLARGINE [LANtus] 3 ML PEN SC SCH (20:05)
[2016-11-26] MEDS: ACCU-CHEK XX SCH (02:00)
[2016-11-26] MEDS: PANTOPRAZOLE (EC) 40 MG TAB PO SCH (05:18)
[2016-11-26 05:21] LABS: ADD SCAN DIFF NO
[2016-11-26 05:25] LABS: BASOPHIL # 0.1 10^3/ul (0.0-0.1); BASOPHILS % 0.6 % (0.0-2.0); EOSINOPHILS # 0.1 10^3/ul (0.0-0.5); EOSINOPHILS % 1.3 % (0.0-7.0); HEMATOCRIT 38.2 % (42.0-52.0); HEMOGLOBIN 13.1 g/dl (14.0-18.0); LYMPHOCYTES # 2.9 10^3/ul (0.8-2.9); LYMPHOCYTES % 34.4 % (15.0-51.0); MEAN CORPUSCULAR HEMOGLOBIN 29.4 pg (29.0-33.0); MEAN CORPUSCULAR HGB CONC 34.3 g/dl (32.0-37.0); MEAN CORPUSCULAR VOLUME 85.8 fl (82.0-101.0); MEAN PLATELET VOLUME 8.7 fl (7.4-10.4); MONOCYTE # 0.7 10^3/ul (0.3-0.9); MONOCYTES % 8.6 % (0.0-11.0); NEUTROPHIL # 4.6 10^3/ul (1.6-7.5); NEUTROPHILS % 54.7 % (39.0-77.0); PLATELET COUNT 467 10^3/UL (140-415); RED BLOOD COUNT 4.45 10^6/ul (4.70-6.10); RED CELL DISTRIBUTION WIDTH 12.9 % (11.5-14.5); WHITE BLOOD COUNT 8.4 10^3/ul (4.8-10.8)
[2016-11-26 05:57] LABS: CREATININE 0.54 mg/dl (0.61-1.24)
[2016-11-26 05:58] LABS: CALCIUM 8.7 mg/dl (8.4-10.2)
[2016-11-26 07:45] VITALS: BP 131/84; RESP 20
[2016-11-26] MEDS: INSULIN ASPART [NOVOLOG] 3 ML PEN SC SCH ×7 (08:03→20:55)
[2016-11-26] MEDS: ARTIFICIAL TEARS 15 ML OPH BOTH EYES SCH ×4 (08:53→20:54)
[2016-11-26] MEDS: ASCORBIC ACID 500 MG TAB GTB SCH ×2 (08:53→20:55)
[2016-11-26] MEDS: MULTIVITAMINS THERAPEUTIC TAB PO SCH (08:53)
[2016-11-26] MEDS: ENOXAPARIN 30 MG/0.3 ML SYG SC SCH (08:55)
[2016-11-26] MEDS: COLLAGENASE 30 GM TUBE TOP SCH (09:48)
--- NOTE | 2016-11-26 17:17 | CONS ---
Date/Time of Note Date/Time of Note DATE: 11/26/16 TIME: 17:14 Assessment/Plan Assessment/Plan Problems: (1) Type II diabetes mellitus, uncontrolled Status: Chronic Comment: Uncertain why pt. w/ fasting hyperglycemia today. However, the alternating from high to low-normal, back to high today is due to too intense of correction while mealtime dose is insufficient. Will increase mealtime dose of Novolog from 14 to 15 units qac and decrease correction from moderate to mild. Reeval tomorrow if still in house. Qualifiers: Diabetes mellitus complication status: with unspecified complications Diabetes mellitus exhibition organiser insulin use: unspecified senior care insulin use status Qualified Code: E11.8 - Uncontrolled type 2 diabetes mellitus with complication, unspecified exhibition organiser insulin use status Consultation Date/Type/Reason Admit Date/Time Nov 17, 2016 at 11:30 Initial Consult Date 11/17/16 Type of Consultation: Endocrinology Reason for Consultation DKA Referring Provider: ALEA WHITAKER 24 HR Interval Summary Constitutional: improved, no complaints Detailed Summary Respiratory: no complaints Cardiovascular: no complaints Gastrointestinal: no complaints Genitourinary: no complaints Musculoskeletal: no complaints Neurologic: no complaints Exam/Review of Systems Vital Signs Vitals VS - Last 72 Hours, by Label Date Time Temp Pulse Resp B/P Pulse Ox O2 Delivery O2 Flow Rate FiO2 11/26/16 07:45 98.6 76 20 131/84 98 11/25/16 20:00 98.1 105 19 123/80 100 11/25/16 08:08 98.1 85 20 133/88 100 11/24/16 20:02 98.4 103 18 118/74 99 11/24/16 07:45 98.5 89 20 138/87 98 11/23/16 19:42 98.4 90 20 125/76 99 Vital Signs Date Time Temp Pulse Resp B/P Pulse Ox O2 Delivery O2 Flow Rate FiO2 11/26/16 07:45 98.6 76 20 131/84 98 11/23/16 02:53 Room Air Intake and Output 11/25/16 11/25/16 11/26/16 15:00 23:00 07:00 Intake Total 880 ml 1050 ml Balance 880 ml 1050 ml Exam Constitutional: alert, oriented, well developed Psych: nl mood/affect, no complaints Respiratory: clear to auscultation, normal air movement Cardiovascular: nl pulses, regular rate and rhythm, No edema, No murmurs/extra sounds, No rub Gastrointestinal: bowel sounds, nl liver, spleen, non-tender, soft, No mass, No rebound or guarding Musculoskeletal: nl extremities to inspection Extremities: normal pulses, No clubbing, No cyanosis, No edema Neurological: CMO & PRESIDENT II-XII intact, nl mental status, nl speech, nl strength Additional Comments Bedside Glucose - 72 Hours Test 11/23/16 17:52 11/23/16 19:35 11/24/16 02:17 11/24/16 07:49 Bedside Glucose 121mg/dL (70-220) 137mg/dL (70-220) 94mg/dL (70-220) 131mg/dL (70-220) Test 11/24/16 11:23 11/24/16 13:36 11/24/16 14:03 11/24/16 14:39 Bedside Glucose 88mg/dL (70-220) 49mg/dL (70-220) *L 84mg/dL (70-220) 87mg/dL (70-220) Test 11/24/16 16:54 11/24/16 20:08 11/24/16 21:08 11/25/16 02:11 Bedside Glucose 239mg/dL (70-220) H 203mg/dL (70-220) 209mg/dL (70-220) 189mg/dL (70-220) Test 11/25/16 09:05 11/25/16 11:38 11/25/16 16:54 11/25/16 20:02 Bedside Glucose 234mg/dL (70-220) H 190mg/dL (70-220) 98mg/dL (70-220) 89mg/dL (70-220) Test 11/25/16 20:57 11/26/16 07:24 11/26/16 11:20 11/26/16 16:56 Bedside Glucose 122mg/dL (70-220) 218mg/dL (70-220) 77mg/dL (70-220) 208mg/dL (70-220) Results Result Diagram: 11/26/16 0430 11/26/16 0430 Results 24 hrs Laboratory Tests Test 11/25/16 20:02 11/25/16 20:57 11/26/16 04:30 11/26/16 07:24 Bedside Glucose 89 122 218 Anion Gap 13 Basophils # 0.1 Basophils % 0.6 Blood Urea Nitrogen 12 Calcium Level 8.7 Carbon Dioxide Level 34 H Chloride Level 95 L Creatinine 0.54 L Eosinophils # 0.1 Eosinophils % 1.3 Glucose Level 241 #H Hematocrit 38.2 L Hemoglobin 13.1 L Lymphocytes # 2.9 Lymphocytes % 34.4 Mean Corpuscular Hemoglobin 29.4 Mean Corpuscular Hemoglobin Concent 34.3 Mean Corpuscular Volume 85.8 Mean Platelet Volume 8.7 Monocytes # 0.7 Monocytes % 8.6 Neutrophils # 4.6 Neutrophils % 54.7 Nucleated Red Blood Cells # 0.0 Nucleated Red Blood Cells % 0.0 Platelet Count 467 #H Potassium Level 4.0 Red Blood Count 4.45 L Red Cell Distribution Width 12.9 Sodium Level 138 White Blood Count 8.4 Test 11/26/16 11:20 11/26/16 16:56 Bedside Glucose 77 208 Medications Medications Current Medications Ondansetron HCl (Zofran Inj) 4 mg Q6H PRN IV NAUSEA AND/OR VOMITING; Start 11/16 at 15:30 Acetaminophen (Tylenol Liquid) 650 mg Q6H PRN PO PAIN LEVEL 1-3 OR FEVER; Start 11/16/16 at 15:30 Morphine Sulfate (morphine) 2 mg Q4H PRN IV PAIN LEVEL 7-10 Last administered on 11/20/16 17:39; Admin Dose 2 MG; Start 11/16/16 at 15:30 Enoxaparin Sodium (Lovenox) 30 mg DAILY SC Last administered on 11/26/16 08:55 ; Admin Dose 30 MG; Start 11/17/16 at 13:00 Eye Lubricant (Artificial Tears Oph) 2 drop QID BOTH EYES Last administered on 11/26/16 13:13; Admin Dose 2 DROP; Start 11/17/16 at 17:00 Pantoprazole (Protonix Tab) 40 mg DAILY@06 PO Last administered on 11/26/16 05 :18; Admin Dose 40 MG; Start 11/21/16 at 06:00 Miscellaneous Information 1 ea NOTE XX ; Start 11/21/16 at 15:30 Glucose (Glutose) 15 gm Q15M PRN PO DECREASED GLUCOSE; Start 3/12/17 at 15:30 Glucose (Glutose) 22.5 gm Q15M PRN PO DECREASED GLUCOSE; Start 11/21/16 at 15: 30 Dextrose (D50w Syringe) 25 ml Q15M PRN IV DECREASED GLUCOSE; Start 11/21/16 at 15:30 Dextrose (D50w Syringe) 50 ml Q15M PRN IV DECREASED GLUCOSE; Start 11/21/16 at 15:30 Glucagon (Glucagen) 1 mg Q15M PRN IM DECREASED GLUCOSE; Start 11/21/16 at 15:30 Glucose (Glutose) 15 gm Q15M PRN BUCCAL DECREASED GLUCOSE; Start 11/21/16 at 15 :30 Diagnostic Test (Pha) (Accucheck) 1 ea 02 XX Last administered on 11/25/16 02: 15; Admin Dose 1 EA; Start 11/23/16 at 02:00 Collagenase (Santyl) 1 applic DAILY TOP Last administered on 11/26/16 09:48; Admin Dose 1 APPLIC; Start 11/23/16 at 12:30 Ascorbic Acid (Vitamin C) 500 mg BID GTB Last administered on 11/26/16 08:53; Admin Dose 500 MG; Start 11/23/16 at 21:00 Multivitamins Therapeutic (Theragran) 1 tab DAILY PO Last administered on 08:53; Admin Dose 1 TAB; Start 11/24/16 at 09:00 Insulin Glargine (Lantus) 30 unit DAILY@20 SC Last administered on 11/25/16 20 :05; Admin Dose 30 UNIT; Start 11/25/16 at 20:00 ROGE PAEZ MD Nov 26, 2016 17:17
[2016-11-26 20:00] VITALS: BP 118/75; PULSE 86; RESP 17
--- NOTE | 2016-11-26 20:22 | PN ---
Date/Time of Note Date/Time of Note DATE: 11/26/16 TIME: 20:20 Assessment/Plan VTE Prophylaxis VTE Prophylaxis Intervention: SCD's Lines/Catheters IV [facility] Type ([facility] Urinary Cath still in place: No Assessment/Plan Chief Complaint/Hosp Course ASSESSMENT AND PLAN - Severe diabetic ketoacidosis with coma, resolved. Dr. Andre is following in endocrinology consultation. - Diabetes mellitus type 2. Continue Lantus , pre-meal NovoLog and NovoLog per sliding scale. - Acute metabolic encephalopathy, resolved. - Severe sepsis 2 PNA, resolved. Dr. Callaway is following in infectious disease consultation. Continue Levaquin. - Community-acquired pneumonia vs aspiration. - Acute respiratory failure, resolved. Dr Disla s following the patient in pulmonology consultation. - Altered level of consciousness. CT head is negative. - Sacrococcyx DTI present on admission, continue current wound care, vitamin C, multivitamins, offloading - Amphetamine screen positive. - Homelessness, telephonic case manager and social economist for discharge planning. Pending placement. Continue sequential compression device for deep venous thrombosis prophylaxis and Protonix for peptic ulcer disease prophylaxis. Further recommendations based on clinical course. Plan of care discussed with Dr. Ma. Problems: Subjective 24 Hr Interval Summary Free Text/Dictation No change in patient's condition, blood sugar is relatively controlled, continue to follow-up endocrinology recommendations, patient remains afebrile, tolerates current diet well. Exam/Review of Systems Vital Signs Vitals Vital Signs Date Time Temp Pulse Resp B/P Pulse Ox O2 Delivery O2 Flow Rate FiO2 11/26/16 07:45 98.6 76 20 131/84 98 11/23/16 02:53 Room Air Intake and Output 11/25/16 11/25/16 11/26/16 15:00 23:00 07:00 Intake Total 880 ml 1050 ml Balance 880 ml 1050 ml Exam PHYSICAL ASSESSMENT: GENERAL: Well-developed, well-nourished male, awake alert HEENT: Head is normocephalic, PERRLA. NECK: Supple, no cervical lymphadenopathy, no thyromegaly. LUNGS: Diminished at the bases. CARDIOVASCULAR: Normal S1, S2. No murmurs, gallops, clicks, rubs noted. ABDOMEN: Flat, soft, nondistended, nontender. Bowel sounds present. EXTREMITIES: There is no edema, clubbing, cyanosis. Pulses equal bilaterally 2 +. SKIN: There is no rash, petechiae noted. NEUROLOGIC: Awake alert Results Result Diagram: 11/26/16 0430 11/26/16 0430 Results 24 hrs Laboratory Tests Test 11/25/16 20:57 11/26/16 04:30 11/26/16 07:24 11/26/16 11:20 Bedside Glucose 122 218 77 Anion Gap 13 Basophils # 0.1 Basophils % 0.6 Blood Urea Nitrogen 12 Calcium Level 8.7 Carbon Dioxide Level 34 H Chloride Level 95 L Creatinine 0.54 L Eosinophils # 0.1 Eosinophils % 1.3 Glucose Level 241 #H Hematocrit 38.2 L Hemoglobin 13.1 L Lymphocytes # 2.9 Lymphocytes % 34.4 Mean Corpuscular Hemoglobin 29.4 Mean Corpuscular Hemoglobin Concent 34.3 Mean Corpuscular Volume 85.8 Mean Platelet Volume 8.7 Monocytes # 0.7 Monocytes % 8.6 Neutrophils # 4.6 Neutrophils % 54.7 Nucleated Red Blood Cells # 0.0 Nucleated Red Blood Cells % 0.0 Platelet Count 467 #H Potassium Level 4.0 Red Blood Count 4.45 L Red Cell Distribution Width 12.9 Sodium Level 138 White Blood Count 8.4 Test 11/26/16 16:56 Bedside Glucose 208 Medications Medications Current Medications Ondansetron HCl (Zofran Inj) 4 mg Q6H PRN IV NAUSEA AND/OR VOMITING; Start 11/16 at 15:30 Acetaminophen (Tylenol Liquid) 650 mg Q6H PRN PO PAIN LEVEL 1-3 OR FEVER; Start 11/16/16 at 15:30 Morphine Sulfate (morphine) 2 mg Q4H PRN IV PAIN LEVEL 7-10 Last administered on 11/20/16 17:39; Admin Dose 2 MG; Start 11/16/16 at 15:30 Enoxaparin Sodium (Lovenox) 30 mg DAILY SC Last administered on 11/26/16 08:55 ; Admin Dose 30 MG; Start 11/17/16 at 13:00 Eye Lubricant (Artificial Tears Oph) 2 drop QID BOTH EYES Last administered on 11/26/16 17:35; Admin Dose 2 DROP; Start 11/17/16 at 17:00 Pantoprazole (Protonix Tab) 40 mg DAILY@06 PO Last administered on 11/26/16 05 :18; Admin Dose 40 MG; Start 11/21/16 at 06:00 Miscellaneous Information 1 ea NOTE XX ; Start 11/21/16 at 15:30 Glucose (Glutose) 15 gm Q15M PRN PO DECREASED GLUCOSE; Start 11/21/16 at 15:30 Glucose (Glutose) 22.5 gm Q15M PRN PO DECREASED GLUCOSE; Start 11/21/16 at 15: 30 Dextrose (D50w Syringe) 25 ml Q15M PRN IV DECREASED GLUCOSE; Start 11/21/16 at 15:30 Dextrose (D50w Syringe) 50 ml Q15M PRN IV DECREASED GLUCOSE; Start 11/21/16 at 15:30 Glucagon (Glucagen) 1 mg Q15M PRN IM DECREASED GLUCOSE; Start 11/21/16 at 15:30 Glucose (Glutose) 15 gm Q15M PRN BUCCAL DECREASED GLUCOSE; Start 11/21/16 at 15 :30 Diagnostic Test (Pha) (Accucheck) 1 ea 02 XX Last administered on 11/25/16 02: 15; Admin Dose 1 EA; Start 11/23/16 at 02:00 Collagenase (Santyl) 1 applic DAILY TOP Last administered on 11/26/16 09:48; Admin Dose 1 APPLIC; Start 11/23/16 at 12:30 Ascorbic Acid (Vitamin C) 500 mg BID GTB Last administered on 11/26/16 08:53; Admin Dose 500 MG; Start 11/23/16 at 21:00 Multivitamins Therapeutic (Theragran) 1 tab DAILY PO Last administered on 08:53; Admin Dose 1 TAB; Start 11/24/16 at 09:00 Insulin Glargine (Lantus) 30 unit DAILY@20 SC Last administered on 11/25/16 20 :05; Admin Dose 30 UNIT; Start 11/25/16 at 20:00 ALEA WHITAKER Nov 26, 2016 20:22
[2016-11-26 20:46] VITALS: BP 118/75; RESP 17
[2016-11-26] MEDS: INSULIN GLARGINE [LANtus] 3 ML PEN SC SCH (20:54)
[2016-11-27] MEDS ORDERED: ACCU-CHEK XX SCH (02:00)
[2016-11-27] MEDS: ACCU-CHEK XX SCH (02:00)
[2016-11-27] MEDS: PANTOPRAZOLE (EC) 40 MG TAB PO SCH (05:28)
[2016-11-27] MEDS: INSULIN ASPART [NOVOLOG] 3 ML PEN SC SCH ×7 (08:02→21:00)
[2016-11-27] MEDS: ASCORBIC ACID 500 MG TAB GTB SCH ×2 (08:44→21:04)
[2016-11-27] MEDS: MULTIVITAMINS THERAPEUTIC TAB PO SCH (08:44)
[2016-11-27] MEDS: ARTIFICIAL TEARS 15 ML OPH BOTH EYES SCH ×4 (08:44→21:03)
[2016-11-27] MEDS: ENOXAPARIN 30 MG/0.3 ML SYG SC SCH (08:45)
[2016-11-27] MEDS: COLLAGENASE 30 GM TUBE TOP SCH (08:46)
[2016-11-27 08:50] VITALS: BP 137/88; RESP 18
[2016-11-27] MEDS: LINAGLIPTIN 5 MG TABLET PO SCH (11:51)
--- NOTE | 2016-11-27 12:36 | CONS ---
Date/Time of Note Date/Time of Note DATE: 11/27/16 TIME: 12:33 Assessment/Plan Assessment/Plan Problems: (1) Type II diabetes mellitus, uncontrolled Status: Chronic Comment: Hyperglycemic overnight, likely due to nursing administration of free carb snack. Although pt. common antibody negative, will check c-peptide. Add metformin 500 mg bid and tradjenta 5 mg daily to see if this has any effect on smoothing out these high glucose episodes. Qualifiers: Diabetes mellitus complication status: with unspecified complications Diabetes mellitus supervisor intermediates insulin use: unspecified care home insulin use status Qualified Code: E11.8 - Uncontrolled type 2 diabetes mellitus with complication, unspecified supervisor intermediates insulin use status Consultation Date/Type/Reason Admit Date/Time Nov 17, 2016 at 11:30 Initial Consult Date 11/17/16 Type of Consultation: Endocrinology Reason for Consultation DKA Referring Provider: ALEA WHITAKER 24 HR Interval Summary Constitutional: improved, no complaints Detailed Summary Respiratory: no complaints Cardiovascular: no complaints Gastrointestinal: no complaints Genitourinary: no complaints Musculoskeletal: no complaints Neurologic: no complaints Exam/Review of Systems Vital Signs Vitals VS - Last 72 Hours, by Label Date Time Temp Pulse Resp B/P Pulse Ox O2 Delivery O2 Flow Rate FiO2 11/27/16 08:50 97.8 84 18 137/88 96 11/26/16 20:46 99.0 86 17 118/75 98 11/26/16 20:00 99.0 86 17 118/75 98 Room Air 11/26/16 07:45 98.6 76 20 131/84 98 11/25/16 20:00 98.1 105 19 123/80 100 11/25/16 08:08 98.1 85 20 133/88 100 11/24/16 20:02 98.4 103 18 118/74 99 Vital Signs Date Time Temp Pulse Resp B/P Pulse Ox O2 Delivery O2 Flow Rate FiO2 11/27/16 08:50 97.8 84 18 137/88 96 11/26/16 20:00 Room Air Intake and Output 11/26/16 11/26/16 11/27/16 15:00 23:00 07:00 Intake Total 1200 ml 1200 ml Output Total 1200 ml Balance 0 ml 1200 ml Exam Constitutional: alert, oriented, well developed Psych: nl mood/affect, no complaints Respiratory: clear to auscultation, normal air movement Cardiovascular: nl pulses, regular rate and rhythm, No edema, No murmurs/extra sounds, No rub Gastrointestinal: bowel sounds, nl liver, spleen, non-tender, soft, No mass, No rebound or guarding Musculoskeletal: nl extremities to inspection Extremities: normal pulses, No clubbing, No cyanosis, No edema Neurological: SOLAR ELECTRIC PRACTITIONER II-XII intact, nl mental status, nl speech, nl strength Additional Comments Bedside Glucose - 72 Hours Test 11/24/16 13:36 11/24/16 14:03 11/24/16 14:39 11/24/16 16:54 Bedside Glucose 49mg/dL (70-220) *L 84mg/dL (70-220) 87mg/dL (70-220) 239mg/dL (70-220) H Test 11/24/16 20:08 11/24/16 21:08 11/25/16 02:11 11/25/16 09:05 Bedside Glucose 203mg/dL (70-220) 209mg/dL (70-220) 189mg/dL (70-220) 234mg/dL (70-220) H Test 11/25/16 11:38 11/25/16 16:54 11/25/16 20:02 11/25/16 20:57 Bedside Glucose 190mg/dL (70-220) 98mg/dL (70-220) 89mg/dL (70-220) 122mg/dL (70-220) Test 11/26/16 07:24 11/26/16 11:20 11/26/16 16:56 11/26/16 20:51 Bedside Glucose 218mg/dL (70-220) 77mg/dL (70-220) 208mg/dL (70-220) 128mg/dL (70-220) Test 11/27/16 03:51 11/27/16 07:34 11/27/16 11:14 Bedside Glucose 363mg/dL (70-220) H 279mg/dL (70-220) H 136mg/dL (70-220) Results Result Diagram: 11/26/1642911/26/16 0430 Results 24 hrs Laboratory Tests Test 11/26/16 16:56 11/26/16 20:51 11/27/16 03:51 11/27/16 07:34 Bedside Glucose 208 128 363 H 279 H Test 11/27/16 11:14 Bedside Glucose 136 Medications Medications Current Medications Ondansetron HCl (Zofran Inj) 4 mg Q6H PRN IV NAUSEA AND/OR VOMITING; Start 11/16 at 15:30 Acetaminophen (Tylenol Liquid) 650 mg Q6H PRN PO PAIN LEVEL 1-3 OR FEVER; Start 11/16/16 at 15:30 Morphine Sulfate (morphine) 2 mg Q4H PRN IV PAIN LEVEL 7-10 Last administered on 11/20/16 17:39; Admin Dose 2 MG; Start 11/16/16 at 15:30 Enoxaparin Sodium (Lovenox) 30 mg DAILY SC Last administered on 11/27/16 08:45 ; Admin Dose 30 MG; Start 11/17/16 at 13:00 Eye Lubricant (Artificial Tears Oph) 2 drop QID BOTH EYES Last administered on 11/27/16 08:44; Admin Dose 2 DROP; Start 11/17/16 at 17:00 Pantoprazole (Protonix Tab) 40 mg DAILY@06 PO Last administered on 11/27/16 05 :28; Admin Dose 40 MG; Start 11/21/16 at 06:00 Miscellaneous Information 1 ea NOTE XX ; Start 11/21/16 at 15:30 Glucose (Glutose) 15 gm Q15M PRN PO DECREASED GLUCOSE; Start 11/21/16 at 15:30 Glucose (Glutose) 22.5 gm Q15M PRN PO DECREASED GLUCOSE; Start 11/21/16 at 15: 30 Dextrose (D50w Syringe) 25 ml Q15M PRN IV DECREASED GLUCOSE; Start 11/21/16 at 15:30 Dextrose (D50w Syringe) 50 ml Q15M PRN IV DECREASED GLUCOSE; Start 11/21/16 at 15:30 Glucagon (Glucagen) 1 mg Q15M PRN IM DECREASED GLUCOSE; Start 11/21/16 at 15:30 Glucose (Glutose) 15 gm Q15M PRN BUCCAL DECREASED GLUCOSE; Start 11/21/16 at 15 :30 Diagnostic Test (Pha) (Accucheck) 1 ea 02 XX Last administered on 11/25/16 02: 15; Admin Dose 1 EA; Start 11/23/16 at 02:00 Collagenase (Santyl) 1 applic DAILY TOP Last administered on 11/27/16 08:46; Admin Dose 1 APPLIC; Start 11/23/16 at 12:30 Ascorbic Acid (Vitamin C) 500 mg BID GTB Last administered on 11/27/16 08:44; Admin Dose 500 MG; Start 11/23/16 at 21:00 Multivitamins Therapeutic (Theragran) 1 tab DAILY PO Last administered on 08:44; Admin Dose 1 TAB; Start 11/24/16 at 09:00 Insulin Glargine (Lantus) 30 unit DAILY@20 SC Last administered on 11/26/16 20 :54; Admin Dose 30 UNIT; Start 11/25/16 at 20:00 Linagliptin (Tradjenta) 5 mg DAILY PO Last administered on 11/27/16 11:51; Admin Dose 5 MG; Start 11/27/16 at 11:30 ROGE PAEZ MD Nov 27, 2016 12:36
--- NOTE | 2016-11-27 13:01 | PN ---
Date/Time of Note Date/Time of Note DATE: 11/27/16 TIME: 13:00 Assessment/Plan VTE Prophylaxis VTE Prophylaxis Intervention: other Lines/Catheters [facility] Saline Lock Urinary Cath still in place: No Assessment/Plan Chief Complaint/Hosp Course - Severe diabetic ketoacidosis with coma, resolved. Dr. Andre is following in endocrinology consultation. - Diabetes mellitus type 2. Continue Lantus , pre-meal NovoLog and NovoLog per sliding scale. - Acute metabolic encephalopathy, resolved. - Severe sepsis 2 PNA, resolved. Dr. Callaway is following in infectious disease consultation. Continue Levaquin. - Community-acquired pneumonia vs aspiration. - Acute respiratory failure, resolved. Dr Disla s following the patient in pulmonology consultation. - Altered level of consciousness. CT head is negative. - Sacrococcyx DTI present on admission, continue current wound care, vitamin C, multivitamins, offloading - Amphetamine screen positive. - Homelessness, rifle case repairer and social research assistant for discharge planning. Problems: Subjective 24 Hr Interval Summary Free Text/Dictation Patient has no complaints, is doing ok Exam/Review of Systems Vital Signs Vitals Vital Signs Date Time Temp Pulse Resp B/P Pulse Ox O2 Delivery O2 Flow Rate FiO2 11/27/16 08:50 97.8 84 18 137/88 96 11/26/16 20:00 Room Air Intake and Output 11/26/16 11/26/16 11/27/16 15:00 23:00 07:00 Intake Total 1200 ml 1200 ml Output Total 1200 ml Balance 0 ml 1200 ml Exam Constitutional: well developed Head: atraumatic, normocephalic Neck: supple Respiratory: clear to auscultation Cardiovascular: regular rate and rhythm Gastrointestinal: non-tender, soft Extremities: normal pulses Results Result Diagram: 11/26/16 0430 11/26/16 0430 Results 24 hrs Laboratory Tests Test 11/26/16 16:56 11/26/16 20:51 11/27/16 03:51 11/27/16 07:34 Bedside Glucose 208 128 363 H 279 H Test 11/27/16 11:14 11/27/16 12:47 Bedside Glucose 136 198 Medications Medications Current Medications Ondansetron HCl (Zofran Inj) 4 mg Q6H PRN IV NAUSEA AND/OR VOMITING; Start 11/16 at 15:30 Acetaminophen (Tylenol Liquid) 650 mg Q6H PRN PO PAIN LEVEL 1-3 OR FEVER; Start 11/16/16 at 15:30 Morphine Sulfate (morphine) 2 mg Q4H PRN IV PAIN LEVEL 7-10 Last administered on 11/20/16 17:39; Admin Dose 2 MG; Start 11/16/16 at 15:30 Enoxaparin Sodium (Lovenox) 30 mg DAILY SC Last administered on 11/27/16 08:45 ; Admin Dose 30 MG; Start 11/17/16 at 13:00 Eye Lubricant (Artificial Tears Oph) 2 drop QID BOTH EYES Last administered on 11/27/16 12:38; Admin Dose 2 DROP; Start 11/17/16 at 17:00 Pantoprazole (Protonix Tab) 40 mg DAILY@06 PO Last administered on 11/27/16 05 :28; Admin Dose 40 MG; Start 11/21/16 at 06:00 Miscellaneous Information 1 ea NOTE XX ; Start 11/21/16 at 15:30 Glucose (Glutose) 15 gm Q15M PRN PO DECREASED GLUCOSE; Start 11/21/16 at 15:30 Glucose (Glutose) 22.5 gm Q15M PRN PO DECREASED GLUCOSE; Start 11/21/16 at 15: 30 Dextrose (D50w Syringe) 25 ml Q15M PRN IV DECREASED GLUCOSE; Start 11/21/16 at 15:30 Dextrose (D50w Syringe) 50 ml Q15M PRN IV DECREASED GLUCOSE; Start 11/21/16 at 15:30 Glucagon (Glucagen) 1 mg Q15M PRN IM DECREASED GLUCOSE; Start 11/21/16 at 15:30 Glucose (Glutose) 15 gm Q15M PRN BUCCAL DECREASED GLUCOSE; Start 11/21/16 at 15 :30 Diagnostic Test (Pha) (Accucheck) 1 ea 02 XX Last administered on 11/25/16 02: 15; Admin Dose 1 EA; Start 11/23/16 at 02:00 Collagenase (Santyl) 1 applic DAILY TOP Last administered on 11/27/16 08:46; Admin Dose 1 APPLIC; Start 11/23/16 at 12:30 Ascorbic Acid (Vitamin C) 500 mg BID GTB Last administered on 11/27/16 08:44; Admin Dose 500 MG; Start 11/23/16 at 21:00 Multivitamins Therapeutic (Theragran) 1 tab DAILY PO Last administered on 08:44; Admin Dose 1 TAB; Start 11/24/16 at 09:00 Insulin Glargine (Lantus) 30 unit DAILY@20 SC Last administered on 11/26/16 20 :54; Admin Dose 30 UNIT; Start 11/25/16 at 20:00 Linagliptin (Tradjenta) 5 mg DAILY PO Last administered on 11/27/16 11:51; Admin Dose 5 MG; Start 11/27/16 at 11:30 KAYLEE BARBA Nov 27, 2016 13:01
[2016-11-27] MEDS: metFORMIN (XR) 500 MG TAB PO SCH (17:21)
[2016-11-27 20:00] VITALS: BP 115/65; PULSE 87; RESP 16
[2016-11-27 20:24] VITALS: BP 115/65; RESP 16
[2016-11-27] MEDS: INSULIN GLARGINE [LANtus] 3 ML PEN SC SCH (21:02)
[2016-11-28] MEDS: ACCU-CHEK XX SCH (02:00)
[2016-11-28] MEDS: PANTOPRAZOLE (EC) 40 MG TAB PO SCH (05:14)
[2016-11-28 08:29] VITALS: BP 121/74; RESP 18
[2016-11-28] MEDS: ARTIFICIAL TEARS 15 ML OPH BOTH EYES SCH ×4 (08:34→21:08)
[2016-11-28] MEDS: LINAGLIPTIN 5 MG TABLET PO SCH (08:34)
[2016-11-28] MEDS: metFORMIN (XR) 500 MG TAB PO SCH ×2 (08:34→17:32)
[2016-11-28] MEDS: MULTIVITAMINS THERAPEUTIC TAB PO SCH (08:34)
[2016-11-28] MEDS: ASCORBIC ACID 500 MG TAB GTB SCH ×2 (08:34→21:08)
[2016-11-28] MEDS: ENOXAPARIN 30 MG/0.3 ML SYG SC SCH (08:35)
[2016-11-28] MEDS: INSULIN ASPART [NOVOLOG] 3 ML PEN SC SCH ×7 (08:36→21:00)
[2016-11-28] MEDS: COLLAGENASE 30 GM TUBE TOP SCH (11:44)
--- NOTE | 2016-11-28 12:30 | PN ---
Date/Time of Note Date/Time of Note DATE: 11/28/16 TIME: 12:30 Assessment/Plan VTE Prophylaxis VTE Prophylaxis Intervention: other Lines/Catheters IV C[facility]ter Type (from [facility]): Saline Lock Urinary Cath still in place: No Assessment/Plan Chief Complaint/Hosp Course - Severe diabetic ketoacidosis with coma, resolved. Dr. Andre is following in endocrinology consultation. - Diabetes mellitus type 2. Continue Lantus , pre-meal NovoLog and NovoLog per sliding scale. - Acute metabolic encephalopathy, resolved. - Severe sepsis 2 PNA, resolved. Dr. Callaway is following in infectious disease consultation. Continue Levaquin. - Community-acquired pneumonia vs aspiration. - Acute respiratory failure, resolved. Dr Disla s following the patient in pulmonology consultation. - Altered level of consciousness. CT head is negative. - Sacrococcyx DTI present on admission, continue current wound care, vitamin C, multivitamins, offloading - Amphetamine screen positive. - Homelessness, case preparer and liner and transition social worker for discharge planning. Problems: Subjective 24 Hr Interval Summary Free Text/Dictation Patient has no complaints Exam/Review of Systems Vital Signs Vitals Vital Signs Date Time Temp Pulse Resp B/P Pulse Ox O2 Delivery O2 Flow Rate FiO2 11/28/16 08:29 98.6 88 18 121/74 98 11/27/16 20:00 Room Air Intake and Output 11/27/16 11/27/16 11/28/16 15:00 23:00 07:00 Intake Total 1800 ml 750 ml Balance 1800 ml 750 ml Exam Constitutional: well developed Head: atraumatic, normocephalic Neck: supple Respiratory: clear to auscultation Cardiovascular: regular rate and rhythm Gastrointestinal: non-tender, soft Extremities: normal pulses Results Result Diagram: 11/26/16 0430 11/26/16 0430 Results 24 hrs Laboratory Tests Test 11/27/16 12:47 11/27/16 16:52 11/27/16 20:59 11/28/16 07:49 Bedside Glucose 198 148 115 162 Test 11/28/16 11:46 Bedside Glucose 129 Medications Medications Current Medications Ondansetron HCl (Zofran Inj) 4 mg Q6H PRN IV NAUSEA AND/OR VOMITING; Start 11/16 at 15:30 Acetaminophen (Tylenol Liquid) 650 mg Q6H PRN PO PAIN LEVEL 1-3 OR FEVER Last administered on 11/27/16 18:33; Admin Dose 650 MG; Start 11/16/16 at 15:30 Morphine Sulfate (morphine) 2 mg Q4H PRN IV PAIN LEVEL 7-10 Last administered on 11/20/16 17:39; Admin Dose 2 MG; Start 11/16/16 at 15:30 Enoxaparin Sodium (Lovenox) 30 mg DAILY SC Last administered on 11/28/16 08:35 ; Admin Dose 30 MG; Start 11/17/16 at 13:00 Eye Lubricant (Artificial Tears Oph) 2 drop QID BOTH EYES Last administered on 11/28/16 08:34; Admin Dose 2 DROP; Start 11/17/16 at 17:00 Pantoprazole (Protonix Tab) 40 mg DAILY@06 PO Last administered on 11/28/16 05 :14; Admin Dose 40 MG; Start 11/21/16 at 06:00 Miscellaneous Information 1 ea NOTE XX ; Start 11/21/16 at 15:30 Glucose (Glutose) 15 gm Q15M PRN PO DECREASED GLUCOSE; Start 11/21/16 at 15:30 Glucose (Glutose) 22.5 gm Q15M PRN PO DECREASED GLUCOSE; Start 11/21/16 at 15: 30 Dextrose (D50w Syringe) 25 ml Q15M PRN IV DECREASED GLUCOSE; Start 11/21/16 at 15:30 Dextrose (D50w Syringe) 50 ml Q15M PRN IV DECREASED GLUCOSE; Start 11/21/16 at 15:30 Glucagon (Glucagen) 1 mg Q15M PRN IM DECREASED GLUCOSE; Start 11/21/16 at 15:30 Glucose (Glutose) 15 gm Q15M PRN BUCCAL DECREASED GLUCOSE; Start 11/21/16 at 15 :30 Diagnostic Test (Pha) (Accucheck) 1 ea 02 XX Last administered on 11/25/16 02: 15; Admin Dose 1 EA; Start 11/23/16 at 02:00 Collagenase (Santyl) 1 applic DAILY TOP Last administered on 11/28/16 11:44; Admin Dose 1 APPLIC; Start 11/23/16 at 12:30 Ascorbic Acid (Vitamin C) 500 mg BID GTB Last administered on 11/28/16 08:34; Admin Dose 500 MG; Start 11/23/16 at 21:00 Multivitamins Therapeutic (Theragran) 1 tab DAILY PO Last administered on 08:34; Admin Dose 1 TAB; Start 11/24/16 at 09:00 Insulin Glargine (Lantus) 30 unit DAILY@20 SC Last administered on 11/27/16 21 :02; Admin Dose 30 UNIT; Start 11/25/16 at 20:00 Linagliptin (Tradjenta) 5 mg DAILY PO Last administered on 11/28/16 08:34; Admin Dose 5 MG; Start 11/27/16 at 11:30 KAYLEE BARBA Nov 28, 2016 12:30
--- NOTE | 2016-11-28 14:57 | CONS ---
Date/Time of Note Date/Time of Note DATE: 11/28/16 TIME: 14:55 Assessment/Plan Assessment/Plan Problems: (1) Type II diabetes mellitus, uncontrolled Status: Chronic Comment: Good glycemic control. Cont. current insulin doses w/ metformin and linagliptin. Awaiting c-peptide results Qualifiers: Diabetes mellitus complication status: with unspecified complications Diabetes mellitus bed bug exterminator insulin use: unspecified care home insulin use status Qualified Code: E11.8 - Uncontrolled type 2 diabetes mellitus with complication, unspecified care home insulin use status Consultation Date/Type/Reason Admit Date/Time Nov 17, 2016 at 11:30 Initial Consult Date 11/17/16 Type of Consultation: Endocrinology Reason for Consultation DKA Referring Provider: ALEA WHITAKER 24 HR Interval Summary Constitutional: improved, no complaints Detailed Summary Respiratory: no complaints Cardiovascular: no complaints Gastrointestinal: no complaints Genitourinary: no complaints Musculoskeletal: back pain (at site of decubitus) Neurologic: no complaints Psychological: no complaints Exam/Review of Systems Vital Signs Vitals VS - Last 72 Hours, by Label Date Time Temp Pulse Resp B/P Pulse Ox O2 Delivery O2 Flow Rate FiO2 11/28/16 08:29 98.6 88 18 121/74 98 11/27/16 20:24 98.6 87 16 115/65 99 11/27/16 20:00 98.6 87 16 115/65 99 Room Air 11/27/16 08:50 97.8 84 18 137/88 96 11/26/16 20:46 99.0 86 17 118/75 98 11/26/16 20:00 99.0 86 17 118/75 98 Room Air 11/26/16 07:45 98.6 76 20 131/84 98 11/25/16 20:00 98.1 105 19 123/80 100 Vital Signs Date Time Temp Pulse Resp B/P Pulse Ox O2 Delivery O2 Flow Rate FiO2 11/28/16 08:29 98.6 88 18 121/74 98 11/27/16 20:00 Room Air Intake and Output 11/27/16 11/27/16 11/28/16 15:00 23:00 07:00 Intake Total 1800 ml 750 ml Balance 1800 ml 750 ml Exam Constitutional: alert, oriented Psych: nl mood/affect, no complaints Respiratory: clear to auscultation, normal air movement Cardiovascular: nl pulses, regular rate and rhythm, No edema, No murmurs/extra sounds, No rub Gastrointestinal: bowel sounds, nl liver, spleen, non-tender, soft, No mass, No rebound or guarding Musculoskeletal: nl extremities to inspection Extremities: normal pulses, No clubbing, No cyanosis, No edema Neurological: PERSONAL LOAN SPECIALIST II-XII intact, nl mental status, nl speech, nl strength Additional Comments Bedside Glucose - 72 Hours Test 11/25/16 16:54 11/25/16 20:02 11/25/16 20:57 11/26/16 07:24 Bedside Glucose 98mg/dL (70-220) 89mg/dL (70-220) 122mg/dL (70-220) 218mg/dL (70-220) Test 11/26/16 11:20 11/26/16 16:56 11/26/16 20:51 11/27/16 03:51 Bedside Glucose 77mg/dL (70-220) 208mg/dL (70-220) 128mg/dL (70-220) 363mg/dL (70-220) H Test 11/27/16 07:34 11/27/16 11:14 11/27/16 12:47 11/27/16 16:52 Bedside Glucose 279mg/dL (70-220) H 136mg/dL (70-220) 198mg/dL (70-220) 148mg/dL (70-220) Test 11/27/16 20:59 11/28/16 07:49 11/28/16 11:46 Bedside Glucose 115mg/dL (70-220) 162mg/dL (70-220) 129mg/dL (70-220) Results Result Diagram: 11/26/160 11/26/16 0430 Results 24 hrs Laboratory Tests Test 11/27/16 16:52 11/27/16 20:59 11/28/16 07:49 11/28/16 11:46 Bedside Glucose 148 115 162 129 Medications Medications Current Medications Ondansetron HCl (Zofran Inj) 4 mg Q6H PRN IV NAUSEA AND/OR VOMITING; Start 11/16 at 15:30 Acetaminophen (Tylenol Liquid) 650 mg Q6H PRN PO PAIN LEVEL 1-3 OR FEVER Last administered on 11/27/16t 18:33; Admin Dose 650 MG; Start 11/16/16 at 15:30 Morphine Sulfate (morphine) 2 mg Q4H PRN IV PAIN LEVEL 7-10 Last administered on 11/20/16 17:39; Admin Dose 2 MG; Start 11/16/16 at 15:30 Enoxaparin Sodium (Lovenox) 30 mg DAILY SC Last administered on 11/28/16 08:35 ; Admin Dose 30 MG; Start 11/17/16 at 13:00 Eye Lubricant (Artificial Tears Oph) 2 drop QID BOTH EYES Last administered on 11/28/16 13:00; Admin Dose 2 DROP; Start 11/17/16 at 17:00 Pantoprazole (Protonix Tab) 40 mg DAILY@06 PO Last administered on 11/28/16 05 :14; Admin Dose 40 MG; Start 11/21/16 at 06:00 Miscellaneous Information 1 ea NOTE XX ; Start 11/21/16 at 15:30 Glucose (Glutose) 15 gm Q15M PRN PO DECREASED GLUCOSE; Start 11/21/16 at 15:30 Glucose (Glutose) 22.5 gm Q15M PRN PO DECREASED GLUCOSE; Start 11/21/16 at 15: 30 Dextrose (D50w Syringe) 25 ml Q15M PRN IV DECREASED GLUCOSE; Start 11/21/16 at 15:30 Dextrose (D50w Syringe) 50 ml Q15M PRN IV DECREASED GLUCOSE; Start 11/21/16 at 15:30 Glucagon (Glucagen) 1 mg Q15M PRN IM DECREASED GLUCOSE; Start 11/21/16 at 15:30 Glucose (Glutose) 15 gm Q15M PRN BUCCAL DECREASED GLUCOSE; Start 11/21/16 at 15 :30 Diagnostic Test (Pha) (Accucheck) 1 ea 02 XX Last administered on 11/25/16 02: 15; Admin Dose 1 EA; Start 11/23/16 at 02:00 Collagenase (Santyl) 1 applic DAILY TOP Last administered on 11/28/16 11:44; Admin Dose 1 APPLIC; Start 11/23/16 at 12:30 Ascorbic Acid (Vitamin C) 500 mg BID GTB Last administered on 11/28/16 08:34; Admin Dose 500 MG; Start 11/23/16 at 21:00 Multivitamins Therapeutic (Theragran) 1 tab DAILY PO Last administered on 08:34; Admin Dose 1 TAB; Start 11/24/16 at 09:00 Insulin Glargine (Lantus) 30 unit DAILY@20 SC Last administered on 11/27/16 21 :02; Admin Dose 30 UNIT; Start 11/25/16 at 20:00 Linagliptin (Tradjenta) 5 mg DAILY PO Last administered on 11/28/16 08:34; Admin Dose 5 MG; Start 11/27/16 at 11:30 ROGE PAEZ MD Nov 28, 2016 14:57
[2016-11-28 19:39] VITALS: BP 121/64; RESP 16
[2016-11-28] MEDS: INSULIN GLARGINE [LANtus] 3 ML PEN SC SCH (20:18)
[2016-11-29] MEDS: ACCU-CHEK XX SCH (02:00)
[2016-11-29] MEDS: PANTOPRAZOLE (EC) 40 MG TAB PO SCH (06:23)
[2016-11-29 07:50] VITALS: BP 121/70; RESP 20
[2016-11-29] MEDS: INSULIN ASPART [NOVOLOG] 3 ML PEN SC SCH ×7 (08:29→21:00)
[2016-11-29] MEDS: ARTIFICIAL TEARS 15 ML OPH BOTH EYES SCH ×4 (08:42→21:14)
[2016-11-29] MEDS: morphine 2 MG INJ IV PRN ×2 (08:43→21:24)
[2016-11-29] MEDS: metFORMIN (XR) 500 MG TAB PO SCH ×2 (08:43→18:06)
[2016-11-29] MEDS: LINAGLIPTIN 5 MG TABLET PO SCH (09:00)
[2016-11-29] MEDS: ASCORBIC ACID 500 MG TAB GTB SCH ×2 (09:00→21:11)
[2016-11-29] MEDS: ENOXAPARIN 30 MG/0.3 ML SYG SC SCH (09:00)
[2016-11-29] MEDS: COLLAGENASE 30 GM TUBE TOP SCH (09:00)
[2016-11-29] MEDS: MULTIVITAMINS THERAPEUTIC TAB PO SCH (09:00)
--- NOTE | 2016-11-29 12:39 | PN ---
Date/Time of Note Date/Time of Note DATE: 11/29/16 TIME: 12:37 Assessment/Plan VTE Prophylaxis VTE Prophylaxis Intervention: SCD's Lines/Catheters [facility] Type (from [facility] Saline Lock Urinary Cath still in place: No Assessment/Plan Chief Complaint/Hosp Course ASSESSMENT AND PLAN - Severe diabetic ketoacidosis with coma, resolved. Dr. Andre is following in endocrinology consultation. - Diabetes mellitus type 2. Continue Lantus , pre-meal NovoLog and NovoLog per sliding scale. - Acute metabolic encephalopathy, resolved. - Severe sepsis 2 PNA, resolved. Dr. Callaway is following in infectious disease consultation. Continue Levaquin. - Community-acquired pneumonia vs aspiration. - Acute respiratory failure, resolved. Dr Disla s following the patient in pulmonology consultation. - Altered level of consciousness. CT head is negative. - Sacrococcyx DTI present on admission, continue current wound care, vitamin C, multivitamins, offloading - Amphetamine screen positive. - Homelessness, bottle caser and social science teacher for discharge planning. Pending placement. Continue sequential compression device for deep venous thrombosis prophylaxis and Protonix for peptic ulcer disease prophylaxis. Further recommendations based on clinical course. Plan of care discussed with Dr. Ma. Problems: Exam/Review of Systems Vital Signs Vitals Vital Signs Date Time Temp Pulse Resp B/P Pulse Ox O2 Delivery O2 Flow Rate FiO2 11/29/16 07:50 98.2 89 20 121/70 99 11/27/16 20:00 Room Air Intake and Output 11/28/16 11/28/16 11/29/16 15:00 23:00 07:00 Intake Total 980 ml 1150 ml Output Total 200 ml Balance 780 ml 1150 ml Exam PHYSICAL ASSESSMENT: GENERAL: Well-developed, well-nourished male, awake alert HEENT: Head is normocephalic, PERRLA. NECK: Supple, no cervical lymphadenopathy, no thyromegaly. LUNGS: Diminished at the bases. CARDIOVASCULAR: Normal S1, S2. No murmurs, gallops, clicks, rubs noted. ABDOMEN: Flat, soft, nondistended, nontender. Bowel sounds present. EXTREMITIES: There is no edema, clubbing, cyanosis. Pulses equal bilaterally 2 +. SKIN: There is no rash, petechiae noted. NEUROLOGIC: Awake alert Results Result Diagram: 11/26/16 0430 11/26/16 0430 Results 24 hrs Laboratory Tests Test 11/28/16 17:01 11/28/16 20:16 11/28/16 21:15 11/29/16 08:14 Bedside Glucose 230 H 147 152 202 Test 11/29/16 12:08 Bedside Glucose 78 Medications Medications Current Medications Ondansetron HCl (Zofran Inj) 4 mg Q6H PRN IV NAUSEA AND/OR VOMITING; Start 11/16 at 15:30 Acetaminophen (Tylenol Liquid) 650 mg Q6H PRN PO PAIN LEVEL 1-3 OR FEVER Last administered on 11/27/16 18:33; Admin Dose 650 MG; Start 11/16/16 at 15:30 Morphine Sulfate (morphine) 2 mg Q4H PRN IV PAIN LEVEL 7-10 Last administered on 11/29/16 08:43; Admin Dose 2 MG; Start 11/16/16 at 15:30 Enoxaparin Sodium (Lovenox) 30 mg DAILY SC Last administered on 11/28/16 08:35 ; Admin Dose 30 MG; Start 11/17/16 at 13:00 Eye Lubricant (Artificial Tears Oph) 2 drop QID BOTH EYES Last administered on 11/29/16 08:42; Admin Dose 2 DROP; Start 11/17/16 at 17:00 Pantoprazole (Protonix Tab) 40 mg DAILY@06 PO Last administered on 11/29/16 06 :23; Admin Dose 40 MG; Start 11/21/16 at 06:00 Miscellaneous Information 1 ea NOTE XX ; Start 11/21/16 at 15:30 Glucose (Glutose) 15 gm Q15M PRN PO DECREASED GLUCOSE; Start 11/21/16 at 15:30 Glucose (Glutose) 22.5 gm Q15M PRN PO DECREASED GLUCOSE; Start 11/21/16 at 15: 30 Dextrose (D50w Syringe) 25 ml Q15M PRN IV DECREASED GLUCOSE; Start 11/21/16 at 15:30 Dextrose (D50w Syringe) 50 ml Q15M PRN IV DECREASED GLUCOSE; Start 11/21/16 at 15:30 Glucagon (Glucagen) 1 mg Q15M PRN IM DECREASED GLUCOSE; Start 11/21/16 at 15:30 Glucose (Glutose) 15 gm Q15M PRN BUCCAL DECREASED GLUCOSE; Start 11/21/16 at 15 :30 Diagnostic Test (Pha) (Accucheck) 1 ea 02 XX Last administered on 11/25/16 02: 15; Admin Dose 1 EA; Start 11/23/16 at 02:00 Collagenase (Santyl) 1 applic DAILY TOP Last administered on 11/28/16 11:44; Admin Dose 1 APPLIC; Start 11/23/16 at 12:30 Ascorbic Acid (Vitamin C) 500 mg BID GTB Last administered on 11/28/16 21:08; Admin Dose 500 MG; Start 11/23/16 at 21:00 Multivitamins Therapeutic (Theragran) 1 tab DAILY PO Last administered on 08:34; Admin Dose 1 TAB; Start 11/24/16 at 09:00 Insulin Glargine (Lantus) 30 unit DAILY@20 SC Last administered on 11/28/16 20 :18; Admin Dose 30 UNIT; Start 11/25/16 at 20:00 Linagliptin (Tradjenta) 5 mg DAILY PO Last administered on 11/28/16 08:34; Admin Dose 5 MG; Start 11/27/16 at 11:30 ALEA WHITAKER Nov 29, 2016 12:38
--- NOTE | 2016-11-29 18:01 | CONS ---
Date/Time of Note Date/Time of Note DATE: 11/29/16 TIME: 17:59 Assessment/Plan Assessment/Plan Problems: (1) Type II diabetes mellitus, uncontrolled Status: Chronic Comment: Fair glycemic control w/ mild fasting hyperglycemia. Will monitor. Await c-peptide. Qualifiers: Diabetes mellitus complication status: with unspecified complications Diabetes mellitus terminal gauger insulin use: unspecified care home insulin use status Qualified Code: E11.8 - Uncontrolled type 2 diabetes mellitus with complication, unspecified terminal gauger insulin use status Consultation Date/Type/Reason Admit Date/Time Nov 17, 2016 at 11:30 Initial Consult Date 11/17/16 Type of Consultation: Endocrinology Reason for Consultation DKA Referring Provider: ALEA WHITAKER 24 HR Interval Summary Subjective hx not possible: pt non-verbal (sleeping) Exam/Review of Systems Vital Signs Vitals VS - Last 72 Hours, by Label Date Time Temp Pulse Resp B/P Pulse Ox O2 Delivery O2 Flow Rate FiO2 11/29/16 07:50 98.2 89 20 121/70 99 11/28/16 19:39 98.6 98 16 121/64 99 11/28/16 08:29 98.6 88 18 121/74 98 11/27/16 20:24 98.6 87 16 115/65 99 11/27/16 20:00 98.6 87 16 115/65 99 Room Air 11/27/16 08:50 97.8 84 18 137/88 96 11/26/16 20:46 99.0 86 17 118/75 98 11/26/16 20:00 99.0 86 17 118/75 98 Room Air Vital Signs Date Time Temp Pulse Resp B/P Pulse Ox O2 Delivery O2 Flow Rate FiO2 11/29/16 07:50 98.2 89 20 121/70 99 11/27/16 20:00 Room Air Intake and Output 11/28/16 11/28/16 11/29/16 15:00 23:00 07:00 Intake Total 980 ml 1150 ml Output Total 200 ml Balance 780 ml 1150 ml Exam Constitutional: non-verbal (sleeping), No alert Respiratory: clear to auscultation, normal air movement Cardiovascular: nl pulses, regular rate and rhythm, No edema, No murmurs/extra sounds, No rub Gastrointestinal: bowel sounds, nl liver, spleen, non-tender, soft, No mass, No rebound or guarding Musculoskeletal: nl extremities to inspection Extremities: normal pulses, No clubbing, No cyanosis, No edema Neurological: other (sleeping) Additional Comments Bedside Glucose - 72 Hours Test 11/26/16 20:51 11/27/16 03:51 11/27/16 07:34 11/27/16 11:14 Bedside Glucose 128mg/dL (70-220) 363mg/dL (70-220) H 279mg/dL (70-220) H 136mg/dL (70-220) Test 11/27/16 12:47 11/27/16 16:52 11/27/16 20:59 11/28/16 07:49 Bedside Glucose 198mg/dL (70-220) 148mg/dL (70-220) 115mg/dL (70-220) 162mg/dL (70-220) Test 11/28/16 11:46 11/28/16 17:01 11/28/16 20:16 11/28/16 21:15 Bedside Glucose 129mg/dL (70-220) 230mg/dL (70-220) H 147mg/dL (70-220) 152mg/dL (70-220) Test 11/29/16 08:14 11/29/16 12:08 11/29/16 16:53 Bedside Glucose 202mg/dL (70-220) 78mg/dL (70-220) 161mg/dL (70-220) Results Result Diagram: 11/26/16 0430 11/26/16 0430 Results 24 hrs Laboratory Tests Test 11/28/16 20:16 11/28/16 21:15 11/29/16 08:14 11/29/16 12:08 Bedside Glucose 147 152 202 78 Test 11/29/16 16:53 Bedside Glucose 161 Medications Medications Current Medications Ondansetron HCl (Zofran Inj) 4 mg Q6H PRN IV NAUSEA AND/OR VOMITING; Start 11/16 at 15:30 Acetaminophen (Tylenol Liquid) 650 mg Q6H PRN PO PAIN LEVEL 1-3 OR FEVER Last administered on 11/27/16 18:33; Admin Dose 650 MG; Start 11/16/16 at 15:30 Morphine Sulfate (morphine) 2 mg Q4H PRN IV PAIN LEVEL 7-10 Last administered on 11/29/16 08:43; Admin Dose 2 MG; Start 11/16/16 at 15:30 Enoxaparin Sodium (Lovenox) 30 mg DAILY SC Last administered on 11/28/16 08:35 ; Admin Dose 30 MG; Start 11/17/16 at 13:00 Eye Lubricant (Artificial Tears Oph) 2 drop QID BOTH EYES Last administered on 11/29/16 08:42; Admin Dose 2 DROP; Start 11/17/16 at 17:00 Pantoprazole (Protonix Tab) 40 mg DAILY@06 PO Last administered on 11/29/16 06 :23; Admin Dose 40 MG; Start 11/21/16 at 06:00 Miscellaneous Information 1 ea NOTE XX ; Start 11/21/16 at 15:30 Glucose (Glutose) 15 gm Q15M PRN PO DECREASED GLUCOSE; Start 11/21/16 at 15:30 Glucose (Glutose) 22.5 gm Q15M PRN PO DECREASED GLUCOSE; Start 11/21/16 at 15: 30 Dextrose (D50w Syringe) 25 ml Q15M PRN IV DECREASED GLUCOSE; Start 11/21/16 at 15:30 Dextrose (D50w Syringe) 50 ml Q15M PRN IV DECREASED GLUCOSE; Start 11/21/16 at 15:30 Glucagon (Glucagen) 1 mg Q15M PRN IM DECREASED GLUCOSE; Start 11/21/16 at 15:30 Glucose (Glutose) 15 gm Q15M PRN BUCCAL DECREASED GLUCOSE; Start 11/21/16 at 15 :30 Diagnostic Test (Pha) (Accucheck) 1 ea 02 XX Last administered on 11/25/16 02: 15; Admin Dose 1 EA; Start 11/23/16 at 02:00 Collagenase (Santyl) 1 applic DAILY TOP Last administered on 11/28/16 11:44; Admin Dose 1 APPLIC; Start 11/23/16 at 12:30 Ascorbic Acid (Vitamin C) 500 mg BID GTB Last administered on 11/28/16 21:08; Admin Dose 500 MG; Start 11/23/16 at 21:00 Multivitamins Therapeutic (Theragran) 1 tab DAILY PO Last administered on 08:34; Admin Dose 1 TAB; Start 11/24/16 at 09:00 Insulin Glargine (Lantus) 30 unit DAILY@20 SC Last administered on 11/28/16 20 :18; Admin Dose 30 UNIT; Start 11/25/16 at 20:00 Linagliptin (Tradjenta) 5 mg DAILY PO Last administered on 11/28/16 08:34; Admin Dose 5 MG; Start 11/27/16 at 11:30 ROGE PAEZ MD Nov 29, 2016 18:01
[2016-11-29] MEDS: INSULIN GLARGINE [LANtus] 3 ML PEN SC SCH (21:04)
[2016-11-29 21:26] VITALS: BP 119/91; RESP 20
[2016-11-30] MEDS: ACCU-CHEK XX SCH (02:00)
[2016-11-30] MEDS: PANTOPRAZOLE (EC) 40 MG TAB PO SCH (06:36)
[2016-11-30 07:36] VITALS: BP 122/67; RESP 20
[2016-11-30] MEDS: metFORMIN (XR) 500 MG TAB PO SCH ×2 (08:29→18:44)
[2016-11-30] MEDS: INSULIN ASPART [NOVOLOG] 3 ML PEN SC SCH ×7 (08:33→20:50)
[2016-11-30] MEDS: ARTIFICIAL TEARS 15 ML OPH BOTH EYES SCH ×4 (08:34→20:50)
[2016-11-30] MEDS: COLLAGENASE 30 GM TUBE TOP SCH (09:00)
[2016-11-30] MEDS: morphine 2 MG INJ IV PRN ×3 (09:56→18:43)
[2016-11-30] MEDS: LINAGLIPTIN 5 MG TABLET PO SCH (09:57)
[2016-11-30] MEDS: ENOXAPARIN 30 MG/0.3 ML SYG SC SCH (09:59)
[2016-11-30] MEDS: ASCORBIC ACID 500 MG TAB GTB SCH ×2 (10:01→20:50)
[2016-11-30] MEDS: MULTIVITAMINS THERAPEUTIC TAB PO SCH (10:03)
--- NOTE | 2016-11-30 14:10 | PN ---
Date/Time of Note Date/Time of Note DATE: 11/30/16 TIME: 14:08 Assessment/Plan VTE Prophylaxis VTE Prophylaxis Intervention: SCD's Lines/Catheters IV Catheter Type (from [facility]): Saline Lock Urinary Cath still in place: No Assessment/Plan Chief Complaint/Hosp Course ASSESSMENT AND PLAN - Severe diabetic ketoacidosis with coma, resolved. Dr. Andre is following in endocrinology consultation. - Diabetes mellitus type 2. Continue Lantus , pre-meal NovoLog and NovoLog per sliding scale. - Acute metabolic encephalopathy, resolved. - Severe sepsis 2 PNA, resolved. Dr. Callaway is following in infectious disease consultation. Continue Levaquin. - Community-acquired pneumonia vs aspiration. - Acute respiratory failure, resolved. Dr Disla s following the patient in pulmonology consultation. - Altered level of consciousness. CT head is negative. - Sacrococcyx DTI present on admission, continue current wound care, vitamin C, multivitamins, offloading - Amphetamine screen positive. - Homelessness, rn case management and social work therapist for discharge planning. Pending placement. Continue sequential compression device for deep venous thrombosis prophylaxis and Protonix for peptic ulcer disease prophylaxis. Further recommendations based on clinical course. Plan of care discussed with Dr. Ma. Problems: Subjective 24 Hr Interval Summary Free Text/Dictation Patient remains afebrile, with good glycemic control now, denies any nausea vomiting, awake alert. Exam/Review of Systems Vital Signs Vitals Vital Signs Date Time Temp Pulse Resp B/P Pulse Ox O2 Delivery O2 Flow Rate FiO2 11/30/16 07:36 98.4 91 20 122/67 99 11/27/16 20:00 Room Air Intake and Output 11/29/16 11/29/16 11/30/16 15:00 23:00 07:00 Intake Total 940 ml 720 ml Output Total 1050 ml Balance -110 ml 720 ml Exam PHYSICAL ASSESSMENT: GENERAL: Well-developed, well-nourished male, awake alert HEENT: Head is normocephalic, PERRLA. NECK: Supple, no cervical lymphadenopathy, no thyromegaly. LUNGS: Diminished at the bases. CARDIOVASCULAR: Normal S1, S2. No murmurs, gallops, clicks, rubs noted. ABDOMEN: Flat, soft, nondistended, nontender. Bowel sounds present. EXTREMITIES: There is no edema, clubbing, cyanosis. Pulses equal bilaterally 2 +. SKIN: There is no rash, petechiae noted. NEUROLOGIC: Awake alert Results Result Diagram: 11/26/16 0430 11/26/16 0430 Results 24 hrs Laboratory Tests Test 11/29/16 16:53 11/29/16 20:26 11/30/16 02:11 11/30/16 07:34 Bedside Glucose 161 72 130 176 Test 11/30/16 12:12 Bedside Glucose 77 Medications Medications Current Medications Ondansetron HCl (Zofran Inj) 4 mg Q6H PRN IV NAUSEA AND/OR VOMITING; Start 11/16 at 15:30 Acetaminophen (Tylenol Liquid) 650 mg Q6H PRN PO PAIN LEVEL 1-3 OR FEVER Last administered on 11/27/16 18:33; Admin Dose 650 MG; Start 11/16/16 at 15:30 Morphine Sulfate (morphine) 2 mg Q4H PRN IV PAIN LEVEL 7-10 Last administered on 11/30/16 13:38; Admin Dose 2 MG; Start 11/16/16 at 15:30 Enoxaparin Sodium (Lovenox) 30 mg DAILY SC Last administered on 11/30/16 09:59 ; Admin Dose 30 MG; Start 11/17/16 at 13:00 Eye Lubricant (Artificial Tears Oph) 2 drop QID BOTH EYES Last administered on 11/30/16 13:24; Admin Dose 2 DROP; Start 11/17/16 at 17:00 Pantoprazole (Protonix Tab) 40 mg DAILY@06 PO Last administered on 11/30/16 06 :36; Admin Dose 40 MG; Start 11/21/16 at 06:00 Miscellaneous Information 1 ea NOTE XX ; Start 11/21/16 at 15:30 Glucose (Glutose) 15 gm Q15M PRN PO DECREASED GLUCOSE; Start 11/21/16 at 15:30 Glucose (Glutose) 22.5 gm Q15M PRN PO DECREASED GLUCOSE; Start 11/21/16 at 15: 30 Dextrose (D50w Syringe) 25 ml Q15M PRN IV DECREASED GLUCOSE; Start 11/21/16 at 15:30 Dextrose (D50w Syringe) 50 ml Q15M PRN IV DECREASED GLUCOSE; Start 11/21/16 at 15:30 Glucagon (Glucagen) 1 mg Q15M PRN IM DECREASED GLUCOSE; Start 11/21/16 at 15:30 Glucose (Glutose) 15 gm Q15M PRN BUCCAL DECREASED GLUCOSE; Start 11/21/16 at 15 :30 Diagnostic Test (Pha) (Accucheck) 1 ea 02 XX Last administered on 11/25/16 02: 15; Admin Dose 1 EA; Start 11/23/16 at 02:00 Collagenase (Santyl) 1 applic DAILY TOP Last administered on 11/28/16 11:44; Admin Dose 1 APPLIC; Start 11/23/16 at 12:30 Ascorbic Acid (Vitamin C) 500 mg BID GTB Last administered on 11/30/16 10:01; Admin Dose 500 MG; Start 11/23/16 at 21:00 Multivitamins Therapeutic (Theragran) 1 tab DAILY PO Last administered on 10:03; Admin Dose 1 TAB; Start 11/24/16 at 09:00 Insulin Glargine (Lantus) 30 unit DAILY@20 SC Last administered on 11/29/16 21 :04; Admin Dose 30 UNIT; Start 11/25/16 at 20:00 Linagliptin (Tradjenta) 5 mg DAILY PO Last administered on 11/30/16 09:57; Admin Dose 5 MG; Start 11/27/16 at 11:30 ALEA WHITAKER Nov 30, 2016 14:09
--- NOTE | 2016-11-30 20:45 | CONS ---
Date/Time of Note Date/Time of Note DATE: 11/30/16 TIME: 20:42 Assessment/Plan Assessment/Plan Problems: (1) Type II diabetes mellitus, uncontrolled Status: Chronic Comment: Glucose levels mostly in goal range. Cont. current insulin doses. Note that despite 2 antibodies negative for T1DM, pt.'s endogenous insulin production represented by c-peptide is very low, even w/ linagliptin. This indicates pt. is insulin dependent and will require insulin life-long. Also accounts for BG variability we are seeing w/ insulin treatments. Qualifiers: Diabetes mellitus complication status: with unspecified complications Diabetes mellitus long-term insulin use: unspecified long-term insulin use status Qualified Code: E11.8 - Uncontrolled type 2 diabetes mellitus with complication, unspecified marketing area manager insulin use status Consultation Date/Type/Reason Admit Date/Time Nov 17, 2016 at 11:30 Initial Consult Date 11/17/16 Type of Consultation: Endocrinology Reason for Consultation DKA Referring Provider: ALEA WHITAKER 24 HR Interval Summary Constitutional: improved, no complaints Detailed Summary Respiratory: no complaints Cardiovascular: no complaints Gastrointestinal: no complaints Genitourinary: no complaints Musculoskeletal: no complaints Neurologic: no complaints Exam/Review of Systems Vital Signs Vitals VS - Last 72 Hours, by Label Date Time Temp Pulse Resp B/P Pulse Ox O2 Delivery O2 Flow Rate FiO2 11/30/16 07:36 98.4 91 20 122/67 99 11/29/16 21:26 98.7 89 20 119/91 99 11/29/16 07:50 98.2 89 20 121/70 99 11/28/16 19:39 98.6 98 16 121/64 99 11/28/16 08:29 98.6 88 18 121/74 98 Vital Signs Date Time Temp Pulse Resp B/P Pulse Ox O2 Delivery O2 Flow Rate FiO2 11/30/16 07:36 98.4 91 20 122/67 99 11/27/16 20:00 Room Air Intake and Output 11/29/16 11/29/16 11/30/16 15:00 23:00 07:00 Intake Total 940 ml 720 ml Output Total 1050 ml Balance -110 ml 720 ml Exam Constitutional: alert, oriented, well developed Psych: nl mood/affect, no complaints Respiratory: clear to auscultation, normal air movement Cardiovascular: nl pulses, regular rate and rhythm, No edema, No murmurs/extra sounds, No rub Gastrointestinal: bowel sounds, nl liver, spleen, non-tender, soft, No mass, No rebound or guarding Musculoskeletal: nl extremities to inspection Extremities: normal pulses, No clubbing, No cyanosis, No edema Neurological: RETAIL WORKER II-XII intact, nl mental status, nl speech, nl strength Additional Comments Bedside Glucose - 72 Hours Test 11/27/16 20:59 11/28/16 07:49 11/28/16 11:46 11/28/16 17:01 Bedside Glucose 115mg/dL (70-220) 162mg/dL (70-220) 129mg/dL (70-220) 230mg/dL (70-220) H Test 11/28/16 20:16 11/28/16 21:15 11/29/16 08:14 11/29/16 12:08 Bedside Glucose 147mg/dL (70-220) 152mg/dL (70-220) 202mg/dL (70-220) 78mg/dL (70-220) Test 11/29/16 16:53 11/29/16 20:26 11/30/16 02:11 11/30/16 07:34 Bedside Glucose 161mg/dL (70-220) 72mg/dL (70-220) 130mg/dL (70-220) 176mg/dL (70-220) Test 11/30/16 12:12 11/30/16 17:19 11/30/16 19:39 Bedside Glucose 77mg/dL (70-220) 118mg/dL (70-220) 219mg/dL (70-220) Results Result Diagram: 11/26/16 0430 11/26/16 0430 Results 24 hrs Laboratory Tests Test 11/30/16 02:11 11/30/16 07:34 11/30/16 12:12 11/30/16 17:19 Bedside Glucose 130 176 77 118 Test 11/30/16 19:39 Bedside Glucose 219 Medications Medications Current Medications Ondansetron HCl (Zofran Inj) 4 mg Q6H PRN IV NAUSEA AND/OR VOMITING; Start 11/16 at 15:30 Acetaminophen (Tylenol Liquid) 650 mg Q6H PRN PO PAIN LEVEL 1-3 OR FEVER Last administered on 11/27/16t 18:33; Admin Dose 650 MG; Start 11/16/16 at 15:30 Morphine Sulfate (morphine) 2 mg Q4H PRN IV PAIN LEVEL 7-10 Last administered on 11/30/16 18:43; Admin Dose 2 MG; Start 11/16/16 at 15:30 Enoxaparin Sodium (Lovenox) 30 mg DAILY SC Last administered on 11/30/16 09:59 ; Admin Dose 30 MG; Start 11/17/16 at 13:00 Eye Lubricant (Artificial Tears Oph) 2 drop QID BOTH EYES Last administered on 11/30/16 17:00; Admin Dose 2 DROP; Start 11/17/16 at 17:00 Pantoprazole (Protonix Tab) 40 mg DAILY@06 PO Last administered on 11/30/16 06 :36; Admin Dose 40 MG; Start 11/21/16 at 06:00 Miscellaneous Information 1 ea NOTE XX ; Start 11/21/16 at 15:30 Glucose (Glutose) 15 gm Q15M PRN PO DECREASED GLUCOSE; Start 11/21/16 at 15:30 Glucose (Glutose) 22.5 gm Q15M PRN PO DECREASED GLUCOSE; Start 11/21/16 at 15: 30 Dextrose (D50w Syringe) 25 ml Q15M PRN IV DECREASED GLUCOSE; Start 11/21/16 at 15:30 Dextrose (D50w Syringe) 50 ml Q15M PRN IV DECREASED GLUCOSE; Start 11/21/16 at 15:30 Glucagon (Glucagen) 1 mg Q15M PRN IM DECREASED GLUCOSE; Start 11/21/16 at 15:30 Glucose (Glutose) 15 gm Q15M PRN BUCCAL DECREASED GLUCOSE; Start 11/21/16 at 15 :30 Diagnostic Test (Pha) (Accucheck) 1 ea 02 XX Last administered on 11/25/16 02: 15; Admin Dose 1 EA; Start 11/23/16 at 02:00 Collagenase (Santyl) 1 applic DAILY TOP Last administered on 11/28/16 11:44; Admin Dose 1 APPLIC; Start 11/23/16 at 12:30 Ascorbic Acid (Vitamin C) 500 mg BID GTB Last administered on 11/30/16 10:01; Admin Dose 500 MG; Start 11/23/16 at 21:00 Multivitamins Therapeutic (Theragran) 1 tab DAILY PO Last administered on 10:03; Admin Dose 1 TAB; Start 11/24/16 at 09:00 Insulin Glargine (Lantus) 30 unit DAILY@20 SC Last administered on 11/29/16 21 :04; Admin Dose 30 UNIT; Start 11/25/16 at 20:00 Linagliptin (Tradjenta) 5 mg DAILY PO Last administered on 11/30/16 09:57; Admin Dose 5 MG; Start 11/27/16 at 11:30 ROGE PAEZ MD Nov 30, 2016 20:45
[2016-11-30] MEDS: INSULIN GLARGINE [LANtus] 3 ML PEN SC SCH (20:49)
[2016-11-30 20:59] VITALS: BP 123/72; RESP 18
[2016-12-01] MEDS: morphine 2 MG INJ IV PRN ×4 (00:22→21:19)
[2016-12-01] MEDS: ACCU-CHEK XX SCH (02:26)
[2016-12-01] MEDS: PANTOPRAZOLE (EC) 40 MG TAB PO SCH (05:23)
[2016-12-01 07:59] VITALS: BP 131/81; RESP 20
[2016-12-01] MEDS: INSULIN ASPART [NOVOLOG] 3 ML PEN SC SCH ×7 (08:00→21:00)
[2016-12-01] MEDS: MULTIVITAMINS THERAPEUTIC TAB PO SCH (08:30)
[2016-12-01] MEDS: LINAGLIPTIN 5 MG TABLET PO SCH (08:30)
[2016-12-01] MEDS: metFORMIN (XR) 500 MG TAB PO SCH ×2 (08:30→17:37)
[2016-12-01] MEDS: ASCORBIC ACID 500 MG TAB GTB SCH ×2 (08:30→21:18)
[2016-12-01] MEDS: ARTIFICIAL TEARS 15 ML OPH BOTH EYES SCH ×4 (08:31→21:19)
[2016-12-01] MEDS: ENOXAPARIN 30 MG/0.3 ML SYG SC SCH (08:33)
[2016-12-01] MEDS: COLLAGENASE 30 GM TUBE TOP SCH (13:00)
--- NOTE | 2016-12-01 18:15 | PN ---
Date/Time of Note Date/Time of Note DATE: 12/01/16 TIME: 18:13 Assessment/Plan VTE Prophylaxis VTE Prophylaxis Intervention: SCD's Lines/Catheters IV [facility]ter Type (from [facility] Saline Lock Urinary Cath still in place: No Assessment/Plan Chief Complaint/Hosp Course ASSESSMENT AND PLAN - Severe diabetic ketoacidosis with coma, resolved. Dr. Andre is following in endocrinology consultation. - Diabetes mellitus type 2. Continue Lantus , pre-meal NovoLog and NovoLog per sliding scale. - Acute metabolic encephalopathy, resolved. - Severe sepsis 2 PNA, resolved. Dr. Callaway is following in infectious disease consultation. Continue Levaquin. - Community-acquired pneumonia vs aspiration. - Acute respiratory failure, resolved. Dr Disla s following the patient in pulmonology consultation. - Altered level of consciousness. CT head is negative. - Sacrococcyx DTI present on admission, continue current wound care, vitamin C, multivitamins, offloading - Amphetamine screen positive. - Homelessness, case mgr and social staff worker for discharge planning. Pending placement. Continue sequential compression device for deep venous thrombosis prophylaxis and Protonix for peptic ulcer disease prophylaxis. Further recommendations based on clinical course. Plan of care discussed with Dr. Ma. Problems: Subjective 24 Hr Interval Summary Free Text/Dictation No acute events overnight, patient denies any nausea vomiting. Exam/Review of Systems Vital Signs Vitals Vital Signs Date Time Temp Pulse Resp B/P Pulse Ox O2 Delivery O2 Flow Rate FiO2 12/01/16 07:59 98.8 89 20 131/81 99 11/27/16 20:00 Room Air Intake and Output 11/30/16 11/30/16 12/01/16 15:00 23:00 07:00 Intake Total 1085 ml 450 ml Output Total 700 ml Balance 1085 ml -250 ml Exam PHYSICAL ASSESSMENT: GENERAL: Well-developed, well-nourished male, awake alert HEENT: Head is normocephalic, PERRLA. NECK: Supple, no cervical lymphadenopathy, no thyromegaly. LUNGS: Diminished at the bases. CARDIOVASCULAR: Normal S1, S2. No murmurs, gallops, clicks, rubs noted. ABDOMEN: Flat, soft, nondistended, nontender. Bowel sounds present. EXTREMITIES: There is no edema, clubbing, cyanosis. Pulses equal bilaterally 2 +. SKIN: There is no rash, petechiae noted. NEUROLOGIC: Awake alert Results Results 24 hrs Laboratory Tests Test 11/30/16 19:39 12/01/16 02:23 12/01/16 07:46 12/01/16 11:41 Bedside Glucose 219 171 128 83 Test 12/01/16 17:09 Bedside Glucose 85 Medications Medications Current Medications Ondansetron HCl (Zofran Inj) 4 mg Q6H PRN IV NAUSEA AND/OR VOMITING; Start 11/16 at 15:30 Acetaminophen (Tylenol Liquid) 650 mg Q6H PRN PO PAIN LEVEL 1-3 OR FEVER Last administered on 11/27/16 18:33; Admin Dose 650 MG; Start 11/16/16 at 15:30 Morphine Sulfate (morphine) 2 mg Q4H PRN IV PAIN LEVEL 7-10 Last administered on 12/01/16 12:20; Admin Dose 2 MG; Start 11/16/16 at 15:30 Enoxaparin Sodium (Lovenox) 30 mg DAILY SC Last administered on 12/01/16 08:33 ; Admin Dose 30 MG; Start 11/17/16 at 13:00 Eye Lubricant (Artificial Tears Oph) 2 drop QID BOTH EYES Last administered on 12/01/16 17:37; Admin Dose 2 DROP; Start 11/17/16 at 17:00 Pantoprazole (Protonix Tab) 40 mg DAILY@06 PO Last administered on 12/01/16 05 :23; Admin Dose 40 MG; Start 11/21/16 at 06:00 Miscellaneous Information 1 ea NOTE XX ; Start 11/21/16 at 15:30 Glucose (Glutose) 15 gm Q15M PRN PO DECREASED GLUCOSE; Start 11/21/16 at 15:30 Glucose (Glutose) 22.5 gm Q15M PRN PO DECREASED GLUCOSE; Start 11/21/16 at 15: 30 Dextrose (D50w Syringe) 25 ml Q15M PRN IV DECREASED GLUCOSE; Start 11/21/16 at 15:30 Dextrose (D50w Syringe) 50 ml Q15M PRN IV DECREASED GLUCOSE; Start 11/21/16 at 15:30 Glucagon (Glucagen) 1 mg Q15M PRN IM DECREASED GLUCOSE; Start 11/21/16 at 15:30 Glucose (Glutose) 15 gm Q15M PRN BUCCAL DECREASED GLUCOSE; Start 11/21/16 at 15 :30 Diagnostic Test (Pha) (Accucheck) 1 ea 02 XX Last administered on 12/01/16 02: 26; Admin Dose 1 EA; Start 11/23/16 at 02:00 Collagenase (Santyl) 1 applic DAILY TOP Last administered on 12/01/16 13:00; Admin Dose 1 APPLIC; Start 11/23/16 at 12:30 Ascorbic Acid (Vitamin C) 500 mg BID GTB Last administered on 12/01/16 08:30; Admin Dose 500 MG; Start 11/23/16 at 21:00 Multivitamins Therapeutic (Theragran) 1 tab DAILY PO Last administered on 08:30; Admin Dose 1 TAB; Start 11/24/16 at 09:00 Insulin Glargine (Lantus) 30 unit DAILY@20 SC Last administered on 11/30/16 20 :49; Admin Dose 30 UNIT; Start 11/25/16 at 20:00 Linagliptin (Tradjenta) 5 mg DAILY PO Last administered on 12/01/16 08:30; Admin Dose 5 MG; Start 11/27/16 at 11:30 ALEA WHITAKER Dec 01, 2016 18:15
--- NOTE | 2016-12-01 20:17 | CONS ---
Date/Time of Note Date/Time of Note DATE: 12/01/16 TIME: 20:13 Assessment/Plan Assessment/Plan Problems: (1) Type II diabetes mellitus, uncontrolled Status: Chronic Comment: Fair glycemic control although below goal this afternoon. Based on past experience, these below goal numbers are not enough for me to reduce his doses as this would likely result in significant hyperglycemia. Will cont. current insulin doses and hope pt. does not develop hypoglycemia. Reeval tomorrow. Qualifiers: Diabetes mellitus complication status: with unspecified complications Diabetes mellitus assisted insulin use: unspecified assisted insulin use status Qualified Code: E11.8 - Uncontrolled type 2 diabetes mellitus with complication, unspecified transport rn insulin use status Consultation Date/Type/Reason Admit Date/Time Nov 17, 2016 at 11:30 Initial Consult Date 11/17/16 Type of Consultation: Endocrinology Reason for Consultation DKA Referring Provider: ALEA WHITAKER 24 HR Interval Summary Subjective hx not possible: pt non-verbal (sleeping) Exam/Review of Systems Vital Signs Vitals VS - Last 72 Hours, by Label Date Time Temp Pulse Resp B/P Pulse Ox O2 Delivery O2 Flow Rate FiO2 12/01/16 07:59 98.8 89 20 131/81 99 11/30/16 20:59 99.1 98 18 123/72 99 11/30/16 07:36 98.4 91 20 122/67 99 11/29/16 21:26 98.7 89 20 119/91 99 11/29/16 07:50 98.2 89 20 121/70 99 Vital Signs Date Time Temp Pulse Resp B/P Pulse Ox O2 Delivery O2 Flow Rate FiO2 12/01/16 07:59 98.8 89 20 131/81 99 11/27/16 20:00 Room Air Intake and Output 11/30/16 11/30/16 12/01/16 15:00 23:00 07:00 Intake Total 1085 ml 450 ml Output Total 700 ml Balance 1085 ml -250 ml Exam Constitutional: non-verbal (sleeping), No alert Respiratory: clear to auscultation, normal air movement Cardiovascular: nl pulses, regular rate and rhythm, No edema, No murmurs/extra sounds, No rub Gastrointestinal: bowel sounds, nl liver, spleen, non-tender, soft, No mass, No rebound or guarding Musculoskeletal: nl extremities to inspection Extremities: normal pulses, No clubbing, No cyanosis, No edema Neurological: other Additional Comments Bedside Glucose - 72 Hours Test 11/28/16 20:16 11/28/16 21:15 11/29/16 08:14 11/29/16 12:08 Bedside Glucose 147mg/dL (70-220) 152mg/dL (70-220) 202mg/dL (70-220) 78mg/dL (70-220) Test 11/29/16 16:53 11/29/16 20:26 11/30/16 02:11 11/30/16 07:34 Bedside Glucose 161mg/dL (70-220) 72mg/dL (70-220) 130mg/dL (70-220) 176mg/dL (70-220) Test 11/30/16 12:12 11/30/16 17:19 11/30/16 19:39 12/01/16 02:23 Bedside Glucose 77mg/dL (70-220) 118mg/dL (70-220) 219mg/dL (70-220) 171mg/dL (70-220) Test 12/01/16 07:46 12/01/16 11:41 12/01/16 17:09 Bedside Glucose 128mg/dL (70-220) 83mg/dL (70-220) 85mg/dL (70-220) Results Results 24 hrs Laboratory Tests Test 12/01/16 02:23 12/01/16 07:46 12/01/16 11:41 12/01/16 17:09 Bedside Glucose 171 128 83 85 Medications Medications Current Medications Ondansetron HCl (Zofran Inj) 4 mg Q6H PRN IV NAUSEA AND/OR VOMITING; Start 11/16 at 15:30 Acetaminophen (Tylenol Liquid) 650 mg Q6H PRN PO PAIN LEVEL 1-3 OR FEVER Last administered on 11/27/16 18:33; Admin Dose 650 MG; Start 11/16/16 at 15:30 Morphine Sulfate (morphine) 2 mg Q4H PRN IV PAIN LEVEL 7-10 Last administered on 12/01/16 12:20; Admin Dose 2 MG; Start 11/16/16 at 15:30 Enoxaparin Sodium (Lovenox) 30 mg DAILY SC Last administered on 12/01/16 08:33 ; Admin Dose 30 MG; Start 11/17/16 at 13:00 Eye Lubricant (Artificial Tears Oph) 2 drop QID BOTH EYES Last administered on 12/01/16 17:37; Admin Dose 2 DROP; Start 11/17/16 at 17:00 Pantoprazole (Protonix Tab) 40 mg DAILY@06 PO Last administered on 12/01/16 05 :23; Admin Dose 40 MG; Start 11/21/16 at 06:00 Miscellaneous Information 1 ea NOTE XX ; Start 11/21/16 at 15:30 Glucose (Glutose) 15 gm Q15M PRN PO DECREASED GLUCOSE; Start 11/21/16 at 15:30 Glucose (Glutose) 22.5 gm Q15M PRN PO DECREASED GLUCOSE; Start 11/21/16 at 15: 30 Dextrose (D50w Syringe) 25 ml Q15M PRN IV DECREASED GLUCOSE; Start 11/21/16 at 15:30 Dextrose (D50w Syringe) 50 ml Q15M PRN IV DECREASED GLUCOSE; Start 11/21/16 at 15:30 Glucagon (Glucagen) 1 mg Q15M PRN IM DECREASED GLUCOSE; Start 11/21/16 at 15:30 Glucose (Glutose) 15 gm Q15M PRN BUCCAL DECREASED GLUCOSE; Start 11/21/16 at 15 :30 Diagnostic Test (Pha) (Accucheck) 1 ea 02 XX Last administered on 12/01/16 02: 26; Admin Dose 1 EA; Start 11/23/16 at 02:00 Collagenase (Santyl) 1 applic DAILY TOP Last administered on 12/01/16 13:00; Admin Dose 1 APPLIC; Start 11/23/16 at 12:30 Ascorbic Acid (Vitamin C) 500 mg BID GTB Last administered on 12/01/16 08:30; Admin Dose 500 MG; Start 11/23/16 at 21:00 Multivitamins Therapeutic (Theragran) 1 tab DAILY PO Last administered on 08:30; Admin Dose 1 TAB; Start 11/24/16 at 09:00 Insulin Glargine (Lantus) 30 unit DAILY@20 SC Last administered on 11/30/16 20 :49; Admin Dose 30 UNIT; Start 11/25/16 at 20:00 Linagliptin (Tradjenta) 5 mg DAILY PO Last administered on 12/01/16 08:30; Admin Dose 5 MG; Start 11/27/16 at 11:30 ROGE PAEZ MD Dec 01, 2016 20:17
[2016-12-01 20:34] VITALS: BP 121/81; RESP 18
[2016-12-01] MEDS: INSULIN GLARGINE [LANtus] 3 ML PEN SC SCH (21:20)
[2016-12-02] MEDS: ACCU-CHEK XX SCH (02:00)
[2016-12-02] MEDS: PANTOPRAZOLE (EC) 40 MG TAB PO SCH (05:48)
[2016-12-02 07:35] VITALS: BP 123/76; RESP 18
[2016-12-02] MEDS: INSULIN ASPART [NOVOLOG] 3 ML PEN SC SCH ×7 (08:00→21:00)
[2016-12-02] MEDS: ASCORBIC ACID 500 MG TAB GTB SCH ×2 (08:43→22:27)
[2016-12-02] MEDS: MULTIVITAMINS THERAPEUTIC TAB PO SCH (08:44)
[2016-12-02] MEDS: metFORMIN (XR) 500 MG TAB PO SCH ×2 (08:44→17:29)
[2016-12-02] MEDS: LINAGLIPTIN 5 MG TABLET PO SCH (08:44)
[2016-12-02] MEDS: ENOXAPARIN 30 MG/0.3 ML SYG SC SCH (08:47)
[2016-12-02] MEDS: COLLAGENASE 30 GM TUBE TOP SCH (08:48)
[2016-12-02] MEDS: ARTIFICIAL TEARS 15 ML OPH BOTH EYES SCH ×4 (09:42→22:27)
[2016-12-02] MEDS: morphine 2 MG INJ IV PRN ×2 (09:45→16:43)
--- NOTE | 2016-12-02 19:01 | CONS ---
Date/Time of Note Date/Time of Note DATE: 12/02/16 TIME: 18:58 Assessment/Plan Assessment/Plan Problems: (1) Type II diabetes mellitus, uncontrolled Status: Chronic Comment: Pt. w/ hypoglycemic episode today as I was concerned might occur. Novolog held. Will reduce lantus from 30 to 28 tonight and monitor glucose levels from here and reeval tomorrow. Qualifiers: Diabetes mellitus complication status: with unspecified complications Diabetes mellitus fpc insulin use: unspecified fpc insulin use status Qualified Code: E11.8 - Uncontrolled type 2 diabetes mellitus with complication, unspecified long term care phlebotomist insulin use status Consultation Date/Type/Reason Admit Date/Time Nov 17, 2016 at 11:30 Initial Consult Date 11/17/16 Type of Consultation: Endocrinology Reason for Consultation DKA Referring Provider: ALEA WHITAKER 24 HR Interval Summary Constitutional: improved, no complaints Detailed Summary Respiratory: no complaints Cardiovascular: no complaints Gastrointestinal: no complaints Genitourinary: no complaints Musculoskeletal: no complaints Neurologic: no complaints Exam/Review of Systems Vital Signs Vitals VS - Last 72 Hours, by Label Date Time Temp Pulse Resp B/P Pulse Ox O2 Delivery O2 Flow Rate FiO2 12/02/16 07:35 98.8 76 18 123/76 98 12/01/16 20:34 98.8 97 18 121/81 99 12/01/16 07:59 98.8 89 20 131/81 99 11/30/16 20:59 99.1 98 18 123/72 99 11/30/16 07:36 98.4 91 20 122/67 99 11/29/16 21:26 98.7 89 20 119/91 99 Vital Signs Date Time Temp Pulse Resp B/P Pulse Ox O2 Delivery O2 Flow Rate FiO2 12/02/16 07:35 98.8 76 18 123/76 98 Intake and Output 12/01/16 12/01/16 12/02/16 15:00 23:00 07:00 Intake Total 500 ml Output Total 900 ml Balance -900 ml 500 ml Exam Constitutional: alert, oriented, well developed Psych: nl mood/affect, no complaints Respiratory: clear to auscultation, normal air movement Cardiovascular: nl pulses, regular rate and rhythm, No edema, No murmurs/extra sounds, No rub Gastrointestinal: bowel sounds, nl liver, spleen, non-tender, soft, No mass, No rebound or guarding Musculoskeletal: nl extremities to inspection Extremities: normal pulses, No clubbing, No cyanosis, No edema Neurological: RIGHT OF WAY AGENT II-XII intact, nl mental status, nl speech, nl strength Additional Comments Bedside Glucose - 72 Hours Test 11/29/16 20:26 11/30/16 02:11 11/30/16 07:34 11/30/16 12:12 Bedside Glucose 72mg/dL (70-220) 130mg/dL (70-220) 176mg/dL (70-220) 77mg/dL (70-220) Test 11/30/16 17:19 11/30/16 19:39 12/01/16 02:23 12/01/16 07:46 Bedside Glucose 118mg/dL (70-220) 219mg/dL (70-220) 171mg/dL (70-220) 128mg/dL (70-220) Test 12/01/16 11:41 12/01/16 17:09 12/01/16 20:42 12/02/16 08:26 Bedside Glucose 83mg/dL (70-220) 85mg/dL (70-220) 104mg/dL (70-220) 74mg/dL (70-220) Test 12/02/16 11:37 12/02/16 11:56 12/02/16 12:15 12/02/16 13:14 Bedside Glucose 61mg/dL (70-220) L 65mg/dL (70-220) L 65mg/dL (70-220) L 98mg/dL (70-220) Test 12/02/16 16:41 Bedside Glucose 118mg/dL (70-220) Results Result Diagram: 12/02/16 1333 Results 24 hrs Laboratory Tests Test 12/01/16 20:42 12/02/16 08:26 12/02/16 11:37 12/02/16 11:56 Bedside Glucose 104 74 61 L 65 L Test 12/02/16 12:15 12/02/16 13:14 12/02/16 13:33 12/02/16 16:41 Bedside Glucose 65 L 98 118 Glucose Level 90 Medications Medications Current Medications Ondansetron HCl (Zofran Inj) 4 mg Q6H PRN IV NAUSEA AND/OR VOMITING; Start 11/16 at 15:30 Acetaminophen (Tylenol Liquid) 650 mg Q6H PRN PO PAIN LEVEL 1-3 OR FEVER Last administered on 11/27/16 18:33; Admin Dose 650 MG; Start 11/16/16 at 15:30 Morphine Sulfate (morphine) 2 mg Q4H PRN IV PAIN LEVEL 7-10 Last administered on 12/02/16 16:43; Admin Dose 2 MG; Start 11/16/16 at 15:30 Enoxaparin Sodium (Lovenox) 30 mg DAILY SC Last administered on 12/02/16 08:47 ; Admin Dose 30 MG; Start 11/17/16 at 13:00 Eye Lubricant (Artificial Tears Oph) 2 drop QID BOTH EYES Last administered on 12/02/16 16:42; Admin Dose 2 DROP; Start 11/17/16 at 17:00 Pantoprazole (Protonix Tab) 40 mg DAILY@06 PO Last administered on 12/02/16 05 :48; Admin Dose 40 MG; Start 11/21/16 at 06:00 Miscellaneous Information 1 ea NOTE XX ; Start 11/21/16 at 15:30 Glucose (Glutose) 15 gm Q15M PRN PO DECREASED GLUCOSE; Start 11/21/16 at 15:30 Glucose (Glutose) 22.5 gm Q15M PRN PO DECREASED GLUCOSE; Start 11/21/16 at 15: 30 Dextrose (D50w Syringe) 25 ml Q15M PRN IV DECREASED GLUCOSE; Start 11/21/16 at 15:30 Dextrose (D50w Syringe) 50 ml Q15M PRN IV DECREASED GLUCOSE; Start 11/21/16 at 15:30 Glucagon (Glucagen) 1 mg Q15M PRN IM DECREASED GLUCOSE; Start 11/21/16 at 15:30 Glucose (Glutose) 15 gm Q15M PRN BUCCAL DECREASED GLUCOSE; Start 11/21/16 at 15 :30 Diagnostic Test (Pha) (Accucheck) 1 ea 02 XX Last administered on 12/01/16 02: 26; Admin Dose 1 EA; Start 11/23/16 at 02:00 Collagenase (Santyl) 1 applic DAILY TOP Last administered on 12/02/16 08:48; Admin Dose 1 APPLIC; Start 11/23/16 at 12:30 Ascorbic Acid (Vitamin C) 500 mg BID GTB Last administered on 12/02/16 08:43; Admin Dose 500 MG; Start 11/23/16 at 21:00 Multivitamins Therapeutic (Theragran) 1 tab DAILY PO Last administered on 08:44; Admin Dose 1 TAB; Start 11/24/16 at 09:00 Linagliptin (Tradjenta) 5 mg DAILY PO Last administered on 12/02/16 08:44; Admin Dose 5 MG; Start 11/27/16 at 11:30 Insulin Glargine (Lantus) 28 unit DAILY@20 SC ; Start 12/02/16 at 20:00; Status ROGE MULLER MD Dec 02, 2016 19:01
[2016-12-02 19:45] VITALS: BP 141/65; RESP 16
[2016-12-02] MEDS ORDERED: INSULIN GLARGINE [LANtus] 3 ML PEN SC SCH (20:00)
--- NOTE | 2016-12-02 20:06 | PN ---
Date/Time of Note Date/Time of Note DATE: 12/02/16 TIME: 20:05 Assessment/Plan VTE Prophylaxis VTE Prophylaxis Intervention: other Lines/Catheters [facility] Saline Lock Urinary Cath still in place: No Assessment/Plan Assessment/Plan - Severe diabetic ketoacidosis with coma, resolved. Dr. Andre is following in endocrinology consultation. - Diabetes mellitus type 2. Continue Lantus , pre-meal NovoLog and NovoLog per sliding scale. - Acute metabolic encephalopathy, resolved. - Severe sepsis 2 PNA, resolved. Dr. Callaway is following in infectious disease consultation. Continue Levaquin. - Community-acquired pneumonia vs aspiration. - Acute respiratory failure, resolved. Dr Disla s following the patient in pulmonology consultation. - Altered level of consciousness. CT head is negative. - Sacrococcyx DTI present on admission, continue current wound care, vitamin C, multivitamins, offloading - surgical consult- Dr Corbett notified - Amphetamine screen positive. - Homelessness, caseworker protective services and social work administrator for discharge planning. Pending placement. Continue sequential compression device for deep venous thrombosis prophylaxis and Protonix for peptic ulcer disease prophylaxis. Further recommendations based on clinical course. Plan of care discussed with Dr. Ma. Exam/Review of Systems Vital Signs Vitals Vital Signs Date Time Temp Pulse Resp B/P Pulse Ox O2 Delivery O2 Flow Rate FiO2 12/02/16 07:35 98.8 76 18 123/76 98 Intake and Output 12/01/16 12/01/16 12/02/16 15:00 23:00 07:00 Intake Total 500 ml Output Total 900 ml Balance -900 ml 500 ml Exam Psych: nl mood/affect Eyes: EOMI, nl sclera ENMT: nl external ears & nose Neck: non-tender Respiratory: clear to auscultation Cardiovascular: nl pulses Gastrointestinal: non-tender, soft Extremities: normal pulses Skin: other Lymph: nontender Results Result Diagram: 12/02/16 1333 Results 24 hrs Laboratory Tests Test 12/01/16 20:42 12/02/16 08:26 12/02/16 11:37 12/02/16 11:56 Bedside Glucose 104 74 61 L 65 L Test 12/02/16 12:15 12/02/16 13:14 12/02/16 13:33 12/02/16 16:41 Bedside Glucose 65 L 98 118 Glucose Level 90 Medications Medications Current Medications Ondansetron HCl (Zofran Inj) 4 mg Q6H PRN IV NAUSEA AND/OR VOMITING; Start 11/16 at 15:30 Acetaminophen (Tylenol Liquid) 650 mg Q6H PRN PO PAIN LEVEL 1-3 OR FEVER Last administered on 11/27/16 18:33; Admin Dose 650 MG; Start 11/16/16 at 15:30 Morphine Sulfate (morphine) 2 mg Q4H PRN IV PAIN LEVEL 7-10 Last administered on 12/02/16 16:43; Admin Dose 2 MG; Start 11/16/16 at 15:30 Enoxaparin Sodium (Lovenox) 30 mg DAILY SC Last administered on 12/02/16 08:47 ; Admin Dose 30 MG; Start 11/17/16 at 13:00 Eye Lubricant (Artificial Tears Oph) 2 drop QID BOTH EYES Last administered on 12/02/16 16:42; Admin Dose 2 DROP; Start 11/17/16 at 17:00 Pantoprazole (Protonix Tab) 40 mg DAILY@06 PO Last administered on 12/02/16 05 :48; Admin Dose 40 MG; Start 11/21/16 at 06:00 Miscellaneous Information 1 ea NOTE XX ; Start 11/21/16 at 15:30 Glucose (Glutose) 15 gm Q15M PRN PO DECREASED GLUCOSE; Start 11/21/16 at 15:30 Glucose (Glutose) 22.5 gm Q15M PRN PO DECREASED GLUCOSE; Start 11/21/16 at 15: 30 Dextrose (D50w Syringe) 25 ml Q15M PRN IV DECREASED GLUCOSE; Start 11/21/16 at 15:30 Dextrose (D50w Syringe) 50 ml Q15M PRN IV DECREASED GLUCOSE; Start 11/21/16 at 15:30 Glucagon (Glucagen) 1 mg Q15M PRN IM DECREASED GLUCOSE; Start 11/21/16 at 15:30 Glucose (Glutose) 15 gm Q15M PRN BUCCAL DECREASED GLUCOSE; Start 11/21/16 at 15 :30 Diagnostic Test (Pha) (Accucheck) 1 ea 02 XX Last administered on 12/01/16 02: 26; Admin Dose 1 EA; Start 11/23/16 at 02:00 Collagenase (Santyl) 1 applic DAILY TOP Last administered on 12/02/16 08:48; Admin Dose 1 APPLIC; Start 11/23/16 at 12:30 Ascorbic Acid (Vitamin C) 500 mg BID GTB Last administered on 12/02/16 08:43; Admin Dose 500 MG; Start 11/23/16 at 21:00 Multivitamins Therapeutic (Theragran) 1 tab DAILY PO Last administered on 08:44; Admin Dose 1 TAB; Start 11/24/16 at 09:00 Linagliptin (Tradjenta) 5 mg DAILY PO Last administered on 12/02/16 08:44; Admin Dose 5 MG; Start 11/27/16 at 11:30 Insulin Glargine (Lantus) 28 unit DAILY@20 SC ; Start 12/02/16 at 20:00 HANNAH DIAS Dec 02, 2016 20:06
[2016-12-02 20:46] LABS: CREATININE 0.49 mg/dl (0.61-1.24)
[2016-12-02 20:47] LABS: CALCIUM 9.1 mg/dl (8.4-10.2)
[2016-12-02] MEDS ORDERED: INSULIN GLARGINE [LANtus] 3 ML PEN SC ONE (21:30)
[2016-12-03] MEDS: ACCU-CHEK XX SCH (02:00)
[2016-12-03 04:56] LABS: ADD SCAN DIFF NO
[2016-12-03] MEDS: PANTOPRAZOLE (EC) 40 MG TAB PO SCH (05:17)
[2016-12-03 05:21] LABS: BASOPHIL # 0.1 10^3/ul (0.0-0.1); BASOPHILS % 1.2 % (0.0-2.0); EOSINOPHILS # 0.1 10^3/ul (0.0-0.5); HEMATOCRIT 34.8 % (42.0-52.0); HEMOGLOBIN 12.1 g/dl (14.0-18.0); LYMPHOCYTES # 2.6 10^3/ul (0.8-2.9); LYMPHOCYTES % 40.7 % (15.0-51.0); MEAN CORPUSCULAR HGB CONC 34.8 g/dl (32.0-37.0); MEAN CORPUSCULAR VOLUME 86.4 fl (82.0-101.0); MEAN PLATELET VOLUME 9.2 fl (7.4-10.4); MONOCYTE # 0.8 10^3/ul (0.3-0.9); MONOCYTES % 12.2 % (0.0-11.0); NEUTROPHIL # 2.8 10^3/ul (1.6-7.5); NEUTROPHILS % 43.6 % (39.0-77.0); PLATELET COUNT 491 10^3/UL (140-415); RED BLOOD COUNT 4.03 10^6/ul (4.70-6.10); RED CELL DISTRIBUTION WIDTH 13.2 % (11.5-14.5); WHITE BLOOD COUNT 6.5 10^3/ul (4.8-10.8)
[2016-12-03] MEDS: INSULIN ASPART [NOVOLOG] 3 ML PEN SC SCH ×7 (08:00→20:12)
[2016-12-03] MEDS: ENOXAPARIN 30 MG/0.3 ML SYG SC SCH (08:10)
[2016-12-03] MEDS: LINAGLIPTIN 5 MG TABLET PO SCH (08:12)
[2016-12-03] MEDS: ASCORBIC ACID 500 MG TAB GTB SCH ×2 (08:12→20:10)
[2016-12-03] MEDS: ARTIFICIAL TEARS 15 ML OPH BOTH EYES SCH ×4 (08:13→20:10)
[2016-12-03] MEDS: MULTIVITAMINS THERAPEUTIC TAB PO SCH (08:13)
[2016-12-03] MEDS: metFORMIN (XR) 500 MG TAB PO SCH ×2 (08:13→17:05)
[2016-12-03 08:45] VITALS: BP 135/82; RESP 18
[2016-12-03] MEDS: COLLAGENASE 30 GM TUBE TOP SCH ×3 (11:08→22:18)
[2016-12-03] MEDS: morphine 2 MG INJ IV PRN ×3 (12:15→22:17)
--- NOTE | 2016-12-03 14:06 | CONS ---
Date/Time of Note Date/Time of Note DATE: 12/03/16 TIME: 14:04 Assessment/Plan Assessment/Plan Problems: (1) Type II diabetes mellitus, uncontrolled Status: Chronic Comment: Hypoglycemic last night and lantus reduced from already reduced dose of 28 units to 20 units. Glucose levels excellent today but suspect that prolonged administration of 20 units will result in hyperglycemia. Will resume 28 units tonight and reeval tomorrow. Qualifiers: Diabetes mellitus complication status: with unspecified complications Diabetes mellitus imaging services director insulin use: unspecified penitentiary insulin use status Qualified Code: E11.8 - Uncontrolled type 2 diabetes mellitus with complication, unspecified imaging services director insulin use status Consultation Date/Type/Reason Admit Date/Time Nov 17, 2016 at 11:30 Initial Consult Date 11/17/16 Type of Consultation: Endocrinology Reason for Consultation DKA Referring Provider: ALEA WHITAKER 24 HR Interval Summary Constitutional: improved, no complaints Detailed Summary Respiratory: no complaints Cardiovascular: no complaints Gastrointestinal: no complaints Genitourinary: no complaints Musculoskeletal: no complaints Neurologic: no complaints Exam/Review of Systems Vital Signs Vitals VS - Last 72 Hours, by Label Date Time Temp Pulse Resp B/P Pulse Ox O2 Delivery O2 Flow Rate FiO2 12/03/16 08:45 97.7 104 18 135/82 100 12/02/16 19:45 98.2 104 16 141/65 96 12/02/16 07:35 98.8 76 18 123/76 98 12/01/16 20:34 98.8 97 18 121/81 99 12/01/16 07:59 98.8 89 20 131/81 99 11/30/16 20:59 99.1 98 18 123/72 99 Vital Signs Date Time Temp Pulse Resp B/P Pulse Ox O2 Delivery O2 Flow Rate FiO2 12/03/16 08:45 97.7 104 18 135/82 100 Intake and Output 12/02/16 12/02/16 12/03/16 15:00 23:00 07:00 Intake Total 1400 ml 600 ml Balance 1400 ml 600 ml Exam Constitutional: alert, oriented, well developed Psych: nl mood/affect, no complaints Respiratory: clear to auscultation, normal air movement Cardiovascular: regular rate and rhythm, No edema, No murmurs/extra sounds, No rub Gastrointestinal: bowel sounds, nl liver, spleen, non-tender, soft, No mass, No rebound or guarding Musculoskeletal: nl extremities to inspection Extremities: normal pulses, No clubbing, No cyanosis, No edema Neurological: HEALTH CARE ASSISTANT II-XII intact, nl mental status, nl speech, nl strength Additional Comments Bedside Glucose - 72 Hours Test 11/30/16 17:19 11/30/16 19:39 12/01/16 02:23 12/01/16 07:46 Bedside Glucose 118mg/dL (70-220) 219mg/dL (70-220) 171mg/dL (70-220) 128mg/dL (70-220) Test 12/01/16 11:41 12/01/16 17:09 12/01/16 20:42 12/02/16 08:26 Bedside Glucose 83mg/dL (70-220) 85mg/dL (70-220) 104mg/dL (70-220) 74mg/dL (70-220) Test 12/02/16 11:37 12/02/16 11:56 12/02/16 12:15 12/02/16 13:14 Bedside Glucose 61mg/dL (70-220) L 65mg/dL (70-220) L 65mg/dL (70-220) L 98mg/dL (70-220) Test 12/02/16 16:41 12/02/16 21:00 12/02/16 21:31 12/02/16 22:07 Bedside Glucose 118mg/dL (70-220) 77mg/dL (70-220) 56mg/dL (70-220) L 104mg/dL (70-220) Test 12/02/16 22:23 12/03/16 08:02 12/03/16 11:45 Bedside Glucose 154mg/dL (70-220) 114mg/dL (70-220) 141mg/dL (70-220) Results Result Diagram: 12/03/168 12/02/162020 Results 24 hrs Laboratory Tests Test 12/02/16 16:41 12/02/16 20:21 12/02/16 21:00 12/02/16 21:31 Bedside Glucose 118 77 56 L Sodium Level 135 Potassium Level 4.0 Chloride Level 94 L Carbon Dioxide Level 30 Anion Gap 15 Blood Urea Nitrogen 20 Creatinine 0.49 L Glucose Level 46 #*L Calcium Level 9.1 Test 12/02/16 22:07 12/02/16 22:23 12/03/16 04:18 12/03/16 08:02 Bedside Glucose 104 154 114 White Blood Count 6.5 # Red Blood Count 4.03 L Hemoglobin 12.1 L Hematocrit 34.8 L Mean Corpuscular Volume 86.4 Mean Corpuscular Hemoglobin 30.0 Mean Corpuscular Hemoglobin Concent 34.8 Red Cell Distribution Width 13.2 Platelet Count 491 H Mean Platelet Volume 9.2 Neutrophils % 43.6 Lymphocytes % 40.7 Monocytes % 12.2 H Eosinophils % 2.0 Basophils % 1.2 Nucleated Red Blood Cells % 0.0 Neutrophils # 2.8 Lymphocytes # 2.6 Monocytes # 0.8 Eosinophils # 0.1 Basophils # 0.1 Nucleated Red Blood Cells # 0.0 Test 12/03/16 11:45 Bedside Glucose 141 Medications Medications Current Medications Ondansetron HCl (Zofran Inj) 4 mg Q6H PRN IV NAUSEA AND/OR VOMITING; Start 11/16 at 15:30 Acetaminophen (Tylenol Liquid) 650 mg Q6H PRN PO PAIN LEVEL 1-3 OR FEVER Last administered on 11/27/16 18:33; Admin Dose 650 MG; Start 11/16/16 at 15:30 Morphine Sulfate (morphine) 2 mg Q4H PRN IV PAIN LEVEL 7-10 Last administered on 12/03/16 12:15; Admin Dose 2 MG; Start 11/16/16 at 15:30 Enoxaparin Sodium (Lovenox) 30 mg DAILY SC Last administered on 12/03/16 08:10 ; Admin Dose 30 MG; Start 11/17/16 at 13:00 Eye Lubricant (Artificial Tears Oph) 2 drop QID BOTH EYES Last administered on 12/03/16 13:04; Admin Dose 2 DROP; Start 11/17/16 at 17:00 Pantoprazole (Protonix Tab) 40 mg DAILY@06 PO Last administered on 12/02/16 05 :48; Admin Dose 40 MG; Start 11/21/16 at 06:00 Miscellaneous Information 1 ea NOTE XX ; Start 11/21/16 at 15:30 Glucose (Glutose) 15 gm Q15M PRN PO DECREASED GLUCOSE; Start 11/21/16 at 15:30 Glucose (Glutose) 22.5 gm Q15M PRN PO DECREASED GLUCOSE; Start 11/21/16 at 15: 30 Dextrose (D50w Syringe) 25 ml Q15M PRN IV DECREASED GLUCOSE; Start 11/21/16 at 15:30 Dextrose (D50w Syringe) 50 ml Q15M PRN IV DECREASED GLUCOSE; Start 11/21/16 at 15:30 Glucagon (Glucagen) 1 mg Q15M PRN IM DECREASED GLUCOSE; Start 11/21/16 at 15:30 Glucose (Glutose) 15 gm Q15M PRN BUCCAL DECREASED GLUCOSE; Start 11/21/16 at 15 :30 Diagnostic Test (Pha) (Accucheck) 1 ea 02 XX Last administered on 12/01/16 02: 26; Admin Dose 1 EA; Start 11/23/16 at 02:00 Collagenase (Santyl) 1 applic DAILY TOP Last administered on 12/03/16 11:08; Admin Dose 1 APPLIC; Start 11/23/16 at 12:30 Ascorbic Acid (Vitamin C) 500 mg BID GTB Last administered on 12/03/16 08:12; Admin Dose 500 MG; Start 11/23/16 at 21:00 Multivitamins Therapeutic (Theragran) 1 tab DAILY PO Last administered on 08:13; Admin Dose 1 TAB; Start 11/24/16 at 09:00 Linagliptin (Tradjenta) 5 mg DAILY PO Last administered on 12/03/16 08:12; Admin Dose 5 MG; Start 11/27/16 at 11:30 Insulin Glargine (Lantus) 28 unit DAILY@20 SC ; Start 12/03/16 at 20:00 ROGE PAEZ MD Dec 03, 2016 14:06
--- NOTE | 2016-12-03 18:58 | PN ---
Date/Time of Note Date/Time of Note DATE: 12/03/16 TIME: 18:56 Assessment/Plan VTE Prophylaxis VTE Prophylaxis Intervention: SCD's Lines/Catheters IV [facility]ter Type (from [facility]): Saline Lock Urinary Cath still in place: No Assessment/Plan Chief Complaint/Hosp Course ASSESSMENT AND PLAN - Severe diabetic ketoacidosis with coma, resolved. Dr. Andre is following in endocrinology consultation. - Diabetes mellitus type 2. Continue Lantus , pre-meal NovoLog and NovoLog per sliding scale. - Acute metabolic encephalopathy, resolved. - Severe sepsis 2 PNA, resolved. Dr. Callaway is following in infectious disease consultation. Continue Levaquin. - Community-acquired pneumonia vs aspiration. - Acute respiratory failure, resolved. Dr Dilsa s following the patient in pulmonology consultation. - Altered level of consciousness. CT head is negative. - Sacrococcyx DTI present on admission, continue current wound care, vitamin C, multivitamins, offloading, pending surgical eval. - Amphetamine screen positive. 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 Continue sequential compression device for deep venous thrombosis prophylaxis and Protonix for peptic ulcer disease prophylaxis. Further recommendations based on clinical course. Plan of care discussed with Dr. Ma. Problems: Exam/Review of Systems Vital Signs Vitals Vital Signs Date Time Temp Pulse Resp B/P Pulse Ox O2 Delivery O2 Flow Rate FiO2 12/03/16 08:45 97.7 104 18 135/82 100 Intake and Output 12/02/16 12/02/16 12/03/16 15:00 23:00 07:00 Intake Total 1400 ml 600 ml Balance 1400 ml 600 ml Exam PHYSICAL ASSESSMENT: GENERAL: Well-developed, well-nourished male, awake alert HEENT: Head is normocephalic, PERRLA. NECK: Supple, no cervical lymphadenopathy, no thyromegaly. LUNGS: Diminished at the bases. CARDIOVASCULAR: Normal S1, S2. No murmurs, gallops, clicks, rubs noted. ABDOMEN: Flat, soft, nondistended, nontender. Bowel sounds present. EXTREMITIES: There is no edema, clubbing, cyanosis. Pulses equal bilaterally 2 +. SKIN: There is no rash, petechiae noted. NEUROLOGIC: Awake alert Results Result Diagram: 12/03/1641712/02/162020 Results 24 hrs Laboratory Tests Test 12/02/16 20:21 12/02/16 21:00 12/02/16 21:31 12/02/16 22:07 Sodium Level 135 Potassium Level 4.0 Chloride Level 94 L Carbon Dioxide Level 30 Anion Gap 15 Blood Urea Nitrogen 20 Creatinine 0.49 L Glucose Level 46 #*L Calcium Level 9.1 Bedside Glucose 77 56 L 104 Test 12/02/16 22:23 12/03/16 04:18 12/03/16 08:02 12/03/16 11:45 Bedside Glucose 154 114 141 White Blood Count 6.5 # Red Blood Count 4.03 L Hemoglobin 12.1 L Hematocrit 34.8 L Mean Corpuscular Volume 86.4 Mean Corpuscular Hemoglobin 30.0 Mean Corpuscular Hemoglobin Concent 34.8 Red Cell Distribution Width 13.2 Platelet Count 491 H Mean Platelet Volume 9.2 Neutrophils % 43.6 Lymphocytes % 40.7 Monocytes % 12.2 H Eosinophils % 2.0 Basophils % 1.2 Nucleated Red Blood Cells % 0.0 Neutrophils # 2.8 Lymphocytes # 2.6 Monocytes # 0.8 Eosinophils # 0.1 Basophils # 0.1 Nucleated Red Blood Cells # 0.0 Test 12/03/16 16:51 Bedside Glucose 120 Medications Medications Current Medications Ondansetron HCl (Zofran Inj) 4 mg Q6H PRN IV NAUSEA AND/OR VOMITING; Start 11/16 at 15:30 Acetaminophen (Tylenol Liquid) 650 mg Q6H PRN PO PAIN LEVEL 1-3 OR FEVER Last administered on 11/27/16 18:33; Admin Dose 650 MG; Start 11/16/16 at 15:30 Morphine Sulfate (morphine) 2 mg Q4H PRN IV PAIN LEVEL 7-10 Last administered on 12/03/16 17:38; Admin Dose 2 MG; Start 11/16/16 at 15:30 Enoxaparin Sodium (Lovenox) 30 mg DAILY SC Last administered on 12/03/16 08:10 ; Admin Dose 30 MG; Start 11/17/16 at 13:00 Eye Lubricant (Artificial Tears Oph) 2 drop QID BOTH EYES Last administered on 12/03/16 17:05; Admin Dose 2 DROP; Start 11/17/16 at 17:00 Pantoprazole (Protonix Tab) 40 mg DAILY@06 PO Last administered on 12/02/16 05 :48; Admin Dose 40 MG; Start 11/21/16 at 06:00 Miscellaneous Information 1 ea NOTE XX ; Start 11/21/16 at 15:30 Glucose (Glutose) 15 gm Q15M PRN PO DECREASED GLUCOSE; Start 11/21/16 at 15:30 Glucose (Glutose) 22.5 gm Q15M PRN PO DECREASED GLUCOSE; Start 11/21/16 at 15: 30 Dextrose (D50w Syringe) 25 ml Q15M PRN IV DECREASED GLUCOSE; Start 11/21/16 at 15:30 Dextrose (D50w Syringe) 50 ml Q15M PRN IV DECREASED GLUCOSE; Start 11/21/16 at 15:30 Glucagon (Glucagen) 1 mg Q15M PRN IM DECREASED GLUCOSE; Start 11/21/16 at 15:30 Glucose (Glutose) 15 gm Q15M PRN BUCCAL DECREASED GLUCOSE; Start 11/21/16 at 15 :30 Diagnostic Test (Pha) (Accucheck) 1 ea 02 XX Last administered on 12/01/16 02: 26; Admin Dose 1 EA; Start 11/23/16 at 02:00 Collagenase (Santyl) 1 applic DAILY TOP Last administered on 12/03/16 14:04; Admin Dose 1 APPLIC; Start 11/23/16 at 12:30 Ascorbic Acid (Vitamin C) 500 mg BID GTB Last administered on 12/03/16 08:12; Admin Dose 500 MG; Start 11/23/16 at 21:00 Multivitamins Therapeutic (Theragran) 1 tab DAILY PO Last administered on 08:13; Admin Dose 1 TAB; Start 11/24/16 at 09:00 Linagliptin (Tradjenta) 5 mg DAILY PO Last administered on 12/03/16 08:12; Admin Dose 5 MG; Start 11/27/16 at 11:30 Insulin Glargine (Lantus) 28 unit DAILY@20 SC ; Start 12/03/16 at 20:00 ALEA WHITAKER Dec 03, 2016 18:58
[2016-12-03] MEDS ORDERED: INSULIN GLARGINE [LANtus] 3 ML PEN SC SCH (20:00)
[2016-12-03 21:21] VITALS: BP 133/79; RESP 18
[2016-12-04] MEDS: ACCU-CHEK XX SCH (02:00)
[2016-12-04] MEDS: PANTOPRAZOLE (EC) 40 MG TAB PO SCH (05:23)
[2016-12-04] MEDS: COLLAGENASE 30 GM TUBE TOP SCH (05:26)
[2016-12-04] MEDS: morphine 2 MG INJ IV PRN ×4 (05:36→21:30)
[2016-12-04 08:08] VITALS: BP 128/76; RESP 18
[2016-12-04] MEDS: INSULIN ASPART [NOVOLOG] 3 ML PEN SC SCH ×7 (08:57→21:00)
[2016-12-04] MEDS: metFORMIN (XR) 500 MG TAB PO SCH ×2 (08:59→17:35)
[2016-12-04] MEDS: ENOXAPARIN 30 MG/0.3 ML SYG SC SCH (09:26)
[2016-12-04] MEDS: MULTIVITAMINS THERAPEUTIC TAB PO SCH (09:27)
[2016-12-04] MEDS: ARTIFICIAL TEARS 15 ML OPH BOTH EYES SCH ×4 (09:27→22:23)
[2016-12-04] MEDS: ASCORBIC ACID 500 MG TAB GTB SCH ×2 (09:27→22:23)
[2016-12-04] MEDS: LINAGLIPTIN 5 MG TABLET PO SCH (09:27)
[2016-12-04] MEDS: DEXTROSE 50% 50 ML SYRINGE IV PRN ×2 (12:21→21:17)
--- NOTE | 2016-12-04 16:06 | CONS ---
Date/Time of Note Date/Time of Note DATE: 12/04/16 TIME: 16:01 Assessment/Plan Assessment/Plan Problems: (1) DKA (diabetic ketoacidoses) Status: Resolved Qualifiers: Diabetes mellitus type: other specified (including ROBERT) Diabetes mellitus complication detail: with coma Qualified Code: E13.11 - Diabetic ketoacidosis with coma associated with other specified diabetes mellitus (2) Type II diabetes mellitus, uncontrolled Status: Chronic Comment: Hyperglycemia followed by hypoglycemia. Drop in blood sugar may be the result of overcorrection at breakfast. High blood sugar may be result of eating off schedule (per RN food brought in from outside). Will decrease basal insulin dose to allow for corrective insulin to improve but not overcorrect elevated blood glucose. Qualifiers: Diabetes mellitus complication status: with unspecified complications Diabetes mellitus alf insulin use: unspecified termite control service representative insulin use status Qualified Code: E11.8 - Uncontrolled type 2 diabetes mellitus with complication, unspecified termite control service representative insulin use status Consultation Date/Type/Reason Admit Date/Time Nov 17, 2016 at 11:30 Initial Consult Date 11/17/16 Type of Consultation: Endocrinology Referring Provider: ALEA WHITAKER 24 HR Interval Summary Free Text/Dictation Patient with fasting hyperglycemia followed by hypoglycemia at lunch. Exam/Review of Systems Vital Signs Vitals Vital Signs Date Time Temp Pulse Resp B/P Pulse Ox O2 Delivery O2 Flow Rate FiO2 12/04/16 12:50 83 12/04/16 08:08 98.3 18 128/76 97 Intake and Output 12/03/16 12/03/16 12/04/16 15:00 23:00 07:00 Intake Total 600 ml 720 ml Balance 600 ml 720 ml Exam Exam deferred as patient in the shower. Results Result Diagram: 12/03/16 0418 12/02/162020 Results 24 hrs Laboratory Tests Test 12/03/16 16:51 12/03/16 19:41 12/04/16 02:14 12/04/16 08:15 Bedside Glucose 120 213 78 254 H Test 12/04/16 12:15 12/04/16 12:37 Bedside Glucose 35 *L 121 Medications Medications Current Medications Ondansetron HCl (Zofran Inj) 4 mg Q6H PRN IV NAUSEA AND/OR VOMITING; Start 11/16 at 15:30 Acetaminophen (Tylenol Liquid) 650 mg Q6H PRN PO PAIN LEVEL 1-3 OR FEVER Last administered on 11/27/16 18:33; Admin Dose 650 MG; Start 11/16/16 at 15:30 Morphine Sulfate (morphine) 2 mg Q4H PRN IV PAIN LEVEL 7-10 Last administered on 12/04/16 09:58; Admin Dose 2 MG; Start 11/16/16 at 15:30 Enoxaparin Sodium (Lovenox) 30 mg DAILY SC Last administered on 12/04/16 09:26 ; Admin Dose 30 MG; Start 11/17/16 at 13:00 Eye Lubricant (Artificial Tears Oph) 2 drop QID BOTH EYES Last administered on 12/04/16 13:06; Admin Dose 2 DROP; Start 11/17/16 at 17:00 Pantoprazole (Protonix Tab) 40 mg DAILY@06 PO Last administered on 12/04/16 05 :23; Admin Dose 40 MG; Start 11/21/16 at 06:00 Miscellaneous Information 1 ea NOTE XX ; Start 11/21/16 at 15:30 Glucose (Glutose) 15 gm Q15M PRN PO DECREASED GLUCOSE; Start 11/21/16 at 15:30 Glucose (Glutose) 22.5 gm Q15M PRN PO DECREASED GLUCOSE; Start 11/21/16 at 15: 30 Dextrose (D50w Syringe) 25 ml Q15M PRN IV DECREASED GLUCOSE Last administered on 12/04/16 12:21; Admin Dose 25 ML; Start 11/21/16 at 15:30 Dextrose (D50w Syringe) 50 ml Q15M PRN IV DECREASED GLUCOSE; Start 11/21/16 at 15:30 Glucagon (Glucagen) 1 mg Q15M PRN IM DECREASED GLUCOSE; Start 11/21/16 at 15:30 Glucose (Glutose) 15 gm Q15M PRN BUCCAL DECREASED GLUCOSE; Start 11/21/16 at 15 :30 Diagnostic Test (Pha) (Accucheck) 1 ea 02 XX Last administered on 12/01/16 02: 26; Admin Dose 1 EA; Start 11/23/16 at 02:00 Collagenase (Santyl) 1 applic DAILY TOP Last administered on 12/04/16 05:26; Admin Dose 1 APPLIC; Start 11/23/16 at 12:30 Ascorbic Acid (Vitamin C) 500 mg BID GTB Last administered on 12/04/16 09:27; Admin Dose 500 MG; Start 11/23/16 at 21:00 Multivitamins Therapeutic (Theragran) 1 tab DAILY PO Last administered on 09:27; Admin Dose 1 TAB; Start 11/24/16 at 09:00 Linagliptin (Tradjenta) 5 mg DAILY PO Last administered on 12/04/16 09:27; Admin Dose 5 MG; Start 11/27/16 at 11:30 Insulin Glargine (Lantus) 28 unit DAILY@20 SC Last administered on 12/03/16 20 :11; Admin Dose 28 UNIT; Start 12/03/16 at 20:00 JOSÉ ANTONIO KIRKPATRICK MD Dec 04, 2016 16:06
--- NOTE | 2016-12-04 17:43 | PN ---
Date/Time of Note Date/Time of Note DATE: 12/04/16 TIME: 17:41 Assessment/Plan Lines/Catheters [facility] Saline Lock Urinary Cath still in place: No Assessment/Plan Assessment/Plan - Severe diabetic ketoacidosis with coma, resolved. Dr. Andre is following in endocrinology consultation. - Diabetes mellitus type 2. Continue Lantus , pre-meal NovoLog and NovoLog per sliding scale. - Acute metabolic encephalopathy, resolved. - Severe sepsis 2 PNA, resolved. Dr. Callaway is following in infectious disease consultation. Continue Levaquin. - Community-acquired pneumonia vs aspiration. - Acute respiratory failure, resolved. Dr Disla s following the patient in pulmonology consultation. - Altered level of consciousness. CT head is negative. - Sacrococcyx DTI present on admission, continue current wound care, vitamin C, multivitamins, offloading, pending surgical eval. - Amphetamine screen positive. - Homelessness, immigration case manager and hospice social worker for discharge planning. Continue sequential compression device for deep venous thrombosis prophylaxis and Protonix for peptic ulcer disease prophylaxis. Further recommendations based on clinical course. Plan of care discussed with Dr. Ma. Subjective 24 Hr Interval Summary Eyes: no complaints ENT: no complaints Respiratory: no complaints Cardiovascular: no complaints Gastrointestinal: no complaints Genitourinary: no complaints Musculoskeletal: no complaints Skin: other Neurologic: no complaints Endocrine: no complaints (sacral decub) Psychological: no complaints Immunologic: no complaints Exam/Review of Systems Vital Signs Vitals Vital Signs Date Time Temp Pulse Resp B/P Pulse Ox O2 Delivery O2 Flow Rate FiO2 12/04/16 12:50 83 12/04/16 08:08 98.3 18 128/76 97 Intake and Output 12/03/16 12/03/16 12/04/16 15:00 23:00 07:00 Intake Total 600 ml 720 ml Balance 600 ml 720 ml Exam Constitutional: alert, oriented, well developed Psych: no complaints Head: atraumatic Eyes: EOMI ENMT: nl external ears & nose Neck: non-tender Respiratory: clear to auscultation Cardiovascular: nl pulses Gastrointestinal: non-tender, soft Musculoskeletal: nl extremities to inspection Extremities: normal pulses Neurological: nl mental status, nl speech Skin: nl turgor Lymph: nontender Results Result Diagram: 12/03/168 12/02/162020 Results 24 hrs Laboratory Tests Test 12/03/16 19:41 12/04/16 02:14 12/04/16 08:15 12/04/16 12:15 Bedside Glucose 213 78 254 H 35 *L Test 12/04/16 12:37 12/04/16 17:17 Bedside Glucose 121 279 H Medications Medications Current Medications Ondansetron HCl (Zofran Inj) 4 mg Q6H PRN IV NAUSEA AND/OR VOMITING; Start 11/16 at 15:30 Acetaminophen (Tylenol Liquid) 650 mg Q6H PRN PO PAIN LEVEL 1-3 OR FEVER Last administered on 11/27/16 18:33; Admin Dose 650 MG; Start 11/16/16 at 15:30 Morphine Sulfate (morphine) 2 mg Q4H PRN IV PAIN LEVEL 7-10 Last administered on 12/04/16 17:13; Admin Dose 2 MG; Start 11/16/16 at 15:30 Enoxaparin Sodium (Lovenox) 30 mg DAILY SC Last administered on 12/04/16 09:26 ; Admin Dose 30 MG; Start 11/17/16 at 13:00 Eye Lubricant (Artificial Tears Oph) 2 drop QID BOTH EYES Last administered on 12/04/16 16:54; Admin Dose 2 DROP; Start 11/17/16 at 17:00 Pantoprazole (Protonix Tab) 40 mg DAILY@06 PO Last administered on 12/04/16 05 :23; Admin Dose 40 MG; Start 11/21/16 at 06:00 Miscellaneous Information 1 ea NOTE XX ; Start 11/21/16 at 15:30 Glucose (Glutose) 15 gm Q15M PRN PO DECREASED GLUCOSE; Start 11/21/16 at 15:30 Glucose (Glutose) 22.5 gm Q15M PRN PO DECREASED GLUCOSE; Start 11/21/16 at 15: 30 Dextrose (D50w Syringe) 25 ml Q15M PRN IV DECREASED GLUCOSE Last administered on 12/04/16 12:21; Admin Dose 25 ML; Start 11/21/16 at 15:30 Dextrose (D50w Syringe) 50 ml Q15M PRN IV DECREASED GLUCOSE; Start 11/21/16 at 15:30 Glucagon (Glucagen) 1 mg Q15M PRN IM DECREASED GLUCOSE; Start 3/12/17 at 15:30 Glucose (Glutose) 15 gm Q15M PRN BUCCAL DECREASED GLUCOSE; Start 11/21/16 at 15 :30 Diagnostic Test (Pha) (Accucheck) 1 ea 02 XX Last administered on 12/01/16 02: 26; Admin Dose 1 EA; Start 11/23/16 at 02:00 Collagenase (Santyl) 1 applic DAILY TOP Last administered on 12/04/16 05:26; Admin Dose 1 APPLIC; Start 11/23/16 at 12:30 Ascorbic Acid (Vitamin C) 500 mg BID GTB Last administered on 12/04/16 09:27; Admin Dose 500 MG; Start 11/23/16 at 21:00 Multivitamins Therapeutic (Theragran) 1 tab DAILY PO Last administered on 09:27; Admin Dose 1 TAB; Start 11/24/16 at 09:00 Linagliptin (Tradjenta) 5 mg DAILY PO Last administered on 12/04/16 09:27; Admin Dose 5 MG; Start 11/27/16 at 11:30 Insulin Glargine (Lantus) 24 unit DAILY@20 SC ; Start 12/04/16 at 20:00 HANNAH DIAS Dec 04, 2016 17:43
--- NOTE | 2016-12-04 19:11 | CONS ---
DATE OF ADMISSION: 11/17/2016 DATE OF CONSULTATION: 12/04/2016 REASON FOR CONSULTATION: Evaluation of the sacrococcygeal pressure ulcer. Thank you, Drs. Ma and Jackson for consultation. HISTORY OF PRESENT ILLNESS: Apparently, this is a 41-year-old gentleman who was brought to the emergency room by a family member on the 11/16/2016 because he was found on the ground unconscious and so was brought to the emergency room. Apparently, the patient is a known diabetic who has been here a couple of times with diabetic and hyperosmolar state and this time was brought to the emergency room, was found to be septic with the an increased leukocyte count, and the patient was found to be unresponsive and had to be intubated for airway protection. The patient was placed on mechanical ventilator in the ICU. The blood glucose was over 1000 and the WBC was 32,400 with 9% bands and an ABG showed a pH of 6.686. Electrolytes showed BUN 38, creatinine 1.96, pCO2 was 5. Sodium 126, potassium 5.4, so with the diagnosis of diabetic ketoacidosis and coma, the patient was admitted, and a chest x-ray was taken which revealed interval development of large alveolar infiltrative within the left lower lobe and small bowel wall appeared in the right lower lobe. The patient was started on broad spectrum antibiotics, vancomycin and cefepime. The patient's drug screen had been positive for amphetamine. At the same time, it was found that the patient has abrasions in different parts of his body, which have been assessed by the wound nurse on 11/18/2016 as follows: 1. Left knee abrasion with dried scab. 2. Left dorsal foot ulceration with dried scab. 3. Right upper lip abrasion with partial bloody scab. 4. Right aspect of the neck extending to the right ear and right lateral face with redness versus rash. 5. Posterior head with abrasion. 6. Sacrococcygeal area with deep tissue pressure injury intact. There was periwound with deep purple nonblanchable discoloration, no drainage, no odor. Wound measured 9 x 10 cm at that time. The wound nurse recommended sacrococcygeal area deep tissue and pressure injury, apply Allevyn foam border to change every 3 days. p.r.n. if soiled. peel off dressing every shift to assess the skin. Continue patient on air surface (air mattress). 7. Continue to offload patient heels on the pillows off. Apparently, the patient has been getting the treatments, but gradually the sacrococcygeal wound got worse. PAST MEDICAL SURGICAL HISTORY: Status post foreign body removal from the right eye is more than 10 years ago. FAMILY HISTORY: Patient's father from cardiac problems at the age of 70. No family history of diabetes. SOCIAL HISTORY: The patient is a cigarette smoker, smokes about a pack a day for 10 years. ALLERGIES: NOT KNOWN. MEDICATIONS: The patient has been on: 1. Lantus. 2. NovoLog with meals. 3. Metformin. 4. Glyburide. 5. Gabapentin. 6. Atorvastatin. REVIEW OF SYSTEMS: As was mentioned above. PHYSICAL EXAMINATION Briefly, this is focused on the sacrococcygeal wound. GENERAL: The patient is alert, awake, lying down in prone position. The nurse just has changed the dressing on the sacrococcygeal area. The patient is awake , alert, and to some extent oriented. After removing the dressing from sacrococcygeal area, there is a wound that is either unstageable or is at least a stage III pressure ulcer with some dark scab on the right side of the wound and some grayish colored tissues on the left side of the wound sacrococcygeal probably 9 x 10 cm. Of note is that the sacral coccygeal bone area is asymmetrical and appears that this is either congenitally abnormal or maybe in the childhood the patient has had some accident and so the surface is abnormal and the upper part of the sacrococcygeal area on the left side is quite sharp and makes it prone to pressure to have a distinct pressure area in the case the patient lies down on the back. At this time, they are changing the dressing with application of Santyl daily and covering with a nonabsorbable dressing. The lower edge of the wound is about 4 cm from anal verge. No gross infection can be detected. IMPRESSION: The patient is status post diabetic ketoacidosis under control to some extent. The patient has been septic with probably pneumonia which is under control now with antibiotics. At this time, patient has a stage III sacral coccygeal pressure wound. RECOMMENDATION: 1. Continue Santyl application b.i.d. with dressing on top of it. 2. The patient should be offloaded in the prone position or right and left down decubitus positions. The patient should be avoiding from lying down in supine position at all. 3. I may recommend to get a CT scan of the sacrococcygeal and lumbar area to identify if there is any bony abnormality over there which makes the patient prone to bedsores in future or at this time. I will continue to follow the patient along with other colleagues. The patient may require surgical debridement in the future. Dictated By: SHILPI TRAVIS/CLAUDY Conf#: [id number] DID#: [id number] MTDD
[2016-12-04] MEDS ORDERED: INSULIN GLARGINE [LANtus] 3 ML PEN SC SCH (20:00)
[2016-12-04 20:02] VITALS: BP 118/60; RESP 18
[2016-12-05] MEDS: morphine 2 MG INJ IV PRN ×6 (01:28→22:54)
[2016-12-05] MEDS: ACCU-CHEK XX SCH (01:58)
[2016-12-05] MEDS ORDERED: LORAZEPAM 2 MG INJ IV ONE (05:00)
[2016-12-05] MEDS: PANTOPRAZOLE (EC) 40 MG TAB PO SCH (05:44)
[2016-12-05] MEDS: ARTIFICIAL TEARS 15 ML OPH BOTH EYES SCH ×4 (08:19→20:54)
[2016-12-05] MEDS: LINAGLIPTIN 5 MG TABLET PO SCH (08:19)
[2016-12-05] MEDS: ASCORBIC ACID 500 MG TAB GTB SCH ×2 (08:19→20:55)
[2016-12-05] MEDS: MULTIVITAMINS THERAPEUTIC TAB PO SCH (08:19)
[2016-12-05] MEDS: metFORMIN (XR) 500 MG TAB PO SCH ×2 (08:19→20:55)
[2016-12-05] MEDS: INSULIN ASPART [NOVOLOG] 3 ML PEN SC SCH ×3 (08:20→17:42)
[2016-12-05] MEDS: COLLAGENASE 30 GM TUBE TOP SCH (08:21)
[2016-12-05] MEDS: ENOXAPARIN 30 MG/0.3 ML SYG SC SCH (08:21)
[2016-12-05 08:36] VITALS: BP 126/76; RESP 18
[2016-12-05 09:09] LABS: ADD SCAN DIFF NO
[2016-12-05 09:18] LABS: BASOPHIL # 0.1 10^3/ul (0.0-0.1); BASOPHILS % 0.7 % (0.0-2.0); EOSINOPHILS # 0.1 10^3/ul (0.0-0.5); EOSINOPHILS % 1.5 % (0.0-7.0); HEMATOCRIT 35.2 % (42.0-52.0); HEMOGLOBIN 12.4 g/dl (14.0-18.0); LYMPHOCYTES # 2.2 10^3/ul (0.8-2.9); LYMPHOCYTES % 29.3 % (15.0-51.0); MEAN CORPUSCULAR HGB CONC 35.2 g/dl (32.0-37.0); MEAN CORPUSCULAR VOLUME 85.2 fl (82.0-101.0); MEAN PLATELET VOLUME 8.9 fl (7.4-10.4); MONOCYTE # 0.8 10^3/ul (0.3-0.9); MONOCYTES % 11.1 % (0.0-11.0); NEUTROPHIL # 4.3 10^3/ul (1.6-7.5); NEUTROPHILS % 57.1 % (39.0-77.0); PLATELET COUNT 477 10^3/UL (140-415); RED BLOOD COUNT 4.13 10^6/ul (4.70-6.10); RED CELL DISTRIBUTION WIDTH 13.4 % (11.5-14.5); WHITE BLOOD COUNT 7.5 10^3/ul (4.8-10.8)
[2016-12-05 09:39] LABS: POTASSIUM 4.4 mmol/L (3.5-5.1)
[2016-12-05 09:42] LABS: CREATININE 0.44 mg/dl (0.61-1.24)
[2016-12-05 09:43] LABS: CALCIUM 9.2 mg/dl (8.4-10.2)
--- NOTE | 2016-12-05 10:00 | PN ---
Date/Time of Note Date/Time of Note DATE: 12/05/16 TIME: 09:56 Assessment/Plan VTE Prophylaxis VTE Prophylaxis Intervention: other Lines/Catheters IV Catheter Type (from [facility]): Saline Lock Urinary Cath still in place: No Assessment/Plan Assessment/Plan - Severe diabetic ketoacidosis with coma, resolved. Dr. Andre is following in endocrinology consultation. - Diabetes mellitus type 2. Continue Lantus , pre-meal NovoLog and NovoLog per sliding scale. - Acute metabolic encephalopathy, resolved. - Severe sepsis 2 PNA, resolved. Dr. Callaway is following in infectious disease consultation. Continue Levaquin. - Community-acquired pneumonia vs aspiration. - Acute respiratory failure, resolved. Dr Disla s following the patient in pulmonology consultation. - Altered level of consciousness. CT head is negative. - Sacrococcyx DTI present on admission, continue current wound care, vitamin C, multivitamins, offloading - per surgery - CT scan of the sacrococcygeal and lumbar area - for possible bony abnormality - Amphetamine screen positive. - Homelessness, geriatric case manager and social welfare research worker for discharge planning. Continue sequential compression device for deep venous thrombosis prophylaxis and Protonix for peptic ulcer disease prophylaxis. Further recommendations based on clinical course. Plan of care discussed with Dr. Ma. Subjective 24 Hr Interval Summary Respiratory: no complaints Cardiovascular: no complaints Gastrointestinal: no complaints Musculoskeletal: no complaints Skin: other Neurologic: no complaints Endocrine: no complaints Lymphatic: no complaints Exam/Review of Systems Vital Signs Vitals Vital Signs Date Time Temp Pulse Resp B/P Pulse Ox O2 Delivery O2 Flow Rate FiO2 12/05/16 08:36 98.6 95 18 126/76 99 Intake and Output 12/04/16 12/04/16 12/05/16 15:00 23:00 07:00 Intake Total 700 ml 800 ml Output Total 2100 ml Balance 700 ml -1300 ml Exam Constitutional: alert, oriented, well developed Psych: nl mood/affect Head: atraumatic Eyes: EOMI ENMT: nl external ears & nose Respiratory: clear to auscultation Cardiovascular: nl pulses Gastrointestinal: non-tender, soft Musculoskeletal: nl extremities to inspection Extremities: normal pulses Neurological: nl mental status, nl speech Skin: other (sacral decub) Lymph: nontender Results Result Diagram: 12/03/16 0418 12/05/16 0835 Results 24 hrs Laboratory Tests Test 12/04/16 12:15 12/04/16 12:37 12/04/16 17:17 12/04/16 20:05 Bedside Glucose 35 *L 121 279 H 65 L Test 12/04/16 20:21 12/04/16 20:43 12/04/16 21:13 12/04/16 21:34 Bedside Glucose 122 78 64 L 125 Test 12/04/16 21:54 12/05/16 04:29 12/05/16 07:51 12/05/16 08:35 Bedside Glucose 127 103 88 Sodium Level 137 Potassium Level 4.4 Chloride Level 99 Carbon Dioxide Level 30 Anion Gap 12 Blood Urea Nitrogen 7 Creatinine 0.44 L Glucose Level 73 Calcium Level 9.2 Medications Medications Current Medications Ondansetron HCl (Zofran Inj) 4 mg Q6H PRN IV NAUSEA AND/OR VOMITING; Start 11/16 at 15:30 Acetaminophen (Tylenol Liquid) 650 mg Q6H PRN PO PAIN LEVEL 1-3 OR FEVER Last administered on 11/27/16 18:33; Admin Dose 650 MG; Start 11/16/16 at 15:30 Morphine Sulfate (morphine) 2 mg Q4H PRN IV PAIN LEVEL 7-10 Last administered on 12/05/16 09:44; Admin Dose 2 MG; Start 11/16/16 at 15:30 Enoxaparin Sodium (Lovenox) 30 mg DAILY SC Last administered on 12/05/16 08:21 ; Admin Dose 30 MG; Start 11/17/16 at 13:00 Eye Lubricant (Artificial Tears Oph) 2 drop QID BOTH EYES Last administered on 12/05/16 08:19; Admin Dose 2 DROP; Start 11/17/16 at 17:00 Pantoprazole (Protonix Tab) 40 mg DAILY@06 PO Last administered on 12/05/16 05 :44; Admin Dose 40 MG; Start 11/21/16 at 06:00 Miscellaneous Information 1 ea NOTE XX ; Start 11/21/16 at 15:30 Glucose (Glutose) 15 gm Q15M PRN PO DECREASED GLUCOSE; Start 11/21/16 at 15:30 Glucose (Glutose) 22.5 gm Q15M PRN PO DECREASED GLUCOSE; Start 11/21/16 at 15: 30 Dextrose (D50w Syringe) 25 ml Q15M PRN IV DECREASED GLUCOSE Last administered on 12/04/16 21:17; Admin Dose 25 ML; Start 11/21/16 at 15:30 Dextrose (D50w Syringe) 50 ml Q15M PRN IV DECREASED GLUCOSE; Start 11/21/16 at 15:30 Glucagon (Glucagen) 1 mg Q15M PRN IM DECREASED GLUCOSE; Start 11/21/16 at 15:30 Glucose (Glutose) 15 gm Q15M PRN BUCCAL DECREASED GLUCOSE; Start 11/21/16 at 15 :30 Diagnostic Test (Pha) (Accucheck) 1 ea 02 XX Last administered on 12/01/16 02: 26; Admin Dose 1 EA; Start 11/23/16 at 02:00 Collagenase (Santyl) 1 applic DAILY TOP Last administered on 12/05/16 08:21; Admin Dose 1 APPLIC; Start 11/23/16 at 12:30 Ascorbic Acid (Vitamin C) 500 mg BID GTB Last administered on 12/05/16 08:19; Admin Dose 500 MG; Start 11/23/16 at 21:00 Multivitamins Therapeutic (Theragran) 1 tab DAILY PO Last administered on 08:19; Admin Dose 1 TAB; Start 11/24/16 at 09:00 Linagliptin (Tradjenta) 5 mg DAILY PO Last administered on 12/05/16 08:19; Admin Dose 5 MG; Start 11/27/16 at 11:30 Insulin Glargine (Lantus) 24 unit DAILY@20 SC Last administered on 12/04/16 22 :24; Admin Dose 24 UNIT; Start 12/04/16 at 20:00 HANNAH DIAS Dec 05, 2016 10:00
--- NOTE | 2016-12-05 11:08 | RADRPT ---
PROCEDURE: CT lumbar spine without contrast. CLINICAL INDICATION: Low back pain TECHNIQUE: CT of the lumbar spine without contrast was performed on a multidetector CT scanner, wi th multiplanar reformats. One or more of the following dose reduction techniques were used: Automat ed exposure control, adjustment in mA and / or kV according to patient size, use of iterative recons tructive technique. CTDIvol = 13 mGy and DLP = 508 mGy-cm. COMPARISON: None available. FINDINGS: There is focal soft tissue thickening with gas adjacent to the left aspect of the lower sacrum and c occyx without displaced fracture or destructive osseous change seen. There is preservation of the l ordosis of the lumbar spine. Alignment is intact. The vertebral bodies are maintained in height. Intervertebral disk spaces are grossly maintained in height. There is anterior spondylosis, primari ly at L3-4. Mild degenerative changes are seen at the sacroiliac joints. T12-L1: No disk bulge or herniation is seen. There is no central canal stenosis or foraminal narrow ing. L1-L2: No disk bulge or herniation is seen. There is no central canal stenosis or foraminal narrowi ng. L2-L3: No disk bulge or herniation is seen. There is mild facet arthropathy. There is no central c anal stenosis or foraminal narrowing. L3-L4: There is posterior disk bulging, greater on the right. There is mild facet arthropathy.. Th ere is no central canal stenosis. There is mild right foraminal narrowing. L4-L5: There is posterior disk bulging, greater on the right. There is mild facet arthropathy. The re is no central canal stenosis. There is mild right foraminal narrowing. L5-S1: No disk bulge or herniation is seen. There is mild facet arthropathy. There is no central c anal stenosis or foraminal narrowing. IMPRESSION: 1. Focal soft tissue thickening with gas adjacent to the lower left sacrum - coccyx which may repre sent a decubitus ulcer or possibly abscess. No adjacent displaced fracture or destructive osseous c hange seen. If there is persistent clinical concern, follow-up with MRI is advised. 2. Mild lumbar spondylosis with mild foraminal narrowing detailed above. RPTAT: AA .Jimmie Carr MD, MD Date Time Electronically viewed and signed by .Jimmie Carr MD, on 12/05/2016 11:08 .O/
[2016-12-05 19:48] VITALS: BP 129/78; RESP 18
[2016-12-05] MEDS ORDERED: INSULIN GLARGINE [LANtus] 3 ML PEN SC SCH (20:00)
--- NOTE | 2016-12-05 21:27 | CONS ---
Date/Time of Note Date/Time of Note DATE: 12/05/16 TIME: 21:23 Assessment/Plan Assessment/Plan Problems: (1) Type II diabetes mellitus, uncontrolled Status: Chronic Comment: Patient fluctuates between hypoglycemic and hyperglycemic episodes. Will further decrease glargine insulin dose. May also need to discontinue Tradjenta if fluctuations continue. Qualifiers: Diabetes mellitus complication status: with unspecified complications Diabetes mellitus mercury cell cleaner insulin use: unspecified assisted insulin use status Qualified Code: E11.8 - Uncontrolled type 2 diabetes mellitus with complication, unspecified assisted insulin use status (2) DKA (diabetic ketoacidoses) Status: Resolved Qualifiers: Diabetes mellitus type: other specified (including ROBERT) Diabetes mellitus complication detail: with coma Qualified Code: E13.11 - Diabetic ketoacidosis with coma associated with other specified diabetes mellitus Consultation Date/Type/Reason Admit Date/Time Nov 17, 2016 at 11:30 Initial Consult Date 11/17/16 Type of Consultation: Endocrinology Referring Provider: ALEA WHITAKER 24 HR Interval Summary Free Text/Dictation Patient with erratic glycemic control. Constitutional: other (increased hyperesthesia) Exam/Review of Systems Vital Signs Vitals Vital Signs Date Time Temp Pulse Resp B/P Pulse Ox O2 Delivery O2 Flow Rate FiO2 12/05/16 19:48 98.4 94 18 129/78 99 Intake and Output 12/04/16 12/04/16 12/05/16 15:00 23:00 07:00 Intake Total 700 ml 800 ml Output Total 2100 ml Balance 700 ml -1300 ml Exam Constitutional: alert, oriented, other (thin) Neck: supple Respiratory: clear to auscultation Cardiovascular: regular rate and rhythm Gastrointestinal: soft Musculoskeletal: nl extremities to inspection Results POC glucose reviewed Result Diagram: 12/05/16 0835 12/05/16 0835 Results 24 hrs Laboratory Tests Test 12/04/16 21:34 12/04/16 21:54 12/05/16 04:29 12/05/16 07:51 Bedside Glucose 125 127 103 88 Test 12/05/16 08:35 12/05/16 11:30 12/05/16 11:49 12/05/16 12:12 White Blood Count 7.5 Red Blood Count 4.13 L Hemoglobin 12.4 L Hematocrit 35.2 L Mean Corpuscular Volume 85.2 Mean Corpuscular Hemoglobin 30.0 Mean Corpuscular Hemoglobin Concent 35.2 Red Cell Distribution Width 13.4 Platelet Count 477 H Mean Platelet Volume 8.9 Neutrophils % 57.1 Lymphocytes % 29.3 Monocytes % 11.1 H Eosinophils % 1.5 Basophils % 0.7 Nucleated Red Blood Cells % 0.0 Neutrophils # 4.3 Lymphocytes # 2.2 Monocytes # 0.8 Eosinophils # 0.1 Basophils # 0.1 Nucleated Red Blood Cells # 0.0 Sodium Level 137 Potassium Level 4.4 Chloride Level 99 Carbon Dioxide Level 30 Anion Gap 12 Blood Urea Nitrogen 7 Creatinine 0.44 L Glucose Level 73 Calcium Level 9.2 Bedside Glucose 49 *L 56 L 77 Test 12/05/16 12:29 12/05/16 12:48 12/05/16 16:00 Bedside Glucose 118 134 207 Medications Medications Current Medications Ondansetron HCl (Zofran Inj) 4 mg Q6H PRN IV NAUSEA AND/OR VOMITING; Start 11/16 at 15:30 Acetaminophen (Tylenol Liquid) 650 mg Q6H PRN PO PAIN LEVEL 1-3 OR FEVER Last administered on 11/27/16 18:33; Admin Dose 650 MG; Start 11/16/16 at 15:30 Morphine Sulfate (morphine) 2 mg Q4H PRN IV PAIN LEVEL 7-10 Last administered on 12/05/16 18:49; Admin Dose 2 MG; Start 11/16/16 at 15:30 Enoxaparin Sodium (Lovenox) 30 mg DAILY SC Last administered on 12/05/16 08:21 ; Admin Dose 30 MG; Start 11/17/16 at 13:00 Eye Lubricant (Artificial Tears Oph) 2 drop QID BOTH EYES Last administered on 12/05/16 20:54; Admin Dose 2 DROP; Start 11/17/16 at 17:00 Pantoprazole (Protonix Tab) 40 mg DAILY@06 PO Last administered on 12/05/16 05 :44; Admin Dose 40 MG; Start 11/21/16 at 06:00 Miscellaneous Information 1 ea NOTE XX ; Start 11/21/16 at 15:30 Glucose (Glutose) 15 gm Q15M PRN PO DECREASED GLUCOSE; Start 11/21/16 at 15:30 Glucose (Glutose) 22.5 gm Q15M PRN PO DECREASED GLUCOSE; Start 11/21/16 at 15: 30 Dextrose (D50w Syringe) 25 ml Q15M PRN IV DECREASED GLUCOSE Last administered on 12/04/16 21:17; Admin Dose 25 ML; Start 11/21/16 at 15:30 Dextrose (D50w Syringe) 50 ml Q15M PRN IV DECREASED GLUCOSE; Start 11/21/16 at 15:30 Glucagon (Glucagen) 1 mg Q15M PRN IM DECREASED GLUCOSE; Start 11/21/16 at 15:30 Glucose (Glutose) 15 gm Q15M PRN BUCCAL DECREASED GLUCOSE; Start 11/21/16 at 15 :30 Diagnostic Test (Pha) (Accucheck) 1 ea 02 XX Last administered on 12/01/16 02: 26; Admin Dose 1 EA; Start 11/23/16 at 02:00 Collagenase (Santyl) 1 applic DAILY TOP Last administered on 12/05/16 08:21; Admin Dose 1 APPLIC; Start 11/23/16 at 12:30 Ascorbic Acid (Vitamin C) 500 mg BID GTB Last administered on 12/05/16 20:55; Admin Dose 500 MG; Start 11/23/16 at 21:00 Multivitamins Therapeutic (Theragran) 1 tab DAILY PO Last administered on 08:19; Admin Dose 1 TAB; Start 11/24/16 at 09:00 Linagliptin (Tradjenta) 5 mg DAILY PO Last administered on 12/05/16 08:19; Admin Dose 5 MG; Start 11/27/16 at 11:30 Insulin Glargine (Lantus) 20 unit DAILY@20 SC Last administered on 12/05/16 21 :02; Admin Dose 20 UNIT; Start 12/05/16 at 20:00 JOSÉ ANTONIO KIRKPATRICK MD Dec 05, 2016 21:27
[2016-12-06] MEDS: ACCU-CHEK XX SCH (02:00)
[2016-12-06] MEDS: PANTOPRAZOLE (EC) 40 MG TAB PO SCH (05:47)
[2016-12-06] MEDS: morphine 2 MG INJ IV PRN ×4 (05:51→22:49)
[2016-12-06 07:49] VITALS: BP 131/80; RESP 18
[2016-12-06] MEDS: INSULIN ASPART [NOVOLOG] 3 ML PEN SC SCH ×3 (08:18→17:54)
[2016-12-06] MEDS: ARTIFICIAL TEARS 15 ML OPH BOTH EYES SCH ×4 (08:19→20:17)
[2016-12-06] MEDS: ENOXAPARIN 30 MG/0.3 ML SYG SC SCH (08:19)
[2016-12-06] MEDS: ASCORBIC ACID 500 MG TAB GTB SCH ×2 (08:19→20:17)
[2016-12-06] MEDS: metFORMIN (XR) 500 MG TAB PO SCH ×3 (08:19→20:17)
[2016-12-06] MEDS: LINAGLIPTIN 5 MG TABLET PO SCH (08:19)
[2016-12-06] MEDS: MULTIVITAMINS THERAPEUTIC TAB PO SCH (08:19)
[2016-12-06] MEDS: COLLAGENASE 30 GM TUBE TOP SCH (09:00)
--- NOTE | 2016-12-06 14:02 | PN ---
DATE: 12/06/2016 SUBJECTIVE: Feels better. OBJECTIVE VITAL SIGNS: Temperature 99.1, heart rate 99, respirations 18, blood pressure 131/80, saturation 99 % on room air. WOUND: The sacrococcygeal wound is almost the same. I changed the dressing, there was not enough amount of Santyl on the wound so they are going to add more Santyl. I covered it with Adaptic so t hat it does not get absorbed to the tissues. LABORATORIES: Today there is no lab. Yesterday, 12/05/2016, WBC 7500 with 57% segmented, hemoglobi n 12.4, hematocrit 35.2. PLAN: Continue application of Santyl b.i.d. We may consider debridement of the wound and if he fontanez s not respond within a few more days. Dictated By: SHILPI LOFTON MD PS/CLAUDY Conf#: [id number] DID#: [id number]
--- NOTE | 2016-12-06 14:27 | PN ---
Date/Time of Note Date/Time of Note DATE: 12/06/16 TIME: 14:24 Assessment/Plan VTE Prophylaxis VTE Prophylaxis Intervention: SCD's Lines/Catheters IV C[facility]ter Type [facility]from [facility] Urinary Cath still in place: No Assessment/Plan Chief Complaint/Hosp Course ASSESSMENT AND PLAN - Severe diabetic ketoacidosis with coma, resolved. Dr. Andre is following in endocrinology consultation. - Diabetes mellitus type 2. Continue Lantus , pre-meal NovoLog and NovoLog per sliding scale. - Acute metabolic encephalopathy, resolved. - Severe sepsis 2 PNA, resolved. Dr. Callaway is following in infectious disease consultation. Continue Levaquin. - Community-acquired pneumonia vs aspiration. - Acute respiratory failure, resolved. Dr Disla s following the patient in pulmonology consultation. - Altered level of consciousness. CT head is negative. - Sacrococcyx DTI present on admission, continue current wound care, vitamin C, multivitamins, offloading, Dr Corbett is following in surgical eval. - Amphetamine screen positive. - Homelessness, mental health case manager and vp digital marketing social media and crm for discharge planning. Continue sequential compression device for deep venous thrombosis prophylaxis and Protonix for peptic ulcer disease prophylaxis. Further recommendations based on clinical course. Plan of care discussed with Dr. Ma. Problems: Subjective 24 Hr Interval Summary Free Text/Dictation Patient looks comfortable, no nausea vomiting reported per nursing staff, patient is compliant with dressing changes and surgical recommendations. Exam/Review of Systems Vital Signs Vitals Vital Signs Date Time Temp Pulse Resp B/P Pulse Ox O2 Delivery O2 Flow Rate FiO2 12/06/16 07:49 99.1 99 18 131/80 99 Intake and Output 12/05/16 12/05/16 12/06/16 15:00 23:00 07:00 Intake Total 1480 ml 500 ml Output Total 1800 ml 500 ml Balance -320 ml 0 ml Exam PHYSICAL ASSESSMENT: GENERAL: Well-developed, well-nourished male, awake alert HEENT: Head is normocephalic, PERRLA. NECK: Supple, no cervical lymphadenopathy, no thyromegaly. LUNGS: Diminished at the bases. CARDIOVASCULAR: Normal S1, S2. No murmurs, gallops, clicks, rubs noted. ABDOMEN: Flat, soft, nondistended, nontender. Bowel sounds present. EXTREMITIES: There is no edema, clubbing, cyanosis. Pulses equal bilaterally 2 +. SKIN: There is no rash, petechiae noted. NEUROLOGIC: Awake alert Results Result Diagram: 12/05/16 0835 12/05/16 0835 Results 24 hrs Laboratory Tests Test 12/05/16 16:00 12/05/16 20:52 12/06/16 07:42 12/06/16 12:24 Bedside Glucose 207 186 136 91 Medications Medications Current Medications Ondansetron HCl (Zofran Inj) 4 mg Q6H PRN IV NAUSEA AND/OR VOMITING; Start 11/16 at 15:30 Acetaminophen (Tylenol Liquid) 650 mg Q6H PRN PO PAIN LEVEL 1-3 OR FEVER Last administered on 11/27/16 18:33; Admin Dose 650 MG; Start 11/16/16 at 15:30 Morphine Sulfate (morphine) 2 mg Q4H PRN IV PAIN LEVEL 7-10 Last administered on 12/06/16 12:28; Admin Dose 2 MG; Start 11/16/16 at 15:30 Enoxaparin Sodium (Lovenox) 30 mg DAILY SC Last administered on 12/06/16 08:19 ; Admin Dose 30 MG; Start 11/17/16 at 13:00 Eye Lubricant (Artificial Tears Oph) 2 drop QID BOTH EYES Last administered on 12/06/16 12:32; Admin Dose 2 DROP; Start 11/17/16 at 17:00 Pantoprazole (Protonix Tab) 40 mg DAILY@06 PO Last administered on 12/06/16 05 :47; Admin Dose 40 MG; Start 11/21/16 at 06:00 Miscellaneous Information 1 ea NOTE XX ; Start 11/21/16 at 15:30 Glucose (Glutose) 15 gm Q15M PRN PO DECREASED GLUCOSE; Start 11/21/16 at 15:30 Glucose (Glutose) 22.5 gm Q15M PRN PO DECREASED GLUCOSE; Start 11/21/16 at 15: 30 Dextrose (D50w Syringe) 25 ml Q15M PRN IV DECREASED GLUCOSE Last administered on 12/04/16 21:17; Admin Dose 25 ML; Start 11/21/16 at 15:30 Dextrose (D50w Syringe) 50 ml Q15M PRN IV DECREASED GLUCOSE; Start 11/21/16 at 15:30 Glucagon (Glucagen) 1 mg Q15M PRN IM DECREASED GLUCOSE; Start 11/21/16 at 15:30 Glucose (Glutose) 15 gm Q15M PRN BUCCAL DECREASED GLUCOSE; Start 11/21/16 at 15 :30 Diagnostic Test (Pha) (Accucheck) 1 ea 02 XX Last administered on 12/01/16 02: 26; Admin Dose 1 EA; Start 11/23/16 at 02:00 Collagenase (Santyl) 1 applic DAILY TOP Last administered on 12/06/16 09:00; Admin Dose 1 APPLIC; Start 11/23/16 at 12:30 Ascorbic Acid (Vitamin C) 500 mg BID GTB Last administered on 12/06/16 08:19; Admin Dose 500 MG; Start 11/23/16 at 21:00 Multivitamins Therapeutic (Theragran) 1 tab DAILY PO Last administered on 08:19; Admin Dose 1 TAB; Start 11/24/16 at 09:00 Linagliptin (Tradjenta) 5 mg DAILY PO Last administered on 12/06/16 08:19; Admin Dose 5 MG; Start 11/27/16 at 11:30 Insulin Glargine (Lantus) 20 unit DAILY@20 SC Last administered on 12/05/16 21 :02; Admin Dose 20 UNIT; Start 12/05/16 at 20:00 ALEA WHITAKER Dec 06, 2016 14:27
[2016-12-06 15:58] LABS: ADD SCAN DIFF NO
[2016-12-06 16:05] LABS: BASOPHIL # 0.1 10^3/ul (0.0-0.1); BASOPHILS % 0.7 % (0.0-2.0); EOSINOPHILS # 0.2 10^3/ul (0.0-0.5); EOSINOPHILS % 2.3 % (0.0-7.0); HEMATOCRIT 36.7 % (42.0-52.0); HEMOGLOBIN 13.1 g/dl (14.0-18.0); LYMPHOCYTES # 2.4 10^3/ul (0.8-2.9); LYMPHOCYTES % 33.4 % (15.0-51.0); MEAN CORPUSCULAR HEMOGLOBIN 30.2 pg (29.0-33.0); MEAN CORPUSCULAR HGB CONC 35.7 g/dl (32.0-37.0); MEAN CORPUSCULAR VOLUME 84.6 fl (82.0-101.0); MEAN PLATELET VOLUME 8.7 fl (7.4-10.4); MONOCYTE # 0.8 10^3/ul (0.3-0.9); MONOCYTES % 11.5 % (0.0-11.0); NEUTROPHIL # 3.8 10^3/ul (1.6-7.5); NEUTROPHILS % 51.8 % (39.0-77.0); PLATELET COUNT 478 10^3/UL (140-415); RED BLOOD COUNT 4.34 10^6/ul (4.70-6.10); RED CELL DISTRIBUTION WIDTH 13.3 % (11.5-14.5); WHITE BLOOD COUNT 7.2 10^3/ul (4.8-10.8)
[2016-12-06 16:16] LABS: CREATININE 0.45 mg/dl (0.61-1.24)
[2016-12-06 16:17] LABS: CALCIUM 9.1 mg/dl (8.4-10.2)
--- NOTE | 2016-12-06 16:39 | RADRPT ---
PROCEDURE: CT Pelvis without contrast. CLINICAL INDICATION: Pelvic pain. Sacral ulcer. TECHNIQUE: CT scan of the pelvis without intravenous contrast was performed. Helical axial section s were obtained through the pelvis without intravenous contrast enhancement. Coronal and sagittal r eformatted images were obtained from the axial source images. Images were reviewed on a high-resolut [employer] PACS workstation. Total exam DLP is 140.46 mGy-cm. CTDIvol is 4.38 mGy. One or more of the fol lowing dose reduction techniques were used: Automated exposure control, adjustment of the mA and/or kV according to patient size, use of iterative reconstruction technique. COMPARISON: CT scan of the lumbar spine dated 12/05/2016. FINDINGS: There is no pelvic lymphadenopathy or mass. The bladder and distal ureters are normal. The periappendiceal region is unremarkable with no evidence of appendicitis. The bowel and mesentery are normal. There is no free fluid or free gas. There is gas in the soft tissues posterior to the lower sacrum and coccyx consistent with a skin ulc er. There is no lytic lesion at this site. The osseous structures are otherwise unremarkable with no fracture or lytic lesion. IMPRESSION: 1. Skin ulcer overlying the lower sacrum and coccyx. No bone abnormality at this site or elsewhere . No evidence of osteomyelitis. 2. Otherwise unremarkable CT scan of the pelvis. RPTAT: QQ .Carl Wharton MD, Date Time Electronically viewed and signed by .Carl Wharton MD, on 12/06/2016 16:39 .R/
--- NOTE | 2016-12-06 18:59 | CONS ---
Date/Time of Note Date/Time of Note DATE: 12/06/16 TIME: 18:57 Assessment/Plan Assessment/Plan Problems: (1) Type II diabetes mellitus, uncontrolled Status: Chronic Comment: Pt. w/ hypoglycemia on higher doses of lantus. Back on 20 units as of last night w/ good glycemic control. Continues to require higher doses of mealtime insulin, however w/ Novolog remaining at 15 qac. This is usually a very high basal to bolus ratio but seems to control pt.'s prandial BG values w/ o causing hypoglycemia. Will continue. Qualifiers: Diabetes mellitus complication status: with unspecified complications Diabetes mellitus watermelon inspector insulin use: unspecified watermelon inspector insulin use status Qualified Code: E11.8 - Uncontrolled type 2 diabetes mellitus with complication, unspecified watermelon inspector insulin use status Consultation Date/Type/Reason Admit Date/Time Nov 17, 2016 at 11:30 Initial Consult Date 11/17/16 Type of Consultation: Endocrinology Reason for Consultation DKA Referring Provider: ALEA WHITAKER 24 HR Interval Summary Subjective hx not possible: pt non-verbal (sleeping) Exam/Review of Systems Vital Signs Vitals VS - Last 72 Hours, by Label Date Time Temp Pulse Resp B/P Pulse Ox O2 Delivery O2 Flow Rate FiO2 12/06/16 07:49 99.1 99 18 131/80 99 12/05/16 19:48 98.4 94 18 129/78 99 12/05/16 08:36 98.6 95 18 126/76 99 12/04/16 20:02 98.0 107 18 118/60 97 12/04/16 12:50 83 12/04/16 08:08 98.3 108 18 128/76 97 12/03/16 21:21 98.0 101 18 133/79 99 Vital Signs Date Time Temp Pulse Resp B/P Pulse Ox O2 Delivery O2 Flow Rate FiO2 12/06/16 07:49 99.1 99 18 131/80 99 Intake and Output 12/05/16 12/05/16 12/06/16 15:00 23:00 07:00 Intake Total 1480 ml 500 ml Output Total 1800 ml 500 ml Balance -320 ml 0 ml Exam Constitutional: non-verbal (asleep), No alert Respiratory: clear to auscultation, normal air movement Cardiovascular: nl pulses, regular rate and rhythm, No edema, No murmurs/extra sounds, No rub Gastrointestinal: bowel sounds, nl liver, spleen, non-tender, soft, No mass, No rebound or guarding Musculoskeletal: nl extremities to inspection Extremities: normal pulses, No clubbing, No cyanosis, No edema Neurological: other (asleep) Additional Comments Bedside Glucose - 72 Hours Test 12/03/16 19:41 12/04/16 02:14 12/04/16 08:15 12/04/16 12:15 Bedside Glucose 213mg/dL (70-220) 78mg/dL (70-220) 254mg/dL (70-220) H 35mg/dL (70-220) *L Test 12/04/16 12:37 12/04/16 17:17 12/04/16 20:05 12/04/16 20:21 Bedside Glucose 121mg/dL (70-220) 279mg/dL (70-220) H 65mg/dL (70-220) L 122mg/dL (70-220) Test 12/04/16 20:43 12/04/16 21:13 12/04/16 21:34 12/04/16 21:54 Bedside Glucose 78mg/dL (70-220) 64mg/dL (70-220) L 125mg/dL (70-220) 127mg/dL (70-220) Test 12/05/16 04:29 12/05/16 07:51 12/05/16 11:30 12/05/16 11:49 Bedside Glucose 103mg/dL (70-220) 88mg/dL (70-220) 49mg/dL (70-220) *L 56mg/dL (70-220) L Test 12/05/16 12:12 12/05/16 12:29 12/05/16 12:48 12/05/16 16:00 Bedside Glucose 77mg/dL (70-220) 118mg/dL (70-220) 134mg/dL (70-220) 207mg/dL (70-220) Test 12/05/16 20:52 12/06/16 07:42 12/06/16 12:24 12/06/16 17:01 Bedside Glucose 186mg/dL (70-220) 136mg/dL (70-220) 91mg/dL (70-220) 110mg/dL (70-220) Results Result Diagram: 12/06/16 1550 12/06/16 1550 Results 24 hrs Laboratory Tests Test 12/05/16 20:52 12/06/16 07:42 12/06/16 12:24 12/06/16 15:50 Bedside Glucose 186 136 91 White Blood Count 7.2 Red Blood Count 4.34 L Hemoglobin 13.1 L Hematocrit 36.7 L Mean Corpuscular Volume 84.6 Mean Corpuscular Hemoglobin 30.2 Mean Corpuscular Hemoglobin Concent 35.7 Red Cell Distribution Width 13.3 Platelet Count 478 H Mean Platelet Volume 8.7 Neutrophils % 51.8 Lymphocytes % 33.4 Monocytes % 11.5 H Eosinophils % 2.3 Basophils % 0.7 Nucleated Red Blood Cells % 0.0 Neutrophils # 3.8 Lymphocytes # 2.4 Monocytes # 0.8 Eosinophils # 0.2 Basophils # 0.1 Nucleated Red Blood Cells # 0.0 Sodium Level 135 Potassium Level 4.0 Chloride Level 100 Carbon Dioxide Level 27 Anion Gap 12 Blood Urea Nitrogen 13 Creatinine 0.45 L Glucose Level 85 Calcium Level 9.1 Test 12/06/16 17:01 Bedside Glucose 110 Medications Medications Current Medications Ondansetron HCl (Zofran Inj) 4 mg Q6H PRN IV NAUSEA AND/OR VOMITING; Start 11/16 at 15:30 Acetaminophen (Tylenol Liquid) 650 mg Q6H PRN PO PAIN LEVEL 1-3 OR FEVER Last administered on 11/27/16 18:33; Admin Dose 650 MG; Start 11/16/16 at 15:30 Morphine Sulfate (morphine) 2 mg Q4H PRN IV PAIN LEVEL 7-10 Last administered on 12/06/16 17:04; Admin Dose 2 MG; Start 11/16/16 at 15:30 Enoxaparin Sodium (Lovenox) 30 mg DAILY SC Last administered on 12/06/16 08:19 ; Admin Dose 30 MG; Start 11/17/16 at 13:00 Eye Lubricant (Artificial Tears Oph) 2 drop QID BOTH EYES Last administered on 12/06/16 17:04; Admin Dose 2 DROP; Start 11/17/16 at 17:00 Pantoprazole (Protonix Tab) 40 mg DAILY@06 PO Last administered on 12/06/16 05 :47; Admin Dose 40 MG; Start 11/21/16 at 06:00 Miscellaneous Information 1 ea NOTE XX ; Start 11/21/16 at 15:30 Glucose (Glutose) 15 gm Q15M PRN PO DECREASED GLUCOSE; Start 11/21/16 at 15:30 Glucose (Glutose) 22.5 gm Q15M PRN PO DECREASED GLUCOSE; Start 11/21/16 at 15: 30 Dextrose (D50w Syringe) 25 ml Q15M PRN IV DECREASED GLUCOSE Last administered on 12/04/16 21:17; Admin Dose 25 ML; Start 11/21/16 at 15:30 Dextrose (D50w Syringe) 50 ml Q15M PRN IV DECREASED GLUCOSE; Start 11/21/16 at 15:30 Glucagon (Glucagen) 1 mg Q15M PRN IM DECREASED GLUCOSE; Start 11/21/16 at 15:30 Glucose (Glutose) 15 gm Q15M PRN BUCCAL DECREASED GLUCOSE; Start 11/21/16 at 15 :30 Diagnostic Test (Pha) (Accucheck) 1 ea 02 XX Last administered on 12/01/16 02: 26; Admin Dose 1 EA; Start 11/23/16 at 02:00 Collagenase (Santyl) 1 applic DAILY TOP Last administered on 12/06/16 09:00; Admin Dose 1 APPLIC; Start 11/23/16 at 12:30 Ascorbic Acid (Vitamin C) 500 mg BID GTB Last administered on 12/06/16 08:19; Admin Dose 500 MG; Start 11/23/16 at 21:00 Multivitamins Therapeutic (Theragran) 1 tab DAILY PO Last administered on 08:19; Admin Dose 1 TAB; Start 11/24/16 at 09:00 Linagliptin (Tradjenta) 5 mg DAILY PO Last administered on 12/06/16 08:19; Admin Dose 5 MG; Start 11/27/16 at 11:30 Insulin Glargine (Lantus) 20 unit DAILY@20 SC Last administered on 12/05/16 21 :02; Admin Dose 20 UNIT; Start 12/05/16 at 20:00 ROGE PAEZ MD Dec 06, 2016 18:59
[2016-12-06 20:19] VITALS: BP 128/84; RESP 18
[2016-12-06] MEDS: INSULIN GLARGINE [LANtus] 3 ML PEN SC SCH (21:45)
[2016-12-07] MEDS: ACCU-CHEK XX SCH (02:00)
[2016-12-07] MEDS: morphine 2 MG INJ IV PRN ×3 (02:57→20:22)
[2016-12-07] MEDS: PANTOPRAZOLE (EC) 40 MG TAB PO SCH (05:50)
[2016-12-07 08:10] VITALS: BP 133/82; RESP 20
[2016-12-07] MEDS: MULTIVITAMINS THERAPEUTIC TAB PO SCH (08:14)
[2016-12-07] MEDS: LINAGLIPTIN 5 MG TABLET PO SCH (08:14)
[2016-12-07] MEDS: ASCORBIC ACID 500 MG TAB GTB SCH ×2 (08:15→20:13)
[2016-12-07] MEDS: metFORMIN (XR) 500 MG TAB PO SCH ×2 (08:15→17:28)
[2016-12-07] MEDS: ARTIFICIAL TEARS 15 ML OPH BOTH EYES SCH ×4 (08:15→20:12)
[2016-12-07] MEDS: INSULIN ASPART [NOVOLOG] 3 ML PEN SC SCH ×3 (08:16→17:32)
[2016-12-07] MEDS: ENOXAPARIN 30 MG/0.3 ML SYG SC SCH (08:18)
[2016-12-07] MEDS: COLLAGENASE 30 GM TUBE TOP SCH (08:19)
--- NOTE | 2016-12-07 14:03 | CONS ---
Date/Time of Note Date/Time of Note DATE: 12/07/16 TIME: 13:55 Assessment/Plan Assessment/Plan Problems: (1) Type II diabetes mellitus, uncontrolled Status: Chronic Comment: Pt. again w/ glucose level below goal at hs last night and lantus reduced from 20 to 10. Will reduce mealtime insulin dose from 15 to 12 qac. Reeval tomorrow. Qualifiers: Diabetes mellitus complication status: with unspecified complications Diabetes mellitus assisted insulin use: unspecified terminal gauger insulin use status Qualified Code: E11.8 - Uncontrolled type 2 diabetes mellitus with complication, unspecified terminal gauger insulin use status Consultation Date/Type/Reason Admit Date/Time Nov 17, 2016 at 11:30 Initial Consult Date 11/17/16 Type of Consultation: Endocrinology Reason for Consultation DKA Referring Provider: ALEA WHITAKER 24 HR Interval Summary Subjective hx not possible: pt non-verbal (sleeping) Exam/Review of Systems Vital Signs Vitals VS - Last 72 Hours, by Label Date Time Temp Pulse Resp B/P Pulse Ox O2 Delivery O2 Flow Rate FiO2 12/07/16 08:10 97.8 100 20 133/82 100 12/06/16 20:19 98.5 105 18 128/84 98 12/06/16 07:49 99.1 99 18 131/80 99 12/05/16 19:48 98.4 94 18 129/78 99 12/05/16 08:36 98.6 95 18 126/76 99 12/04/16 20:02 98.0 107 18 118/60 97 Vital Signs Date Time Temp Pulse Resp B/P Pulse Ox O2 Delivery O2 Flow Rate FiO2 12/07/16 08:10 97.8 100 20 133/82 100 Intake and Output 12/06/16 12/06/16 12/07/16 15:00 23:00 07:00 Intake Total 2480 ml 650 ml Output Total 2250 ml 1550 ml Balance 230 ml -900 ml Exam Constitutional: non-verbal (sleeping), No alert Respiratory: clear to auscultation, normal air movement Cardiovascular: nl pulses, regular rate and rhythm, No edema, No murmurs/extra sounds, No rub Gastrointestinal: bowel sounds, nl liver, spleen, non-tender, soft, No mass, No rebound or guarding Musculoskeletal: nl extremities to inspection Extremities: normal pulses, No clubbing, No cyanosis, No edema Neurological: other (sleeping) Additional Comments Bedside Glucose - 72 Hours Test 12/04/16 17:17 12/04/16 20:05 12/04/16 20:21 12/04/16 20:43 Bedside Glucose 279mg/dL (70-220) H 65mg/dL (70-220) L 122mg/dL (70-220) 78mg/dL (70-220) Test 12/04/16 21:13 12/04/16 21:34 12/04/16 21:54 12/05/16 04:29 Bedside Glucose 64mg/dL (70-220) L 125mg/dL (70-220) 127mg/dL (70-220) 103mg/dL (70-220) Test 12/05/16 07:51 12/05/16 11:30 12/05/16 11:49 12/05/16 12:12 Bedside Glucose 88mg/dL (70-220) 49mg/dL (70-220) *L 56mg/dL (70-220) L 77mg/dL (70-220) Test 12/05/16 12:29 12/05/16 12:48 12/05/16 16:00 12/05/16 20:52 Bedside Glucose 118mg/dL (70-220) 134mg/dL (70-220) 207mg/dL (70-220) 186mg/dL (70-220) Test 12/06/16 07:42 12/06/16 12:24 12/06/16 17:01 12/06/16 20:14 Bedside Glucose 136mg/dL (70-220) 91mg/dL (70-220) 110mg/dL (70-220) 75mg/dL (70-220) Test 12/07/16 02:47 12/07/16 08:11 12/07/16 11:26 Bedside Glucose 174mg/dL (70-220) 159mg/dL (70-220) 98mg/dL (70-220) Results Result Diagram: 12/06/16 1550 12/06/16 1550 Results 24 hrs Laboratory Tests Test 12/06/16 15:50 12/06/16 17:01 12/06/16 20:14 12/07/16 02:47 White Blood Count 7.2 Red Blood Count 4.34 L Hemoglobin 13.1 L Hematocrit 36.7 L Mean Corpuscular Volume 84.6 Mean Corpuscular Hemoglobin 30.2 Mean Corpuscular Hemoglobin Concent 35.7 Red Cell Distribution Width 13.3 Platelet Count 478 H Mean Platelet Volume 8.7 Neutrophils % 51.8 Lymphocytes % 33.4 Monocytes % 11.5 H Eosinophils % 2.3 Basophils % 0.7 Nucleated Red Blood Cells % 0.0 Neutrophils # 3.8 Lymphocytes # 2.4 Monocytes # 0.8 Eosinophils # 0.2 Basophils # 0.1 Nucleated Red Blood Cells # 0.0 Sodium Level 135 Potassium Level 4.0 Chloride Level 100 Carbon Dioxide Level 27 Anion Gap 12 Blood Urea Nitrogen 13 Creatinine 0.45 L Glucose Level 85 Calcium Level 9.1 Bedside Glucose 110 75 174 Test 12/07/16 08:11 12/07/16 11:26 Bedside Glucose 159 98 Medications Medications Current Medications Ondansetron HCl (Zofran Inj) 4 mg Q6H PRN IV NAUSEA AND/OR VOMITING; Start 11/16 at 15:30 Acetaminophen (Tylenol Liquid) 650 mg Q6H PRN PO PAIN LEVEL 1-3 OR FEVER Last administered on 11/27/16 18:33; Admin Dose 650 MG; Start 11/16/16 at 15:30 Morphine Sulfate (morphine) 2 mg Q4H PRN IV PAIN LEVEL 7-10 Last administered on 12/07/16 08:19; Admin Dose 2 MG; Start 11/16/16 at 15:30 Enoxaparin Sodium (Lovenox) 30 mg DAILY SC Last administered on 12/07/16 08:18 ; Admin Dose 30 MG; Start 11/17/16 at 13:00 Eye Lubricant (Artificial Tears Oph) 2 drop QID BOTH EYES Last administered on 12/07/16 12:06; Admin Dose 2 DROP; Start 11/17/16 at 17:00 Pantoprazole (Protonix Tab) 40 mg DAILY@06 PO Last administered on 12/07/16 05 :50; Admin Dose 40 MG; Start 11/21/16 at 06:00 Miscellaneous Information 1 ea NOTE XX ; Start 11/21/16 at 15:30 Glucose (Glutose) 15 gm Q15M PRN PO DECREASED GLUCOSE; Start 11/21/16 at 15:30 Glucose (Glutose) 22.5 gm Q15M PRN PO DECREASED GLUCOSE; Start 11/21/16 at 15: 30 Dextrose (D50w Syringe) 25 ml Q15M PRN IV DECREASED GLUCOSE Last administered on 12/04/16 21:17; Admin Dose 25 ML; Start 11/21/16 at 15:30 Dextrose (D50w Syringe) 50 ml Q15M PRN IV DECREASED GLUCOSE; Start 11/21/16 at 15:30 Glucagon (Glucagen) 1 mg Q15M PRN IM DECREASED GLUCOSE; Start 11/21/16 at 15:30 Glucose (Glutose) 15 gm Q15M PRN BUCCAL DECREASED GLUCOSE; Start 11/21/16 at 15 :30 Diagnostic Test (Pha) (Accucheck) 1 ea 02 XX Last administered on 12/01/16 02: 26; Admin Dose 1 EA; Start 11/23/16 at 02:00 Collagenase (Santyl) 1 applic DAILY TOP Last administered on 12/07/16 08:19; Admin Dose 1 APPLIC; Start 11/23/16 at 12:30 Ascorbic Acid (Vitamin C) 500 mg BID GTB Last administered on 12/07/16 08:15; Admin Dose 500 MG; Start 11/23/16 at 21:00 Multivitamins Therapeutic (Theragran) 1 tab DAILY PO Last administered on 08:14; Admin Dose 1 TAB; Start 11/24/16 at 09:00 Linagliptin (Tradjenta) 5 mg DAILY PO Last administered on 12/07/16 08:14; Admin Dose 5 MG; Start 11/27/16 at 11:30 Insulin Glargine (Lantus) 10 unit DAILY@20 SC Last administered on 12/06/16 21 :45; Admin Dose 10 UNIT; Start 12/06/16 at 20:00 ROGE PAEZ MD Dec 07, 2016 14:03
--- NOTE | 2016-12-07 15:43 | PN ---
Date/Time of Note Date/Time of Note DATE: 12/07/16 TIME: 15:36 Assessment/Plan VTE Prophylaxis VTE Prophylaxis Intervention: SCD's Lines/Catheters IV C[facility]ter Type (from [facility] Saline Lock Urinary Cath still in place: No Assessment/Plan Chief Complaint/Hosp Course ASSESSMENT AND PLAN - Severe diabetic ketoacidosis with coma, resolved. Dr. Andre is following in endocrinology consultation. - Diabetes mellitus type 2. Continue Lantus , pre-meal NovoLog and NovoLog per sliding scale. - Acute metabolic encephalopathy, resolved. - Severe sepsis 2 PNA, resolved. Dr. Callaway is following in infectious disease consultation. - Community-acquired pneumonia vs aspiration. - Acute respiratory failure, resolved. Dr Disla s following the patient in pulmonology consultation. - Altered level of consciousness on admission, resolved CT head is negative. - Sacrococcyx DTI present on admission, continue current wound care, vitamin C, multivitamins, offloading, Dr Corbett is following in surgical eval. - Amphetamine screen positive. - Homelessness, caser up and social service agency director for discharge planning. Continue sequential compression device for deep venous thrombosis prophylaxis and Protonix for peptic ulcer disease prophylaxis. Further recommendations based on clinical course. Plan of care discussed with Dr. Ma. Problems: Subjective 24 Hr Interval Summary Free Text/Dictation No acute events, patient looks comfortable, compliant with wound care. Exam/Review of Systems Vital Signs Vitals Vital Signs Date Time Temp Pulse Resp B/P Pulse Ox O2 Delivery O2 Flow Rate FiO2 12/07/16 08:10 97.8 100 20 133/82 100 Intake and Output 12/06/16 12/06/16 12/07/16 15:00 23:00 07:00 Intake Total 2480 ml 650 ml Output Total 2250 ml 1550 ml Balance 230 ml -900 ml Exam PHYSICAL ASSESSMENT: GENERAL: Well-developed, well-nourished male, awake alert HEENT: Head is normocephalic, PERRLA. NECK: Supple, no cervical lymphadenopathy, no thyromegaly. LUNGS: Diminished at the bases. CARDIOVASCULAR: Normal S1, S2. No murmurs, gallops, clicks, rubs noted. ABDOMEN: Flat, soft, nondistended, nontender. Bowel sounds present. EXTREMITIES: There is no edema, clubbing, cyanosis. Pulses equal bilaterally 2 +. SKIN: There is no rash, petechiae noted. NEUROLOGIC: Awake alert Results Result Diagram: 12/06/16 1550 12/06/16 1550 Results 24 hrs Laboratory Tests Test 12/06/16 15:50 12/06/16 17:01 12/06/16 20:14 12/07/16 02:47 White Blood Count 7.2 Red Blood Count 4.34 L Hemoglobin 13.1 L Hematocrit 36.7 L Mean Corpuscular Volume 84.6 Mean Corpuscular Hemoglobin 30.2 Mean Corpuscular Hemoglobin Concent 35.7 Red Cell Distribution Width 13.3 Platelet Count 478 H Mean Platelet Volume 8.7 Neutrophils % 51.8 Lymphocytes % 33.4 Monocytes % 11.5 H Eosinophils % 2.3 Basophils % 0.7 Nucleated Red Blood Cells % 0.0 Neutrophils # 3.8 Lymphocytes # 2.4 Monocytes # 0.8 Eosinophils # 0.2 Basophils # 0.1 Nucleated Red Blood Cells # 0.0 Sodium Level 135 Potassium Level 4.0 Chloride Level 100 Carbon Dioxide Level 27 Anion Gap 12 Blood Urea Nitrogen 13 Creatinine 0.45 L Glucose Level 85 Calcium Level 9.1 Bedside Glucose 110 75 174 Test 12/07/16 08:11 12/07/16 11:26 Bedside Glucose 159 98 Medications Medications Current Medications Ondansetron HCl (Zofran Inj) 4 mg Q6H PRN IV NAUSEA AND/OR VOMITING; Start 11/16 at 15:30 Acetaminophen (Tylenol Liquid) 650 mg Q6H PRN PO PAIN LEVEL 1-3 OR FEVER Last administered on 11/27/16 18:33; Admin Dose 650 MG; Start 11/16/16 at 15:30 Morphine Sulfate (morphine) 2 mg Q4H PRN IV PAIN LEVEL 7-10 Last administered on 12/07/16 08:19; Admin Dose 2 MG; Start 11/16/16 at 15:30 Enoxaparin Sodium (Lovenox) 30 mg DAILY SC Last administered on 12/07/16 08:18 ; Admin Dose 30 MG; Start 11/17/16 at 13:00 Eye Lubricant (Artificial Tears Oph) 2 drop QID BOTH EYES Last administered on 12/07/16 12:06; Admin Dose 2 DROP; Start 11/17/16 at 17:00 Pantoprazole (Protonix Tab) 40 mg DAILY@06 PO Last administered on 12/07/16 05 :50; Admin Dose 40 MG; Start 11/21/16 at 06:00 Miscellaneous Information 1 ea NOTE XX ; Start 11/21/16 at 15:30 Glucose (Glutose) 15 gm Q15M PRN PO DECREASED GLUCOSE; Start 11/21/16 at 15:30 Glucose (Glutose) 22.5 gm Q15M PRN PO DECREASED GLUCOSE; Start 11/21/16 at 15: 30 Dextrose (D50w Syringe) 25 ml Q15M PRN IV DECREASED GLUCOSE Last administered on 12/04/16 21:17; Admin Dose 25 ML; Start 11/21/16 at 15:30 Dextrose (D50w Syringe) 50 ml Q15M PRN IV DECREASED GLUCOSE; Start 11/21/16 at 15:30 Glucagon (Glucagen) 1 mg Q15M PRN IM DECREASED GLUCOSE; Start 11/21/16 at 15:30 Glucose (Glutose) 15 gm Q15M PRN BUCCAL DECREASED GLUCOSE; Start 11/21/16 at 15 :30 Diagnostic Test (Pha) (Accucheck) 1 ea 02 XX Last administered on 12/01/16 02: 26; Admin Dose 1 EA; Start 11/23/16 at 02:00 Collagenase (Santyl) 1 applic DAILY TOP Last administered on 12/07/16 08:19; Admin Dose 1 APPLIC; Start 11/23/16 at 12:30 Ascorbic Acid (Vitamin C) 500 mg BID GTB Last administered on 12/07/16 08:15; Admin Dose 500 MG; Start 11/23/16 at 21:00 Multivitamins Therapeutic (Theragran) 1 tab DAILY PO Last administered on 08:14; Admin Dose 1 TAB; Start 11/24/16 at 09:00 Linagliptin (Tradjenta) 5 mg DAILY PO Last administered on 12/07/16 08:14; Admin Dose 5 MG; Start 11/27/16 at 11:30 Insulin Glargine (Lantus) 10 unit DAILY@20 SC Last administered on 12/06/16 21 :45; Admin Dose 10 UNIT; Start 12/06/16 at 20:00 ALEA WHITAKER Dec 07, 2016 15:43
[2016-12-07] MEDS: INSULIN GLARGINE [LANtus] 3 ML PEN SC SCH (20:20)
[2016-12-08] MEDS: ACCU-CHEK XX SCH (02:00)
[2016-12-08] MEDS: PANTOPRAZOLE (EC) 40 MG TAB PO SCH (05:23)
[2016-12-08] MEDS: morphine 2 MG INJ IV PRN ×4 (05:24→20:40)
[2016-12-08 07:25] VITALS: BP 140/94; RESP 20
[2016-12-08] MEDS: LINAGLIPTIN 5 MG TABLET PO SCH (08:37)
[2016-12-08] MEDS: MULTIVITAMINS THERAPEUTIC TAB PO SCH (08:37)
[2016-12-08] MEDS: ARTIFICIAL TEARS 15 ML OPH BOTH EYES SCH ×4 (08:37→20:37)
[2016-12-08] MEDS: metFORMIN (XR) 500 MG TAB PO SCH ×2 (08:37→17:41)
[2016-12-08] MEDS: ASCORBIC ACID 500 MG TAB GTB SCH ×2 (08:37→20:37)
[2016-12-08] MEDS: INSULIN ASPART [NOVOLOG] 3 ML PEN SC SCH ×3 (08:40→17:47)
[2016-12-08] MEDS: ENOXAPARIN 30 MG/0.3 ML SYG SC SCH (08:41)
[2016-12-08] MEDS: COLLAGENASE 30 GM TUBE TOP SCH (08:42)
--- NOTE | 2016-12-08 13:59 | CONS ---
Date/Time of Note Date/Time of Note DATE: 12/08/16 TIME: 13:56 Assessment/Plan Assessment/Plan Problems: (1) Type II diabetes mellitus, uncontrolled Status: Chronic Comment: Reducing Novolog from 15 to 12 effective to reduce near hypoglycemia. Not hyperglycemic. Cont. Lantus 20 qhs, Novolog 12 qac plus metformin 1g bid and linagliptin 5 mg/d. Qualifiers: Diabetes mellitus complication status: with unspecified complications Diabetes mellitus medical terminologist insulin use: unspecified medical terminologist insulin use status Qualified Code: E11.8 - Uncontrolled type 2 diabetes mellitus with complication, unspecified usp insulin use status Consultation Date/Type/Reason Admit Date/Time Nov 17, 2016 at 11:30 Initial Consult Date 11/17/16 Type of Consultation: Endocrinology Reason for Consultation DKA Referring Provider: ALEA WHITAKER 24 HR Interval Summary Subjective hx not possible: pt non-verbal (sleeping again) Exam/Review of Systems Vital Signs Vitals VS - Last 72 Hours, by Label Date Time Temp Pulse Resp B/P Pulse Ox O2 Delivery O2 Flow Rate FiO2 12/08/16 10:54 21 12/08/16 07:25 98.5 92 20 140/94 98 12/07/16 08:10 97.8 100 20 133/82 100 12/06/16 20:19 98.5 105 18 128/84 98 12/06/16 07:49 99.1 99 18 131/80 99 12/05/16 19:48 98.4 94 18 129/78 99 Vital Signs Date Time Temp Pulse Resp B/P Pulse Ox O2 Delivery O2 Flow Rate FiO2 12/08/16 10:54 21 12/08/16 07:25 98.5 92 20 140/94 98 Intake and Output 12/07/16 12/07/16 12/08/16 15:00 23:00 07:00 Intake Total 1500 ml 650 ml Output Total 1650 ml 800 ml Balance -150 ml -150 ml Exam Constitutional: well developed, No alert, No non-verbal (sleeping) Respiratory: clear to auscultation, normal air movement Cardiovascular: nl pulses, regular rate and rhythm, No edema, No murmurs/extra sounds, No rub Gastrointestinal: bowel sounds, nl liver, spleen, non-tender, soft, No mass, No rebound or guarding Musculoskeletal: nl extremities to inspection Extremities: normal pulses, No clubbing, No cyanosis, No edema Neurological: other (sleeping) Additional Comments Bedside Glucose - 72 Hours Test 12/05/16 16:00 12/05/16 20:52 12/06/16 07:42 12/06/16 12:24 Bedside Glucose 207mg/dL (70-220) 186mg/dL (70-220) 136mg/dL (70-220) 91mg/dL (70-220) Test 12/06/16 17:01 12/06/16 20:14 12/07/16 02:47 12/07/16 08:11 Bedside Glucose 110mg/dL (70-220) 75mg/dL (70-220) 174mg/dL (70-220) 159mg/dL (70-220) Test 12/07/16 11:26 12/07/16 20:12 12/08/16 07:46 12/08/16 11:42 Bedside Glucose 98mg/dL (70-220) 101mg/dL (70-220) 145mg/dL (70-220) 127mg/dL (70-220) Results Result Diagram: 12/06/16 1550 12/06/16 1550 Results 24 hrs Laboratory Tests Test 12/07/16 20:12 12/08/16 07:46 12/08/16 11:42 Bedside Glucose 101 145 127 Medications Medications Current Medications Ondansetron HCl (Zofran Inj) 4 mg Q6H PRN IV NAUSEA AND/OR VOMITING; Start 11/16 at 15:30 Acetaminophen (Tylenol Liquid) 650 mg Q6H PRN PO PAIN LEVEL 1-3 OR FEVER Last administered on 11/27/16 18:33; Admin Dose 650 MG; Start 11/16/16 at 15:30 Morphine Sulfate (morphine) 2 mg Q4H PRN IV PAIN LEVEL 7-10 Last administered on 12/08/16 09:35; Admin Dose 2 MG; Start 11/16/16 at 15:30 Enoxaparin Sodium (Lovenox) 30 mg DAILY SC Last administered on 12/08/16 08:41 ; Admin Dose 30 MG; Start 11/17/16 at 13:00 Eye Lubricant (Artificial Tears Oph) 2 drop QID BOTH EYES Last administered on 12/08/16 12:11; Admin Dose 2 DROP; Start 11/17/16 at 17:00 Pantoprazole (Protonix Tab) 40 mg DAILY@06 PO Last administered on 12/08/16 05 :23; Admin Dose 40 MG; Start 11/21/16 at 06:00 Miscellaneous Information 1 ea NOTE XX ; Start 11/21/16 at 15:30 Glucose (Glutose) 15 gm Q15M PRN PO DECREASED GLUCOSE; Start 11/21/16 at 15:30 Glucose (Glutose) 22.5 gm Q15M PRN PO DECREASED GLUCOSE; Start 11/21/16 at 15: 30 Dextrose (D50w Syringe) 25 ml Q15M PRN IV DECREASED GLUCOSE Last administered on 12/04/16 21:17; Admin Dose 25 ML; Start 11/21/16 at 15:30 Dextrose (D50w Syringe) 50 ml Q15M PRN IV DECREASED GLUCOSE; Start 11/21/16 at 15:30 Glucagon (Glucagen) 1 mg Q15M PRN IM DECREASED GLUCOSE; Start 11/21/16 at 15:30 Glucose (Glutose) 15 gm Q15M PRN BUCCAL DECREASED GLUCOSE; Start 11/21/16 at 15 :30 Diagnostic Test (Pha) (Accucheck) 1 ea 02 XX Last administered on 12/01/16 02: 26; Admin Dose 1 EA; Start 11/23/16 at 02:00 Collagenase (Santyl) 1 applic DAILY TOP Last administered on 12/08/16 08:42; Admin Dose 1 APPLIC; Start 11/23/16 at 12:30 Ascorbic Acid (Vitamin C) 500 mg BID GTB Last administered on 12/08/16 08:37; Admin Dose 500 MG; Start 11/23/16 at 21:00 Multivitamins Therapeutic (Theragran) 1 tab DAILY PO Last administered on 08:37; Admin Dose 1 TAB; Start 11/24/16 at 09:00 Linagliptin (Tradjenta) 5 mg DAILY PO Last administered on 12/08/16 08:37; Admin Dose 5 MG; Start 11/27/16 at 11:30 Insulin Glargine (Lantus) 10 unit DAILY@20 SC Last administered on 12/07/16 20 :20; Admin Dose 10 UNIT; Start 12/06/16 at 20:00 ROGE PAEZ MD Dec 08, 2016 13:59
--- NOTE | 2016-12-08 18:54 | PN ---
Date/Time of Note Date/Time of Note DATE: 12/08/16 TIME: 18:52 Assessment/Plan VTE Prophylaxis VTE Prophylaxis Intervention: SCD's Lines/Catheters IV [facility]ter Type (from [facility] Saline Lock Urinary Cath still in place: No Assessment/Plan Chief Complaint/Hosp Course ASSESSMENT AND PLAN - Severe diabetic ketoacidosis with coma, resolved. Dr. Andre is following in endocrinology consultation. - Diabetes mellitus type 2. Continue Lantus , pre-meal NovoLog and NovoLog per sliding scale. - Acute metabolic encephalopathy, resolved. - Severe sepsis 2 PNA, resolved. Dr. Callaway is following in infectious disease consultation. - Community-acquired pneumonia vs aspiration. - Acute respiratory failure, resolved. Dr Disla s following the patient in pulmonology consultation. - Altered level of consciousness on admission, resolved CT head is negative. - Sacrococcyx DTI present on admission, continue current wound care, vitamin C, multivitamins, offloading, Dr Corbett is following in surgical eval. - Amphetamine screen positive. - Homelessness, patient case coordinator and certified social workers in health care for discharge planning. Continue sequential compression device for deep venous thrombosis prophylaxis and Protonix for peptic ulcer disease prophylaxis. Further recommendations based on clinical course. Plan of care discussed with Dr. Ma. Problems: Subjective 24 Hr Interval Summary Free Text/Dictation Blood sugar is well controlled, patient remains hemodynamically stable. Exam/Review of Systems Vital Signs Vitals Vital Signs Date Time Temp Pulse Resp B/P Pulse Ox O2 Delivery O2 Flow Rate FiO2 12/08/16 10:54 21 12/08/16 07:25 98.5 92 20 140/94 98 Intake and Output 12/07/16 12/07/16 12/08/16 15:00 23:00 07:00 Intake Total 1500 ml 650 ml Output Total 1650 ml 800 ml Balance -150 ml -150 ml Exam PHYSICAL ASSESSMENT: GENERAL: Well-developed, well-nourished male, awake alert HEENT: Head is normocephalic, PERRLA. NECK: Supple, no cervical lymphadenopathy, no thyromegaly. LUNGS: Diminished at the bases. CARDIOVASCULAR: Normal S1, S2. No murmurs, gallops, clicks, rubs noted. ABDOMEN: Flat, soft, nondistended, nontender. Bowel sounds present. EXTREMITIES: There is no edema, clubbing, cyanosis. Pulses equal bilaterally 2 +. SKIN: There is no rash, petechiae noted. NEUROLOGIC: Awake alert Results Result Diagram: 12/06/16 1550 12/06/16 1550 Results 24 hrs Laboratory Tests Test 12/07/16 20:12 12/08/16 07:46 12/08/16 11:42 12/08/16 17:07 Bedside Glucose 101 145 127 71 Medications Medications Current Medications Ondansetron HCl (Zofran Inj) 4 mg Q6H PRN IV NAUSEA AND/OR VOMITING; Start 11/16 at 15:30 Acetaminophen (Tylenol Liquid) 650 mg Q6H PRN PO PAIN LEVEL 1-3 OR FEVER Last administered on 11/27/16 18:33; Admin Dose 650 MG; Start 11/16/16 at 15:30 Morphine Sulfate (morphine) 2 mg Q4H PRN IV PAIN LEVEL 7-10 Last administered on 12/08/16 14:08; Admin Dose 2 MG; Start 11/16/16 at 15:30 Enoxaparin Sodium (Lovenox) 30 mg DAILY SC Last administered on 12/08/16 08:41 ; Admin Dose 30 MG; Start 11/17/16 at 13:00 Eye Lubricant (Artificial Tears Oph) 2 drop QID BOTH EYES Last administered on 12/08/16 17:41; Admin Dose 2 DROP; Start 11/17/16 at 17:00 Pantoprazole (Protonix Tab) 40 mg DAILY@06 PO Last administered on 12/08/16 05 :23; Admin Dose 40 MG; Start 11/21/16 at 06:00 Miscellaneous Information 1 ea NOTE XX ; Start 11/21/16 at 15:30 Glucose (Glutose) 15 gm Q15M PRN PO DECREASED GLUCOSE; Start 11/21/16 at 15:30 Glucose (Glutose) 22.5 gm Q15M PRN PO DECREASED GLUCOSE; Start 11/21/16 at 15: 30 Dextrose (D50w Syringe) 25 ml Q15M PRN IV DECREASED GLUCOSE Last administered on 12/04/16 21:17; Admin Dose 25 ML; Start 11/21/16 at 15:30 Dextrose (D50w Syringe) 50 ml Q15M PRN IV DECREASED GLUCOSE; Start 11/21/16 at 15:30 Glucagon (Glucagen) 1 mg Q15M PRN IM DECREASED GLUCOSE; Start 11/21/16 at 15:30 Glucose (Glutose) 15 gm Q15M PRN BUCCAL DECREASED GLUCOSE; Start 11/21/16 at 15 :30 Diagnostic Test (Pha) (Accucheck) 1 ea 02 XX Last administered on 12/01/16 02: 26; Admin Dose 1 EA; Start 11/23/16 at 02:00 Collagenase (Santyl) 1 applic DAILY TOP Last administered on 12/08/16 08:42; Admin Dose 1 APPLIC; Start 11/23/16 at 12:30 Ascorbic Acid (Vitamin C) 500 mg BID GTB Last administered on 12/08/16 08:37; Admin Dose 500 MG; Start 11/23/16 at 21:00 Multivitamins Therapeutic (Theragran) 1 tab DAILY PO Last administered on 08:37; Admin Dose 1 TAB; Start 11/24/16 at 09:00 Linagliptin (Tradjenta) 5 mg DAILY PO Last administered on 12/08/16 08:37; Admin Dose 5 MG; Start 11/27/16 at 11:30 Insulin Glargine (Lantus) 10 unit DAILY@20 SC Last administered on 12/07/16 20 :20; Admin Dose 10 UNIT; Start 12/06/16 at 20:00 ALEA WHITAKER Dec 08, 2016 18:54
[2016-12-08 20:06] VITALS: BP 127/80; RESP 19
[2016-12-08] MEDS: INSULIN GLARGINE [LANtus] 3 ML PEN SC SCH (20:38)
[2016-12-09] MEDS: ACCU-CHEK XX SCH ×2 (02:00→21:24)
[2016-12-09] MEDS: morphine 2 MG INJ IV PRN ×4 (04:23→21:24)
[2016-12-09] MEDS: PANTOPRAZOLE (EC) 40 MG TAB PO SCH (06:21)
[2016-12-09] MEDS: COLLAGENASE 30 GM TUBE TOP SCH ×2 (06:24→08:34)
[2016-12-09 07:32] VITALS: BP 140/80; RESP 18
[2016-12-09] MEDS: metFORMIN (XR) 500 MG TAB PO SCH ×2 (08:28→17:35)
[2016-12-09] MEDS: MULTIVITAMINS THERAPEUTIC TAB PO SCH (08:28)
[2016-12-09] MEDS: ASCORBIC ACID 500 MG TAB GTB SCH ×2 (08:28→21:24)
[2016-12-09] MEDS: LINAGLIPTIN 5 MG TABLET PO SCH (08:28)
[2016-12-09] MEDS: ARTIFICIAL TEARS 15 ML OPH BOTH EYES SCH ×4 (08:29→21:24)
[2016-12-09] MEDS: INSULIN ASPART [NOVOLOG] 3 ML PEN SC SCH ×3 (08:31→17:37)
[2016-12-09] MEDS: ENOXAPARIN 30 MG/0.3 ML SYG SC SCH (08:32)
--- NOTE | 2016-12-09 13:16 | CONS ---
Date/Time of Note Date/Time of Note DATE: 12/09/16 TIME: 13:14 Assessment/Plan Assessment/Plan Problems: (1) Type II diabetes mellitus, uncontrolled Status: Chronic Comment: Excellent glycemic control. Will add reglan 5 mg qac to prevent nausea. Pt. advised he can ask RN for zofran prn Qualifiers: Diabetes mellitus complication status: with unspecified complications Diabetes mellitus intermediate frame tender insulin use: unspecified intermediate frame tender insulin use status Qualified Code: E11.8 - Uncontrolled type 2 diabetes mellitus with complication, unspecified care home insulin use status Consultation Date/Type/Reason Admit Date/Time Nov 17, 2016 at 11:30 Initial Consult Date 11/17/16 Type of Consultation: Endocrinology Reason for Consultation DKA Referring Provider: ALEA WHITAKER 24 HR Interval Summary Constitutional: improved, no complaints Detailed Summary Respiratory: no complaints Cardiovascular: no complaints Gastrointestinal: nausea, No vomiting Genitourinary: no complaints Musculoskeletal: no complaints Neurologic: no complaints Exam/Review of Systems Vital Signs Vitals VS - Last 72 Hours, by Label Date Time Temp Pulse Resp B/P Pulse Ox O2 Delivery O2 Flow Rate FiO2 12/09/16 07:32 99.0 85 18 140/80 99 12/08/16 20:06 98.7 98 19 127/80 100 12/08/16 10:54 21 12/08/16 07:25 98.5 92 20 140/94 98 12/07/16 08:10 97.8 100 20 133/82 100 12/06/16 20:19 98.5 105 18 128/84 98 Vital Signs Date Time Temp Pulse Resp B/P Pulse Ox O2 Delivery O2 Flow Rate FiO2 12/09/16 07:32 99.0 85 18 140/80 99 12/08/16 10:54 21 Intake and Output 12/08/16 12/08/16 12/09/16 15:00 23:00 07:00 Intake Total 1720 ml 640 ml Output Total 1200 ml 400 ml Balance 520 ml 240 ml Exam Constitutional: alert, oriented, well developed Psych: nl mood/affect, no complaints Respiratory: clear to auscultation, normal air movement Cardiovascular: nl pulses, regular rate and rhythm, No edema, No murmurs/extra sounds, No rub Gastrointestinal: bowel sounds, nl liver, spleen, non-tender, soft, No mass, No rebound or guarding Musculoskeletal: nl extremities to inspection Extremities: No clubbing, No cyanosis, No edema Neurological: REAL ESTATE UNDERWRITER II-XII intact, nl mental status, nl speech, nl strength Additional Comments Bedside Glucose - 72 Hours Test 12/06/16 17:01 12/06/16 20:14 12/07/16 02:47 12/07/16 08:11 Bedside Glucose 110mg/dL (70-220) 75mg/dL (70-220) 174mg/dL (70-220) 159mg/dL (70-220) Test 12/07/16 11:26 12/07/16 20:12 12/08/16 07:46 12/08/16 11:42 Bedside Glucose 98mg/dL (70-220) 101mg/dL (70-220) 145mg/dL (70-220) 127mg/dL (70-220) Test 12/08/16 17:07 12/08/16 19:39 12/09/16 07:47 12/09/16 12:10 Bedside Glucose 71mg/dL (70-220) 152mg/dL (70-220) 161mg/dL (70-220) 133mg/dL (70-220) Results Result Diagram: 12/06/16 1550 12/06/16 1550 Results 24 hrs Laboratory Tests Test 12/08/16 17:07 12/08/16 19:39 12/09/16 07:47 12/09/16 12:10 Bedside Glucose 71 152 161 133 Medications Medications Current Medications Ondansetron HCl (Zofran Inj) 4 mg Q6H PRN IV NAUSEA AND/OR VOMITING; Start 11/16 at 15:30 Acetaminophen (Tylenol Liquid) 650 mg Q6H PRN PO PAIN LEVEL 1-3 OR FEVER Last administered on 11/27/16 18:33; Admin Dose 650 MG; Start 11/16/16 at 15:30 Morphine Sulfate (morphine) 2 mg Q4H PRN IV PAIN LEVEL 7-10 Last administered on 12/09/16 09:15; Admin Dose 2 MG; Start 11/16/16 at 15:30 Enoxaparin Sodium (Lovenox) 30 mg DAILY SC Last administered on 12/09/16 08:32 ; Admin Dose 30 MG; Start 11/17/16 at 13:00 Eye Lubricant (Artificial Tears Oph) 2 drop QID BOTH EYES Last administered on 12/09/16 08:29; Admin Dose 2 DROP; Start 11/17/16 at 17:00 Pantoprazole (Protonix Tab) 40 mg DAILY@06 PO Last administered on 12/09/16 06 :21; Admin Dose 40 MG; Start 11/21/16 at 06:00 Miscellaneous Information 1 ea NOTE XX ; Start 11/21/16 at 15:30 Glucose (Glutose) 15 gm Q15M PRN PO DECREASED GLUCOSE; Start 11/21/16 at 15:30 Glucose (Glutose) 22.5 gm Q15M PRN PO DECREASED GLUCOSE; Start 11/21/16 at 15: 30 Dextrose (D50w Syringe) 25 ml Q15M PRN IV DECREASED GLUCOSE Last administered on 12/04/16 21:17; Admin Dose 25 ML; Start 11/21/16 at 15:30 Dextrose (D50w Syringe) 50 ml Q15M PRN IV DECREASED GLUCOSE; Start 11/21/16 at 15:30 Glucagon (Glucagen) 1 mg Q15M PRN IM DECREASED GLUCOSE; Start 11/21/16 at 15:30 Glucose (Glutose) 15 gm Q15M PRN BUCCAL DECREASED GLUCOSE; Start 11/21/16 at 15 :30 Diagnostic Test (Pha) (Accucheck) 1 ea 02 XX Last administered on 12/01/16 02: 26; Admin Dose 1 EA; Start 11/23/16 at 02:00 Collagenase (Santyl) 1 applic DAILY TOP Last administered on 12/09/16 08:34; Admin Dose 1 APPLIC; Start 11/23/16 at 12:30 Ascorbic Acid (Vitamin C) 500 mg BID GTB Last administered on 12/09/16 08:28; Admin Dose 500 MG; Start 11/23/16 at 21:00 Multivitamins Therapeutic (Theragran) 1 tab DAILY PO Last administered on 08:28; Admin Dose 1 TAB; Start 11/24/16 at 09:00 Linagliptin (Tradjenta) 5 mg DAILY PO Last administered on 12/09/16 08:28; Admin Dose 5 MG; Start 11/27/16 at 11:30 Insulin Glargine (Lantus) 10 unit DAILY@20 SC Last administered on 3/29/17at 20 :38; Admin Dose 10 UNIT; Start 12/06/16 at 20:00 ROGE PAEZ MD Dec 09, 2016 13:16
--- NOTE | 2016-12-09 14:24 | PN ---
Date/Time of Note Date/Time of Note DATE: 12/09/16 TIME: 14:22 Assessment/Plan VTE Prophylaxis VTE Prophylaxis Intervention: other Lines/Catheters IV [facility] Type [facility]from [facility] Saline Lock Urinary Cath still in place: No Assessment/Plan Assessment/Plan - Severe diabetic ketoacidosis with coma, resolved. Dr. Andre is following in endocrinology consultation. - Diabetes mellitus type 2. Continue Lantus , pre-meal NovoLog and NovoLog per sliding scale. - Acute metabolic encephalopathy, resolved. - Severe sepsis 2 PNA, resolved. Dr. Callaway is following in infectious disease consultation. - Community-acquired pneumonia vs aspiration. - Acute respiratory failure, resolved. Dr Disla s following the patient in pulmonology consultation. - Altered level of consciousness on admission, resolved CT head is negative. - Sacrococcyx DTI present on admission, continue current wound care, vitamin C, multivitamins, offloading, Dr Corbett is following in surgical eval. - Amphetamine screen positive. - Homelessness, vocational case manager and social problems specialist for discharge planning. Continue sequential compression device for deep venous thrombosis prophylaxis and Protonix for peptic ulcer disease prophylaxis. Further recommendations based on clinical course. Plan of care discussed with Dr. Ma. Subjective 24 Hr Interval Summary Eyes: no complaints ENT: no complaints Respiratory: no complaints Cardiovascular: no complaints Gastrointestinal: no complaints Genitourinary: no complaints Musculoskeletal: no complaints Skin: other (woung on his back) Neurologic: no complaints Endocrine: no complaints Lymphatic: no complaints Psychological: no complaints Exam/Review of Systems Vital Signs Vitals Vital Signs Date Time Temp Pulse Resp B/P Pulse Ox O2 Delivery O2 Flow Rate FiO2 12/09/16 07:32 99.0 85 18 140/80 99 12/08/16 10:54 21 Intake and Output 12/08/16 12/08/16 12/09/16 15:00 23:00 07:00 Intake Total 1720 ml 640 ml Output Total 1200 ml 400 ml Balance 520 ml 240 ml Exam Constitutional: alert, oriented, well developed Psych: nl mood/affect Head: atraumatic Eyes: EOMI ENMT: nl external ears & nose Neck: non-tender Respiratory: clear to auscultation Cardiovascular: nl pulses Gastrointestinal: non-tender, soft Musculoskeletal: nl extremities to inspection Extremities: normal pulses Neurological: nl mental status, nl speech Skin: other (sacral decub) Lymph: nontender Results Result Diagram: 12/06/16 1550 12/06/16 1550 Results 24 hrs Laboratory Tests Test 12/08/16 17:07 12/08/16 19:39 12/09/16 07:47 12/09/16 12:10 Bedside Glucose 71 152 161 133 Medications Medications Current Medications Ondansetron HCl (Zofran Inj) 4 mg Q6H PRN IV NAUSEA AND/OR VOMITING; Start 11/16 at 15:30 Acetaminophen (Tylenol Liquid) 650 mg Q6H PRN PO PAIN LEVEL 1-3 OR FEVER Last administered on 11/27/16 18:33; Admin Dose 650 MG; Start 11/16/16 at 15:30 Morphine Sulfate (morphine) 2 mg Q4H PRN IV PAIN LEVEL 7-10 Last administered on 12/09/16 14:10; Admin Dose 2 MG; Start 11/16/16 at 15:30 Enoxaparin Sodium (Lovenox) 30 mg DAILY SC Last administered on 12/09/16 08:32 ; Admin Dose 30 MG; Start 11/17/16 at 13:00 Eye Lubricant (Artificial Tears Oph) 2 drop QID BOTH EYES Last administered on 12/09/16 08:29; Admin Dose 2 DROP; Start 11/17/16 at 17:00 Pantoprazole (Protonix Tab) 40 mg DAILY@06 PO Last administered on 12/09/16 06 :21; Admin Dose 40 MG; Start 11/21/16 at 06:00 Miscellaneous Information 1 ea NOTE XX ; Start 11/21/16 at 15:30 Glucose (Glutose) 15 gm Q15M PRN PO DECREASED GLUCOSE; Start 11/21/16 at 15:30 Glucose (Glutose) 22.5 gm Q15M PRN PO DECREASED GLUCOSE; Start 11/21/16 at 15: 30 Dextrose (D50w Syringe) 25 ml Q15M PRN IV DECREASED GLUCOSE Last administered on 12/04/16 21:17; Admin Dose 25 ML; Start 11/21/16 at 15:30 Dextrose (D50w Syringe) 50 ml Q15M PRN IV DECREASED GLUCOSE; Start 11/21/16 at 15:30 Glucagon (Glucagen) 1 mg Q15M PRN IM DECREASED GLUCOSE; Start 11/21/16 at 15:30 Glucose (Glutose) 15 gm Q15M PRN BUCCAL DECREASED GLUCOSE; Start 11/21/16 at 15 :30 Diagnostic Test (Pha) (Accucheck) 1 ea 02 XX Last administered on 12/01/16 02: 26; Admin Dose 1 EA; Start 11/23/16 at 02:00 Collagenase (Santyl) 1 applic DAILY TOP Last administered on 12/09/16 08:34; Admin Dose 1 APPLIC; Start 11/23/16 at 12:30 Ascorbic Acid (Vitamin C) 500 mg BID GTB Last administered on 12/09/16 08:28; Admin Dose 500 MG; Start 11/23/16 at 21:00 Multivitamins Therapeutic (Theragran) 1 tab DAILY PO Last administered on 08:28; Admin Dose 1 TAB; Start 11/24/16 at 09:00 Linagliptin (Tradjenta) 5 mg DAILY PO Last administered on 12/09/16 08:28; Admin Dose 5 MG; Start 11/27/16 at 11:30 Insulin Glargine (Lantus) 10 unit DAILY@20 SC Last administered on 12/08/16 20 :38; Admin Dose 10 UNIT; Start 12/06/16 at 20:00 Metoclopramide HCl (Reglan) 5 mg TID PO ; Start 12/09/16 at 21:00 HANNAH DIAS Dec 09, 2016 14:24
--- NOTE | 2016-12-09 14:31 | PN ---
DATE: 12/09/2016 SUBJECTIVE: The patient is a 41-year-old male who was admitted with diabetic ketoacidosis. The pat ient was found lying down and unconscious at home. The patient was found on admission to have sever al pressure ulcers here and there including a large one over the sacrococcygeal area, which was unst ageable. Gradually, it became almost stageable. Decision was made to treat it with Santyl or debri arilela chemically. It has been going on with a little bit of success, but appears that patient need s to have the debridement. OBJECTIVE: VITAL SIGNS: Temperature 99, heart rate 85, respirations 18, blood pressure 140/80, saturation 99% on room air. SKIN: Focused physical examination in the sacrococcygeal area: The wound is partially chemically d ebrided, but functionally there is black slough and scab over the sacrococcygeal area with some gree soha slough. Appears it needs to be done surgically. PLAN: I tried to booked the patient, but there is no spot available for the operation tomorrow, [facility] is Tuesday, so I booked the patient for Tuesday afternoon around 5:00 for debridement of sacrococcy geal wound. Dictated By: SHILPI TRAVIS/CLAUDY Conf#: [id number] DID#: [id number]
[2016-12-09 19:49] VITALS: BP 132/77; RESP 19
[2016-12-09] MEDS: INSULIN GLARGINE [LANtus] 3 ML PEN SC SCH (21:23)
[2016-12-09] MEDS: METOCLOPRAMIDE 5 MG TAB PO SCH (21:24)
[2016-12-10] MEDS: morphine 2 MG INJ IV PRN ×5 (02:08→20:56)
[2016-12-10 05:11] LABS: ADD SCAN DIFF NO
[2016-12-10] MEDS: PANTOPRAZOLE (EC) 40 MG TAB PO SCH (05:11)
[2016-12-10 05:26] LABS: BASOPHIL # 0.1 10^3/ul (0.0-0.1); BASOPHILS % 0.8 % (0.0-2.0); EOSINOPHILS # 0.2 10^3/ul (0.0-0.5); EOSINOPHILS % 2.1 % (0.0-7.0); HEMATOCRIT 33.9 % (42.0-52.0); HEMOGLOBIN 11.9 g/dl (14.0-18.0); LYMPHOCYTES # 2.4 10^3/ul (0.8-2.9); LYMPHOCYTES % 30.9 % (15.0-51.0); MEAN CORPUSCULAR HEMOGLOBIN 29.5 pg (29.0-33.0); MEAN CORPUSCULAR HGB CONC 35.1 g/dl (32.0-37.0); MEAN CORPUSCULAR VOLUME 84.1 fl (82.0-101.0); MEAN PLATELET VOLUME 9.1 fl (7.4-10.4); MONOCYTE # 0.9 10^3/ul (0.3-0.9); MONOCYTES % 11.5 % (0.0-11.0); NEUTROPHIL # 4.2 10^3/ul (1.6-7.5); NEUTROPHILS % 54.3 % (39.0-77.0); PLATELET COUNT 422 10^3/UL (140-415); RED BLOOD COUNT 4.03 10^6/ul (4.70-6.10); RED CELL DISTRIBUTION WIDTH 13.4 % (11.5-14.5); WHITE BLOOD COUNT 7.8 10^3/ul (4.8-10.8)
[2016-12-10 05:31] LABS: POTASSIUM 3.2 mmol/L (3.5-5.1)
[2016-12-10 05:33] LABS: CREATININE 0.42 mg/dl (0.61-1.24)
[2016-12-10 05:34] LABS: CALCIUM 8.4 mg/dl (8.4-10.2)
[2016-12-10 07:38] VITALS: BP 132/93; RESP 20
[2016-12-10] MEDS: ARTIFICIAL TEARS 15 ML OPH BOTH EYES SCH ×4 (07:53→20:36)
[2016-12-10] MEDS: MULTIVITAMINS THERAPEUTIC TAB PO SCH (07:54)
[2016-12-10] MEDS: METOCLOPRAMIDE 5 MG TAB PO SCH ×3 (07:54→20:36)
[2016-12-10] MEDS: ASCORBIC ACID 500 MG TAB GTB SCH ×2 (07:54→20:36)
[2016-12-10] MEDS: metFORMIN (XR) 500 MG TAB PO SCH ×2 (07:54→17:21)
[2016-12-10] MEDS: LINAGLIPTIN 5 MG TABLET PO SCH (07:54)
[2016-12-10] MEDS: INSULIN ASPART [NOVOLOG] 3 ML PEN SC SCH ×5 (07:57→20:35)
[2016-12-10] MEDS: ENOXAPARIN 30 MG/0.3 ML SYG SC SCH (07:57)
[2016-12-10] MEDS: COLLAGENASE 30 GM TUBE TOP SCH (10:12)
--- NOTE | 2016-12-10 15:22 | PN ---
Date/Time of Note Date/Time of Note DATE: 12/10/16 TIME: 15:19 Assessment/Plan VTE Prophylaxis VTE Prophylaxis Intervention: SCD's Lines/Catheters [facility] Type (from [facility] Saline Lock Urinary Cath still in place: No Assessment/Plan Chief Complaint/Hosp Course ASSESSMENT AND PLAN - Severe diabetic ketoacidosis with coma, resolved. Dr. Andre is following in endocrinology consultation. - Diabetes mellitus type 2. Continue Lantus , pre-meal NovoLog and NovoLog per sliding scale. - Acute metabolic encephalopathy, resolved. - Severe sepsis 2 PNA, resolved. Dr. Callaway is following in infectious disease consultation. - Community-acquired pneumonia vs aspiration. - Acute respiratory failure, resolved. Dr Disla s following the patient in pulmonology consultation. - Altered level of consciousness on admission, resolved CT head is negative. - Sacrococcyx DTI present on admission, continue current wound care, vitamin C, multivitamins, offloading, Dr Corbett is following in surgical eval. Pending wound debridement on Tuesday. - Amphetamine screen positive. - Homelessness, medical case manager and psychosocial rehabilitation counselor for discharge planning. Continue sequential compression device for deep venous thrombosis prophylaxis and Protonix for peptic ulcer disease prophylaxis. Further recommendations based on clinical course. Plan of care discussed with Dr. Ma. Problems: Subjective 24 Hr Interval Summary Free Text/Dictation Patient's blood sugar is well controlled, no acute events, hemodynamically stable. Patient is spending coccygeal wound debridement on Tuesday. Exam/Review of Systems Vital Signs Vitals Vital Signs Date Time Temp Pulse Resp B/P Pulse Ox O2 Delivery O2 Flow Rate FiO2 12/10/16 07:38 98.1 72 20 132/93 97 12/08/16 10:54 21 Intake and Output 12/09/16 12/09/16 12/10/16 15:00 23:00 07:00 Intake Total 1800 ml 1800 ml Output Total 2400 ml 5 ml Balance -600 ml 1795 ml Exam PHYSICAL ASSESSMENT: GENERAL: Well-developed, well-nourished male, awake alert HEENT: Head is normocephalic, PERRLA. NECK: Supple, no cervical lymphadenopathy, no thyromegaly. LUNGS: Diminished at the bases. CARDIOVASCULAR: Normal S1, S2. No murmurs, gallops, clicks, rubs noted. ABDOMEN: Flat, soft, nondistended, nontender. Bowel sounds present. EXTREMITIES: There is no edema, clubbing, cyanosis. Pulses equal bilaterally 2 +. SKIN: There is no rash, petechiae noted. NEUROLOGIC: Awake alert Results Result Diagram: 12/10/165 12/10/165 Results 24 hrs Laboratory Tests Test 12/09/16 17:14 12/09/16 21:22 12/10/16 04:15 12/10/16 07:42 Bedside Glucose 86 134 202 White Blood Count 7.8 Red Blood Count 4.03 L Hemoglobin 11.9 L Hematocrit 33.9 L Mean Corpuscular Volume 84.1 Mean Corpuscular Hemoglobin 29.5 Mean Corpuscular Hemoglobin Concent 35.1 Red Cell Distribution Width 13.4 Platelet Count 422 H Mean Platelet Volume 9.1 Neutrophils % 54.3 Lymphocytes % 30.9 Monocytes % 11.5 H Eosinophils % 2.1 Basophils % 0.8 Nucleated Red Blood Cells % 0.0 Neutrophils # 4.2 Lymphocytes # 2.4 Monocytes # 0.9 Eosinophils # 0.2 Basophils # 0.1 Nucleated Red Blood Cells # 0.0 Sodium Level 130 L Potassium Level 3.2 L Chloride Level 96 L Carbon Dioxide Level 26 Anion Gap 11 Blood Urea Nitrogen 12 Creatinine 0.42 L Glucose Level 241 H Calcium Level 8.4 Test 12/10/16 11:47 Bedside Glucose 220 Medications Medications Current Medications Ondansetron HCl (Zofran Inj) 4 mg Q6H PRN IV NAUSEA AND/OR VOMITING; Start 11/16 at 15:30 Acetaminophen (Tylenol Liquid) 650 mg Q6H PRN PO PAIN LEVEL 1-3 OR FEVER Last administered on 11/27/16 18:33; Admin Dose 650 MG; Start 11/16/16 at 15:30 Morphine Sulfate (morphine) 2 mg Q4H PRN IV PAIN LEVEL 7-10 Last administered on 12/10/16 11:57; Admin Dose 2 MG; Start 11/16/16 at 15:30 Enoxaparin Sodium (Lovenox) 30 mg DAILY SC Last administered on 12/10/16 07:57 ; Admin Dose 30 MG; Start 11/17/16 at 13:00 Eye Lubricant (Artificial Tears Oph) 2 drop QID BOTH EYES Last administered on 12/10/16 14:00; Admin Dose 2 DROP; Start 11/17/16 at 17:00 Pantoprazole (Protonix Tab) 40 mg DAILY@06 PO Last administered on 12/10/16 05 :11; Admin Dose 40 MG; Start 11/21/16 at 06:00 Miscellaneous Information 1 ea NOTE XX ; Start 11/21/16 at 15:30 Glucose (Glutose) 15 gm Q15M PRN PO DECREASED GLUCOSE; Start 11/21/16 at 15:30 Glucose (Glutose) 22.5 gm Q15M PRN PO DECREASED GLUCOSE; Start 11/21/16 at 15: 30 Dextrose (D50w Syringe) 25 ml Q15M PRN IV DECREASED GLUCOSE Last administered on 12/04/16 21:17; Admin Dose 25 ML; Start 11/21/16 at 15:30 Dextrose (D50w Syringe) 50 ml Q15M PRN IV DECREASED GLUCOSE; Start 11/21/16 at 15:30 Glucagon (Glucagen) 1 mg Q15M PRN IM DECREASED GLUCOSE; Start 11/21/16 at 15:30 Glucose (Glutose) 15 gm Q15M PRN BUCCAL DECREASED GLUCOSE; Start 11/21/16 at 15 :30 Diagnostic Test (Pha) (Accucheck) 1 ea 02 XX Last administered on 12/01/16 02: 26; Admin Dose 1 EA; Start 11/23/16 at 02:00 Collagenase (Santyl) 1 applic DAILY TOP Last administered on 12/10/16 10:12; Admin Dose 1 APPLIC; Start 11/23/16 at 12:30 Ascorbic Acid (Vitamin C) 500 mg BID GTB Last administered on 12/10/16 07:54; Admin Dose 500 MG; Start 11/23/16 at 21:00 Multivitamins Therapeutic (Theragran) 1 tab DAILY PO Last administered on 07:54; Admin Dose 1 TAB; Start 11/24/16 at 09:00 Linagliptin (Tradjenta) 5 mg DAILY PO Last administered on 12/10/16 07:54; Admin Dose 5 MG; Start 11/27/16 at 11:30 Metoclopramide HCl (Reglan) 5 mg TID PO Last administered on 12/10/16 14:00; Admin Dose 5 MG; Start 12/09/16 at 21:00 Insulin Glargine (Lantus) 16 unit DAILY@20 SC ; Start 12/10/16 at 20:00 ALEA WHITAKER Dec 10, 2016 15:22
[2016-12-10] MEDS ORDERED: POTASSIUM CHLORIDE 20 MEQ POWDER FOR ORAL SOLN PO ONE (15:30)
--- NOTE | 2016-12-10 20:10 | CONS ---
Date/Time of Note Date/Time of Note DATE: 12/10/16 TIME: 20:06 Assessment/Plan Assessment/Plan Problems: (1) Type II diabetes mellitus, uncontrolled Status: Chronic Comment: For last several days primary team has been giving lower dosage of basal insulin at night, 10 units. I was under the impression that pt. was receiving 20 units. ISS was also on hold. Today BG OOC. Will increase lantus back up to 16 units qhs and resume ISS correction and reeval tomorrow. Qualifiers: Diabetes mellitus complication status: with unspecified complications Diabetes mellitus terminal gauger insulin use: unspecified detention insulin use status Qualified Code: E11.8 - Uncontrolled type 2 diabetes mellitus with complication, unspecified terminal gauger insulin use status Consultation Date/Type/Reason Admit Date/Time Nov 17, 2016 at 11:30 Initial Consult Date 11/17/16 Type of Consultation: Endocrinology Reason for Consultation DKA Referring Provider: ALEA WHITAKER 24 HR Interval Summary Constitutional: improved, no complaints Detailed Summary Respiratory: no complaints Cardiovascular: no complaints Gastrointestinal: no complaints Genitourinary: no complaints Musculoskeletal: no complaints Neurologic: no complaints Exam/Review of Systems Vital Signs Vitals VS - Last 72 Hours, by Label Date Time Temp Pulse Resp B/P Pulse Ox O2 Delivery O2 Flow Rate FiO2 12/10/16 16:23 95 18 100 21 12/10/16 07:38 98.1 72 20 132/93 97 12/09/16 19:49 98.2 95 19 132/77 98 12/09/16 07:32 99.0 85 18 140/80 99 12/08/16 20:06 98.7 98 19 127/80 100 12/08/16 10:54 21 12/08/16 07:25 98.5 92 20 140/94 98 Vital Signs Date Time Temp Pulse Resp B/P Pulse Ox O2 Delivery O2 Flow Rate FiO2 12/10/16 16:23 95 18 100 21 12/10/16 07:38 98.1 132/93 Intake and Output 12/09/16 12/09/16 12/10/16 15:00 23:00 07:00 Intake Total 1800 ml 1800 ml Output Total 2400 ml 5 ml Balance -600 ml 1795 ml Exam Constitutional: alert, oriented, well developed Respiratory: clear to auscultation, normal air movement Cardiovascular: nl pulses, regular rate and rhythm, No edema, No murmurs/extra sounds, No rub Gastrointestinal: bowel sounds, nl liver, spleen, non-tender, soft, No mass, No rebound or guarding Musculoskeletal: nl extremities to inspection Extremities: normal pulses, No clubbing, No cyanosis, No edema Neurological: TAR BOILER II-XII intact, nl mental status, nl speech, nl strength Additional Comments Bedside Glucose - 72 Hours Test 12/07/16 20:12 12/08/16 07:46 12/08/16 11:42 12/08/16 17:07 Bedside Glucose 101mg/dL (70-220) 145mg/dL (70-220) 127mg/dL (70-220) 71mg/dL (70-220) Test 12/08/16 19:39 12/09/16 07:47 12/09/16 12:10 12/09/16 17:14 Bedside Glucose 152mg/dL (70-220) 161mg/dL (70-220) 133mg/dL (70-220) 86mg/dL (70-220) Test 12/09/16 21:22 12/10/16 07:42 12/10/16 11:47 12/10/16 16:42 Bedside Glucose 134mg/dL (70-220) 202mg/dL (70-220) 220mg/dL (70-220) 244mg/dL (70-220) H Results Result Diagram: 12/10/16 0415 12/10/16 0415 Results 24 hrs Laboratory Tests Test 12/09/16 21:22 12/10/16 04:15 12/10/16 07:42 12/10/16 11:47 Bedside Glucose 134 202 220 White Blood Count 7.8 Red Blood Count 4.03 L Hemoglobin 11.9 L Hematocrit 33.9 L Mean Corpuscular Volume 84.1 Mean Corpuscular Hemoglobin 29.5 Mean Corpuscular Hemoglobin Concent 35.1 Red Cell Distribution Width 13.4 Platelet Count 422 H Mean Platelet Volume 9.1 Neutrophils % 54.3 Lymphocytes % 30.9 Monocytes % 11.5 H Eosinophils % 2.1 Basophils % 0.8 Nucleated Red Blood Cells % 0.0 Neutrophils # 4.2 Lymphocytes # 2.4 Monocytes # 0.9 Eosinophils # 0.2 Basophils # 0.1 Nucleated Red Blood Cells # 0.0 Sodium Level 130 L Potassium Level 3.2 L Chloride Level 96 L Carbon Dioxide Level 26 Anion Gap 11 Blood Urea Nitrogen 12 Creatinine 0.42 L Glucose Level 241 H Calcium Level 8.4 Test 12/10/16 16:42 Bedside Glucose 244 H Medications Medications Current Medications Ondansetron HCl (Zofran Inj) 4 mg Q6H PRN IV NAUSEA AND/OR VOMITING; Start 11/16 at 15:30 Acetaminophen (Tylenol Liquid) 650 mg Q6H PRN PO PAIN LEVEL 1-3 OR FEVER Last administered on 11/27/16 18:33; Admin Dose 650 MG; Start 11/16/16 at 15:30 Morphine Sulfate (morphine) 2 mg Q4H PRN IV PAIN LEVEL 7-10 Last administered on 12/10/16 16:57; Admin Dose 2 MG; Start 11/16/16 at 15:30 Enoxaparin Sodium (Lovenox) 30 mg DAILY SC Last administered on 12/10/16 07:57 ; Admin Dose 30 MG; Start 11/17/16 at 13:00 Eye Lubricant (Artificial Tears Oph) 2 drop QID BOTH EYES Last administered on 12/10/16 17:00; Admin Dose 2 DROP; Start 11/17/16 at 17:00 Pantoprazole (Protonix Tab) 40 mg DAILY@06 PO Last administered on 12/10/16 05 :11; Admin Dose 40 MG; Start 11/21/16 at 06:00 Miscellaneous Information 1 ea NOTE XX ; Start 11/21/16 at 15:30 Glucose (Glutose) 15 gm Q15M PRN PO DECREASED GLUCOSE; Start 11/21/16 at 15:30 Glucose (Glutose) 22.5 gm Q15M PRN PO DECREASED GLUCOSE; Start 11/21/16 at 15: 30 Dextrose (D50w Syringe) 25 ml Q15M PRN IV DECREASED GLUCOSE Last administered on 12/04/16 21:17; Admin Dose 25 ML; Start 11/21/16 at 15:30 Dextrose (D50w Syringe) 50 ml Q15M PRN IV DECREASED GLUCOSE; Start 11/21/16 at 15:30 Glucagon (Glucagen) 1 mg Q15M PRN IM DECREASED GLUCOSE; Start 11/21/16 at 15:30 Glucose (Glutose) 15 gm Q15M PRN BUCCAL DECREASED GLUCOSE; Start 11/21/16 at 15 :30 Diagnostic Test (Pha) (Accucheck) 1 ea 02 XX Last administered on 12/01/16 02: 26; Admin Dose 1 EA; Start 11/23/16 at 02:00 Collagenase (Santyl) 1 applic DAILY TOP Last administered on 12/10/16 10:12; Admin Dose 1 APPLIC; Start 11/23/16 at 12:30 Ascorbic Acid (Vitamin C) 500 mg BID GTB Last administered on 12/10/16 07:54; Admin Dose 500 MG; Start 11/23/16 at 21:00 Multivitamins Therapeutic (Theragran) 1 tab DAILY PO Last administered on 07:54; Admin Dose 1 TAB; Start 11/24/16 at 09:00 Linagliptin (Tradjenta) 5 mg DAILY PO Last administered on 12/10/16 07:54; Admin Dose 5 MG; Start 11/27/16 at 11:30 Metoclopramide HCl (Reglan) 5 mg TID PO Last administered on 12/10/16 14:00; Admin Dose 5 MG; Start 12/09/16 at 21:00 Insulin Glargine (Lantus) 16 unit DAILY@20 SC ; Start 12/10/16 at 20:00 ROGE PAEZ MD Dec 10, 2016 20:10
[2016-12-10] MEDS: INSULIN GLARGINE [LANtus] 3 ML PEN SC SCH (20:34)
[2016-12-10 21:18] VITALS: BP 136/85; RESP 19
[2016-12-11] MEDS: ACCU-CHEK XX SCH (02:00)
[2016-12-11] MEDS: morphine 2 MG INJ IV PRN ×5 (02:03→20:45)
[2016-12-11 06:25] LABS: POTASSIUM 4.4 mmol/L (3.5-5.1)
[2016-12-11 06:27] LABS: CREATININE 0.5 mg/dl (0.61-1.24)
[2016-12-11 06:28] LABS: CALCIUM 8.9 mg/dl (8.4-10.2)
[2016-12-11] MEDS: PANTOPRAZOLE (EC) 40 MG TAB PO SCH (06:30)
[2016-12-11] MEDS: INSULIN ASPART [NOVOLOG] 3 ML PEN SC SCH ×7 (07:34→21:00)
[2016-12-11 08:03] VITALS: BP 133/86; RESP 16
[2016-12-11] MEDS: ARTIFICIAL TEARS 15 ML OPH BOTH EYES SCH ×4 (08:59→20:44)
[2016-12-11] MEDS: METOCLOPRAMIDE 5 MG TAB PO SCH ×3 (08:59→20:45)
[2016-12-11] MEDS: ASCORBIC ACID 500 MG TAB GTB SCH ×2 (08:59→20:45)
[2016-12-11] MEDS: metFORMIN (XR) 500 MG TAB PO SCH ×2 (08:59→17:32)
[2016-12-11] MEDS: LINAGLIPTIN 5 MG TABLET PO SCH (08:59)
[2016-12-11] MEDS: MULTIVITAMINS THERAPEUTIC TAB PO SCH (09:02)
[2016-12-11] MEDS: ENOXAPARIN 30 MG/0.3 ML SYG SC SCH (09:03)
[2016-12-11] MEDS: COLLAGENASE 30 GM TUBE TOP SCH (09:04)
--- NOTE | 2016-12-11 11:17 | RADRPT ---
Vent Rate: 87 bpm RR Interval: 0 msec PA Interval: 152 msec QRS Duration: 84 msec QT Interval: 378 msec QTC Interval: 454 msec P-R-T [place]: 56 - 49 - 50 degrees Normal sinus rhythm Normal ECG Electronically Signed By: Leo Mitchell [id number]
--- NOTE | 2016-12-11 12:37 | CONS ---
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 They are on sensitizing drug therapy using metformin and linagliptin. In addition he is on insulin. I will adjust the mealtime insulins to get control without postprandial hypoglycemia Qualifiers: Diabetes mellitus complication status: with unspecified complications Diabetes mellitus nursing home insulin use: unspecified nursing home insulin use status Qualified Code: E11.8 - Uncontrolled type 2 diabetes mellitus with complication, unspecified supervisor intermediates insulin use status Consultation Date/Type/Reason Admit Date/Time Nov 17, 2016 at 11:30 Initial Consult Date 11/17/16 Type of Consultation: Endocrinology Referring Provider: ALEA WHITAKER 24 HR Interval Summary Constitutional: no complaints Exam/Review of Systems Vital Signs Vitals Vital Signs Date Time Temp Pulse Resp B/P Pulse Ox O2 Delivery O2 Flow Rate FiO2 12/11/16 08:03 98.3 86 16 133/86 95 12/10/16 16:23 21 Intake and Output 12/10/16 12/10/16 12/11/16 15:00 23:00 07:00 Intake Total 2720 ml 1420 ml Output Total 400 ml Balance 2720 ml 1020 ml Exam Constitutional: alert, oriented Respiratory: clear to auscultation, normal air movement Results Result Diagram: 12/10/16 0415 12/11/16 0452 Results 24 hrs Laboratory Tests Test 12/10/16 16:42 12/10/16 20:31 12/11/16 02:16 12/11/16 04:52 Bedside Glucose 244 H 225 H 132 Sodium Level 134 L Potassium Level 4.4 Chloride Level 96 L Carbon Dioxide Level 30 Anion Gap 12 Blood Urea Nitrogen 8 Creatinine 0.50 L Glucose Level 138 # Calcium Level 8.9 Test 12/11/16 07:33 12/11/16 12:16 Bedside Glucose 131 66 L Medications Medications Current Medications Ondansetron HCl (Zofran Inj) 4 mg Q6H PRN IV NAUSEA AND/OR VOMITING; Start 11/16 at 15:30 Acetaminophen (Tylenol Liquid) 650 mg Q6H PRN PO PAIN LEVEL 1-3 OR FEVER Last administered on 11/27/16 18:33; Admin Dose 650 MG; Start 11/16/16 at 15:30 Morphine Sulfate (morphine) 2 mg Q4H PRN IV PAIN LEVEL 7-10 Last administered on 12/11/16 10:32; Admin Dose 2 MG; Start 11/16/16 at 15:30 Enoxaparin Sodium (Lovenox) 30 mg DAILY SC Last administered on 12/11/16 09:03 ; Admin Dose 30 MG; Start 11/17/16 at 13:00 Eye Lubricant (Artificial Tears Oph) 2 drop QID BOTH EYES Last administered on 12/11/16 08:59; Admin Dose 2 DROP; Start 11/17/16 at 17:00 Pantoprazole (Protonix Tab) 40 mg DAILY@06 PO Last administered on 12/11/16 06: 30; Admin Dose 40 MG; Start 11/21/16 at 06:00 Miscellaneous Information 1 ea NOTE XX ; Start 11/21/16 at 15:30 Glucose (Glutose) 15 gm Q15M PRN PO DECREASED GLUCOSE; Start 11/21/16 at 15:30 Glucose (Glutose) 22.5 gm Q15M PRN PO DECREASED GLUCOSE; Start 11/21/16 at 15: 30 Dextrose (D50w Syringe) 25 ml Q15M PRN IV DECREASED GLUCOSE Last administered on 12/04/16 21:17; Admin Dose 25 ML; Start 11/21/16 at 15:30 Dextrose (D50w Syringe) 50 ml Q15M PRN IV DECREASED GLUCOSE; Start 11/21/16 at 15:30 Glucagon (Glucagen) 1 mg Q15M PRN IM DECREASED GLUCOSE; Start 11/21/16 at 15:30 Glucose (Glutose) 15 gm Q15M PRN BUCCAL DECREASED GLUCOSE; Start 11/21/16 at 15 :30 Diagnostic Test (Pha) (Accucheck) 1 ea 02 XX Last administered on 12/01/16 02: 26; Admin Dose 1 EA; Start 11/23/16 at 02:00 Collagenase (Santyl) 1 applic DAILY TOP Last administered on 12/11/16 09:04; Admin Dose 1 APPLIC; Start 11/23/16 at 12:30 Ascorbic Acid (Vitamin C) 500 mg BID GTB Last administered on 12/11/16 08:59; Admin Dose 500 MG; Start 11/23/16 at 21:00 Multivitamins Therapeutic (Theragran) 1 tab DAILY PO Last administered on 09:02; Admin Dose 1 TAB; Start 11/24/16 at 09:00 Linagliptin (Tradjenta) 5 mg DAILY PO Last administered on 12/11/16 08:59; Admin Dose 5 MG; Start 11/27/16 at 11:30 Metoclopramide HCl (Reglan) 5 mg TID PO Last administered on 12/11/16 08:59; Admin Dose 5 MG; Start 12/09/16 at 21:00 Insulin Glargine (Lantus) 16 unit DAILY@20 SC Last administered on 12/10/16 20 :34; Admin Dose 16 UNIT; Start 12/10/16 at 20:00 YASMIN LAMB MD Dec 11, 2016 12:37
--- NOTE | 2016-12-11 13:37 | PN ---
Date/Time of Note Date/Time of Note DATE: 12/11/16 TIME: 13:37 Assessment/Plan VTE Prophylaxis VTE Prophylaxis Intervention: other Lines/Catheters [facility] Type [facility]from [facility] Sal[facility] Urinary Cath still in place: No Assessment/Plan Chief Complaint/Hosp Course - Severe diabetic ketoacidosis with coma, resolved. Dr. Andre is following in endocrinology consultation. - Diabetes mellitus type 2. Continue Lantus , pre-meal NovoLog and NovoLog per sliding scale. - Acute metabolic encephalopathy, resolved. - Severe sepsis 2 PNA, resolved. Dr. Callaway is following in infectious disease consultation. Continue Levaquin. - Community-acquired pneumonia vs aspiration. - Acute respiratory failure, resolved. Dr Disla s following the patient in pulmonology consultation. - Altered level of consciousness. CT head is negative. - Sacrococcyx DTI present on admission, continue current wound care, vitamin C, multivitamins, offloading - Amphetamine screen positive. - Homelessness, director of casework and social insurance adviser for discharge planning. Problems: Subjective 24 Hr Interval Summary Free Text/Dictation Patient complain of back pain Exam/Review of Systems Vital Signs Vitals Vital Signs Date Time Temp Pulse Resp B/P Pulse Ox O2 Delivery O2 Flow Rate FiO2 12/11/16 08:03 98.3 86 16 133/86 95 12/10/16 16:23 21 Intake and Output 12/10/16 12/10/16 12/11/16 15:00 23:00 07:00 Intake Total 2720 ml 1420 ml Output Total 400 ml Balance 2720 ml 1020 ml Exam Constitutional: well developed Head: atraumatic, normocephalic Neck: supple Respiratory: clear to auscultation Cardiovascular: regular rate and rhythm Gastrointestinal: non-tender, soft Extremities: normal pulses Results Result Diagram: 12/10/16 0415 12/11/16 0452 Results 24 hrs Laboratory Tests Test 12/10/16 16:42 12/10/16 20:31 12/11/16 02:16 12/11/16 04:52 Bedside Glucose 244 H 225 H 132 Sodium Level 134 L Potassium Level 4.4 Chloride Level 96 L Carbon Dioxide Level 30 Anion Gap 12 Blood Urea Nitrogen 8 Creatinine 0.50 L Glucose Level 138 # Calcium Level 8.9 Test 12/11/16 07:33 12/11/16 12:16 12/11/16 12:42 Bedside Glucose 131 66 L 131 Medications Medications Current Medications Ondansetron HCl (Zofran Inj) 4 mg Q6H PRN IV NAUSEA AND/OR VOMITING; Start 11/16 at 15:30 Acetaminophen (Tylenol Liquid) 650 mg Q6H PRN PO PAIN LEVEL 1-3 OR FEVER Last administered on 11/27/16 18:33; Admin Dose 650 MG; Start 11/16/16 at 15:30 Morphine Sulfate (morphine) 2 mg Q4H PRN IV PAIN LEVEL 7-10 Last administered on 12/11/16 10:32; Admin Dose 2 MG; Start 11/16/16 at 15:30 Enoxaparin Sodium (Lovenox) 30 mg DAILY SC Last administered on 12/11/16 09:03 ; Admin Dose 30 MG; Start 11/17/16 at 13:00 Eye Lubricant (Artificial Tears Oph) 2 drop QID BOTH EYES Last administered on 12/11/16 12:40; Admin Dose 2 DROP; Start 11/17/16 at 17:00 Pantoprazole (Protonix Tab) 40 mg DAILY@06 PO Last administered on 12/11/16 06: 30; Admin Dose 40 MG; Start 11/21/16 at 06:00 Miscellaneous Information 1 ea NOTE XX ; Start 11/21/16 at 15:30 Glucose (Glutose) 15 gm Q15M PRN PO DECREASED GLUCOSE; Start 11/21/16 at 15:30 Glucose (Glutose) 22.5 gm Q15M PRN PO DECREASED GLUCOSE; Start 11/21/16 at 15: 30 Dextrose (D50w Syringe) 25 ml Q15M PRN IV DECREASED GLUCOSE Last administered on 12/04/16 21:17; Admin Dose 25 ML; Start 11/21/16 at 15:30 Dextrose (D50w Syringe) 50 ml Q15M PRN IV DECREASED GLUCOSE; Start 11/21/16 at 15:30 Glucagon (Glucagen) 1 mg Q15M PRN IM DECREASED GLUCOSE; Start 11/21/16 at 15:30 Glucose (Glutose) 15 gm Q15M PRN BUCCAL DECREASED GLUCOSE; Start 11/21/16 at 15 :30 Diagnostic Test (Pha) (Accucheck) 1 ea 02 XX Last administered on 12/01/16 02: 26; Admin Dose 1 EA; Start 11/23/16 at 02:00 Collagenase (Santyl) 1 applic DAILY TOP Last administered on 12/11/16 09:04; Admin Dose 1 APPLIC; Start 11/23/16 at 12:30 Ascorbic Acid (Vitamin C) 500 mg BID GTB Last administered on 12/11/16 08:59; Admin Dose 500 MG; Start 11/23/16 at 21:00 Multivitamins Therapeutic (Theragran) 1 tab DAILY PO Last administered on 09:02; Admin Dose 1 TAB; Start 11/24/16 at 09:00 Linagliptin (Tradjenta) 5 mg DAILY PO Last administered on 12/11/16 08:59; Admin Dose 5 MG; Start 11/27/16 at 11:30 Metoclopramide HCl (Reglan) 5 mg TID PO Last administered on 12/11/16 12:40; Admin Dose 5 MG; Start 12/09/16 at 21:00 Insulin Glargine (Lantus) 16 unit DAILY@20 SC Last administered on 12/10/16 20 :34; Admin Dose 16 UNIT; Start 12/10/16 at 20:00 KAYLEE BARBA Dec 11, 2016 13:37
--- NOTE | 2016-12-11 15:28 | PN ---
DATE: 12/11/2016 SUBJECTIVE: The patient does not have any new complaints. The patient has been admitted because of diabetic ketoacidosis and he was found flat lying down on the floor in his house by one of the [facility]oe boy[facility]. They brought him here, he was in ketoacidosis, and also he was found to have several abrasions and wounds here and there, especially in the sacrococcygeal area which was unstageable and still is an unstageable wound. OBJECTIVE: VITAL SIGNS: Today, temperature 98.3, heart rate 86, respirations 16, blood pressure 133/86, satura tion 95% on room air. LABORATORY DATA: Today, blood sugar is 131, sodium 134, potassium 4.4, BUN 8, creatinine 0.50. Hem atology: WBC is 7800 with 54% neutrophils, hemoglobin 11.9, hematocrit 33.9. Coagulation: We have only 1 coagulation done on 11/16/2016, which is normal but they are going to repeat it. ASSESSMENT AND PLAN: The patient with a large sacrococcygeal pressure ulcer, which at first when he was admitted, was a deep tissue injury and then converted to an unstageable and now they have been using Santyl and this wound which has responded to some extent, but still there is a lot to be done. So, I recommended surgical debridement. This is going to be done on Tuesday12/13/2016 in the [facility]. I have discussed with the patient and the patient has agreed with the procedure. Meanwhile, we will continue application of Santyl on the wound. Dictated By: SHILPI TRAVIS/CLAUDY Conf#: [id number] DID#: [id number]
[2016-12-11] MEDS: INSULIN GLARGINE [LANtus] 3 ML PEN SC SCH (20:52)
[2016-12-12] MEDS: morphine 2 MG INJ IV PRN ×5 (00:56→21:23)
[2016-12-12] MEDS: ACCU-CHEK XX SCH ×2 (02:00→20:12)
[2016-12-12] MEDS: PANTOPRAZOLE (EC) 40 MG TAB PO SCH (06:44)
[2016-12-12 07:46] VITALS: BP 140/93; RESP 18
[2016-12-12] MEDS: INSULIN ASPART [NOVOLOG] 3 ML PEN SC SCH ×7 (08:00→20:12)
[2016-12-12 08:33] LABS: ADD SCAN DIFF NO
[2016-12-12 08:36] LABS: BASOPHIL # 0.1 10^3/ul (0.0-0.1); BASOPHILS % 0.7 % (0.0-2.0); EOSINOPHILS # 0.2 10^3/ul (0.0-0.5); EOSINOPHILS % 1.6 % (0.0-7.0); HEMATOCRIT 36.9 % (42.0-52.0); HEMOGLOBIN 12.9 g/dl (14.0-18.0); LYMPHOCYTES # 2.6 10^3/ul (0.8-2.9); LYMPHOCYTES % 26.8 % (15.0-51.0); MEAN CORPUSCULAR HEMOGLOBIN 29.7 pg (29.0-33.0); MEAN CORPUSCULAR VOLUME 84.8 fl (82.0-101.0); MEAN PLATELET VOLUME 8.9 fl (7.4-10.4); MONOCYTE # 0.9 10^3/ul (0.3-0.9); MONOCYTES % 9.4 % (0.0-11.0); NEUTROPHILS % 61.2 % (39.0-77.0); PLATELET COUNT 455 10^3/UL (140-415); RED BLOOD COUNT 4.35 10^6/ul (4.70-6.10); RED CELL DISTRIBUTION WIDTH 13.7 % (11.5-14.5); WHITE BLOOD COUNT 9.8 10^3/ul (4.8-10.8)
[2016-12-12 08:55] LABS: INR 0.92; PROTIME 12.4 Sec (12.2-14.2)
[2016-12-12 08:56] LABS: PARTIAL THROMBOPLASTIN TIME 26.8 Sec (25.0-35.0)
[2016-12-12] MEDS: ARTIFICIAL TEARS 15 ML OPH BOTH EYES SCH ×4 (09:33→21:03)
[2016-12-12] MEDS: ENOXAPARIN 30 MG/0.3 ML SYG SC SCH (09:34)
[2016-12-12] MEDS: metFORMIN (XR) 500 MG TAB PO SCH ×2 (09:35→17:19)
[2016-12-12] MEDS: ASCORBIC ACID 500 MG TAB GTB SCH ×2 (09:35→21:03)
[2016-12-12] MEDS: METOCLOPRAMIDE 5 MG TAB PO SCH ×3 (09:35→21:03)
[2016-12-12] MEDS: COLLAGENASE 30 GM TUBE TOP SCH (09:35)
[2016-12-12] MEDS: LINAGLIPTIN 5 MG TABLET PO SCH (09:35)
[2016-12-12] MEDS: MULTIVITAMINS THERAPEUTIC TAB PO SCH (09:35)
--- NOTE | 2016-12-12 12:34 | CONS ---
Date/Time of Note Date/Time of Note DATE: 12/12/16 TIME: 12:31 Assessment/Plan Assessment/Plan Problems: (1) Decubitus ulcer of sacral area Status: Chronic Comment: Will be taken to the OR tomorrow by the surgeon to help clean the sling up Qualifiers: Pressure ulcer stage: unspecified pressure ulcer stage Qualified Code: L89.159 - Decubitus ulcer of sacral region, unspecified ulcer stage (2) Type II diabetes mellitus, uncontrolled Status: Chronic Comment: His sugar control is now more than acceptable on the current regimen. Please note his needs may decrease if the decubitus ulcer on his back improves which is acting as a source of inflammation Qualifiers: Diabetes mellitus complication status: with unspecified complications Diabetes mellitus oil heaterman insulin use: unspecified retirement insulin use status Qualified Code: E11.8 - Uncontrolled type 2 diabetes mellitus with complication, unspecified oil heaterman insulin use status (3) Homelessness Status: Chronic Comment: His homeless status is going to make long-term cooperation control a challenge (4) Hyperlipidemia Status: Chronic Comment: On treatment Qualifiers: Hyperlipidemia type: pure hypercholesterolemia Qualified Code: E78.00 - Pure hypercholesterolemia (5) Noncompliance with medication regimen Status: Chronic Comment: Counseled Consultation Date/Type/Reason Admit Date/Time Nov 17, 2016 at 11:30 Initial Consult Date 11/17/16 Type of Consultation: Endocrinology Referring Provider: ALEA WHITAKER 24 HR Interval Summary Free Text/Dictation Patient sleeping in bed arousable. Exam/Review of Systems Vital Signs Vitals Vital Signs Date Time Temp Pulse Resp B/P Pulse Ox O2 Delivery O2 Flow Rate FiO2 12/12/16 07:46 98.5 88 18 140/93 98 12/10/16 16:23 21 Intake and Output 12/11/16 12/11/16 12/12/16 15:00 23:00 07:00 Intake Total 950 ml Output Total 800 ml Balance 150 ml Exam Foul-smelling patient room from decubitus ulcer Constitutional: alert, oriented Respiratory: clear to auscultation, normal air movement Cardiovascular: nl pulses, regular rate and rhythm Results Result Diagram: 12/12/16 0735 12/11/16 0452 Results 24 hrs Laboratory Tests Test 12/11/16 12:42 12/11/16 16:58 12/11/16 20:44 12/12/16 06:43 Bedside Glucose 131 120 94 123 Test 12/12/16 07:35 White Blood Count 9.8 # Red Blood Count 4.35 L Hemoglobin 12.9 L Hematocrit 36.9 L Mean Corpuscular Volume 84.8 Mean Corpuscular Hemoglobin 29.7 Mean Corpuscular Hemoglobin Concent 35.0 Red Cell Distribution Width 13.7 Platelet Count 455 H Mean Platelet Volume 8.9 Neutrophils % 61.2 Lymphocytes % 26.8 Monocytes % 9.4 Eosinophils % 1.6 Basophils % 0.7 Nucleated Red Blood Cells % 0.0 Neutrophils # 6.0 Lymphocytes # 2.6 Monocytes # 0.9 Eosinophils # 0.2 Basophils # 0.1 Nucleated Red Blood Cells # 0.0 Prothrombin Time 12.4 Prothrombin Time Ratio 1.0 INR International Normalized Ratio 0.92 Activated Partial Thromboplast Time 26.8 Medications Medications Current Medications Ondansetron HCl (Zofran Inj) 4 mg Q6H PRN IV NAUSEA AND/OR VOMITING; Start 11/16 at 15:30 Acetaminophen (Tylenol Liquid) 650 mg Q6H PRN PO PAIN LEVEL 1-3 OR FEVER Last administered on 11/27/16 18:33; Admin Dose 650 MG; Start 11/16/16 at 15:30 Morphine Sulfate (morphine) 2 mg Q4H PRN IV PAIN LEVEL 7-10 Last administered on 12/12/16 10:37; Admin Dose 2 MG; Start 11/16/16 at 15:30 Enoxaparin Sodium (Lovenox) 30 mg DAILY SC Last administered on 12/12/16 09:34 ; Admin Dose 30 MG; Start 11/17/16 at 13:00 Eye Lubricant (Artificial Tears Oph) 2 drop QID BOTH EYES Last administered on 12/12/16 09:33; Admin Dose 2 DROP; Start 11/17/16 at 17:00 Pantoprazole (Protonix Tab) 40 mg DAILY@06 PO Last administered on 12/12/16 06: 44; Admin Dose 40 MG; Start 11/21/16 at 06:00 Miscellaneous Information 1 ea NOTE XX ; Start 11/21/16 at 15:30 Glucose (Glutose) 15 gm Q15M PRN PO DECREASED GLUCOSE; Start 11/21/16 at 15:30 Glucose (Glutose) 22.5 gm Q15M PRN PO DECREASED GLUCOSE; Start 11/21/16 at 15: 30 Dextrose (D50w Syringe) 25 ml Q15M PRN IV DECREASED GLUCOSE Last administered on 12/04/16 21:17; Admin Dose 25 ML; Start 11/21/16 at 15:30 Dextrose (D50w Syringe) 50 ml Q15M PRN IV DECREASED GLUCOSE; Start 11/21/16 at 15:30 Glucagon (Glucagen) 1 mg Q15M PRN IM DECREASED GLUCOSE; Start 11/21/16 at 15:30 Glucose (Glutose) 15 gm Q15M PRN BUCCAL DECREASED GLUCOSE; Start 11/21/16 at 15 :30 Diagnostic Test (Pha) (Accucheck) 1 ea 02 XX Last administered on 12/01/16 02: 26; Admin Dose 1 EA; Start 11/23/16 at 02:00 Collagenase (Santyl) 1 applic DAILY TOP Last administered on 12/12/16 09:35; Admin Dose 1 APPLIC; Start 11/23/16 at 12:30 Ascorbic Acid (Vitamin C) 500 mg BID GTB Last administered on 12/12/16 09:35; Admin Dose 500 MG; Start 11/23/16 at 21:00 Multivitamins Therapeutic (Theragran) 1 tab DAILY PO Last administered on 09:35; Admin Dose 1 TAB; Start 11/24/16 at 09:00 Linagliptin (Tradjenta) 5 mg DAILY PO Last administered on 12/12/16 09:35; Admin Dose 5 MG; Start 11/27/16 at 11:30 Metoclopramide HCl (Reglan) 5 mg TID PO Last administered on 12/12/16 09:35; Admin Dose 5 MG; Start 12/09/16 at 21:00 Insulin Glargine (Lantus) 16 unit DAILY@20 SC Last administered on 12/11/16 20: 52; Admin Dose 16 UNIT; Start 12/10/16 at 20:00 YASMIN LAMB MD Dec 12, 2016 12:33
--- NOTE | 2016-12-12 16:40 | PN ---
DATE: 12/12/2016 SUBJECTIVE: No new complaints. ASSESSMENT: The patient is a 41-year-old male with uncontrolled diabetes mellitus who came with diabetic ketoacidosis and pressure ulcer due to having been lying down on the ground for a long time. The major ulcer was in the sacrococcygeal area which had started treatment with the Santyl and this has changed since admission. VITAL SIGNS: Today, temperature 98.5, heart rate 80, respirations 18, blood pressure 140/93, saturation 98% room air. SACROCOCCYGEAL WOUND: There is probably unstageable wound about 8 x 9 cm dimension. On the right side there is more scar present on the left side, there is more greenish slough and periphery of the wound is slightly better; in any case, it needs debridement. ASSESSMENT: A 41-year-old gentleman admitted for diabetic ketoacidosis is under control for diabetes now has other medical comorbidities. Also, he was found to have unstageable sacrococcygeal wound which has been treated with Santyl, wound stages probably has changed to some extent but patient needs complete debridement so that the wound can be taken care of easier. Probably will help to control diabetes better. PLAN: The patient will be taken to the OR on Tuesday, tomorrow afternoon for excisional debridement. Will keep the patient n.p.o. after midnight. Dictated By: SHILPI LOFTON MD PS/NTS Conf#: [id number] DID#: [id number] CC: EMILIA NEWTON MD;*EndCC* MTDD
[2016-12-12 20:57] VITALS: BP 128/79; RESP 20
[2016-12-12] MEDS: INSULIN GLARGINE [LANtus] 3 ML PEN SC SCH (21:04)
[2016-12-13] VITALS (8 sets, daily range): BP systolic 126–139; BP diastolic 77–94; PULSE 64–92; RESP 11–22
[2016-12-13] MEDS: D5W-0.45 NACL + KCL 20 MEQ 1,000 ML IV SCH ×2 (00:59→13:30)
[2016-12-13] MEDS ORDERED: D5-0.2 NACL + KCL 20 MEQ 1,000 ML IV SCH (01:00)
[2016-12-13] MEDS: morphine 2 MG INJ IV PRN ×5 (01:29→21:35)
[2016-12-13] MEDS: PANTOPRAZOLE (EC) 40 MG TAB PO SCH (03:16)
[2016-12-13 05:36] LABS: ADD SCAN DIFF NO
[2016-12-13 05:40] LABS: BASOPHIL # 0.1 10^3/ul (0.0-0.1); BASOPHILS % 0.5 % (0.0-2.0); EOSINOPHILS # 0.1 10^3/ul (0.0-0.5); EOSINOPHILS % 1.1 % (0.0-7.0); HEMATOCRIT 36.6 % (42.0-52.0); HEMOGLOBIN 12.8 g/dl (14.0-18.0); LYMPHOCYTES # 2.6 10^3/ul (0.8-2.9); LYMPHOCYTES % 28.7 % (15.0-51.0); MEAN CORPUSCULAR HEMOGLOBIN 29.7 pg (29.0-33.0); MEAN CORPUSCULAR VOLUME 84.9 fl (82.0-101.0); MONOCYTE # 0.9 10^3/ul (0.3-0.9); MONOCYTES % 9.3 % (0.0-11.0); NEUTROPHIL # 5.5 10^3/ul (1.6-7.5); NEUTROPHILS % 60.1 % (39.0-77.0); PLATELET COUNT 451 10^3/UL (140-415); RED BLOOD COUNT 4.31 10^6/ul (4.70-6.10); RED CELL DISTRIBUTION WIDTH 13.6 % (11.5-14.5); WHITE BLOOD COUNT 9.2 10^3/ul (4.8-10.8)
[2016-12-13 05:50] LABS: ALBUMIN 3.6 g/dl (3.3-4.9); POTASSIUM 3.8 mmol/L (3.5-5.1)
[2016-12-13 05:52] LABS: CREATININE 0.49 mg/dl (0.61-1.24)
[2016-12-13 05:53] LABS: ALBUMIN/GLOBULIN RATIO 0.94; BILIRUBIN,INDIRECT 0.2 mg/dl (0-1.1); BILIRUBIN,TOTAL 0.2 mg/dl (0.2-1.3); TOTAL PROTEIN 7.4 g/dl (6.1-8.1)
[2016-12-13 05:58] LABS: INR 0.97; PROTIME 12.9 Sec (12.2-14.2)
[2016-12-13 06:03] LABS: PARTIAL THROMBOPLASTIN TIME 27.3 Sec (25.0-35.0)
[2016-12-13] MEDS ORDERED: SILVER SULFADIAZINE 1% 50 GM CR TOP ONE (07:00)
[2016-12-13] MEDS: metFORMIN (XR) 500 MG TAB PO SCH ×2 (08:00→17:49)
[2016-12-13] MEDS: INSULIN ASPART [NOVOLOG] 3 ML PEN SC SCH ×6 (08:00→21:00)
--- NOTE | 2016-12-13 08:06 | RADRPT ---
PROCEDURE: XR Chest. CLINICAL INDICATION: Preoperative TECHNIQUE: Single-view chest COMPARISON: Chest 11/19/2016 FINDINGS: The heart is within normal limits in size. There is no evidence of pulmonary vascular congestion ac [place] lung consolidation pleural effusions and pneumothorax. IMPRESSION: No evidence of acute cardiopulmonary disease. RPTAT:AAJJ Osvaldo Owen Physician Date Time Electronically viewed and signed by Osvaldo Owen Physician on 12/13/2016 08:05 BM/
[2016-12-13] MEDS: MULTIVITAMINS THERAPEUTIC TAB PO SCH (09:00)
[2016-12-13] MEDS: ENOXAPARIN 30 MG/0.3 ML SYG SC SCH (09:00)
[2016-12-13] MEDS: LINAGLIPTIN 5 MG TABLET PO SCH (09:00)
[2016-12-13] MEDS: COLLAGENASE 30 GM TUBE TOP SCH (09:00)
[2016-12-13] MEDS: ASCORBIC ACID 500 MG TAB GTB SCH ×2 (09:00→21:29)
[2016-12-13] MEDS: METOCLOPRAMIDE 5 MG TAB PO SCH ×3 (09:00→21:29)
[2016-12-13] MEDS: ARTIFICIAL TEARS 15 ML OPH BOTH EYES SCH ×4 (09:42→21:29)
--- NOTE | 2016-12-13 12:11 | PN ---
Date/Time of Note Date/Time of Note DATE: 12/13/16 TIME: 12:09 Assessment/Plan VTE Prophylaxis VTE Prophylaxis Intervention: SCD's Lines/Catheters [facility] Sal[facility] Lock Urinary Cath still in place: No Assessment/Plan Chief Complaint/Hosp Course ASSESSMENT AND PLAN - Severe diabetic ketoacidosis with coma, resolved. Dr. Andre is following in endocrinology consultation. - Diabetes mellitus type 2. Continue Lantus , pre-meal NovoLog and NovoLog per sliding scale. - Acute metabolic encephalopathy, resolved. - Severe sepsis 2 PNA, resolved. Dr. Callaway is following in infectious disease consultation. - Community-acquired pneumonia vs aspiration. - Acute respiratory failure, resolved. Dr Disla s following the patient in pulmonology consultation. - Altered level of consciousness on admission, resolved CT head is negative. - Sacrococcyx DTI present on admission, continue current wound care, vitamin C, multivitamins, offloading, Dr Corbett is following in surgical eval. Pending wound debridement today. - Amphetamine screen positive. - Homelessness, nurse case manager and social group worker for discharge planning. Continue sequential compression device for deep venous thrombosis prophylaxis and Protonix for peptic ulcer disease prophylaxis. Further recommendations based on clinical course. Plan of care discussed with Dr. Ma. Problems: Subjective 24 Hr Interval Summary Free Text/Dictation No acute events overnight, patient is awake, alert, NPO for surgery today. Exam/Review of Systems Vital Signs Vitals Vital Signs Date Time Temp Pulse Resp B/P Pulse Ox O2 Delivery O2 Flow Rate FiO2 12/13/16 08:12 98.2 90 18 133/79 98 12/10/16 16:23 21 Intake and Output 12/12/16 12/12/16 12/13/16 15:00 23:00 07:00 Intake Total 840 ml Output Total 600 ml Balance 240 ml Exam PHYSICAL ASSESSMENT: GENERAL: Well-developed, well-nourished male, awake alert HEENT: Head is normocephalic, PERRLA. NECK: Supple, no cervical lymphadenopathy, no thyromegaly. LUNGS: Diminished at the bases. CARDIOVASCULAR: Normal S1, S2. No murmurs, gallops, clicks, rubs noted. ABDOMEN: Flat, soft, nondistended, nontender. Bowel sounds present. EXTREMITIES: There is no edema, clubbing, cyanosis. Pulses equal bilaterally 2 +. SKIN: There is no rash, petechiae noted. NEUROLOGIC: Awake alert Results Result Diagram: 12/13/16 0425 12/13/16 0425 Results 24 hrs Laboratory Tests Test 12/12/16 12:48 12/12/16 17:01 12/12/16 20:03 12/13/16 04:25 Bedside Glucose 80 166 89 White Blood Count 9.2 Red Blood Count 4.31 L Hemoglobin 12.8 L Hematocrit 36.6 L Mean Corpuscular Volume 84.9 Mean Corpuscular Hemoglobin 29.7 Mean Corpuscular Hemoglobin Concent 35.0 Red Cell Distribution Width 13.6 Platelet Count 451 H Mean Platelet Volume 9.0 Neutrophils % 60.1 Lymphocytes % 28.7 Monocytes % 9.3 Eosinophils % 1.1 Basophils % 0.5 Nucleated Red Blood Cells % 0.0 Neutrophils # 5.5 Lymphocytes # 2.6 Monocytes # 0.9 Eosinophils # 0.1 Basophils # 0.1 Nucleated Red Blood Cells # 0.0 Prothrombin Time 12.9 Prothrombin Time Ratio 1.0 INR International Normalized Ratio 0.97 Activated Partial Thromboplast Time 27.3 Sodium Level 135 Potassium Level 3.8 Chloride Level 99 Carbon Dioxide Level 29 Anion Gap 11 Blood Urea Nitrogen 11 Creatinine 0.49 L Glucose Level 118 Calcium Level 9.0 Total Bilirubin 0.2 Direct Bilirubin 0.00 Indirect Bilirubin 0.2 Aspartate Amino Transf (AST/SGOT) 17 Alanine Aminotransferase (ALT/SGPT) 17 Alkaline Phosphatase 88 Total Protein 7.4 Albumin 3.6 Globulin 3.80 H Albumin/Globulin Ratio 0.94 Test 12/13/16 08:11 12/13/16 11:45 Bedside Glucose 129 151 Medications Medications Current Medications Ondansetron HCl (Zofran Inj) 4 mg Q6H PRN IV NAUSEA AND/OR VOMITING; Start 11/16 at 15:30 Acetaminophen (Tylenol Liquid) 650 mg Q6H PRN PO PAIN LEVEL 1-3 OR FEVER Last administered on 11/27/16 18:33; Admin Dose 650 MG; Start 11/16/16 at 15:30 Morphine Sulfate (morphine) 2 mg Q4H PRN IV PAIN LEVEL 7-10 Last administered on 12/13/16 10:14; Admin Dose 2 MG; Start 11/16/16 at 15:30 Enoxaparin Sodium (Lovenox) 30 mg DAILY SC Last administered on 12/12/16 09:34 ; Admin Dose 30 MG; Start 11/17/16 at 13:00 Eye Lubricant (Artificial Tears Oph) 2 drop QID BOTH EYES Last administered on 12/13/16 09:42; Admin Dose 2 DROP; Start 11/17/16 at 17:00 Pantoprazole (Protonix Tab) 40 mg DAILY@06 PO Last administered on 12/12/16 06: 44; Admin Dose 40 MG; Start 11/21/16 at 06:00 Miscellaneous Information 1 ea NOTE XX ; Start 11/21/16 at 15:30 Glucose (Glutose) 15 gm Q15M PRN PO DECREASED GLUCOSE; Start 11/21/16 at 15:30 Glucose (Glutose) 22.5 gm Q15M PRN PO DECREASED GLUCOSE; Start 11/21/16 at 15: 30 Dextrose (D50w Syringe) 25 ml Q15M PRN IV DECREASED GLUCOSE Last administered on 12/04/16 21:17; Admin Dose 25 ML; Start 11/21/16 at 15:30 Dextrose (D50w Syringe) 50 ml Q15M PRN IV DECREASED GLUCOSE; Start 11/21/16 at 15:30 Glucagon (Glucagen) 1 mg Q15M PRN IM DECREASED GLUCOSE; Start 11/21/16 at 15:30 Glucose (Glutose) 15 gm Q15M PRN BUCCAL DECREASED GLUCOSE; Start 11/21/16 at 15 :30 Diagnostic Test (Pha) (Accucheck) 1 ea 02 XX Last administered on 12/01/16 02: 26; Admin Dose 1 EA; Start 11/23/16 at 02:00 Collagenase (Santyl) 1 applic DAILY TOP Last administered on 12/12/16 09:35; Admin Dose 1 APPLIC; Start 11/23/16 at 12:30 Ascorbic Acid (Vitamin C) 500 mg BID GTB Last administered on 12/12/16 21:03; Admin Dose 500 MG; Start 11/23/16 at 21:00 Multivitamins Therapeutic (Theragran) 1 tab DAILY PO Last administered on 09:35; Admin Dose 1 TAB; Start 11/24/16 at 09:00 Linagliptin (Tradjenta) 5 mg DAILY PO Last administered on 4/2/17at 09:35; Admin Dose 5 MG; Start 11/27/16 at 11:30 Metoclopramide HCl 5 mg 5 mg TID PO Last administered on 12/12/16 21:03; Admin Dose 5 MG; Start 12/09/16 at 21:00 Potassium Chloride/Dextrose/ Sod Cl (D5-1/2ns + KCl 20 Meq) 1,000 ml @ 80 mls/ hr [id number] IV Last administered on 12/13/16 00:59; Admin Dose 80 MLS/HR; Start 12/13/16 at 01:00 Insulin Glargine (Lantus) 14 unit DAILY@20 SC ; Start 12/13/16 at 20:00 ALEA WHITAKER Dec 13, 2016 12:11
--- NOTE | 2016-12-13 17:42 | HPN ---
Date/Time of Note Date/Time of Note DATE: 12/13/16 TIME: 17:37 Interval H&P Admission Note Pt. seen H&P reviewed: Systems changes noted below pt. was admitted with diabetic ketoacidosis, now is under control The sacrococcygeal pressure ulcer has changed from Deep tissue injury state to Unstageable or stage 3 pressure ulcer with slough and Eschar SHILPI LOFTON MD Dec 13, 2016 17:42
--- NOTE | 2016-12-13 17:43 | CONS ---
Date/Time of Note Date/Time of Note DATE: 12/13/16 TIME: 17:41 Assessment/Plan Assessment/Plan Problems: (1) Type II diabetes mellitus, uncontrolled Status: Chronic Comment: FS again drifting below goal. Will decrease the lantus from 16 to 14 qhs and decrease the novolog from 10 to 9 qac. Qualifiers: Diabetes mellitus complication status: with unspecified complications Diabetes mellitus fpc insulin use: unspecified fpc insulin use status Qualified Code: E11.8 - Uncontrolled type 2 diabetes mellitus with complication, unspecified fpc insulin use status Consultation Date/Type/Reason Admit Date/Time Nov 17, 2016 at 11:30 Initial Consult Date 11/17/16 Type of Consultation: Endocrinology Reason for Consultation DKA Referring Provider: ALEA WHITAKER 24 HR Interval Summary Constitutional: improved, no complaints Detailed Summary Respiratory: no complaints Cardiovascular: no complaints Gastrointestinal: no complaints Genitourinary: no complaints Musculoskeletal: no complaints Neurologic: no complaints Exam/Review of Systems Vital Signs Vitals VS - Last 72 Hours, by Label Date Time Temp Pulse Resp B/P Pulse Ox O2 Delivery O2 Flow Rate FiO2 12/13/16 17:13 98.5 92 18 134/77 100 Room Air 12/13/16 08:12 98.2 90 18 133/79 98 12/12/16 20:57 98.9 101 20 128/79 98 12/12/16 07:46 98.5 88 18 140/93 98 12/11/16 08:03 98.3 86 16 133/86 95 12/10/16 21:18 98.2 89 19 136/85 98 Vital Signs Date Time Temp Pulse Resp B/P Pulse Ox O2 Delivery O2 Flow Rate FiO2 12/13/16 17:13 98.5 92 18 134/77 100 Room Air 12/10/16 16:23 21 Intake and Output 12/12/16 12/12/16 12/13/16 15:00 23:00 07:00 Intake Total 840 ml Output Total 600 ml Balance 240 ml Exam Constitutional: alert, oriented, well developed Respiratory: clear to auscultation, normal air movement Cardiovascular: nl pulses, regular rate and rhythm, No edema, No murmurs/extra sounds, No rub Gastrointestinal: bowel sounds, nl liver, spleen, non-tender, soft, No mass, No rebound or guarding Musculoskeletal: nl extremities to inspection Extremities: normal pulses, No clubbing, No cyanosis, No edema Neurological: DIGITAL COMPUTER SYSTEMS ANALYST II-XII intact, nl mental status, nl speech, nl strength Additional Comments Bedside Glucose - 72 Hours Test 12/10/16 20:31 12/11/16 02:16 12/11/16 07:33 12/11/16 12:16 Bedside Glucose 225mg/dL (70-220) H 132mg/dL (70-220) 131mg/dL (70-220) 66mg/dL (70-220) L Test 12/11/16 12:42 12/11/16 16:58 12/11/16 20:44 12/12/16 06:43 Bedside Glucose 131mg/dL (70-220) 120mg/dL (70-220) 94mg/dL (70-220) 123mg/dL (70-220) Test 12/12/16 12:48 12/12/16 17:01 12/12/16 20:03 12/13/16 08:11 Bedside Glucose 80mg/dL (70-220) 166mg/dL (70-220) 89mg/dL (70-220) 129mg/dL (70-220) Test 12/13/16 11:45 12/13/16 16:48 Bedside Glucose 151mg/dL (70-220) 171mg/dL (70-220) Results Result Diagram: 12/13/16 0425 12/13/16 0425 Results 24 hrs Laboratory Tests Test 12/12/16 20:03 12/13/16 04:25 12/13/16 08:11 12/13/16 11:45 Bedside Glucose 89 129 151 White Blood Count 9.2 Red Blood Count 4.31 L Hemoglobin 12.8 L Hematocrit 36.6 L Mean Corpuscular Volume 84.9 Mean Corpuscular Hemoglobin 29.7 Mean Corpuscular Hemoglobin Concent 35.0 Red Cell Distribution Width 13.6 Platelet Count 451 H Mean Platelet Volume 9.0 Neutrophils % 60.1 Lymphocytes % 28.7 Monocytes % 9.3 Eosinophils % 1.1 Basophils % 0.5 Nucleated Red Blood Cells % 0.0 Neutrophils # 5.5 Lymphocytes # 2.6 Monocytes # 0.9 Eosinophils # 0.1 Basophils # 0.1 Nucleated Red Blood Cells # 0.0 Prothrombin Time 12.9 Prothrombin Time Ratio 1.0 INR International Normalized Ratio 0.97 Activated Partial Thromboplast Time 27.3 Sodium Level 135 Potassium Level 3.8 Chloride Level 99 Carbon Dioxide Level 29 Anion Gap 11 Blood Urea Nitrogen 11 Creatinine 0.49 L Glucose Level 118 Calcium Level 9.0 Total Bilirubin 0.2 Direct Bilirubin 0.00 Indirect Bilirubin 0.2 Aspartate Amino Transf (AST/SGOT) 17 Alanine Aminotransferase (ALT/SGPT) 17 Alkaline Phosphatase 88 Total Protein 7.4 Albumin 3.6 Globulin 3.80 H Albumin/Globulin Ratio 0.94 Test 12/13/16 16:48 Bedside Glucose 171 Medications Medications Current Medications Ondansetron HCl (Zofran Inj) 4 mg Q6H PRN IV NAUSEA AND/OR VOMITING; Start 11/16 at 15:30 Acetaminophen (Tylenol Liquid) 650 mg Q6H PRN PO PAIN LEVEL 1-3 OR FEVER Last administered on 11/27/16 18:33; Admin Dose 650 MG; Start 11/16/16 at 15:30 Morphine Sulfate (morphine) 2 mg Q4H PRN IV PAIN LEVEL 7-10 Last administered on 12/13/16 15:40; Admin Dose 2 MG; Start 11/16/16 at 15:30 Enoxaparin Sodium (Lovenox) 30 mg DAILY SC Last administered on 12/12/16 09:34 ; Admin Dose 30 MG; Start 11/17/16 at 13:00 Eye Lubricant (Artificial Tears Oph) 2 drop QID BOTH EYES Last administered on 12/13/16 12:56; Admin Dose 2 DROP; Start 11/17/16 at 17:00 Pantoprazole (Protonix Tab) 40 mg DAILY@06 PO Last administered on 12/12/16 06: 44; Admin Dose 40 MG; Start 11/21/16 at 06:00 Miscellaneous Information 1 ea NOTE XX ; Start 11/21/16 at 15:30 Glucose (Glutose) 15 gm Q15M PRN PO DECREASED GLUCOSE; Start 11/21/16 at 15:30 Glucose (Glutose) 22.5 gm Q15M PRN PO DECREASED GLUCOSE; Start 11/21/16 at 15: 30 Dextrose (D50w Syringe) 25 ml Q15M PRN IV DECREASED GLUCOSE Last administered on 12/04/16 21:17; Admin Dose 25 ML; Start 11/21/16 at 15:30 Dextrose (D50w Syringe) 50 ml Q15M PRN IV DECREASED GLUCOSE; Start 11/21/16 at 15:30 Glucagon (Glucagen) 1 mg Q15M PRN IM DECREASED GLUCOSE; Start 11/21/16 at 15:30 Glucose (Glutose) 15 gm Q15M PRN BUCCAL DECREASED GLUCOSE; Start 11/21/16 at 15 :30 Diagnostic Test (Pha) (Accucheck) 1 ea 02 XX Last administered on 12/01/16 02: 26; Admin Dose 1 EA; Start 11/23/16 at 02:00 Collagenase (Santyl) 1 applic DAILY TOP Last administered on 12/12/16 09:35; Admin Dose 1 APPLIC; Start 11/23/16 at 12:30 Ascorbic Acid (Vitamin C) 500 mg BID GTB Last administered on 12/12/16 21:03; Admin Dose 500 MG; Start 11/23/16 at 21:00 Multivitamins Therapeutic (Theragran) 1 tab DAILY PO Last administered on 09:35; Admin Dose 1 TAB; Start 11/24/16 at 09:00 Linagliptin (Tradjenta) 5 mg DAILY PO Last administered on 12/12/16 09:35; Admin Dose 5 MG; Start 11/27/16 at 11:30 Metoclopramide HCl 5 mg 5 mg TID PO Last administered on 12/12/16 21:03; Admin Dose 5 MG; Start 12/09/16 at 21:00 Potassium Chloride/Dextrose/ Sod Cl (D5-1/2ns + KCl 20 Meq) 1,000 ml @ 80 mls/ hr [id number] IV Last administered on 12/13/16 00:59; Admin Dose 80 MLS/HR; Start 12/13/16 at 01:00 Insulin Glargine (Lantus) 14 unit DAILY@20 SC ; Start 12/13/16 at 20:00 ROGE PAEZ MD Dec 13, 2016 17:43
[2016-12-13] MEDS ORDERED: NEOSTIGMINE 3 MG/3 ML SYRINGE ONE ×2 (18:27→19:34)
[2016-12-13] MEDS ORDERED: LIDOCAINE 2% (SDV) 5 ML INJ ONE ×2 (18:27→19:34)
[2016-12-13] MEDS ORDERED: PHENYLephrine (100 MCG/ML) 5ML SYG ONE (18:27)
[2016-12-13] MEDS ORDERED: ETOMIDATE 20 MG INJ ONE ×2 (18:27→19:34)
[2016-12-13] MEDS ORDERED: ROCURONIUM 50 MG INJ ONE ×2 (18:27→19:34)
[2016-12-13] MEDS ORDERED: FENTAnyl 50 MCG/ML VIAL ONE (18:27)
[2016-12-13] MEDS ORDERED: GLYCOPYRROLATE 0.4 MG INJ ONE ×2 (18:27→19:34)
[2016-12-13] MEDS ORDERED: MIDAZOLAM 1 MG/ML 2 ML INJ ONE (18:27)
[2016-12-13] MEDS ORDERED: CEFAZOLIN 1 GM INJ ONE ×2 (18:27→19:34)
[2016-12-13] MEDS ORDERED: FENTAnyl 50 MCG/ML VIAL IV PRN (19:30)
[2016-12-13] MEDS ORDERED: DIPHENHYDRAMINE 50 MG INJ IV PRN (19:30)
[2016-12-13] MEDS ORDERED: HYDROmorphONE (0.2 MG/ML) 10ML SYG IV PRN ×2 (19:30)
[2016-12-13] MEDS ORDERED: MEPERIDINE 25 MG INJ IV PRN (19:30)
[2016-12-13] MEDS ORDERED: ONDANSETRON 4 MG INJ IV PRN (19:30)
[2016-12-13] MEDS: INSULIN GLARGINE [LANtus] 3 ML PEN SC SCH (23:14)
[2016-12-14] MEDS: ACCU-CHEK XX SCH (02:00)
[2016-12-14] MEDS: PANTOPRAZOLE (EC) 40 MG TAB PO SCH (05:29)
[2016-12-14] MEDS: morphine 2 MG INJ IV PRN ×4 (05:29→22:45)
[2016-12-14 05:36] LABS: ADD SCAN DIFF NO
[2016-12-14 05:46] LABS: BASOPHIL # 0.1 10^3/ul (0.0-0.1); BASOPHILS % 0.9 % (0.0-2.0); EOSINOPHILS # 0.1 10^3/ul (0.0-0.5); EOSINOPHILS % 1.3 % (0.0-7.0); HEMATOCRIT 34.8 % (42.0-52.0); HEMOGLOBIN 11.9 g/dl (14.0-18.0); LYMPHOCYTES # 2.1 10^3/ul (0.8-2.9); LYMPHOCYTES % 25.1 % (15.0-51.0); MEAN CORPUSCULAR HEMOGLOBIN 29.6 pg (29.0-33.0); MEAN CORPUSCULAR HGB CONC 34.2 g/dl (32.0-37.0); MEAN CORPUSCULAR VOLUME 86.6 fl (82.0-101.0); MEAN PLATELET VOLUME 9.2 fl (7.4-10.4); MONOCYTE # 0.7 10^3/ul (0.3-0.9); MONOCYTES % 8.1 % (0.0-11.0); NEUTROPHIL # 5.5 10^3/ul (1.6-7.5); NEUTROPHILS % 64.4 % (39.0-77.0); PLATELET COUNT 442 10^3/UL (140-415); RED BLOOD COUNT 4.02 10^6/ul (4.70-6.10); WHITE BLOOD COUNT 8.5 10^3/ul (4.8-10.8)
[2016-12-14 05:58] LABS: POTASSIUM 3.4 mmol/L (3.5-5.1)
[2016-12-14 06:00] LABS: CREATININE 0.47 mg/dl (0.61-1.24)
[2016-12-14 06:01] LABS: CALCIUM 8.9 mg/dl (8.4-10.2)
[2016-12-14 08:12] VITALS: BP 127/80; RESP 16
[2016-12-14] MEDS: INSULIN ASPART [NOVOLOG] 3 ML PEN SC SCH ×7 (08:31→20:55)
[2016-12-14] MEDS: LINAGLIPTIN 5 MG TABLET PO SCH (08:34)
[2016-12-14] MEDS: MULTIVITAMINS THERAPEUTIC TAB PO SCH (08:34)
[2016-12-14] MEDS: METOCLOPRAMIDE 5 MG TAB PO SCH ×3 (08:34→20:54)
[2016-12-14] MEDS: ASCORBIC ACID 500 MG TAB GTB SCH ×2 (08:34→20:54)
[2016-12-14] MEDS: ARTIFICIAL TEARS 15 ML OPH BOTH EYES SCH ×4 (08:34→20:54)
[2016-12-14] MEDS: metFORMIN (XR) 500 MG TAB PO SCH ×2 (08:34→17:59)
[2016-12-14] MEDS: ENOXAPARIN 30 MG/0.3 ML SYG SC SCH (08:35)
--- NOTE | 2016-12-14 17:01 | PN ---
Date/Time of Note Date/Time of Note DATE: 12/14/16 TIME: 17:01 Assessment/Plan VTE Prophylaxis VTE Prophylaxis Intervention: SCD's Lines/Catheters IV Catheter Type (from [facility]): [place] Urinary Cath still in place: No Assessment/Plan Chief Complaint/Hosp Course ASSESSMENT AND PLAN - Severe diabetic ketoacidosis with coma, resolved. Dr. Andre is following in endocrinology consultation. - Diabetes mellitus type 2. Continue Lantus , pre-meal NovoLog and NovoLog per sliding scale. - Acute metabolic encephalopathy, resolved. - Severe sepsis 2 PNA, resolved. Dr. Callaway is following in infectious disease consultation. - Community-acquired pneumonia vs aspiration. - Acute respiratory failure, resolved. Dr Disla s following the patient in pulmonology consultation. - Altered level of consciousness on admission, resolved CT head is negative. - Sacrococcyx DTI present on admission, continue current wound care, vitamin C, multivitamins, offloading, Dr Corbett is following in surgical eval. Pending wound debridement today. - Amphetamine screen positive. - Homelessness, case management rn and social science manager for discharge planning. Continue sequential compression device for deep venous thrombosis prophylaxis and Protonix for peptic ulcer disease prophylaxis. Further recommendations based on clinical course. Plan of care discussed with Dr. Ma. Problems: Exam/Review of Systems Vital Signs Vitals Vital Signs Date Time Temp Pulse Resp B/P Pulse Ox O2 Delivery O2 Flow Rate FiO2 12/14/16 08:12 98.5 96 16 127/80 98 12/13/16 20:08 Room Air 12/13/16 19:43 8.0 12/10/16 16:23 21 Intake and Output 12/13/16 12/13/16 12/14/16 15:00 23:00 07:00 Intake Total 2600 ml 320 ml Output Total 625 ml 950 ml Balance 1975 ml -630 ml Exam PHYSICAL ASSESSMENT: GENERAL: Well-developed, well-nourished male, awake alert HEENT: Head is normocephalic, PERRLA. NECK: Supple, no cervical lymphadenopathy, no thyromegaly. LUNGS: Diminished at the bases. CARDIOVASCULAR: Normal S1, S2. No murmurs, gallops, clicks, rubs noted. ABDOMEN: Flat, soft, nondistended, nontender. Bowel sounds present. EXTREMITIES: There is no edema, clubbing, cyanosis. Pulses equal bilaterally 2 +. SKIN: There is no rash, petechiae noted. NEUROLOGIC: Awake alert Results Result Diagram: 12/14/16 0425 12/14/16 0425 Results 24 hrs Laboratory Tests Test 12/13/16 21:19 12/13/16 23:11 12/14/16 04:25 12/14/16 07:49 Bedside Glucose 120 188 168 White Blood Count 8.5 Red Blood Count 4.02 L Hemoglobin 11.9 L Hematocrit 34.8 L Mean Corpuscular Volume 86.6 Mean Corpuscular Hemoglobin 29.6 Mean Corpuscular Hemoglobin Concent 34.2 Red Cell Distribution Width 14.0 Platelet Count 442 H Mean Platelet Volume 9.2 Neutrophils % 64.4 Lymphocytes % 25.1 Monocytes % 8.1 Eosinophils % 1.3 Basophils % 0.9 Nucleated Red Blood Cells % 0.0 Neutrophils # 5.5 Lymphocytes # 2.1 Monocytes # 0.7 Eosinophils # 0.1 Basophils # 0.1 Nucleated Red Blood Cells # 0.0 Sodium Level 137 Potassium Level 3.4 L Chloride Level 97 Carbon Dioxide Level 26 Anion Gap 17 H Blood Urea Nitrogen 13 Creatinine 0.47 L Glucose Level 181 Calcium Level 8.9 Test 12/14/16 11:57 Bedside Glucose 125 Medications Medications Current Medications Ondansetron HCl (Zofran Inj) 4 mg Q6H PRN IV NAUSEA AND/OR VOMITING; Start 11/16 at 15:30 Acetaminophen (Tylenol Liquid) 650 mg Q6H PRN PO PAIN LEVEL 1-3 OR FEVER Last administered on 11/27/16 18:33; Admin Dose 650 MG; Start 11/16/16 at 15:30 Morphine Sulfate (morphine) 2 mg Q4H PRN IV PAIN LEVEL 7-10 Last administered on 12/14/16 15:35; Admin Dose 2 MG; Start 11/16/16 at 15:30 Enoxaparin Sodium (Lovenox) 30 mg DAILY SC Last administered on 12/12/16 09:34 ; Admin Dose 30 MG; Start 11/17/16 at 13:00 Eye Lubricant (Artificial Tears Oph) 2 drop QID BOTH EYES Last administered on 12/14/16 16:28; Admin Dose 2 DROP; Start 11/17/16 at 17:00 Pantoprazole (Protonix Tab) 40 mg DAILY@06 PO Last administered on 12/14/16 05: 29; Admin Dose 40 MG; Start 11/21/16 at 06:00 Miscellaneous Information 1 ea NOTE XX ; Start 11/21/16 at 15:30 Glucose (Glutose) 15 gm Q15M PRN PO DECREASED GLUCOSE; Start 11/21/16 at 15:30 Glucose (Glutose) 22.5 gm Q15M PRN PO DECREASED GLUCOSE; Start 11/21/16 at 15: 30 Dextrose (D50w Syringe) 25 ml Q15M PRN IV DECREASED GLUCOSE Last administered on 12/04/16 21:17; Admin Dose 25 ML; Start 11/21/16 at 15:30 Dextrose (D50w Syringe) 50 ml Q15M PRN IV DECREASED GLUCOSE; Start 11/21/16 at 15:30 Glucagon (Glucagen) 1 mg Q15M PRN IM DECREASED GLUCOSE; Start 11/21/16 at 15:30 Glucose (Glutose) 15 gm Q15M PRN BUCCAL DECREASED GLUCOSE; Start 11/21/16 at 15 :30 Diagnostic Test (Pha) (Accucheck) 1 ea 02 XX Last administered on 12/01/16 02: 26; Admin Dose 1 EA; Start 11/23/16 at 02:00 Ascorbic Acid (Vitamin C) 500 mg BID GTB Last administered on 12/14/16 08:34; Admin Dose 500 MG; Start 11/23/16 at 21:00 Multivitamins Therapeutic (Theragran) 1 tab DAILY PO Last administered on 08:34; Admin Dose 1 TAB; Start 11/24/16 at 09:00 Linagliptin (Tradjenta) 5 mg DAILY PO Last administered on 12/14/16 08:34; Admin Dose 5 MG; Start 11/27/16 at 11:30 Metoclopramide HCl (Reglan) 5 mg TID PO Last administered on 12/14/16 12:54; Admin Dose 5 MG; Start 12/09/16 at 21:00 Insulin Glargine (Lantus) 14 unit DAILY@20 SC Last administered on 12/13/16 23: 14; Admin Dose 14 UNIT; Start 12/13/16 at 20:00 ALEA WHITAKER Dec 14, 2016 17:01
[2016-12-14] MEDS ORDERED: POTASSIUM CHLORIDE (SR) 20 MEQ TAB PO STA (18:52)
--- NOTE | 2016-12-14 19:24 | CONS ---
Date/Time of Note Date/Time of Note DATE: 12/14/16 TIME: 19:22 Assessment/Plan Assessment/Plan Problems: (1) Type II diabetes mellitus, uncontrolled Status: Chronic Comment: Good glycemic control on lantus 14 qhs and Novolog 9 qac plus metformin 500 mg bid and tradjenta 5 mg daily Qualifiers: Diabetes mellitus complication status: with unspecified complications Diabetes mellitus half-way insulin use: unspecified terminal carman insulin use status Qualified Code: E11.8 - Uncontrolled type 2 diabetes mellitus with complication, unspecified half-way insulin use status Consultation Date/Type/Reason Admit Date/Time Nov 17, 2016 at 11:30 Initial Consult Date 11/17/16 Type of Consultation: Endocrinology Reason for Consultation DKA Referring Provider: ALEA WHITAKER 24 HR Interval Summary Constitutional: improved, no complaints Detailed Summary Respiratory: no complaints Cardiovascular: no complaints Gastrointestinal: no complaints Genitourinary: no complaints Musculoskeletal: back pain (at site of his decubitus which is improved post- debridement yesterday) Neurologic: no complaints Exam/Review of Systems Vital Signs Vitals VS - Last 72 Hours, by Label Date Time Temp Pulse Resp B/P Pulse Ox O2 Delivery O2 Flow Rate FiO2 12/14/16 08:12 98.5 96 16 127/80 98 12/13/16 20:08 66 11 126/80 100 Room Air 12/13/16 20:03 68 18 133/83 100 Room Air 12/13/16 19:58 70 22 131/93 100 Room Air 12/13/16 19:53 66 18 136/94 100 Room Air 12/13/16 19:48 64 13 135/93 100 Room Air 12/13/16 19:48 64 13 100 12/13/16 19:46 97.8 12/13/16 19:43 97.3 66 16 139/93 100 Mask 8.0 12/13/16 17:13 98.5 92 18 134/77 100 Room Air 12/13/16 08:12 98.2 90 18 133/79 98 12/12/16 20:57 98.9 101 20 128/79 98 12/12/16 07:46 98.5 88 18 140/93 98 Vital Signs Date Time Temp Pulse Resp B/P Pulse Ox O2 Delivery O2 Flow Rate FiO2 12/14/16 08:12 98.5 96 16 127/80 98 12/13/16 20:08 Room Air 12/13/16 19:43 8.0 12/10/16 16:23 21 Intake and Output 12/13/16 12/13/16 12/14/16 15:00 23:00 07:00 Intake Total 2600 ml 320 ml Output Total 625 ml 950 ml Balance 1975 ml -630 ml Exam Constitutional: alert, oriented, well developed Psych: nl mood/affect, no complaints Respiratory: clear to auscultation, normal air movement Cardiovascular: nl pulses, regular rate and rhythm, No edema, No murmurs/extra sounds, No rub Gastrointestinal: bowel sounds, nl liver, spleen, non-tender, soft, No mass, No rebound or guarding Musculoskeletal: nl extremities to inspection Extremities: normal pulses, No clubbing, No cyanosis, No edema Neurological: ARCHAEOLOGIST II-XII intact, nl mental status, nl speech, nl strength Additional Comments Bedside Glucose - 72 Hours Test 12/11/16 20:44 12/12/16 06:43 12/12/16 12:48 12/12/16 17:01 Bedside Glucose 94mg/dL (70-220) 123mg/dL (70-220) 80mg/dL (70-220) 166mg/dL (70-220) Test 12/12/16 20:03 12/13/16 08:11 12/13/16 11:45 12/13/16 16:48 Bedside Glucose 89mg/dL (70-220) 129mg/dL (70-220) 151mg/dL (70-220) 171mg/dL (70-220) Test 12/13/16 21:19 12/13/16 23:11 12/14/16 07:49 12/14/16 11:57 Bedside Glucose 120mg/dL (70-220) 188mg/dL (70-220) 168mg/dL (70-220) 125mg/dL (70-220) Test 12/14/16 17:49 Bedside Glucose 132mg/dL (70-220) Results Result Diagram: 12/14/16 0425 12/14/16 0425 Results 24 hrs Laboratory Tests Test 12/13/16 21:19 12/13/16 23:11 12/14/16 04:25 12/14/16 07:49 Bedside Glucose 120 188 168 White Blood Count 8.5 Red Blood Count 4.02 L Hemoglobin 11.9 L Hematocrit 34.8 L Mean Corpuscular Volume 86.6 Mean Corpuscular Hemoglobin 29.6 Mean Corpuscular Hemoglobin Concent 34.2 Red Cell Distribution Width 14.0 Platelet Count 442 H Mean Platelet Volume 9.2 Neutrophils % 64.4 Lymphocytes % 25.1 Monocytes % 8.1 Eosinophils % 1.3 Basophils % 0.9 Nucleated Red Blood Cells % 0.0 Neutrophils # 5.5 Lymphocytes # 2.1 Monocytes # 0.7 Eosinophils # 0.1 Basophils # 0.1 Nucleated Red Blood Cells # 0.0 Sodium Level 137 Potassium Level 3.4 L Chloride Level 97 Carbon Dioxide Level 26 Anion Gap 17 H Blood Urea Nitrogen 13 Creatinine 0.47 L Glucose Level 181 Calcium Level 8.9 Test 12/14/16 11:57 12/14/16 17:49 Bedside Glucose 125 132 Medications Medications Current Medications Ondansetron HCl (Zofran Inj) 4 mg Q6H PRN IV NAUSEA AND/OR VOMITING; Start 11/16 at 15:30 Acetaminophen (Tylenol Liquid) 650 mg Q6H PRN PO PAIN LEVEL 1-3 OR FEVER Last administered on 11/27/16 18:33; Admin Dose 650 MG; Start 11/16/16 at 15:30 Morphine Sulfate (morphine) 2 mg Q4H PRN IV PAIN LEVEL 7-10 Last administered on 12/14/16 15:35; Admin Dose 2 MG; Start 11/16/16 at 15:30 Enoxaparin Sodium (Lovenox) 30 mg DAILY SC Last administered on 12/12/16 09:34 ; Admin Dose 30 MG; Start 11/17/16 at 13:00 Eye Lubricant (Artificial Tears Oph) 2 drop QID BOTH EYES Last administered on 12/14/16 16:28; Admin Dose 2 DROP; Start 11/17/16 at 17:00 Pantoprazole (Protonix Tab) 40 mg DAILY@06 PO Last administered on 12/14/16 05: 29; Admin Dose 40 MG; Start 11/21/16 at 06:00 Miscellaneous Information 1 ea NOTE XX ; Start 11/21/16 at 15:30 Glucose (Glutose) 15 gm Q15M PRN PO DECREASED GLUCOSE; Start 11/21/16 at 15:30 Glucose (Glutose) 22.5 gm Q15M PRN PO DECREASED GLUCOSE; Start 11/21/16 at 15: 30 Dextrose (D50w Syringe) 25 ml Q15M PRN IV DECREASED GLUCOSE Last administered on 12/04/16 21:17; Admin Dose 25 ML; Start 11/21/16 at 15:30 Dextrose (D50w Syringe) 50 ml Q15M PRN IV DECREASED GLUCOSE; Start 11/21/16 at 15:30 Glucagon (Glucagen) 1 mg Q15M PRN IM DECREASED GLUCOSE; Start 11/21/16 at 15:30 Glucose (Glutose) 15 gm Q15M PRN BUCCAL DECREASED GLUCOSE; Start 11/21/16 at 15 :30 Diagnostic Test (Pha) (Accucheck) 1 ea 02 XX Last administered on 12/01/16 02: 26; Admin Dose 1 EA; Start 11/23/16 at 02:00 Ascorbic Acid (Vitamin C) 500 mg BID GTB Last administered on 12/14/16 08:34; Admin Dose 500 MG; Start 11/23/16 at 21:00 Multivitamins Therapeutic (Theragran) 1 tab DAILY PO Last administered on 08:34; Admin Dose 1 TAB; Start 11/24/16 at 09:00 Linagliptin (Tradjenta) 5 mg DAILY PO Last administered on 12/14/16 08:34; Admin Dose 5 MG; Start 11/27/16 at 11:30 Metoclopramide HCl (Reglan) 5 mg TID PO Last administered on 12/14/16 12:54; Admin Dose 5 MG; Start 12/09/16 at 21:00 Insulin Glargine (Lantus) 14 unit DAILY@20 SC Last administered on 12/13/16 23: 14; Admin Dose 14 UNIT; Start 12/13/16 at 20:00 ROGE PAEZ MD Dec 14, 2016 19:24
[2016-12-14 19:34] VITALS: BP 132/88; RESP 18
[2016-12-14] MEDS: INSULIN GLARGINE [LANtus] 3 ML PEN SC SCH (20:55)
[2016-12-14] MEDS: ONDANSETRON 4 MG INJ IV PRN (22:45)
[2016-12-15] MEDS: ACCU-CHEK XX SCH (02:00)
[2016-12-15] MEDS: PANTOPRAZOLE (EC) 40 MG TAB PO SCH (06:00)
[2016-12-15] MEDS: morphine 2 MG INJ IV PRN ×4 (06:39→20:07)
[2016-12-15 07:52] VITALS: BP 122/78; RESP 16
[2016-12-15] MEDS: METOCLOPRAMIDE 5 MG TAB PO SCH ×3 (08:09→21:17)
[2016-12-15] MEDS: ARTIFICIAL TEARS 15 ML OPH BOTH EYES SCH ×4 (08:09→21:17)
[2016-12-15] MEDS: MULTIVITAMINS THERAPEUTIC TAB PO SCH (08:09)
[2016-12-15] MEDS: ASCORBIC ACID 500 MG TAB GTB SCH ×2 (08:09→21:17)
[2016-12-15] MEDS: metFORMIN (XR) 500 MG TAB PO SCH ×2 (08:09→17:38)
[2016-12-15] MEDS: LINAGLIPTIN 5 MG TABLET PO SCH (08:09)
[2016-12-15] MEDS: ENOXAPARIN 30 MG/0.3 ML SYG SC SCH (08:10)
[2016-12-15] MEDS: INSULIN ASPART [NOVOLOG] 3 ML PEN SC SCH ×7 (08:11→21:00)
[2016-12-15] MEDS ORDERED: VANCOMYCIN IV PER PHARMACY XX SCH (10:30)
--- NOTE | 2016-12-15 11:54 | PN ---
Date/Time of Note Date/Time of Note DATE: 12/15/16 TIME: 11:49 Assessment/Plan VTE Prophylaxis VTE Prophylaxis Intervention: SCD's Lines/Catheters IV [facility] (from [facility] Peripheral IV Urinary Cath still in place: No Assessment/Plan Chief Complaint/Hosp Course ASSESSMENT AND PLAN - Sacral wound, status post debridement, perioperative culture growing MRSA, start vancomycin, continue wound care per surgical recommendation. Dr Corbett is following in surgical consultation. - Severe diabetic ketoacidosis with coma, resolved. Dr. Andre is following in endocrinology consultation. - Diabetes mellitus type 2. Continue Lantus , pre-meal NovoLog and NovoLog per sliding scale. - Acute metabolic encephalopathy, resolved. - Severe sepsis 2 PNA, resolved. Dr. Callaway is following in infectious disease consultation. - Community-acquired pneumonia vs aspiration. - Acute respiratory failure, resolved. Dr Disla s following the patient in pulmonology consultation. - Altered level of consciousness on admission, resolved CT head is negative. - Amphetamine screen positive. - Homelessness, case packer and director of social work for discharge planning. Continue sequential compression device for deep venous thrombosis prophylaxis and Protonix for peptic ulcer disease prophylaxis. Further recommendations based on clinical course. Plan of care discussed with Dr. Ma. Problems: Subjective 24 Hr Interval Summary Free Text/Dictation Patient is awake alert, pain is well controlled. Exam/Review of Systems Vital Signs Vitals Vital Signs Date Time Temp Pulse Resp B/P Pulse Ox O2 Delivery O2 Flow Rate FiO2 12/15/16 07:52 98.7 90 16 122/78 99 12/13/16 20:08 Room Air 12/13/16 19:43 8.0 Intake and Output 12/14/16 12/14/16 12/15/16 15:00 23:00 07:00 Intake Total 1880 ml 500 ml Balance 1880 ml 500 ml Exam PHYSICAL ASSESSMENT: GENERAL: Well-developed, well-nourished male, awake alert HEENT: Head is normocephalic, PERRLA. NECK: Supple, no cervical lymphadenopathy, no thyromegaly. LUNGS: Diminished at the bases. CARDIOVASCULAR: Normal S1, S2. No murmurs, gallops, clicks, rubs noted. ABDOMEN: Flat, soft, nondistended, nontender. Bowel sounds present. EXTREMITIES: There is no edema, clubbing, cyanosis. Pulses equal bilaterally 2 +. SKIN: There is no rash, petechiae noted. Sacral wound, status post debridement. NEUROLOGIC: Awake alert Results Result Diagram: 12/14/16 0425 12/14/16 0425 Results 24 hrs Laboratory Tests Test 12/14/16 11:57 12/14/16 17:49 12/14/16 20:53 12/15/16 07:58 Bedside Glucose 125 132 108 160 Medications Medications Current Medications Ondansetron HCl (Zofran Inj) 4 mg Q6H PRN IV NAUSEA AND/OR VOMITING Last administered on 12/14/16 22:45; Admin Dose 4 MG; Start 11/16/16 at 15:30 Acetaminophen (Tylenol Liquid) 650 mg Q6H PRN PO PAIN LEVEL 1-3 OR FEVER Last administered on 11/27/16 18:33; Admin Dose 650 MG; Start 11/16/16 at 15:30 Morphine Sulfate (morphine) 2 mg Q4H PRN IV PAIN LEVEL 7-10 Last administered on 12/15/16 10:53; Admin Dose 2 MG; Start 11/16/16 at 15:30 Enoxaparin Sodium (Lovenox) 30 mg DAILY SC Last administered on 12/15/16 08:10 ; Admin Dose 30 MG; Start 11/17/16 at 13:00 Eye Lubricant (Artificial Tears Oph) 2 drop QID BOTH EYES Last administered on 12/15/16 08:09; Admin Dose 2 DROP; Start 11/17/16 at 17:00 Pantoprazole (Protonix Tab) 40 mg DAILY@06 PO Last administered on 12/14/16 05: 29; Admin Dose 40 MG; Start 11/21/16 at 06:00 Miscellaneous Information 1 ea NOTE XX ; Start 11/21/16 at 15:30 Glucose (Glutose) 15 gm Q15M PRN PO DECREASED GLUCOSE; Start 11/21/16 at 15:30 Glucose (Glutose) 22.5 gm Q15M PRN PO DECREASED GLUCOSE; Start 11/21/16 at 15: 30 Dextrose (D50w Syringe) 25 ml Q15M PRN IV DECREASED GLUCOSE Last administered on 12/04/16 21:17; Admin Dose 25 ML; Start 11/21/16 at 15:30 Dextrose (D50w Syringe) 50 ml Q15M PRN IV DECREASED GLUCOSE; Start 11/21/16 at 15:30 Glucagon (Glucagen) 1 mg Q15M PRN IM DECREASED GLUCOSE; Start 11/21/16 at 15:30 Glucose (Glutose) 15 gm Q15M PRN BUCCAL DECREASED GLUCOSE; Start 11/21/16 at 15 :30 Diagnostic Test (Pha) (Accucheck) 1 ea 02 XX Last administered on 12/01/16 02: 26; Admin Dose 1 EA; Start 11/23/16 at 02:00 Ascorbic Acid (Vitamin C) 500 mg BID GTB Last administered on 12/15/16 08:09; Admin Dose 500 MG; Start 11/23/16 at 21:00 Multivitamins Therapeutic (Theragran) 1 tab DAILY PO Last administered on 08:09; Admin Dose 1 TAB; Start 11/24/16 at 09:00 Linagliptin (Tradjenta) 5 mg DAILY PO Last administered on 12/15/16 08:09; Admin Dose 5 MG; Start 11/27/16 at 11:30 Metoclopramide HCl (Reglan) 5 mg TID PO Last administered on 12/15/16 08:09; Admin Dose 5 MG; Start 12/09/16 at 21:00 Insulin Glargine (Lantus) 14 unit DAILY@20 SC Last administered on 12/14/16 20: 55; Admin Dose 14 UNIT; Start 12/13/16 at 20:00 Sodium Hypochlorite 1 applic 1 applic DAILY IRR ; Start 12/15/16 at 16:00 Vancomycin HCl 1.5 gm/Sodium Chloride 250 ml @ 83.333 mls/ hr ONCE IVPB ; Start 12/15/16 at 12:00; Stop 12/15/16 at 18:00 Vancomycin HCl/ Sodium Chloride (Vancocin/NS) 150 ml @ 75 mls/hr Q8H IVPB ; Start 12/15/16 at 20:00 ALEA WHITAKER Dec 15, 2016 11:53
[2016-12-15] MEDS ORDERED: POTASSIUM CHLORIDE 20 MEQ POWDER FOR ORAL SOLN PO ONE (12:00)
[2016-12-15] MEDS ORDERED: VANCOMYCIN 1.5 GM in SOD CHLORIDE 0.9% 250 ML IVPB SCH (12:00)
--- NOTE | 2016-12-15 15:05 | CONS ---
Date/Time of Note Date/Time of Note DATE: 12/15/16 TIME: 14:57 Assessment/Plan Assessment/Plan Problems: (1) Type II diabetes mellitus, uncontrolled Status: Chronic Comment: Good glycemic control. Cont. current insulin, med doses for DM. Qualifiers: Diabetes mellitus complication status: with unspecified complications Diabetes mellitus alf insulin use: unspecified long term care pharmacist insulin use status Qualified Code: E11.8 - Uncontrolled type 2 diabetes mellitus with complication, unspecified long term care pharmacist insulin use status Consultation Date/Type/Reason Admit Date/Time Nov 17, 2016 at 11:30 Initial Consult Date 11/17/16 Type of Consultation: Endocrinology Reason for Consultation DKA Referring Provider: ALEA WHITAKER 24 HR Interval Summary Constitutional: improved, no complaints Detailed Summary Respiratory: no complaints Cardiovascular: no complaints Gastrointestinal: no complaints Genitourinary: no complaints Musculoskeletal: other (pre-sacral wound, healing) Neurologic: no complaints Exam/Review of Systems Vital Signs Vitals VS - Last 72 Hours, by Label Date Time Temp Pulse Resp B/P Pulse Ox O2 Delivery O2 Flow Rate FiO2 12/15/16 07:52 98.7 90 16 122/78 99 12/14/16 19:34 98.2 94 18 132/88 99 12/14/16 08:12 98.5 96 16 127/80 98 12/13/16 20:08 66 11 126/80 100 Room Air 12/13/16 20:03 68 18 133/83 100 Room Air 12/13/16 19:58 70 22 131/93 100 Room Air 12/13/16 19:53 66 18 136/94 100 Room Air 12/13/16 19:48 64 13 135/93 100 Room Air 12/13/16 19:48 64 13 100 12/13/16 19:46 97.8 12/13/16 19:43 97.3 66 16 139/93 100 Mask 8.0 12/13/16 17:13 98.5 92 18 134/77 100 Room Air 12/13/16 08:12 98.2 90 18 133/79 98 12/12/16 20:57 98.9 101 20 128/79 98 Vital Signs Date Time Temp Pulse Resp B/P Pulse Ox O2 Delivery O2 Flow Rate FiO2 12/15/16 07:52 98.7 90 16 122/78 99 12/13/16 20:08 Room Air 12/13/16 19:43 8.0 Intake and Output 12/14/16 12/14/16 12/15/16 15:00 23:00 07:00 Intake Total 1880 ml 500 ml Balance 1880 ml 500 ml Exam Constitutional: alert, oriented, well developed Psych: nl mood/affect, no complaints Respiratory: clear to auscultation, normal air movement Cardiovascular: nl pulses, regular rate and rhythm, No edema, No murmurs/extra sounds, No rub Gastrointestinal: bowel sounds, nl liver, spleen, non-tender, soft, No mass, No rebound or guarding Musculoskeletal: nl extremities to inspection Extremities: normal pulses, No clubbing, No cyanosis, No edema Neurological: FINANCIAL COMPLIANCE MANAGER II-XII intact, nl mental status, nl speech, nl strength Additional Comments Bedside Glucose - 72 Hours Test 12/12/16 17:01 12/12/16 20:03 12/13/16 08:11 12/13/16 11:45 Bedside Glucose 166mg/dL (70-220) 89mg/dL (70-220) 129mg/dL (70-220) 151mg/dL (70-220) Test 12/13/16 16:48 12/13/16 21:19 12/13/16 23:11 12/14/16 07:49 Bedside Glucose 171mg/dL (70-220) 120mg/dL (70-220) 188mg/dL (70-220) 168mg/dL (70-220) Test 12/14/16 11:57 12/14/16 17:49 12/14/16 20:53 12/15/16 07:58 Bedside Glucose 125mg/dL (70-220) 132mg/dL (70-220) 108mg/dL (70-220) 160mg/dL (70-220) Results Result Diagram: 12/14/16 0425 12/14/16 0425 Results 24 hrs Laboratory Tests Test 12/14/16 17:49 12/14/16 20:53 12/15/16 07:58 Bedside Glucose 132 108 160 Medications Medications Current Medications Ondansetron HCl (Zofran Inj) 4 mg Q6H PRN IV NAUSEA AND/OR VOMITING Last administered on 12/14/16t 22:45; Admin Dose 4 MG; Start 11/16/16 at 15:30 Acetaminophen (Tylenol Liquid) 650 mg Q6H PRN PO PAIN LEVEL 1-3 OR FEVER Last administered on 11/27/16 18:33; Admin Dose 650 MG; Start 11/16/16 at 15:30 Morphine Sulfate (morphine) 2 mg Q4H PRN IV PAIN LEVEL 7-10 Last administered on 12/15/16 10:53; Admin Dose 2 MG; Start 11/16/16 at 15:30 Enoxaparin Sodium (Lovenox) 30 mg DAILY SC Last administered on 12/15/16 08:10 ; Admin Dose 30 MG; Start 11/17/16 at 13:00 Eye Lubricant (Artificial Tears Oph) 2 drop QID BOTH EYES Last administered on 12/15/16 13:10; Admin Dose 2 DROP; Start 11/17/16 at 17:00 Pantoprazole (Protonix Tab) 40 mg DAILY@06 PO Last administered on 12/14/16 05: 29; Admin Dose 40 MG; Start 11/21/16 at 06:00 Miscellaneous Information 1 ea NOTE XX ; Start 11/21/16 at 15:30 Glucose (Glutose) 15 gm Q15M PRN PO DECREASED GLUCOSE; Start 11/21/16 at 15:30 Glucose (Glutose) 22.5 gm Q15M PRN PO DECREASED GLUCOSE; Start 11/21/16 at 15: 30 Dextrose (D50w Syringe) 25 ml Q15M PRN IV DECREASED GLUCOSE Last administered on 12/04/16 21:17; Admin Dose 25 ML; Start 11/21/16 at 15:30 Dextrose (D50w Syringe) 50 ml Q15M PRN IV DECREASED GLUCOSE; Start 11/21/16 at 15:30 Glucagon (Glucagen) 1 mg Q15M PRN IM DECREASED GLUCOSE; Start 11/21/16 at 15:30 Glucose (Glutose) 15 gm Q15M PRN BUCCAL DECREASED GLUCOSE; Start 11/21/16 at 15 :30 Diagnostic Test (Pha) (Accucheck) 1 ea 02 XX Last administered on 12/01/16 02: 26; Admin Dose 1 EA; Start 11/23/16 at 02:00 Ascorbic Acid (Vitamin C) 500 mg BID GTB Last administered on 12/15/16 08:09; Admin Dose 500 MG; Start 11/23/16 at 21:00 Multivitamins Therapeutic (Theragran) 1 tab DAILY PO Last administered on 08:09; Admin Dose 1 TAB; Start 11/24/16 at 09:00 Linagliptin (Tradjenta) 5 mg DAILY PO Last administered on 12/15/16 08:09; Admin Dose 5 MG; Start 11/27/16 at 11:30 Metoclopramide HCl (Reglan) 5 mg TID PO Last administered on 12/15/16 13:08; Admin Dose 5 MG; Start 12/09/16 at 21:00 Insulin Glargine (Lantus) 14 unit DAILY@20 SC Last administered on 12/14/16 20: 55; Admin Dose 14 UNIT; Start 12/13/16 at 20:00 Sodium Hypochlorite 1 applic 1 applic DAILY IRR ; Start 12/15/16 at 16:00 Vancomycin HCl 1.5 gm/Sodium Chloride 250 ml @ 83.333 mls/ hr ONCE IVPB Last administered on 12/15/16 13:09; Admin Dose 83.333 MLS/HR; Start 12/15/16 at 12:00 ; Stop 12/15/16 at 18:00 Vancomycin HCl/ Sodium Chloride (Vancocin/NS) 150 ml @ 75 mls/hr Q8H IVPB ; Start 12/15/16 at 20:00 ROGE PAEZ MD Dec 15, 2016 15:05
--- NOTE | 2016-12-15 15:13 | OPR ---
DATE OF OPERATION: 12/13/2016 SURGEON: Ji Lofton MD ASSISTANT PLANT CONTROLLER: None. ANESTHESIA: General. ANESTHESIOLOGIST: Dr. Cosby. PREOPERATIVE DIAGNOSIS: Infected sacrococcygeal wound. POSTOPERATIVE DIAGNOSES: Infected sacrococcygeal wound. Stage IV sacrococcygeal pressure ulcer. PROCEDURE PERFORMED: Excisional debridement of the sacrococcygeal wound which was cultured. The wound was 9 cm long x 7 cm wide before debridement and the depth in the emergency room area was 0.5 cm. Postoperation the measurement was 10 cm long x 0.5 cm wide and 1.5 cm deep. It should be mentioned that the wound had 1.5 cm undermining in the upper part from 10 o'clock to 2 o'clock position. INDICATION: The patient is a 41-year-old male who was admitted with diabetic ketoacidosis and was found to have several operations for deep tissue injury at the sacrococcygeal area due to pressure while the patient was in coma at home. In any case, the diabetes was not getting under control. The stage of the sacrococcygeal wound changed and it was covered with black eschar and later on and this wound was treated with Santyl ointment and later on some greenish slough also appeared. The wound was draining very badly and there was need for debridement, so discussed with the patient and he was scheduled for debridement. DESCRIPTION OF PROCEDURE: The patient was brought to the operating room, placed on operating table in supine position. Anesthesia was induced by the anesthesiologist. Time-out was called. The patient was identified. Two grams of Ancef IV was given. Position of the patient was changed to prone position. The area of the operation was prepped with Betadine and draped in a sterile fashion. First, a sharp debridement with a 15 blade knife was performed as much as possible to remove necrotic tissue and black eschar and also the greenish slough and piece of this slough was sent for culture, aerobic and anaerobic and Gram stain. Then, the remaining of the areas that could not be debrided with sharp debridement was cleansed with curret. It should be mentioned that at around 10 to 2 o'clock position of the wound, there was 1 to 1.5 cm undermining that this had to be taken down to expose the wound completely. Then the wound was irrigated with hydrogen peroxide followed by normal saline. Hemostasis achieved. Then the wound was covered with silver sulfadiazine ointment and packed with small sterile sponges. Patient tolerated procedure well. Sponge and instrument count reported were correct x2. The specimen was cultured. Debrided tissues were sent for pathologic evaluation. Patient changed position to supine position, extubated and transferred to recovery room in stable condition. ESTIMATED BLOOD LOSS: 20 mL. Dictated By: JI LOFTON MD PS/CLAUDY Conf#: [id number] DID#: [id number] MTDD
[2016-12-15] MEDS: SODIUM HYPOCHLORITE 1/40% 1L IRRIG IRR SCH (16:25)
--- NOTE | 2016-12-15 17:39 | PN ---
DATE: 12/15/2016 SUBJECTIVE: No acute changes overnight. The patient is alert, feels good, denies pain and discomfo rt. No fevers. No labs. MICROBIOLOGY: Wound culture of his sacrum growing MRSA. ANTIMICROBIALS: The patient is on IV vancomycin. OBJECTIVE: GENERAL: Well-developed, middle-aged man who is alert, in no distress. HEENT: Head atraumatic, normocephalic. Sclerae anicteric. Buccal mucosa pink. NECK: Supple. CHEST: Rise symmetrical. Breath sounds clear. HEART: S1, S2. ABDOMEN: Soft, bowel tones present. EXTREMITIES: No cyanosis. ASSESSMENT: 1. Infected sacrococcygeal wound status post incision and drainage with wound culture growing methi cillin-resistant Staphylococcus aureus. 2. Status post diabetic ketoacidosis. 3. Poorly controlled diabetes. 4. History of substance abuse. PLAN: The patient remains stable. Continue on IV vancomycin for now. Anticipate to downgrade to o ral Bactrim. Local wound care as per surgery. Dictated By: SANJAY GOEL EXPANDING MACHINE OPERATOR for SARAHY LAGOS/NTS Conf#: [id number] DID#: [id number]
[2016-12-15] MEDS: ONDANSETRON 4 MG INJ IV PRN (20:07)
[2016-12-15 21:00] VITALS: BP 119/83; RESP 20
[2016-12-15] MEDS: INSULIN GLARGINE [LANtus] 3 ML PEN SC SCH (21:18)
[2016-12-15] MEDS: VANCOMYCIN 750 MG in SOD CHLORIDE 0.9% 150 ML IVPB SCH (21:22)
[2016-12-16] MEDS: morphine 2 MG INJ IV PRN ×5 (01:06→21:14)
[2016-12-16] MEDS: ACCU-CHEK XX SCH (02:00)
[2016-12-16] MEDS: VANCOMYCIN 750 MG in SOD CHLORIDE 0.9% 150 ML IVPB SCH ×2 (03:23→13:16)
[2016-12-16] MEDS: PANTOPRAZOLE (EC) 40 MG TAB PO SCH (05:56)
[2016-12-16 08:23] VITALS: BP 141/81; RESP 20
[2016-12-16] MEDS: ENOXAPARIN 30 MG/0.3 ML SYG SC SCH (08:33)
[2016-12-16] MEDS: INSULIN ASPART [NOVOLOG] 3 ML PEN SC SCH ×7 (08:34→21:00)
[2016-12-16] MEDS: ASCORBIC ACID 500 MG TAB GTB SCH ×2 (08:37→21:02)
[2016-12-16] MEDS: LINAGLIPTIN 5 MG TABLET PO SCH (08:37)
[2016-12-16] MEDS: METOCLOPRAMIDE 5 MG TAB PO SCH ×3 (08:37→21:02)
[2016-12-16] MEDS: metFORMIN (XR) 500 MG TAB PO SCH ×2 (08:37→17:15)
[2016-12-16] MEDS: ARTIFICIAL TEARS 15 ML OPH BOTH EYES SCH ×4 (08:37→21:02)
[2016-12-16] MEDS: MULTIVITAMINS THERAPEUTIC TAB PO SCH (08:37)
[2016-12-16] MEDS: SODIUM HYPOCHLORITE 1/40% 1L IRRIG IRR SCH (08:47)
--- NOTE | 2016-12-16 13:59 | PN ---
DATE: 12/16/2016 Postop day #2, status post debridement of the sacrococcygeal wound. SUBJECTIVE: No new complaints. OBJECTIVE: VITAL SIGNS: Temperature 97.9, pulse 89, respiratory rate 20, blood pressure 141/81, saturation 98% on room air. SKIN: Wound clean, beefy red. Dressing is being changed in the form of wet-to-dry with Dakin solut ion 1/40%. LABORATORY DATA: Blood sugar POC of 104 and 161. CBC nothing done today. The culture that we sent from the wound in the operating room has grown methicillin-resistant Staphy lococcus aureus. The patient is on vancomycin, being followed by infectious disease. PLAN: Continue current care. Dictated By: SHILPI TRAVIS/CLAUDY Conf#: [id number] DID#: [id number]
--- NOTE | 2016-12-16 15:30 | CONS ---
Date/Time of Note Date/Time of Note DATE: 12/16/16 TIME: 15:29 Assessment/Plan Assessment/Plan Chief Complaint/Hosp Course SUBJECTIVE: No acute changes overnight. No fevers. MICROBIOLOGY: Wound culture of his sacrum growing MRSA. ANTIMICROBIALS: The patient is on IV vancomycin. OBJECTIVE: GENERAL: Well-developed, middle-aged man who is alert, in no distress. HEENT: Head atraumatic, normocephalic. Sclerae anicteric. Buccal mucosa pink. NECK: Supple. CHEST: Rise symmetrical. Breath sounds clear. HEART: S1, S2. ABDOMEN: Soft, bowel tones present. EXTREMITIES: No cyanosis. ASSESSMENT: 1. Infected sacrococcygeal wound status post incision and drainage with wound culture growing methicillin-resistant Staphylococcus aureus. 2. Status post diabetic ketoacidosis. 3. Poorly controlled diabetes. 4. History of substance abuse. PLAN: The patient remains stable. Continue on IV vancomycin. Anticipate to downgrade to oral Bactrim. Local wound care as per surgery. DW staff Problems: Consultation Date/Type/Reason Admit Date/Time Nov 17, 2016 at 11:30 Initial Consult Date 11/17/16 Type of Consultation: id Referring Provider: ALEA WHITAKER Exam/Review of Systems Vital Signs Vitals Vital Signs Date Time Temp Pulse Resp B/P Pulse Ox O2 Delivery O2 Flow Rate FiO2 12/16/16 08:23 97.9 89 20 141/81 98 12/13/16 20:08 Room Air 12/13/16 19:43 8.0 Intake and Output 12/15/16 12/15/16 12/16/16 15:00 23:00 07:00 Intake Total 250 ml 1980 ml 500 ml Balance 250 ml 1980 ml 500 ml Results Result Diagram: 12/14/16 0425 12/14/16 0425 Results 24 hrs Laboratory Tests Test 12/15/16 17:01 12/15/16 21:14 12/16/16 08:15 12/16/16 11:46 Bedside Glucose 106 83 161 Vancomycin Level Trough 5.9 L Test 12/16/16 12:10 Bedside Glucose 104 Medications Medications Current Medications Ondansetron HCl (Zofran Inj) 4 mg Q6H PRN IV NAUSEA AND/OR VOMITING Last administered on 12/15/16t 20:07; Admin Dose 4 MG; Start 11/16/16 at 15:30 Acetaminophen (Tylenol Liquid) 650 mg Q6H PRN PO PAIN LEVEL 1-3 OR FEVER Last administered on 11/27/16 18:33; Admin Dose 650 MG; Start 11/16/16 at 15:30 Morphine Sulfate (morphine) 2 mg Q4H PRN IV PAIN LEVEL 7-10 Last administered on 12/16/16 12:17; Admin Dose 2 MG; Start 11/16/16 at 15:30 Enoxaparin Sodium (Lovenox) 30 mg DAILY SC Last administered on 12/16/16 08:33 ; Admin Dose 30 MG; Start 11/17/16 at 13:00 Eye Lubricant (Artificial Tears Oph) 2 drop QID BOTH EYES Last administered on 12/16/16 12:18; Admin Dose 2 DROP; Start 11/17/16 at 17:00 Pantoprazole (Protonix Tab) 40 mg DAILY@06 PO Last administered on 12/16/16 05: 56; Admin Dose 40 MG; Start 11/21/16 at 06:00 Miscellaneous Information 1 ea NOTE XX ; Start 11/21/16 at 15:30 Glucose (Glutose) 15 gm Q15M PRN PO DECREASED GLUCOSE; Start 11/21/16 at 15:30 Glucose (Glutose) 22.5 gm Q15M PRN PO DECREASED GLUCOSE; Start 11/21/16 at 15: 30 Dextrose (D50w Syringe) 25 ml Q15M PRN IV DECREASED GLUCOSE Last administered on 12/04/16 21:17; Admin Dose 25 ML; Start 11/21/16 at 15:30 Dextrose (D50w Syringe) 50 ml Q15M PRN IV DECREASED GLUCOSE; Start 11/21/16 at 15:30 Glucagon (Glucagen) 1 mg Q15M PRN IM DECREASED GLUCOSE; Start 11/21/16 at 15:30 Glucose (Glutose) 15 gm Q15M PRN BUCCAL DECREASED GLUCOSE; Start 11/21/16 at 15 :30 Diagnostic Test (Pha) (Accucheck) 1 ea 02 XX Last administered on 12/01/16 02: 26; Admin Dose 1 EA; Start 11/23/16 at 02:00 Ascorbic Acid (Vitamin C) 500 mg BID GTB Last administered on 12/16/16 08:37; Admin Dose 500 MG; Start 11/23/16 at 21:00 Multivitamins Therapeutic (Theragran) 1 tab DAILY PO Last administered on 08:37; Admin Dose 1 TAB; Start 11/24/16 at 09:00 Linagliptin (Tradjenta) 5 mg DAILY PO Last administered on 12/16/16 08:37; Admin Dose 5 MG; Start 11/27/16 at 11:30 Metoclopramide HCl (Reglan) 5 mg TID PO Last administered on 12/16/16 12:17; Admin Dose 5 MG; Start 12/09/16 at 21:00 Insulin Glargine (Lantus) 14 unit DAILY@20 SC Last administered on 12/15/16 21: 18; Admin Dose 14 UNIT; Start 12/13/16 at 20:00 Sodium Hypochlorite 1 applic 1 applic DAILY IRR Last administered on 12/16/16 08:47; Admin Dose 1 APPLIC; Start 12/15/16 at 16:00 Vancomycin HCl (Vancocin) 250 ml @ 125 mls/hr Q8H IVPB ; Start 12/16/16 at 21:00 SANJAY GOEL PLANT ENGINEERING MANAGER Dec 16, 2016 15:30
[2016-12-16 17:14] LABS: ADD SCAN DIFF NO
[2016-12-16 17:16] LABS: BASOPHIL # 0.1 10^3/ul (0.0-0.1); BASOPHILS % 0.7 % (0.0-2.0); EOSINOPHILS # 0.1 10^3/ul (0.0-0.5); EOSINOPHILS % 1.3 % (0.0-7.0); HEMATOCRIT 36.6 % (42.0-52.0); HEMOGLOBIN 13.3 g/dl (14.0-18.0); LYMPHOCYTES # 2.3 10^3/ul (0.8-2.9); LYMPHOCYTES % 27.4 % (15.0-51.0); MEAN CORPUSCULAR HEMOGLOBIN 30.4 pg (29.0-33.0); MEAN CORPUSCULAR HGB CONC 36.3 g/dl (32.0-37.0); MEAN CORPUSCULAR VOLUME 83.8 fl (82.0-101.0); MEAN PLATELET VOLUME 8.6 fl (7.4-10.4); MONOCYTE # 0.7 10^3/ul (0.3-0.9); MONOCYTES % 8.2 % (0.0-11.0); NEUTROPHIL # 5.2 10^3/ul (1.6-7.5); NEUTROPHILS % 62.2 % (39.0-77.0); PLATELET COUNT 445 10^3/UL (140-415); RED BLOOD COUNT 4.37 10^6/ul (4.70-6.10); RED CELL DISTRIBUTION WIDTH 13.5 % (11.5-14.5); WHITE BLOOD COUNT 8.3 10^3/ul (4.8-10.8)
--- NOTE | 2016-12-16 17:22 | PN ---
Date/Time of Note Date/Time of Note DATE: 12/16/16 TIME: 17:21 Assessment/Plan VTE Prophylaxis VTE Prophylaxis Intervention: other Lines/Catheters IV [facility] Type [facility] Saline Lock Urinary Cath still in place: No Assessment/Plan Assessment/Plan - Sacral wound, status post debridement, perioperative culture growing MRSA, start vancomycin, continue wound care per surgical recommendation. Dr Corbett is following in surgical consultation. - Severe diabetic ketoacidosis with coma, resolved. Dr. Andre is following in endocrinology consultation. - Diabetes mellitus type 2. Continue Lantus , pre-meal NovoLog and NovoLog per sliding scale. - Acute metabolic encephalopathy, resolved. - Severe sepsis 2 PNA, resolved. Dr. Callaway is following in infectious disease consultation. - Community-acquired pneumonia vs aspiration. - Acute respiratory failure, resolved. Dr Disla s following the patient in pulmonology consultation. - Altered level of consciousness on admission, resolved CT head is negative. - Amphetamine screen positive. - Homelessness, protective services case worker and drug abuse social worker for discharge planning. Continue sequential compression device for deep venous thrombosis prophylaxis and Protonix for peptic ulcer disease prophylaxis. Further recommendations based on clinical course. Plan of care discussed with Dr. Ma. Subjective 24 Hr Interval Summary Eyes: no complaints ENT: no complaints Respiratory: no complaints Cardiovascular: no complaints Gastrointestinal: no complaints Genitourinary: no complaints Musculoskeletal: no complaints Skin: no complaints Neurologic: no complaints Endocrine: no complaints Lymphatic: no complaints Psychological: no complaints Exam/Review of Systems Vital Signs Vitals Vital Signs Date Time Temp Pulse Resp B/P Pulse Ox O2 Delivery O2 Flow Rate FiO2 12/16/16 08:23 97.9 89 20 141/81 98 12/13/16 20:08 Room Air 12/13/16 19:43 8.0 Intake and Output 12/15/16 12/15/16 12/16/16 15:00 23:00 07:00 Intake Total 250 ml 1980 ml 500 ml Balance 250 ml 1980 ml 500 ml Exam Constitutional: alert Psych: nl mood/affect Head: normocephalic Eyes: nl conjunctiva Neck: supple Respiratory: clear to auscultation Cardiovascular: regular rate and rhythm Gastrointestinal: non-tender, soft Musculoskeletal: other Extremities: normal pulses Neurological: nl mental status, nl speech Results Result Diagram: 12/16/16 1710 12/14/16 0425 Results 24 hrs Laboratory Tests Test 12/15/16 21:14 12/16/16 08:15 12/16/16 11:46 12/16/16 12:10 Bedside Glucose 83 161 104 Vancomycin Level Trough 5.9 L Test 12/16/16 17:10 White Blood Count 8.3 Red Blood Count 4.37 L Hemoglobin 13.3 L Hematocrit 36.6 L Mean Corpuscular Volume 83.8 Mean Corpuscular Hemoglobin 30.4 Mean Corpuscular Hemoglobin Concent 36.3 Red Cell Distribution Width 13.5 Platelet Count 445 H Mean Platelet Volume 8.6 Neutrophils % 62.2 Lymphocytes % 27.4 Monocytes % 8.2 Eosinophils % 1.3 Basophils % 0.7 Nucleated Red Blood Cells % 0.0 Neutrophils # 5.2 Lymphocytes # 2.3 Monocytes # 0.7 Eosinophils # 0.1 Basophils # 0.1 Nucleated Red Blood Cells # 0.0 Medications Medications Current Medications Ondansetron HCl (Zofran Inj) 4 mg Q6H PRN IV NAUSEA AND/OR VOMITING Last administered on 12/15/16 20:07; Admin Dose 4 MG; Start 11/16/16 at 15:30 Acetaminophen (Tylenol Liquid) 650 mg Q6H PRN PO PAIN LEVEL 1-3 OR FEVER Last administered on 11/27/16 18:33; Admin Dose 650 MG; Start 11/16/16 at 15:30 Morphine Sulfate (morphine) 2 mg Q4H PRN IV PAIN LEVEL 7-10 Last administered on 12/16/16 17:15; Admin Dose 2 MG; Start 11/16/16 at 15:30 Enoxaparin Sodium (Lovenox) 30 mg DAILY SC Last administered on 12/16/16 08:33 ; Admin Dose 30 MG; Start 11/17/16 at 13:00 Eye Lubricant (Artificial Tears Oph) 2 drop QID BOTH EYES Last administered on 12/16/16 17:14; Admin Dose 2 DROP; Start 11/17/16 at 17:00 Pantoprazole (Protonix Tab) 40 mg DAILY@06 PO Last administered on 12/16/16 05: 56; Admin Dose 40 MG; Start 11/21/16 at 06:00 Miscellaneous Information 1 ea NOTE XX ; Start 11/21/16 at 15:30 Glucose (Glutose) 15 gm Q15M PRN PO DECREASED GLUCOSE; Start 11/21/16 at 15:30 Glucose (Glutose) 22.5 gm Q15M PRN PO DECREASED GLUCOSE; Start 11/21/16 at 15: 30 Dextrose (D50w Syringe) 25 ml Q15M PRN IV DECREASED GLUCOSE Last administered on 12/04/16 21:17; Admin Dose 25 ML; Start 11/21/16 at 15:30 Dextrose (D50w Syringe) 50 ml Q15M PRN IV DECREASED GLUCOSE; Start 11/21/16 at 15:30 Glucagon (Glucagen) 1 mg Q15M PRN IM DECREASED GLUCOSE; Start 11/21/16 at 15:30 Glucose (Glutose) 15 gm Q15M PRN BUCCAL DECREASED GLUCOSE; Start 11/21/16 at 15 :30 Diagnostic Test (Pha) (Accucheck) 1 ea 02 XX Last administered on 12/01/16 02: 26; Admin Dose 1 EA; Start 11/23/16 at 02:00 Ascorbic Acid (Vitamin C) 500 mg BID GTB Last administered on 12/16/16 08:37; Admin Dose 500 MG; Start 11/23/16 at 21:00 Multivitamins Therapeutic (Theragran) 1 tab DAILY PO Last administered on 08:37; Admin Dose 1 TAB; Start 11/24/16 at 09:00 Linagliptin (Tradjenta) 5 mg DAILY PO Last administered on 12/16/16 08:37; Admin Dose 5 MG; Start 11/27/16 at 11:30 Metoclopramide HCl (Reglan) 5 mg TID PO Last administered on 12/16/16 12:17; Admin Dose 5 MG; Start 12/09/16 at 21:00 Insulin Glargine (Lantus) 14 unit DAILY@20 SC Last administered on 12/15/16 21: 18; Admin Dose 14 UNIT; Start 12/13/16 at 20:00 Sodium Hypochlorite 1 applic 1 applic DAILY IRR Last administered on 12/16/16 08:47; Admin Dose 1 APPLIC; Start 12/15/16 at 16:00 Vancomycin HCl (Vancocin) 250 ml @ 125 mls/hr Q8H IVPB ; Start 12/16/16 at 21:00 HANNAH DIAS Dec 16, 2016 17:22
[2016-12-16 17:27] LABS: CALCIUM 9.4 mg/dl (8.4-10.2); CREATININE 0.47 mg/dl (0.61-1.24); POTASSIUM 4.1 mmol/L (3.5-5.1)
--- NOTE | 2016-12-16 18:41 | CONS ---
Date/Time of Note Date/Time of Note DATE: 12/16/16 TIME: 18:38 Assessment/Plan Assessment/Plan Problems: (1) Type II diabetes mellitus, uncontrolled Status: Chronic Comment: Excellent glycemic control. Cont. current insulin doses. 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 Qualified Code: E11.8 - Uncontrolled type 2 diabetes mellitus with complication, unspecified nursing home insulin use status Consultation Date/Type/Reason Admit Date/Time Nov 17, 2016 at 11:30 Initial Consult Date 11/17/16 Type of Consultation: Endocrinology Reason for Consultation DKA Referring Provider: ALEA WHITAKER 24 HR Interval Summary Subjective hx not possible: pt non-verbal (sleeping) Exam/Review of Systems Vital Signs Vitals VS - Last 72 Hours, by Label Date Time Temp Pulse Resp B/P Pulse Ox O2 Delivery O2 Flow Rate FiO2 12/16/16 08:23 97.9 89 20 141/81 98 12/15/16 21:00 98.3 99 20 119/83 99 12/15/16 07:52 98.7 90 16 122/78 99 12/14/16 19:34 98.2 94 18 132/88 99 12/14/16 08:12 98.5 96 16 127/80 98 12/13/16 20:08 66 11 126/80 100 Room Air 12/13/16 20:03 68 18 133/83 100 Room Air 12/13/16 19:58 70 22 131/93 100 Room Air 12/13/16 19:53 66 18 136/94 100 Room Air 12/13/16 19:48 64 13 135/93 100 Room Air 12/13/16 19:48 64 13 100 12/13/16 19:46 97.8 12/13/16 19:43 97.3 66 16 139/93 100 Mask 8.0 Vital Signs Date Time Temp Pulse Resp B/P Pulse Ox O2 Delivery O2 Flow Rate FiO2 12/16/16 08:23 97.9 89 20 141/81 98 12/13/16 20:08 Room Air 12/13/16 19:43 8.0 Intake and Output 12/15/16 12/15/16 12/16/16 15:00 23:00 07:00 Intake Total 250 ml 1980 ml 500 ml Balance 250 ml 1980 ml 500 ml Exam Constitutional: non-verbal, No alert (sleeping) Respiratory: clear to auscultation, normal air movement Cardiovascular: nl pulses, regular rate and rhythm, No edema, No murmurs/extra sounds, No rub Gastrointestinal: bowel sounds, nl liver, spleen, non-tender, soft, No mass, No rebound or guarding Musculoskeletal: nl extremities to inspection Extremities: normal pulses, No clubbing, No cyanosis, No edema 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, nl mental status, nl speech, nl strength Additional Comments Bedside Glucose - 72 Hours Test 12/13/16 21:19 12/13/16 23:11 12/14/16 07:49 12/14/16 11:57 Bedside Glucose 120mg/dL (70-220) 188mg/dL (70-220) 168mg/dL (70-220) 125mg/dL (70-220) Test 12/14/16 17:49 12/14/16 20:53 12/15/16 07:58 12/15/16 12:11 Bedside Glucose 132mg/dL (70-220) 108mg/dL (70-220) 160mg/dL (70-220) 198mg/dL (70-220) Test 12/15/16 17:01 12/15/16 21:14 12/16/16 08:15 12/16/16 12:10 Bedside Glucose 106mg/dL (70-220) 83mg/dL (70-220) 161mg/dL (70-220) 104mg/dL (70-220) Test 12/16/16 17:12 Bedside Glucose 105mg/dL (70-220) Results Result Diagram: 12/16/16 1710 12/16/16 1710 Results 24 hrs Laboratory Tests Test 12/15/16 21:14 12/16/16 08:15 12/16/16 11:46 12/16/16 12:10 Bedside Glucose 83 161 104 Vancomycin Level Trough 5.9 L Test 12/16/16 17:10 12/16/16 17:12 White Blood Count 8.3 Red Blood Count 4.37 L Hemoglobin 13.3 L Hematocrit 36.6 L Mean Corpuscular Volume 83.8 Mean Corpuscular Hemoglobin 30.4 Mean Corpuscular Hemoglobin Concent 36.3 Red Cell Distribution Width 13.5 Platelet Count 445 H Mean Platelet Volume 8.6 Neutrophils % 62.2 Lymphocytes % 27.4 Monocytes % 8.2 Eosinophils % 1.3 Basophils % 0.7 Nucleated Red Blood Cells % 0.0 Neutrophils # 5.2 Lymphocytes # 2.3 Monocytes # 0.7 Eosinophils # 0.1 Basophils # 0.1 Nucleated Red Blood Cells # 0.0 Sodium Level 135 Potassium Level 4.1 Chloride Level 99 Carbon Dioxide Level 27 Anion Gap 13 Blood Urea Nitrogen 12 Creatinine 0.47 L Glucose Level 107 Calcium Level 9.4 Bedside Glucose 105 Medications Medications Current Medications Ondansetron HCl (Zofran Inj) 4 mg Q6H PRN IV NAUSEA AND/OR VOMITING Last administered on 12/15/16 20:07; Admin Dose 4 MG; Start 11/16/16 at 15:30 Acetaminophen (Tylenol Liquid) 650 mg Q6H PRN PO PAIN LEVEL 1-3 OR FEVER Last administered on 11/27/16 18:33; Admin Dose 650 MG; Start 11/16/16 at 15:30 Morphine Sulfate (morphine) 2 mg Q4H PRN IV PAIN LEVEL 7-10 Last administered on 12/16/16 17:15; Admin Dose 2 MG; Start 11/16/16 at 15:30 Enoxaparin Sodium (Lovenox) 30 mg DAILY SC Last administered on 12/16/16 08:33 ; Admin Dose 30 MG; Start 11/17/16 at 13:00 Eye Lubricant (Artificial Tears Oph) 2 drop QID BOTH EYES Last administered on 12/16/16 17:14; Admin Dose 2 DROP; Start 11/17/16 at 17:00 Pantoprazole (Protonix Tab) 40 mg DAILY@06 PO Last administered on 12/16/16 05: 56; Admin Dose 40 MG; Start 11/21/16 at 06:00 Miscellaneous Information 1 ea NOTE XX ; Start 11/21/16 at 15:30 Glucose (Glutose) 15 gm Q15M PRN PO DECREASED GLUCOSE; Start 11/21/16 at 15:30 Glucose (Glutose) 22.5 gm Q15M PRN PO DECREASED GLUCOSE; Start 11/21/16 at 15: 30 Dextrose (D50w Syringe) 25 ml Q15M PRN IV DECREASED GLUCOSE Last administered on 12/04/16 21:17; Admin Dose 25 ML; Start 11/21/16 at 15:30 Dextrose (D50w Syringe) 50 ml Q15M PRN IV DECREASED GLUCOSE; Start 11/21/16 at 15:30 Glucagon (Glucagen) 1 mg Q15M PRN IM DECREASED GLUCOSE; Start 11/21/16 at 15:30 Glucose (Glutose) 15 gm Q15M PRN BUCCAL DECREASED GLUCOSE; Start 11/21/16 at 15 :30 Diagnostic Test (Pha) (Accucheck) 1 ea 02 XX Last administered on 12/01/16 02: 26; Admin Dose 1 EA; Start 11/23/16 at 02:00 Ascorbic Acid (Vitamin C) 500 mg BID GTB Last administered on 12/16/16 08:37; Admin Dose 500 MG; Start 11/23/16 at 21:00 Multivitamins Therapeutic (Theragran) 1 tab DAILY PO Last administered on 08:37; Admin Dose 1 TAB; Start 11/24/16 at 09:00 Linagliptin (Tradjenta) 5 mg DAILY PO Last administered on 12/16/16 08:37; Admin Dose 5 MG; Start 11/27/16 at 11:30 Metoclopramide HCl (Reglan) 5 mg TID PO Last administered on 12/16/16 12:17; Admin Dose 5 MG; Start 12/09/16 at 21:00 Insulin Glargine (Lantus) 14 unit DAILY@20 SC Last administered on 12/15/16 21: 18; Admin Dose 14 UNIT; Start 12/13/16 at 20:00 Sodium Hypochlorite 1 applic 1 applic DAILY IRR Last administered on 12/16/16 08:47; Admin Dose 1 APPLIC; Start 12/15/16 at 16:00 Vancomycin HCl (Vancocin) 250 ml @ 125 mls/hr Q8H IVPB ; Start 12/16/16 at 21:00 ROGE PAEZ MD Dec 16, 2016 18:41
[2016-12-16] MEDS: INSULIN GLARGINE [LANtus] 3 ML PEN SC SCH (19:53)
[2016-12-16] MEDS: VANCOMYCIN 1 GM in NS 250 ML IVPB SCH (21:05)
[2016-12-17] MEDS: morphine 2 MG INJ IV PRN ×5 (01:15→21:28)
[2016-12-17] MEDS: ACCU-CHEK XX SCH (01:20)
[2016-12-17] MEDS: VANCOMYCIN 1 GM in NS 250 ML IVPB SCH (04:38)
[2016-12-17] MEDS: PANTOPRAZOLE (EC) 40 MG TAB PO SCH (05:44)
[2016-12-17 05:49] LABS: ADD SCAN DIFF NO
[2016-12-17 05:53] LABS: BASOPHIL # 0.1 10^3/ul (0.0-0.1); BASOPHILS % 0.9 % (0.0-2.0); EOSINOPHILS # 0.1 10^3/ul (0.0-0.5); EOSINOPHILS % 1.4 % (0.0-7.0); HEMATOCRIT 38.3 % (42.0-52.0); HEMOGLOBIN 13.4 g/dl (14.0-18.0); LYMPHOCYTES # 2.5 10^3/ul (0.8-2.9); LYMPHOCYTES % 29.1 % (15.0-51.0); MEAN CORPUSCULAR VOLUME 85.7 fl (82.0-101.0); MEAN PLATELET VOLUME 8.7 fl (7.4-10.4); MONOCYTE # 0.8 10^3/ul (0.3-0.9); MONOCYTES % 9.1 % (0.0-11.0); NEUTROPHIL # 5.1 10^3/ul (1.6-7.5); NEUTROPHILS % 59.2 % (39.0-77.0); PLATELET COUNT 461 10^3/UL (140-415); RED BLOOD COUNT 4.47 10^6/ul (4.70-6.10); RED CELL DISTRIBUTION WIDTH 13.7 % (11.5-14.5); WHITE BLOOD COUNT 8.7 10^3/ul (4.8-10.8)
[2016-12-17] MEDS: SODIUM HYPOCHLORITE 1/40% 1L IRRIG IRR SCH (05:57)
[2016-12-17 07:09] LABS: CALCIUM 8.9 mg/dl (8.4-10.2); CREATININE 0.43 mg/dl (0.61-1.24); POTASSIUM 4.1 mmol/L (3.5-5.1)
[2016-12-17 08:19] VITALS: BP 139/89; RESP 20
[2016-12-17] MEDS: ASCORBIC ACID 500 MG TAB GTB SCH ×2 (08:24→20:26)
[2016-12-17] MEDS: METOCLOPRAMIDE 5 MG TAB PO SCH ×3 (08:24→20:26)
[2016-12-17] MEDS: LINAGLIPTIN 5 MG TABLET PO SCH (08:25)
[2016-12-17] MEDS: metFORMIN (XR) 500 MG TAB PO SCH ×2 (08:25→17:39)
[2016-12-17] MEDS: ARTIFICIAL TEARS 15 ML OPH BOTH EYES SCH ×4 (08:26→20:26)
[2016-12-17] MEDS: ENOXAPARIN 30 MG/0.3 ML SYG SC SCH (08:27)
[2016-12-17] MEDS: INSULIN ASPART [NOVOLOG] 3 ML PEN SC SCH ×7 (08:28→20:26)
[2016-12-17] MEDS: MULTIVITAMINS THERAPEUTIC TAB PO SCH (08:33)
--- NOTE | 2016-12-17 11:50 | CONS ---
Date/Time of Note Date/Time of Note DATE: 12/17/16 TIME: 11:48 Assessment/Plan Assessment/Plan Chief Complaint/Hosp Course SUBJECTIVE: No acute changes overnight. No fevers. MICROBIOLOGY: Wound culture of his sacrum growing MRSA. ANTIMICROBIALS: The patient is on IV vancomycin. OBJECTIVE: GENERAL: Well-developed, middle-aged man who is alert, in no distress. HEENT: Head atraumatic, normocephalic. Sclerae anicteric. Buccal mucosa pink. NECK: Supple. CHEST: Rise symmetrical. Breath sounds clear. HEART: S1, S2. ABDOMEN: Soft, bowel tones present. EXTREMITIES: No cyanosis. ASSESSMENT: 1. Infected sacrococcygeal wound status post incision and drainage with wound culture growing methicillin-resistant Staphylococcus aureus. 2. Status post diabetic ketoacidosis. 3. Poorly controlled diabetes. 4. History of substance abuse. PLAN: The patient remains stable. Will change abx to PO Bactrim, continue for 10 more days. Local wound care as per surgery. DW staff Problems: Consultation Date/Type/Reason Admit Date/Time Nov 17, 2016 at 11:30 Initial Consult Date 11/17/16 Type of Consultation: id Referring Provider: ALEA WHITAKER Exam/Review of Systems Vital Signs Vitals Vital Signs Date Time Temp Pulse Resp B/P Pulse Ox O2 Delivery O2 Flow Rate FiO2 12/17/16 08:19 98.1 91 20 139/89 98 12/13/16 20:08 Room Air 12/13/16 19:43 8.0 Intake and Output 12/16/16 12/16/16 12/17/16 15:00 23:00 07:00 Intake Total 1190 ml 985 ml Output Total 1230 ml Balance 1190 ml -245 ml Results Result Diagram: 12/17/16 0455 12/17/16 0517 Results 24 hrs Laboratory Tests Test 12/16/16 12:10 12/16/16 17:10 12/16/16 17:12 12/16/16 19:48 Bedside Glucose 104 105 74 White Blood Count 8.3 Red Blood Count 4.37 L Hemoglobin 13.3 L Hematocrit 36.6 L Mean Corpuscular Volume 83.8 Mean Corpuscular Hemoglobin 30.4 Mean Corpuscular Hemoglobin Concent 36.3 Red Cell Distribution Width 13.5 Platelet Count 445 H Mean Platelet Volume 8.6 Neutrophils % 62.2 Lymphocytes % 27.4 Monocytes % 8.2 Eosinophils % 1.3 Basophils % 0.7 Nucleated Red Blood Cells % 0.0 Neutrophils # 5.2 Lymphocytes # 2.3 Monocytes # 0.7 Eosinophils # 0.1 Basophils # 0.1 Nucleated Red Blood Cells # 0.0 Sodium Level 135 Potassium Level 4.1 Chloride Level 99 Carbon Dioxide Level 27 Anion Gap 13 Blood Urea Nitrogen 12 Creatinine 0.47 L Glucose Level 107 Calcium Level 9.4 Test 12/16/16 21:02 12/17/16 04:55 12/17/16 05:17 12/17/16 08:23 Bedside Glucose 138 145 White Blood Count 8.7 Red Blood Count 4.47 L Hemoglobin 13.4 L Hematocrit 38.3 L Mean Corpuscular Volume 85.7 Mean Corpuscular Hemoglobin 30.0 Mean Corpuscular Hemoglobin Concent 35.0 Red Cell Distribution Width 13.7 Platelet Count 461 H Mean Platelet Volume 8.7 Neutrophils % 59.2 Lymphocytes % 29.1 Monocytes % 9.1 Eosinophils % 1.4 Basophils % 0.9 Nucleated Red Blood Cells % 0.0 Neutrophils # 5.1 Lymphocytes # 2.5 Monocytes # 0.8 Eosinophils # 0.1 Basophils # 0.1 Nucleated Red Blood Cells # 0.0 Sodium Level 134 L Potassium Level 4.1 Chloride Level 100 Carbon Dioxide Level 26 Anion Gap 12 Blood Urea Nitrogen 14 Creatinine 0.43 L Glucose Level 123 Calcium Level 8.9 Test 12/17/16 11:22 Bedside Glucose 127 Medications Medications Current Medications Ondansetron HCl (Zofran Inj) 4 mg Q6H PRN IV NAUSEA AND/OR VOMITING Last administered on 12/15/16 20:07; Admin Dose 4 MG; Start 11/16/16 at 15:30 Acetaminophen (Tylenol Liquid) 650 mg Q6H PRN PO PAIN LEVEL 1-3 OR FEVER Last administered on 11/27/16 18:33; Admin Dose 650 MG; Start 11/16/16 at 15:30 Morphine Sulfate (morphine) 2 mg Q4H PRN IV PAIN LEVEL 7-10 Last administered on 12/17/16 05:46; Admin Dose 2 MG; Start 11/16/16 at 15:30 Enoxaparin Sodium (Lovenox) 30 mg DAILY SC Last administered on 12/17/16 08:27 ; Admin Dose 30 MG; Start 11/17/16 at 13:00 Eye Lubricant (Artificial Tears Oph) 2 drop QID BOTH EYES Last administered on 12/17/16 08:26; Admin Dose 2 DROP; Start 11/17/16 at 17:00 Pantoprazole (Protonix Tab) 40 mg DAILY@06 PO Last administered on 12/17/16 05: 44; Admin Dose 40 MG; Start 11/21/16 at 06:00 Miscellaneous Information 1 ea NOTE XX ; Start 11/21/16 at 15:30 Glucose (Glutose) 15 gm Q15M PRN PO DECREASED GLUCOSE; Start 11/21/16 at 15:30 Glucose (Glutose) 22.5 gm Q15M PRN PO DECREASED GLUCOSE; Start 11/21/16 at 15: 30 Dextrose (D50w Syringe) 25 ml Q15M PRN IV DECREASED GLUCOSE Last administered on 12/04/16 21:17; Admin Dose 25 ML; Start 11/21/16 at 15:30 Dextrose (D50w Syringe) 50 ml Q15M PRN IV DECREASED GLUCOSE; Start 11/21/16 at 15:30 Glucagon (Glucagen) 1 mg Q15M PRN IM DECREASED GLUCOSE; Start 11/21/16 at 15:30 Glucose (Glutose) 15 gm Q15M PRN BUCCAL DECREASED GLUCOSE; Start 11/21/16 at 15 :30 Diagnostic Test (Pha) (Accucheck) 1 ea 02 XX Last administered on 12/01/16 02: 26; Admin Dose 1 EA; Start 11/23/16 at 02:00 Ascorbic Acid (Vitamin C) 500 mg BID GTB Last administered on 12/17/16 08:24; Admin Dose 500 MG; Start 11/23/16 at 21:00 Multivitamins Therapeutic (Theragran) 1 tab DAILY PO Last administered on 08:33; Admin Dose 1 TAB; Start 11/24/16 at 09:00 Linagliptin (Tradjenta) 5 mg DAILY PO Last administered on 12/17/16 08:25; Admin Dose 5 MG; Start 11/27/16 at 11:30 Metoclopramide HCl (Reglan) 5 mg TID PO Last administered on 12/17/16 08:24; Admin Dose 5 MG; Start 12/09/16 at 21:00 Insulin Glargine (Lantus) 14 unit DAILY@20 SC Last administered on 12/16/16 19: 53; Admin Dose 14 UNIT; Start 12/13/16 at 20:00 Sodium Hypochlorite 1 applic 1 applic DAILY IRR Last administered on 12/17/16 05:57; Admin Dose 1 APPLIC; Start 12/15/16 at 16:00 Vancomycin HCl (Vancocin) 250 ml @ 125 mls/hr Q8H IVPB Last administered on 04:38; Admin Dose 125 MLS/HR; Start 12/16/16 at 21:00 SANJAY GOEL NP Dec 17, 2016 11:50
[2016-12-17] MEDS: TRIMETHOPRIM/SULFAMETHOX (DS) TAB PO SCH ×2 (12:20→20:26)
--- NOTE | 2016-12-17 18:04 | PN ---
Date/Time of Note Date/Time of Note DATE: 12/17/16 TIME: 18:02 Assessment/Plan VTE Prophylaxis VTE Prophylaxis Intervention: SCD's Lines/Catheters IV [facility] Urinary Cath still in place: No Assessment/Plan Chief Complaint/Hosp Course ASSESSMENT AND PLAN - Sacral wound, status post debridement, perioperative culture growing MRSA, continue Bactrim, continue wound care per surgical recommendation. Dr Corbett is following in surgical consultation. - Severe diabetic ketoacidosis with coma, resolved. Dr. Andre is following in endocrinology consultation. - Diabetes mellitus type 2. Continue Lantus , pre-meal NovoLog and NovoLog per sliding scale. - Acute metabolic encephalopathy, resolved. - Severe sepsis 2 PNA, resolved. Dr. Callaway is following in infectious disease consultation. - Community-acquired pneumonia vs aspiration. - Acute respiratory failure, resolved. Dr Disla s following the patient in pulmonology consultation. - Altered level of consciousness on admission, resolved CT head is negative. - Amphetamine screen positive. - Homelessness, case assistant and social service assistant for discharge planning. Continue sequential compression device for deep venous thrombosis prophylaxis and Protonix for peptic ulcer disease prophylaxis. Further recommendations based on clinical course. Plan of care discussed with Dr. Ma. Problems: Exam/Review of Systems Vital Signs Vitals Vital Signs Date Time Temp Pulse Resp B/P Pulse Ox O2 Delivery O2 Flow Rate FiO2 12/17/16 08:19 98.1 91 20 139/89 98 12/13/16 20:08 Room Air 12/13/16 19:43 8.0 Intake and Output 12/16/16 12/16/16 12/17/16 15:00 23:00 07:00 Intake Total 1190 ml 985 ml Output Total 1230 ml Balance 1190 ml -245 ml Exam PHYSICAL ASSESSMENT: GENERAL: Well-developed, well-nourished male, awake alert HEENT: Head is normocephalic, PERRLA. NECK: Supple, no cervical lymphadenopathy, no thyromegaly. LUNGS: Diminished at the bases. CARDIOVASCULAR: Normal S1, S2. No murmurs, gallops, clicks, rubs noted. ABDOMEN: Flat, soft, nondistended, nontender. Bowel sounds present. EXTREMITIES: There is no edema, clubbing, cyanosis. Pulses equal bilaterally 2 +. SKIN: There is no rash, petechiae noted. Sacral wound, status post debridement. NEUROLOGIC: Awake alert Results Result Diagram: 12/17/16 0455 12/17/16 0517 Results 24 hrs Laboratory Tests Test 12/16/16 19:48 12/16/16 21:02 12/17/16 04:55 12/17/16 05:17 Bedside Glucose 74 138 White Blood Count 8.7 Red Blood Count 4.47 L Hemoglobin 13.4 L Hematocrit 38.3 L Mean Corpuscular Volume 85.7 Mean Corpuscular Hemoglobin 30.0 Mean Corpuscular Hemoglobin Concent 35.0 Red Cell Distribution Width 13.7 Platelet Count 461 H Mean Platelet Volume 8.7 Neutrophils % 59.2 Lymphocytes % 29.1 Monocytes % 9.1 Eosinophils % 1.4 Basophils % 0.9 Nucleated Red Blood Cells % 0.0 Neutrophils # 5.1 Lymphocytes # 2.5 Monocytes # 0.8 Eosinophils # 0.1 Basophils # 0.1 Nucleated Red Blood Cells # 0.0 Sodium Level 134 L Potassium Level 4.1 Chloride Level 100 Carbon Dioxide Level 26 Anion Gap 12 Blood Urea Nitrogen 14 Creatinine 0.43 L Glucose Level 123 Calcium Level 8.9 Test 12/17/16 08:23 12/17/16 11:22 12/17/16 16:52 Bedside Glucose 145 127 163 Medications Medications Current Medications Ondansetron HCl (Zofran Inj) 4 mg Q6H PRN IV NAUSEA AND/OR VOMITING Last administered on 12/15/16 20:07; Admin Dose 4 MG; Start 11/16/16 at 15:30 Acetaminophen (Tylenol Liquid) 650 mg Q6H PRN PO PAIN LEVEL 1-3 OR FEVER Last administered on 11/27/16 18:33; Admin Dose 650 MG; Start 11/16/16 at 15:30 Morphine Sulfate (morphine) 2 mg Q4H PRN IV PAIN LEVEL 7-10 Last administered on 12/17/16 17:44; Admin Dose 2 MG; Start 11/16/16 at 15:30 Enoxaparin Sodium (Lovenox) 30 mg DAILY SC Last administered on 12/17/16 08:27 ; Admin Dose 30 MG; Start 11/17/16 at 13:00 Eye Lubricant (Artificial Tears Oph) 2 drop QID BOTH EYES Last administered on 12/17/16 17:40; Admin Dose 2 DROP; Start 11/17/16 at 17:00 Pantoprazole (Protonix Tab) 40 mg DAILY@06 PO Last administered on 12/17/16 05: 44; Admin Dose 40 MG; Start 11/21/16 at 06:00 Miscellaneous Information 1 ea NOTE XX ; Start 11/21/16 at 15:30 Glucose (Glutose) 15 gm Q15M PRN PO DECREASED GLUCOSE; Start 11/21/16 at 15:30 Glucose (Glutose) 22.5 gm Q15M PRN PO DECREASED GLUCOSE; Start 11/21/16 at 15: 30 Dextrose (D50w Syringe) 25 ml Q15M PRN IV DECREASED GLUCOSE Last administered on 12/04/16 21:17; Admin Dose 25 ML; Start 11/21/16 at 15:30 Dextrose (D50w Syringe) 50 ml Q15M PRN IV DECREASED GLUCOSE; Start 11/21/16 at 15:30 Glucagon (Glucagen) 1 mg Q15M PRN IM DECREASED GLUCOSE; Start 11/21/16 at 15:30 Glucose (Glutose) 15 gm Q15M PRN BUCCAL DECREASED GLUCOSE; Start 11/21/16 at 15 :30 Diagnostic Test (Pha) (Accucheck) 1 ea 02 XX Last administered on 12/01/16 02: 26; Admin Dose 1 EA; Start 11/23/16 at 02:00 Ascorbic Acid (Vitamin C) 500 mg BID GTB Last administered on 12/17/16 08:24; Admin Dose 500 MG; Start 11/23/16 at 21:00 Multivitamins Therapeutic (Theragran) 1 tab DAILY PO Last administered on 08:33; Admin Dose 1 TAB; Start 11/24/16 at 09:00 Linagliptin (Tradjenta) 5 mg DAILY PO Last administered on 12/17/16 08:25; Admin Dose 5 MG; Start 11/27/16 at 11:30 Metoclopramide HCl (Reglan) 5 mg TID PO Last administered on 12/17/16 12:20; Admin Dose 5 MG; Start 12/09/16 at 21:00 Insulin Glargine (Lantus) 14 unit DAILY@20 SC Last administered on 12/16/16 19: 53; Admin Dose 14 UNIT; Start 4/3/17 at 20:00 Sodium Hypochlorite (Dakin'S (Dilute 1/40%)) 1 applic DAILY IRR Last administered on 12/17/16 05:57; Admin Dose 1 APPLIC; Start 12/15/16 at 16:00 Trimethoprim/ Sulfamethoxazole (Bactrim (Ds)) 1 tab BID PO Last administered on 12/17/16 12:20; Admin Dose 1 TAB; Start 12/17/16 at 12:00 ALEA WHITKAER Dec 17, 2016 18:04
[2016-12-17 19:35] VITALS: BP 115/75; RESP 16
[2016-12-17] MEDS: INSULIN GLARGINE [LANtus] 3 ML PEN SC SCH (20:10)
[2016-12-17] MEDS: ONDANSETRON 4 MG INJ IV PRN (21:28)
--- NOTE | 2016-12-17 21:34 | CONS ---
Date/Time of Note Date/Time of Note DATE: 12/17/16 TIME: 21:31 Assessment/Plan Assessment/Plan Problems: (1) Type II diabetes mellitus, uncontrolled Status: Chronic Comment: Ongoing excellent glycemic control. Cont. current insulin/metformin/ linagliptin doses. 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 insulin use status Qualified Code: E11.8 - Uncontrolled type 2 diabetes mellitus with complication, unspecified middle or intermediate school principal insulin use status Consultation Date/Type/Reason Admit Date/Time Nov 17, 2016 at 11:30 Initial Consult Date 11/17/16 Type of Consultation: Endocrinology Reason for Consultation DKA Referring Provider: ALEA WHITAKER 24 HR Interval Summary Constitutional: improved, no complaints Detailed Summary Respiratory: no complaints Cardiovascular: no complaints Gastrointestinal: no complaints Genitourinary: no complaints Musculoskeletal: no complaints Neurologic: no complaints Exam/Review of Systems Vital Signs Vitals VS - Last 72 Hours, by Label Date Time Temp Pulse Resp B/P Pulse Ox O2 Delivery O2 Flow Rate FiO2 12/17/16 19:35 98.5 100 16 115/75 100 12/17/16 08:19 98.1 91 20 139/89 98 12/16/16 08:23 97.9 89 20 141/81 98 12/15/16 21:00 98.3 99 20 119/83 99 12/15/16 07:52 98.7 90 16 122/78 99 Vital Signs Date Time Temp Pulse Resp B/P Pulse Ox O2 Delivery O2 Flow Rate FiO2 12/17/16 19:35 98.5 100 16 115/75 100 12/13/16 20:08 Room Air 12/13/16 19:43 8.0 Intake and Output 12/16/16 12/16/16 12/17/16 15:00 23:00 07:00 Intake Total 1190 ml 985 ml Output Total 1230 ml Balance 1190 ml -245 ml Exam Constitutional: alert, oriented, well developed Psych: nl mood/affect, no complaints Respiratory: clear to auscultation, normal air movement Cardiovascular: nl pulses, regular rate and rhythm, No edema, No murmurs/extra sounds, No rub Gastrointestinal: bowel sounds, nl liver, spleen, non-tender, soft, No mass, No rebound or guarding Musculoskeletal: nl extremities to inspection Extremities: normal pulses, No clubbing, No cyanosis, No edema 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, nl mental status, nl speech, nl strength Additional Comments Bedside Glucose - 72 Hours Test 12/15/16 07:58 12/15/16 12:11 12/15/16 17:01 12/15/16 21:14 Bedside Glucose 160mg/dL (70-220) 198mg/dL (70-220) 106mg/dL (70-220) 83mg/dL (70-220) Test 12/16/16 08:15 12/16/16 12:10 12/16/16 17:12 12/16/16 19:48 Bedside Glucose 161mg/dL (70-220) 104mg/dL (70-220) 105mg/dL (70-220) 74mg/dL (70-220) Test 12/16/16 21:02 12/17/16 08:23 12/17/16 11:22 12/17/16 16:52 Bedside Glucose 138mg/dL (70-220) 145mg/dL (70-220) 127mg/dL (70-220) 163mg/dL (70-220) Test 12/17/16 20:05 Bedside Glucose 138mg/dL (70-220) Results Result Diagram: 12/17/16 0455 12/17/16 0517 Results 24 hrs Laboratory Tests Test 12/17/16 04:55 12/17/16 05:17 12/17/16 08:23 12/17/16 11:22 White Blood Count 8.7 Red Blood Count 4.47 L Hemoglobin 13.4 L Hematocrit 38.3 L Mean Corpuscular Volume 85.7 Mean Corpuscular Hemoglobin 30.0 Mean Corpuscular Hemoglobin Concent 35.0 Red Cell Distribution Width 13.7 Platelet Count 461 H Mean Platelet Volume 8.7 Neutrophils % 59.2 Lymphocytes % 29.1 Monocytes % 9.1 Eosinophils % 1.4 Basophils % 0.9 Nucleated Red Blood Cells % 0.0 Neutrophils # 5.1 Lymphocytes # 2.5 Monocytes # 0.8 Eosinophils # 0.1 Basophils # 0.1 Nucleated Red Blood Cells # 0.0 Sodium Level 134 L Potassium Level 4.1 Chloride Level 100 Carbon Dioxide Level 26 Anion Gap 12 Blood Urea Nitrogen 14 Creatinine 0.43 L Glucose Level 123 Calcium Level 8.9 Bedside Glucose 145 127 Test 12/17/16 16:52 12/17/16 20:05 Bedside Glucose 163 138 Medications Medications Current Medications Ondansetron HCl (Zofran Inj) 4 mg Q6H PRN IV NAUSEA AND/OR VOMITING Last administered on 12/17/16 21:28; Admin Dose 4 MG; Start 11/16/16 at 15:30 Acetaminophen (Tylenol Liquid) 650 mg Q6H PRN PO PAIN LEVEL 1-3 OR FEVER Last administered on 11/27/16 18:33; Admin Dose 650 MG; Start 11/16/16 at 15:30 Morphine Sulfate (morphine) 2 mg Q4H PRN IV PAIN LEVEL 7-10 Last administered on 12/17/16 21:28; Admin Dose 2 MG; Start 11/16/16 at 15:30 Enoxaparin Sodium (Lovenox) 30 mg DAILY SC Last administered on 12/17/16 08:27 ; Admin Dose 30 MG; Start 11/17/16 at 13:00 Eye Lubricant (Artificial Tears Oph) 2 drop QID BOTH EYES Last administered on 12/17/16 20:26; Admin Dose 2 DROP; Start 11/17/16 at 17:00 Pantoprazole (Protonix Tab) 40 mg DAILY@06 PO Last administered on 12/17/16 05: 44; Admin Dose 40 MG; Start 11/21/16 at 06:00 Miscellaneous Information 1 ea NOTE XX ; Start 11/21/16 at 15:30 Glucose (Glutose) 15 gm Q15M PRN PO DECREASED GLUCOSE; Start 11/21/16 at 15:30 Glucose (Glutose) 22.5 gm Q15M PRN PO DECREASED GLUCOSE; Start 11/21/16 at 15: 30 Dextrose (D50w Syringe) 25 ml Q15M PRN IV DECREASED GLUCOSE Last administered on 12/04/16 21:17; Admin Dose 25 ML; Start 11/21/16 at 15:30 Dextrose (D50w Syringe) 50 ml Q15M PRN IV DECREASED GLUCOSE; Start 11/21/16 at 15:30 Glucagon (Glucagen) 1 mg Q15M PRN IM DECREASED GLUCOSE; Start 11/21/16 at 15:30 Glucose (Glutose) 15 gm Q15M PRN BUCCAL DECREASED GLUCOSE; Start 11/21/16 at 15 :30 Diagnostic Test (Pha) (Accucheck) 1 ea 02 XX Last administered on 12/01/16 02: 26; Admin Dose 1 EA; Start 11/23/16 at 02:00 Ascorbic Acid (Vitamin C) 500 mg BID GTB Last administered on 12/17/16 20:26; Admin Dose 500 MG; Start 11/23/16 at 21:00 Multivitamins Therapeutic (Theragran) 1 tab DAILY PO Last administered on 08:33; Admin Dose 1 TAB; Start 11/24/16 at 09:00 Linagliptin (Tradjenta) 5 mg DAILY PO Last administered on 12/17/16 08:25; Admin Dose 5 MG; Start 11/27/16 at 11:30 Metoclopramide HCl (Reglan) 5 mg TID PO Last administered on 12/17/16 12:20; Admin Dose 5 MG; Start 12/09/16 at 21:00 Insulin Glargine (Lantus) 14 unit DAILY@20 SC Last administered on 12/17/16 20: 10; Admin Dose 14 UNIT; Start 12/13/16 at 20:00 Sodium Hypochlorite (Dakin'S (Dilute 1/40%)) 1 applic DAILY IRR Last administered on 12/17/16 05:57; Admin Dose 1 APPLIC; Start 12/15/16 at 16:00 Trimethoprim/ Sulfamethoxazole (Bactrim (Ds)) 1 tab BID PO Last administered on 12/17/16 20:26; Admin Dose 1 TAB; Start 12/17/16 at 12:00 ROGE PAEZ MD Dec 17, 2016 21:34
[2016-12-18] MEDS: ACCU-CHEK XX SCH (01:26)
[2016-12-18] MEDS: morphine 2 MG INJ IV PRN ×4 (02:23→22:01)
[2016-12-18] MEDS: PANTOPRAZOLE (EC) 40 MG TAB PO SCH (05:39)
[2016-12-18 07:10] VITALS: BP 132/85; RESP 16
[2016-12-18] MEDS: metFORMIN (XR) 500 MG TAB PO SCH ×2 (07:44→17:37)
[2016-12-18] MEDS: INSULIN ASPART [NOVOLOG] 3 ML PEN SC SCH ×7 (07:48→21:00)
[2016-12-18] MEDS: ARTIFICIAL TEARS 15 ML OPH BOTH EYES SCH ×4 (08:36→21:16)
[2016-12-18] MEDS: MULTIVITAMINS THERAPEUTIC TAB PO SCH (08:36)
[2016-12-18] MEDS: TRIMETHOPRIM/SULFAMETHOX (DS) TAB PO SCH ×2 (08:36→21:16)
[2016-12-18] MEDS: ASCORBIC ACID 500 MG TAB GTB SCH ×2 (08:36→21:16)
[2016-12-18] MEDS: METOCLOPRAMIDE 5 MG TAB PO SCH ×3 (08:36→21:21)
[2016-12-18] MEDS: LINAGLIPTIN 5 MG TABLET PO SCH (08:36)
[2016-12-18] MEDS: ENOXAPARIN 30 MG/0.3 ML SYG SC SCH (08:39)
[2016-12-18] MEDS: SODIUM HYPOCHLORITE 1/40% 1L IRRIG IRR SCH ×2 (09:00→12:46)
--- NOTE | 2016-12-18 14:10 | PN ---
DATE: 12/18/2016 SUBJECTIVE: Today is postop day #4, extensive debridement of sacrococcygeal wound. The patient is a diabetic who was admitted because of diabetic ketoacidosis and several wounds here and there, including sacrococcygeal wound, later on it required debridement which was done in the operating room. OBJECTIVE: VITAL SIGNS: Temperature 98.1, heart rate 96, respirations 16, blood pressure 132/85, saturation 99% on room air. SKIN: The wound is clean. LABORATORY DATA: Blood sugar 169. Hematology: WBC 8700 with 59% segmented, hemoglobin 13.4, hematocrit 38.3. His dressing is being changed b.i.d. with wet-to-dry Dakin's solution. The culture has grown MRSA and patient is getting treatment for that. Infectious disease is following. PLAN: 1. Continue current care for the sacrococcygeal wound. 2. Other cares per other consultants. I will follow the patient. Dictated By: SHILPI LOFTON MD PS/CLAUDY Conf#: [id number] DID#: [id number] MTDD
--- NOTE | 2016-12-18 15:10 | PN ---
Date/Time of Note Date/Time of Note DATE: 12/18/16 TIME: 15:08 Assessment/Plan VTE Prophylaxis VTE Prophylaxis Intervention: other Lines/Catheters IV Catheter Type (from [facility]): Saline Lock Urinary Cath still in place: No Assessment/Plan Assessment/Plan - Sacral wound, status post debridement, perioperative culture growing MRSA, continue Bactrim, continue wound care per surgical recommendation. Dr Corbett is following in surgical consultation. - Severe diabetic ketoacidosis with coma, resolved. Dr. Andre is following in endocrinology consultation. - Diabetes mellitus type 2. Continue Lantus , pre-meal NovoLog and NovoLog per sliding scale. - Acute metabolic encephalopathy, resolved. - Severe sepsis 2 PNA, resolved. Dr. Callaway is following in infectious disease consultation. - Community-acquired pneumonia vs aspiration. - Acute respiratory failure, resolved. Dr Disla s following the patient in pulmonology consultation. - Altered level of consciousness on admission, resolved CT head is negative. - Amphetamine screen positive. - Homelessness, case packer and sealer and social work coordinator for discharge planning. Continue sequential compression device for deep venous thrombosis prophylaxis and Protonix for peptic ulcer disease prophylaxis. Further recommendations based on clinical course. Plan of care discussed with Dr. Ma. Subjective 24 Hr Interval Summary Eyes: no complaints ENT: no complaints Respiratory: no complaints Cardiovascular: no complaints Gastrointestinal: no complaints Genitourinary: no complaints Musculoskeletal: bone/joint pain Skin: no complaints Neurologic: no complaints Endocrine: no complaints Lymphatic: no complaints Psychological: no complaints Immunologic: no complaints Exam/Review of Systems Vital Signs Vitals Vital Signs Date Time Temp Pulse Resp B/P Pulse Ox O2 Delivery O2 Flow Rate FiO2 12/18/16 07:10 98.1 96 16 132/85 99 Intake and Output 12/17/16 12/17/16 12/18/16 15:00 23:00 07:00 Intake Total 860 ml 418 ml Output Total 400 ml 1650 ml 1500 ml Balance -400 ml -790 ml -1082 ml Exam Constitutional: alert, oriented, well developed Psych: nl mood/affect Head: atraumatic Eyes: EOMI ENMT: nl external ears & nose Neck: non-tender Respiratory: clear to auscultation Cardiovascular: nl pulses Gastrointestinal: non-tender, soft Musculoskeletal: other Results Result Diagram: 12/17/16 0455 12/17/16 0517 Results 24 hrs Laboratory Tests Test 12/17/16 16:52 12/17/16 20:05 12/18/16 07:42 12/18/16 11:29 Bedside Glucose 163 138 173 169 Medications Medications Current Medications Ondansetron HCl (Zofran Inj) 4 mg Q6H PRN IV NAUSEA AND/OR VOMITING Last administered on 12/17/16 21:28; Admin Dose 4 MG; Start 11/16/16 at 15:30 Acetaminophen (Tylenol Liquid) 650 mg Q6H PRN PO PAIN LEVEL 1-3 OR FEVER Last administered on 11/27/16 18:33; Admin Dose 650 MG; Start 11/16/16 at 15:30 Morphine Sulfate (morphine) 2 mg Q4H PRN IV PAIN LEVEL 7-10 Last administered on 12/18/16 07:44; Admin Dose 2 MG; Start 11/16/16 at 15:30 Enoxaparin Sodium (Lovenox) 30 mg DAILY SC Last administered on 12/18/16 08:39 ; Admin Dose 30 MG; Start 11/17/16 at 13:00 Eye Lubricant (Artificial Tears Oph) 2 drop QID BOTH EYES Last administered on 12/18/16 12:45; Admin Dose 2 DROP; Start 11/17/16 at 17:00 Pantoprazole (Protonix Tab) 40 mg DAILY@06 PO Last administered on 12/18/16 05: 39; Admin Dose 40 MG; Start 11/21/16 at 06:00 Miscellaneous Information 1 ea NOTE XX ; Start 11/21/16 at 15:30 Glucose (Glutose) 15 gm Q15M PRN PO DECREASED GLUCOSE; Start 11/21/16 at 15:30 Glucose (Glutose) 22.5 gm Q15M PRN PO DECREASED GLUCOSE; Start 11/21/16 at 15: 30 Dextrose (D50w Syringe) 25 ml Q15M PRN IV DECREASED GLUCOSE Last administered on 12/04/16 21:17; Admin Dose 25 ML; Start 11/21/16 at 15:30 Dextrose (D50w Syringe) 50 ml Q15M PRN IV DECREASED GLUCOSE; Start 11/21/16 at 15:30 Glucagon (Glucagen) 1 mg Q15M PRN IM DECREASED GLUCOSE; Start 11/21/16 at 15:30 Glucose (Glutose) 15 gm Q15M PRN BUCCAL DECREASED GLUCOSE; Start 11/21/16 at 15 :30 Diagnostic Test (Pha) (Accucheck) 1 ea 02 XX Last administered on 12/01/16 02: 26; Admin Dose 1 EA; Start 11/23/16 at 02:00 Ascorbic Acid (Vitamin C) 500 mg BID GTB Last administered on 12/18/16 08:36; Admin Dose 500 MG; Start 11/23/16 at 21:00 Multivitamins Therapeutic (Theragran) 1 tab DAILY PO Last administered on 08:36; Admin Dose 1 TAB; Start 11/24/16 at 09:00 Linagliptin (Tradjenta) 5 mg DAILY PO Last administered on 12/18/16 08:36; Admin Dose 5 MG; Start 11/27/16 at 11:30 Metoclopramide HCl (Reglan) 5 mg TID PO Last administered on 12/18/16 12:45; Admin Dose 5 MG; Start 12/09/16 at 21:00 Insulin Glargine (Lantus) 14 unit DAILY@20 SC Last administered on 12/17/16 20: 10; Admin Dose 14 UNIT; Start 12/13/16 at 20:00 Sodium Hypochlorite (Dakin'S (Dilute 1/40%)) 1 applic DAILY IRR Last administered on 12/18/16 12:46; Admin Dose 1 APPLIC; Start 12/15/16 at 16:00 Trimethoprim/ Sulfamethoxazole (Bactrim (Ds)) 1 tab BID PO Last administered on 12/18/16 08:36; Admin Dose 1 TAB; Start 12/17/16 at 12:00 HANNAH DIAS Dec 18, 2016 15:10
[2016-12-18 20:12] VITALS: BP 130/81; RESP 17
[2016-12-18] MEDS: INSULIN GLARGINE [LANtus] 3 ML PEN SC SCH (21:18)
--- NOTE | 2016-12-18 21:45 | CONS ---
Date/Time of Note Date/Time of Note DATE: 12/18/16 TIME: 21:43 Assessment/Plan Assessment/Plan Problems: (1) Type II diabetes mellitus, uncontrolled Status: Chronic Comment: Blood glucose readings have been within target. 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: unspecified longterm insulin use status Qualified Code: E11.8 - Uncontrolled type 2 diabetes mellitus with complication, unspecified longterm insulin use status Consultation Date/Type/Reason Admit Date/Time Nov 17, 2016 at 11:30 Initial Consult Date 11/17/16 Type of Consultation: Endocrinology Referring Provider: ALEA WHITAKER Exam/Review of Systems Vital Signs Vitals Vital Signs Date Time Temp Pulse Resp B/P Pulse Ox O2 Delivery O2 Flow Rate FiO2 12/18/16 07:10 98.1 96 16 132/85 99 Intake and Output 12/17/16 12/17/16 12/18/16 15:00 23:00 07:00 Intake Total 860 ml 418 ml Output Total 400 ml 1650 ml 1500 ml Balance -400 ml -790 ml -1082 ml Results POC glucose reviewed Result Diagram: 12/17/16 0455 12/17/16 0517 Results 24 hrs Laboratory Tests Test 12/18/16 07:42 12/18/16 11:29 12/18/16 17:17 12/18/16 21:14 Bedside Glucose 173 169 180 144 Medications Medications Current Medications Ondansetron HCl (Zofran Inj) 4 mg Q6H PRN IV NAUSEA AND/OR VOMITING Last administered on 12/17/16 21:28; Admin Dose 4 MG; Start 11/16/16 at 15:30 Acetaminophen (Tylenol Liquid) 650 mg Q6H PRN PO PAIN LEVEL 1-3 OR FEVER Last administered on 11/27/16 18:33; Admin Dose 650 MG; Start 11/16/16 at 15:30 Morphine Sulfate (morphine) 2 mg Q4H PRN IV PAIN LEVEL 7-10 Last administered on 12/18/16 18:00; Admin Dose 2 MG; Start 11/16/16 at 15:30 Enoxaparin Sodium (Lovenox) 30 mg DAILY SC Last administered on 12/18/16 08:39 ; Admin Dose 30 MG; Start 11/17/16 at 13:00 Eye Lubricant (Artificial Tears Oph) 2 drop QID BOTH EYES Last administered on 12/18/16 21:16; Admin Dose 2 DROP; Start 11/17/16 at 17:00 Pantoprazole (Protonix Tab) 40 mg DAILY@06 PO Last administered on 12/18/16 05: 39; Admin Dose 40 MG; Start 11/21/16 at 06:00 Miscellaneous Information 1 ea NOTE XX ; Start 11/21/16 at 15:30 Glucose (Glutose) 15 gm Q15M PRN PO DECREASED GLUCOSE; Start 11/21/16 at 15:30 Glucose (Glutose) 22.5 gm Q15M PRN PO DECREASED GLUCOSE; Start 11/21/16 at 15: 30 Dextrose (D50w Syringe) 25 ml Q15M PRN IV DECREASED GLUCOSE Last administered on 12/04/16 21:17; Admin Dose 25 ML; Start 11/21/16 at 15:30 Dextrose (D50w Syringe) 50 ml Q15M PRN IV DECREASED GLUCOSE; Start 11/21/16 at 15:30 Glucagon (Glucagen) 1 mg Q15M PRN IM DECREASED GLUCOSE; Start 11/21/16 at 15:30 Glucose (Glutose) 15 gm Q15M PRN BUCCAL DECREASED GLUCOSE; Start 11/21/16 at 15 :30 Diagnostic Test (Pha) (Accucheck) 1 ea 02 XX Last administered on 12/01/16 02: 26; Admin Dose 1 EA; Start 11/23/16 at 02:00 Ascorbic Acid (Vitamin C) 500 mg BID GTB Last administered on 12/18/16 21:16; Admin Dose 500 MG; Start 11/23/16 at 21:00 Multivitamins Therapeutic (Theragran) 1 tab DAILY PO Last administered on 08:36; Admin Dose 1 TAB; Start 11/24/16 at 09:00 Linagliptin (Tradjenta) 5 mg DAILY PO Last administered on 12/18/16 08:36; Admin Dose 5 MG; Start 11/27/16 at 11:30 Metoclopramide HCl (Reglan) 5 mg TID PO Last administered on 12/18/16 21:21; Admin Dose 5 MG; Start 12/09/16 at 21:00 Insulin Glargine (Lantus) 14 unit DAILY@20 SC Last administered on 12/18/16 21: 18; Admin Dose 14 UNIT; Start 12/13/16 at 20:00 Sodium Hypochlorite (Dakin'S (Dilute 1/40%)) 1 applic DAILY IRR Last administered on 12/18/16 12:46; Admin Dose 1 APPLIC; Start 12/15/16 at 16:00 Trimethoprim/ Sulfamethoxazole (Bactrim (Ds)) 1 tab BID PO Last administered on 12/18/16 21:16; Admin Dose 1 TAB; Start 12/17/16 at 12:00 JOSÉ ANTONIO KIRKPATRICK MD Dec 18, 2016 21:45
[2016-12-19] MEDS: ACCU-CHEK XX SCH (02:00)
[2016-12-19] MEDS: morphine 2 MG INJ IV PRN ×5 (02:17→20:35)
[2016-12-19] MEDS: PANTOPRAZOLE (EC) 40 MG TAB PO SCH (06:23)
[2016-12-19] MEDS: metFORMIN (XR) 500 MG TAB PO SCH ×2 (07:47→17:27)
[2016-12-19] MEDS: INSULIN ASPART [NOVOLOG] 3 ML PEN SC SCH ×7 (07:49→20:38)
[2016-12-19 07:50] VITALS: BP 132/88; RESP 18
[2016-12-19] MEDS: ARTIFICIAL TEARS 15 ML OPH BOTH EYES SCH ×4 (08:22→20:40)
[2016-12-19] MEDS: LINAGLIPTIN 5 MG TABLET PO SCH (08:22)
[2016-12-19] MEDS: TRIMETHOPRIM/SULFAMETHOX (DS) TAB PO SCH ×2 (08:23→20:41)
[2016-12-19] MEDS: METOCLOPRAMIDE 5 MG TAB PO SCH ×3 (08:23→20:40)
[2016-12-19] MEDS: MULTIVITAMINS THERAPEUTIC TAB PO SCH (08:23)
[2016-12-19] MEDS: ASCORBIC ACID 500 MG TAB GTB SCH ×2 (08:23→20:40)
[2016-12-19] MEDS: ENOXAPARIN 30 MG/0.3 ML SYG SC SCH (08:25)
[2016-12-19] MEDS: SODIUM HYPOCHLORITE 1/40% 1L IRRIG IRR SCH (08:27)
[2016-12-19 09:38] LABS: ADD SCAN DIFF NO
[2016-12-19 09:42] LABS: BASOPHIL # 0.1 10^3/ul (0.0-0.1); EOSINOPHILS # 0.1 10^3/ul (0.0-0.5); EOSINOPHILS % 1.3 % (0.0-7.0); HEMATOCRIT 40.3 % (42.0-52.0); HEMOGLOBIN 13.9 g/dl (14.0-18.0); LYMPHOCYTES # 2.7 10^3/ul (0.8-2.9); LYMPHOCYTES % 28.8 % (15.0-51.0); MEAN CORPUSCULAR HEMOGLOBIN 29.8 pg (29.0-33.0); MEAN CORPUSCULAR HGB CONC 34.5 g/dl (32.0-37.0); MEAN CORPUSCULAR VOLUME 86.5 fl (82.0-101.0); MEAN PLATELET VOLUME 8.7 fl (7.4-10.4); MONOCYTE # 0.8 10^3/ul (0.3-0.9); MONOCYTES % 8.1 % (0.0-11.0); NEUTROPHIL # 5.6 10^3/ul (1.6-7.5); NEUTROPHILS % 60.6 % (39.0-77.0); PLATELET COUNT 469 10^3/UL (140-415); RED BLOOD COUNT 4.66 10^6/ul (4.70-6.10); RED CELL DISTRIBUTION WIDTH 14.1 % (11.5-14.5); WHITE BLOOD COUNT 9.2 10^3/ul (4.8-10.8)
[2016-12-19 09:59] LABS: CALCIUM 9.3 mg/dl (8.4-10.2); CREATININE 0.51 mg/dl (0.61-1.24)
--- NOTE | 2016-12-19 15:41 | PN ---
DATE: 12/19/2016 Status post debridement of the sacrococcygeal pressure ulcer. SUBJECTIVE: No complaint. OBJECTIVE: VITAL SIGNS: 98.6, 97, respiration 18, blood pressure 152/88, saturation 99% on room air. LABORATORY DATA: WBC 9200, hemoglobin 13.9, hematocrit 40.3, neutrophils 60%. Chemistry: BUN, cre atinine, sodium and potassium normal. POC glucose 140. Wound dressing was changed. Wound inspected, appears clean, no necrosis present. Not beefy red yet . PLAN: 1. Continue b.i.d. wound dressing with wet to dry, Dakin solution 1/40%. 2. Continuation of treatment for methicillin-resistant staphylococcus aureus, which was grown from the sacrococcygeal wound and also control of the blood sugar and of the diabetes mellitus. Dictated By: SHILPI LOFTON MD PS/NTS Conf#: [id number] DID#: [id number] CC: EMILIA NEWTON MD;*EndCC*
--- NOTE | 2016-12-19 16:17 | CONS ---
Date/Time of Note Date/Time of Note DATE: 12/19/16 TIME: 16:15 Assessment/Plan Assessment/Plan Problems: (1) Diabetes mellitus, type 2 Status: Chronic Comment: Blood glucose controlled. Consultation Date/Type/Reason Admit Date/Time Nov 17, 2016 at 11:30 Initial Consult Date 11/17/16 Type of Consultation: Endocrinology Referring Provider: ALEA WHITAKER 24 HR Interval Summary Free Text/Dictation Patient asleep Exam/Review of Systems Vital Signs Vitals Vital Signs Date Time Temp Pulse Resp B/P Pulse Ox O2 Delivery O2 Flow Rate FiO2 12/19/16 07:50 98.6 97 18 132/88 99 Intake and Output 12/18/16 12/18/16 12/19/16 15:00 23:00 07:00 Intake Total 1360 ml 600 ml Output Total 1200 ml 1800 ml Balance 160 ml -1200 ml Results POC glucose reviewed Result Diagram: 12/19/16 0930 12/19/16 0930 Results 24 hrs Laboratory Tests Test 12/18/16 17:17 12/18/16 21:14 12/19/16 07:45 12/19/16 09:30 Bedside Glucose 180 144 147 White Blood Count 9.2 Red Blood Count 4.66 L Hemoglobin 13.9 L Hematocrit 40.3 L Mean Corpuscular Volume 86.5 Mean Corpuscular Hemoglobin 29.8 Mean Corpuscular Hemoglobin Concent 34.5 Red Cell Distribution Width 14.1 Platelet Count 469 H Mean Platelet Volume 8.7 Neutrophils % 60.6 Lymphocytes % 28.8 Monocytes % 8.1 Eosinophils % 1.3 Basophils % 1.0 Nucleated Red Blood Cells % 0.0 Neutrophils # 5.6 Lymphocytes # 2.7 Monocytes # 0.8 Eosinophils # 0.1 Basophils # 0.1 Nucleated Red Blood Cells # 0.0 Sodium Level 133 L Potassium Level 4.0 Chloride Level 99 Carbon Dioxide Level 26 Anion Gap 12 Blood Urea Nitrogen 15 Creatinine 0.51 L Glucose Level 168 Calcium Level 9.3 Test 12/19/16 11:56 Bedside Glucose 140 Medications Medications Current Medications Ondansetron HCl (Zofran Inj) 4 mg Q6H PRN IV NAUSEA AND/OR VOMITING Last administered on 12/17/16t 21:28; Admin Dose 4 MG; Start 11/16/16 at 15:30 Acetaminophen (Tylenol Liquid) 650 mg Q6H PRN PO PAIN LEVEL 1-3 OR FEVER Last administered on 11/27/16 18:33; Admin Dose 650 MG; Start 11/16/16 at 15:30 Morphine Sulfate (morphine) 2 mg Q4H PRN IV PAIN LEVEL 7-10 Last administered on 12/19/16 11:11; Admin Dose 2 MG; Start 11/16/16 at 15:30 Enoxaparin Sodium (Lovenox) 30 mg DAILY SC Last administered on 12/19/16 08:25 ; Admin Dose 30 MG; Start 11/17/16 at 13:00 Eye Lubricant (Artificial Tears Oph) 2 drop QID BOTH EYES Last administered on 12/19/16 12:40; Admin Dose 2 DROP; Start 11/17/16 at 17:00 Pantoprazole (Protonix Tab) 40 mg DAILY@06 PO Last administered on 12/19/16 06: 23; Admin Dose 40 MG; Start 11/21/16 at 06:00 Miscellaneous Information 1 ea NOTE XX ; Start 11/21/16 at 15:30 Glucose (Glutose) 15 gm Q15M PRN PO DECREASED GLUCOSE; Start 11/21/16 at 15:30 Glucose (Glutose) 22.5 gm Q15M PRN PO DECREASED GLUCOSE; Start 11/21/16 at 15: 30 Dextrose (D50w Syringe) 25 ml Q15M PRN IV DECREASED GLUCOSE Last administered on 12/04/16 21:17; Admin Dose 25 ML; Start 11/21/16 at 15:30 Dextrose (D50w Syringe) 50 ml Q15M PRN IV DECREASED GLUCOSE; Start 11/21/16 at 15:30 Glucagon (Glucagen) 1 mg Q15M PRN IM DECREASED GLUCOSE; Start 11/21/16 at 15:30 Glucose (Glutose) 15 gm Q15M PRN BUCCAL DECREASED GLUCOSE; Start 11/21/16 at 15 :30 Diagnostic Test (Pha) (Accucheck) 1 ea 02 XX Last administered on 12/01/16 02: 26; Admin Dose 1 EA; Start 11/23/16 at 02:00 Ascorbic Acid (Vitamin C) 500 mg BID GTB Last administered on 12/19/16 08:23; Admin Dose 500 MG; Start 11/23/16 at 21:00 Multivitamins Therapeutic (Theragran) 1 tab DAILY PO Last administered on 08:23; Admin Dose 1 TAB; Start 11/24/16 at 09:00 Linagliptin (Tradjenta) 5 mg DAILY PO Last administered on 12/19/16 08:22; Admin Dose 5 MG; Start 11/27/16 at 11:30 Metoclopramide HCl (Reglan) 5 mg TID PO Last administered on 12/19/16 12:40; Admin Dose 5 MG; Start 12/09/16 at 21:00 Insulin Glargine (Lantus) 14 unit DAILY@20 SC Last administered on 12/18/16 21: 18; Admin Dose 14 UNIT; Start 12/13/16 at 20:00 Sodium Hypochlorite (Dakin'S (Dilute 1/40%)) 1 applic DAILY IRR Last administered on 12/19/16 08:27; Admin Dose 1 APPLIC; Start 12/15/16 at 16:00 Trimethoprim/ Sulfamethoxazole (Bactrim (Ds)) 1 tab BID PO Last administered on 12/19/16 08:23; Admin Dose 1 TAB; Start 12/17/16 at 12:00 JOSÉ ANTONIO KIRKPATRICK MD Dec 19, 2016 16:17
--- NOTE | 2016-12-19 19:02 | PN ---
Date/Time of Note Date/Time of Note DATE: 12/19/16 TIME: 19:01 Assessment/Plan VTE Prophylaxis VTE Prophylaxis Intervention: other Lines/Catheters IV C[facility]ter Type (from [facility] Saline Lock Urinary Cath still in place: No Assessment/Plan Assessment/Plan - Sacral wound, status post debridement, perioperative culture growing MRSA, continue Bactrim, continue wound care per surgical recommendation. Dr Corbett is following in surgical consultation. - Severe diabetic ketoacidosis with coma, resolved. Dr. Andre is following in endocrinology consultation. - Diabetes mellitus type 2. Continue Lantus , pre-meal NovoLog and NovoLog per sliding scale. - Acute metabolic encephalopathy, resolved. - Severe sepsis 2 PNA, resolved. Dr. Callaway is following in infectious disease consultation. - Community-acquired pneumonia vs aspiration. - Acute respiratory failure, resolved. Dr Disla s following the patient in pulmonology consultation. - Altered level of consciousness on admission, resolved CT head is negative. - Amphetamine screen positive. - Homelessness, family preservation caseworker and licensed master social worker for discharge planning. Continue sequential compression device for deep venous thrombosis prophylaxis and Protonix for peptic ulcer disease prophylaxis. Further recommendations based on clinical course. Plan of care discussed with Dr. Ma. Subjective 24 Hr Interval Summary Constitutional: improved Eyes: no complaints ENT: no complaints Respiratory: no complaints Cardiovascular: no complaints Gastrointestinal: no complaints Genitourinary: no complaints Musculoskeletal: no complaints Skin: other Neurologic: no complaints Endocrine: no complaints Lymphatic: no complaints Psychological: no complaints Immunologic: no complaints Exam/Review of Systems Vital Signs Vitals Vital Signs Date Time Temp Pulse Resp B/P Pulse Ox O2 Delivery O2 Flow Rate FiO2 12/19/16 07:50 98.6 97 18 132/88 99 Intake and Output 12/18/16 12/18/16 12/19/16 15:00 23:00 07:00 Intake Total 1360 ml 600 ml Output Total 1200 ml 1800 ml Balance 160 ml -1200 ml Exam Constitutional: alert, oriented, well developed Psych: nl mood/affect Head: atraumatic Eyes: EOMI, PERRL, nl sclera ENMT: nl external ears & nose Neck: non-tender Respiratory: clear to auscultation Cardiovascular: nl pulses Gastrointestinal: non-tender, soft Musculoskeletal: nl extremities to inspection Extremities: normal pulses Neurological: nl mental status, nl speech Skin: nl turgor Lymph: nontender Results Result Diagram: 12/19/1630 12/19/16 0930 Results 24 hrs Laboratory Tests Test 12/18/16 21:14 12/19/16 07:45 12/19/16 09:30 12/19/16 11:56 Bedside Glucose 144 147 140 White Blood Count 9.2 Red Blood Count 4.66 L Hemoglobin 13.9 L Hematocrit 40.3 L Mean Corpuscular Volume 86.5 Mean Corpuscular Hemoglobin 29.8 Mean Corpuscular Hemoglobin Concent 34.5 Red Cell Distribution Width 14.1 Platelet Count 469 H Mean Platelet Volume 8.7 Neutrophils % 60.6 Lymphocytes % 28.8 Monocytes % 8.1 Eosinophils % 1.3 Basophils % 1.0 Nucleated Red Blood Cells % 0.0 Neutrophils # 5.6 Lymphocytes # 2.7 Monocytes # 0.8 Eosinophils # 0.1 Basophils # 0.1 Nucleated Red Blood Cells # 0.0 Sodium Level 133 L Potassium Level 4.0 Chloride Level 99 Carbon Dioxide Level 26 Anion Gap 12 Blood Urea Nitrogen 15 Creatinine 0.51 L Glucose Level 168 Calcium Level 9.3 Test 12/19/16 17:17 Bedside Glucose 147 Medications Medications Current Medications Ondansetron HCl (Zofran Inj) 4 mg Q6H PRN IV NAUSEA AND/OR VOMITING Last administered on 12/17/16 21:28; Admin Dose 4 MG; Start 11/16/16 at 15:30 Acetaminophen (Tylenol Liquid) 650 mg Q6H PRN PO PAIN LEVEL 1-3 OR FEVER Last administered on 11/27/16 18:33; Admin Dose 650 MG; Start 11/16/16 at 15:30 Morphine Sulfate (morphine) 2 mg Q4H PRN IV PAIN LEVEL 7-10 Last administered on 12/19/16 16:21; Admin Dose 2 MG; Start 11/16/16 at 15:30 Enoxaparin Sodium (Lovenox) 30 mg DAILY SC Last administered on 12/19/16 08:25 ; Admin Dose 30 MG; Start 11/17/16 at 13:00 Eye Lubricant (Artificial Tears Oph) 2 drop QID BOTH EYES Last administered on 12/19/16 17:27; Admin Dose 2 DROP; Start 11/17/16 at 17:00 Pantoprazole (Protonix Tab) 40 mg DAILY@06 PO Last administered on 12/19/16 06: 23; Admin Dose 40 MG; Start 11/21/16 at 06:00 Miscellaneous Information 1 ea NOTE XX ; Start 11/21/16 at 15:30 Glucose (Glutose) 15 gm Q15M PRN PO DECREASED GLUCOSE; Start 11/21/16 at 15:30 Glucose (Glutose) 22.5 gm Q15M PRN PO DECREASED GLUCOSE; Start 11/21/16 at 15: 30 Dextrose (D50w Syringe) 25 ml Q15M PRN IV DECREASED GLUCOSE Last administered on 12/04/16 21:17; Admin Dose 25 ML; Start 11/21/16 at 15:30 Dextrose (D50w Syringe) 50 ml Q15M PRN IV DECREASED GLUCOSE; Start 11/21/16 at 15:30 Glucagon (Glucagen) 1 mg Q15M PRN IM DECREASED GLUCOSE; Start 11/21/16 at 15:30 Glucose (Glutose) 15 gm Q15M PRN BUCCAL DECREASED GLUCOSE; Start 11/21/16 at 15 :30 Diagnostic Test (Pha) (Accucheck) 1 ea 02 XX Last administered on 12/01/16 02: 26; Admin Dose 1 EA; Start 11/23/16 at 02:00 Ascorbic Acid (Vitamin C) 500 mg BID GTB Last administered on 12/19/16 08:23; Admin Dose 500 MG; Start 11/23/16 at 21:00 Multivitamins Therapeutic (Theragran) 1 tab DAILY PO Last administered on 08:23; Admin Dose 1 TAB; Start 11/24/16 at 09:00 Linagliptin (Tradjenta) 5 mg DAILY PO Last administered on 12/19/16 08:22; Admin Dose 5 MG; Start 11/27/16 at 11:30 Metoclopramide HCl (Reglan) 5 mg TID PO Last administered on 12/19/16 12:40; Admin Dose 5 MG; Start 12/09/16 at 21:00 Insulin Glargine (Lantus) 14 unit DAILY@20 SC Last administered on 12/18/16 21: 18; Admin Dose 14 UNIT; Start 12/13/16 at 20:00 Sodium Hypochlorite (Dakin'S (Dilute 1/40%)) 1 applic DAILY IRR Last administered on 12/19/16 08:27; Admin Dose 1 APPLIC; Start 12/15/16 at 16:00 Trimethoprim/ Sulfamethoxazole (Bactrim (Ds)) 1 tab BID PO Last administered on 12/19/16 08:23; Admin Dose 1 TAB; Start 12/17/16 at 12:00 HANNAH DIAS Dec 19, 2016 19:02
[2016-12-19 20:00] VITALS: BP 133/70; PULSE 93; RESP 18
[2016-12-19] MEDS: INSULIN GLARGINE [LANtus] 3 ML PEN SC SCH (20:39)
[2016-12-19 21:00] VITALS: BP 133/70; RESP 18
[2016-12-20] MEDS: ACCU-CHEK XX SCH (01:42)
[2016-12-20] MEDS: morphine 2 MG INJ IV PRN ×6 (01:42→22:28)
[2016-12-20 05:26] LABS: ADD SCAN DIFF NO
[2016-12-20 05:35] LABS: BASOPHIL # 0.1 10^3/ul (0.0-0.1); BASOPHILS % 0.8 % (0.0-2.0); EOSINOPHILS # 0.2 10^3/ul (0.0-0.5); EOSINOPHILS % 1.7 % (0.0-7.0); HEMATOCRIT 37.6 % (42.0-52.0); HEMOGLOBIN 13.3 g/dl (14.0-18.0); LYMPHOCYTES # 2.9 10^3/ul (0.8-2.9); MEAN CORPUSCULAR HEMOGLOBIN 30.2 pg (29.0-33.0); MEAN CORPUSCULAR HGB CONC 35.4 g/dl (32.0-37.0); MEAN CORPUSCULAR VOLUME 85.3 fl (82.0-101.0); MEAN PLATELET VOLUME 8.9 fl (7.4-10.4); MONOCYTE # 0.9 10^3/ul (0.3-0.9); MONOCYTES % 9.2 % (0.0-11.0); NEUTROPHIL # 5.8 10^3/ul (1.6-7.5); PLATELET COUNT 502 10^3/UL (140-415); RED BLOOD COUNT 4.41 10^6/ul (4.70-6.10); RED CELL DISTRIBUTION WIDTH 13.6 % (11.5-14.5); WHITE BLOOD COUNT 9.9 10^3/ul (4.8-10.8)
[2016-12-20] MEDS: PANTOPRAZOLE (EC) 40 MG TAB PO SCH (05:42)
[2016-12-20 05:49] LABS: CALCIUM 9.4 mg/dl (8.4-10.2); CREATININE 0.54 mg/dl (0.61-1.24); POTASSIUM 4.7 mmol/L (3.5-5.1)
[2016-12-20 07:35] VITALS: BP 130/82; RESP 18
[2016-12-20] MEDS: LINAGLIPTIN 5 MG TABLET PO SCH (08:27)
[2016-12-20] MEDS: TRIMETHOPRIM/SULFAMETHOX (DS) TAB PO SCH ×2 (08:27→21:11)
[2016-12-20] MEDS: ASCORBIC ACID 500 MG TAB GTB SCH ×2 (08:27→21:11)
[2016-12-20] MEDS: metFORMIN (XR) 500 MG TAB PO SCH ×2 (08:27→17:33)
[2016-12-20] MEDS: MULTIVITAMINS THERAPEUTIC TAB PO SCH (08:27)
[2016-12-20] MEDS: METOCLOPRAMIDE 5 MG TAB PO SCH ×3 (08:27→21:11)
[2016-12-20] MEDS: INSULIN ASPART [NOVOLOG] 3 ML PEN SC SCH ×7 (08:29→21:16)
[2016-12-20] MEDS: ARTIFICIAL TEARS 15 ML OPH BOTH EYES SCH ×4 (08:30→21:13)
[2016-12-20] MEDS: ENOXAPARIN 30 MG/0.3 ML SYG SC SCH (08:30)
[2016-12-20] MEDS: SODIUM HYPOCHLORITE 1/40% 1L IRRIG IRR SCH (08:35)
--- NOTE | 2016-12-20 10:57 | PN ---
DATE: 12/20/2016 1. Status post recovery from diabetic ketoacidosis. 2. Status post debridement of the sacrococcygeal pressure wound. SUBJECTIVE: No new complaint. OBJECTIVE: VITAL SIGNS: 98.1, 88, 18, 130/82, 98% on room air. LABORATORY: Today, sodium 133. Sugar 212. WBC 9900 with 59% segmented. Sacrococcygeal wound is i nspected no gross infection, some exudate is there. Considering patient's diabetes condition and slow healing process and size of the wound I think the patient may benefit from application of the vacuum assisted wound closure. So, we are going to appl y wound care wound VAC today on the patient. This needs to be changed Tuesday, Tuesday, and Tuesday s and continuous suction. Instruction was given to the nurse and discussed with the nurse today. Dictated By: SHILPI LOFTON MD PS/CLAUDY Conf#: [id number] DID#: [id number]
[2016-12-20 20:35] VITALS: BP 119/70; RESP 18
--- NOTE | 2016-12-20 20:35 | PN ---
Date/Time of Note Date/Time of Note DATE: 12/20/16 TIME: 20:33 Assessment/Plan Lines/Catheters IV [facility] Type (from [facility] Saline Lock Urinary Cath still in place: No Assessment/Plan Assessment/Plan - Sacral wound, status post debridement, perioperative culture growing MRSA, continue Bactrim, continue wound care per surgical recommendation. Dr Corbett is following in surgical consultation. - Severe diabetic ketoacidosis with coma, resolved. Dr. Andre is following in endocrinology consultation. - Diabetes mellitus type 2. Continue Lantus , pre-meal NovoLog and NovoLog per sliding scale. - Acute metabolic encephalopathy, resolved. - Severe sepsis 2 PNA, resolved. Dr. Callaway is following in infectious disease consultation. - Community-acquired pneumonia vs aspiration. - Acute respiratory failure, resolved. Dr Disla s following the patient in pulmonology consultation. - Altered level of consciousness on admission, resolved CT head is negative. - Amphetamine screen positive. - Homelessness, rn case manager and social work specialist for discharge planning. Continue sequential compression device for deep venous thrombosis prophylaxis and Protonix for peptic ulcer disease prophylaxis. Further recommendations based on clinical course. Plan of care discussed with Dr. Ma. Subjective 24 Hr Interval Summary Constitutional: improved Eyes: no complaints ENT: no complaints Respiratory: no complaints Cardiovascular: no complaints Gastrointestinal: no complaints Genitourinary: no complaints Musculoskeletal: back pain (where sacral decub I/D was done.) Skin: no complaints Neurologic: no complaints Endocrine: no complaints Lymphatic: no complaints Psychological: no complaints Exam/Review of Systems Vital Signs Vitals Vital Signs Date Time Temp Pulse Resp B/P Pulse Ox O2 Delivery O2 Flow Rate FiO2 12/20/16 07:35 98.1 88 18 130/82 98 12/19/16 20:00 Room Air Intake and Output 12/19/16 12/19/16 12/20/16 15:00 23:00 07:00 Intake Total 1240 ml 740 ml Output Total 1500 ml 500 ml Balance -260 ml 240 ml Exam Constitutional: alert, oriented, well developed Psych: nl mood/affect Head: atraumatic Eyes: EOMI ENMT: nl external ears & nose Neck: non-tender Respiratory: clear to auscultation Cardiovascular: nl pulses Gastrointestinal: non-tender, soft Musculoskeletal: nl extremities to inspection Extremities: normal pulses Neurological: nl mental status, nl speech Skin: other Lymph: nontender Results Result Diagram: 12/20/16 0500 12/20/16 0500 Results 24 hrs Laboratory Tests Test 12/20/16 05:00 12/20/16 07:40 12/20/16 11:31 12/20/16 17:04 White Blood Count 9.9 Red Blood Count 4.41 L Hemoglobin 13.3 L Hematocrit 37.6 L Mean Corpuscular Volume 85.3 Mean Corpuscular Hemoglobin 30.2 Mean Corpuscular Hemoglobin Concent 35.4 Red Cell Distribution Width 13.6 Platelet Count 502 H Mean Platelet Volume 8.9 Neutrophils % 59.0 Lymphocytes % 29.0 Monocytes % 9.2 Eosinophils % 1.7 Basophils % 0.8 Nucleated Red Blood Cells % 0.0 Neutrophils # 5.8 Lymphocytes # 2.9 Monocytes # 0.9 Eosinophils # 0.2 Basophils # 0.1 Nucleated Red Blood Cells # 0.0 Sodium Level 133 L Potassium Level 4.7 Chloride Level 97 Carbon Dioxide Level 28 Anion Gap 13 Blood Urea Nitrogen 15 Creatinine 0.54 L Glucose Level 141 Calcium Level 9.4 Bedside Glucose 212 120 105 Medications Medications Current Medications Ondansetron HCl (Zofran Inj) 4 mg Q6H PRN IV NAUSEA AND/OR VOMITING Last administered on 12/17/16 21:28; Admin Dose 4 MG; Start 11/16/16 at 15:30 Acetaminophen (Tylenol Liquid) 650 mg Q6H PRN PO PAIN LEVEL 1-3 OR FEVER Last administered on 11/27/16 18:33; Admin Dose 650 MG; Start 11/16/16 at 15:30 Morphine Sulfate (morphine) 2 mg Q4H PRN IV PAIN LEVEL 7-10 Last administered on 12/20/16 18:24; Admin Dose 2 MG; Start 11/16/16 at 15:30 Enoxaparin Sodium (Lovenox) 30 mg DAILY SC Last administered on 12/20/16 08:30 ; Admin Dose 30 MG; Start 11/17/16 at 13:00 Eye Lubricant (Artificial Tears Oph) 2 drop QID BOTH EYES Last administered on 12/20/16 12:20; Admin Dose 2 DROP; Start 11/17/16 at 17:00 Pantoprazole (Protonix Tab) 40 mg DAILY@06 PO Last administered on 12/20/16 05 :42; Admin Dose 40 MG; Start 11/21/16 at 06:00 Miscellaneous Information 1 ea NOTE XX ; Start 11/21/16 at 15:30 Glucose (Glutose) 15 gm Q15M PRN PO DECREASED GLUCOSE; Start 11/21/16 at 15:30 Glucose (Glutose) 22.5 gm Q15M PRN PO DECREASED GLUCOSE; Start 11/21/16 at 15: 30 Dextrose (D50w Syringe) 25 ml Q15M PRN IV DECREASED GLUCOSE Last administered on 12/04/16 21:17; Admin Dose 25 ML; Start 11/21/16 at 15:30 Dextrose (D50w Syringe) 50 ml Q15M PRN IV DECREASED GLUCOSE; Start 11/21/16 at 15:30 Glucagon (Glucagen) 1 mg Q15M PRN IM DECREASED GLUCOSE; Start 11/21/16 at 15:30 Glucose (Glutose) 15 gm Q15M PRN BUCCAL DECREASED GLUCOSE; Start 11/21/16 at 15 :30 Diagnostic Test (Pha) (Accucheck) 1 ea 02 XX Last administered on 12/01/16 02: 26; Admin Dose 1 EA; Start 11/23/16 at 02:00 Ascorbic Acid (Vitamin C) 500 mg BID GTB Last administered on 12/20/16 08:27; Admin Dose 500 MG; Start 11/23/16 at 21:00 Multivitamins Therapeutic (Theragran) 1 tab DAILY PO Last administered on 08:27; Admin Dose 1 TAB; Start 11/24/16 at 09:00 Linagliptin (Tradjenta) 5 mg DAILY PO Last administered on 12/20/16 08:27; Admin Dose 5 MG; Start 11/27/16 at 11:30 Metoclopramide HCl (Reglan) 5 mg TID PO Last administered on 12/20/16 12:21; Admin Dose 5 MG; Start 12/09/16 at 21:00 Insulin Glargine (Lantus) 14 unit DAILY@20 SC Last administered on 12/19/16 20: 39; Admin Dose 14 UNIT; Start 12/13/16 at 20:00 Sodium Hypochlorite (Dakin'S (Dilute 1/40%)) 1 applic DAILY IRR Last administered on 12/20/16 08:35; Admin Dose 1 APPLIC; Start 12/15/16 at 16:00 Trimethoprim/ Sulfamethoxazole (Bactrim (Ds)) 1 tab BID PO Last administered on 12/20/16 08:27; Admin Dose 1 TAB; Start 12/17/16 at 12:00 HANNAH DIAS Dec 20, 2016 20:35
[2016-12-20] MEDS: INSULIN GLARGINE [LANtus] 3 ML PEN SC SCH (21:15)
--- NOTE | 2016-12-20 21:18 | CONS ---
Date/Time of Note Date/Time of Note DATE: 12/20/16 TIME: 21:16 Assessment/Plan Assessment/Plan Problems: (1) Type II diabetes mellitus, uncontrolled Status: Chronic Comment: Fair glycemic control although above goal this am. Will monitor to decide if insulin doses need to be increased Qualifiers: Diabetes mellitus complication status: with unspecified complications Diabetes mellitus halfway insulin use: unspecified halfway insulin use status Qualified Code: E11.8 - Uncontrolled type 2 diabetes mellitus with complication, unspecified ad terminal makeup operator insulin use status Consultation Date/Type/Reason Admit Date/Time Nov 17, 2016 at 11:30 Initial Consult Date 11/17/16 Type of Consultation: Endocrinology Reason for Consultation DKA Referring Provider: ALEA WHITAKER 24 HR Interval Summary Constitutional: no complaints Detailed Summary Respiratory: no complaints Cardiovascular: no complaints Gastrointestinal: no complaints Genitourinary: no complaints Musculoskeletal: back pain (at site of sacral decubitus w/ wound vac on) Neurologic: no complaints Exam/Review of Systems Vital Signs Vitals VS - Last 72 Hours, by Label Date Time Temp Pulse Resp B/P Pulse Ox O2 Delivery O2 Flow Rate FiO2 12/20/16 20:35 98.5 96 18 119/70 99 12/20/16 07:35 98.1 88 18 130/82 98 12/19/16 21:00 98.2 93 18 133/70 99 12/19/16 20:00 98.2 93 18 133/70 99 Room Air 12/19/16 07:50 98.6 97 18 132/88 99 12/18/16 20:12 98.1 98 17 130/81 99 12/18/16 07:10 98.1 96 16 132/85 99 Vital Signs Date Time Temp Pulse Resp B/P Pulse Ox O2 Delivery O2 Flow Rate FiO2 12/20/16 20:35 98.5 96 18 119/70 99 12/19/16 20:00 Room Air Intake and Output 12/19/16 12/19/16 12/20/16 15:00 23:00 07:00 Intake Total 1240 ml 740 ml Output Total 1500 ml 500 ml Balance -260 ml 240 ml Exam Constitutional: alert, oriented, well developed Psych: nl mood/affect, no complaints Respiratory: clear to auscultation, normal air movement Cardiovascular: nl pulses, regular rate and rhythm, No edema, No murmurs/extra sounds, No rub Gastrointestinal: bowel sounds, nl liver, spleen, non-tender, soft, No mass, No rebound or guarding Musculoskeletal: nl extremities to inspection Extremities: normal pulses, No clubbing, No cyanosis, No edema 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, nl mental status, nl speech, nl strength Additional Comments Bedside Glucose - 72 Hours Test 12/18/16 07:42 12/18/16 11:29 12/18/16 17:17 12/18/16 21:14 Bedside Glucose 173mg/dL (70-220) 169mg/dL (70-220) 180mg/dL (70-220) 144mg/dL (70-220) Test 12/19/16 07:45 12/19/16 11:56 12/19/16 17:17 12/19/16 20:16 Bedside Glucose 147mg/dL (70-220) 140mg/dL (70-220) 147mg/dL (70-220) 122mg/dL (70-220) Test 12/20/16 07:40 12/20/16 11:31 12/20/16 17:04 12/20/16 21:08 Bedside Glucose 212mg/dL (70-220) 120mg/dL (70-220) 105mg/dL (70-220) 212mg/dL (70-220) Results Result Diagram: 12/20/16 0500 12/20/16 0500 Results 24 hrs Laboratory Tests Test 12/20/16 05:00 12/20/16 07:40 12/20/16 11:31 12/20/16 17:04 White Blood Count 9.9 Red Blood Count 4.41 L Hemoglobin 13.3 L Hematocrit 37.6 L Mean Corpuscular Volume 85.3 Mean Corpuscular Hemoglobin 30.2 Mean Corpuscular Hemoglobin Concent 35.4 Red Cell Distribution Width 13.6 Platelet Count 502 H Mean Platelet Volume 8.9 Neutrophils % 59.0 Lymphocytes % 29.0 Monocytes % 9.2 Eosinophils % 1.7 Basophils % 0.8 Nucleated Red Blood Cells % 0.0 Neutrophils # 5.8 Lymphocytes # 2.9 Monocytes # 0.9 Eosinophils # 0.2 Basophils # 0.1 Nucleated Red Blood Cells # 0.0 Sodium Level 133 L Potassium Level 4.7 Chloride Level 97 Carbon Dioxide Level 28 Anion Gap 13 Blood Urea Nitrogen 15 Creatinine 0.54 L Glucose Level 141 Calcium Level 9.4 Bedside Glucose 212 120 105 Test 12/20/16 21:08 Bedside Glucose 212 Medications Medications Current Medications Ondansetron HCl (Zofran Inj) 4 mg Q6H PRN IV NAUSEA AND/OR VOMITING Last administered on 12/17/16 21:28; Admin Dose 4 MG; Start 11/16/16 at 15:30 Acetaminophen (Tylenol Liquid) 650 mg Q6H PRN PO PAIN LEVEL 1-3 OR FEVER Last administered on 11/27/16 18:33; Admin Dose 650 MG; Start 11/16/16 at 15:30 Morphine Sulfate (morphine) 2 mg Q4H PRN IV PAIN LEVEL 7-10 Last administered on 12/20/16 18:24; Admin Dose 2 MG; Start 11/16/16 at 15:30 Enoxaparin Sodium (Lovenox) 30 mg DAILY SC Last administered on 12/20/16 08:30 ; Admin Dose 30 MG; Start 11/17/16 at 13:00 Eye Lubricant (Artificial Tears Oph) 2 drop QID BOTH EYES Last administered on 12/20/16 12:20; Admin Dose 2 DROP; Start 11/17/16 at 17:00 Pantoprazole (Protonix Tab) 40 mg DAILY@06 PO Last administered on 12/20/16 05 :42; Admin Dose 40 MG; Start 11/21/16 at 06:00 Miscellaneous Information 1 ea NOTE XX ; Start 11/21/16 at 15:30 Glucose (Glutose) 15 gm Q15M PRN PO DECREASED GLUCOSE; Start 11/21/16 at 15:30 Glucose (Glutose) 22.5 gm Q15M PRN PO DECREASED GLUCOSE; Start 11/21/16 at 15: 30 Dextrose (D50w Syringe) 25 ml Q15M PRN IV DECREASED GLUCOSE Last administered on 12/04/16 21:17; Admin Dose 25 ML; Start 11/21/16 at 15:30 Dextrose (D50w Syringe) 50 ml Q15M PRN IV DECREASED GLUCOSE; Start 11/21/16 at 15:30 Glucagon (Glucagen) 1 mg Q15M PRN IM DECREASED GLUCOSE; Start 11/21/16 at 15:30 Glucose (Glutose) 15 gm Q15M PRN BUCCAL DECREASED GLUCOSE; Start 11/21/16 at 15 :30 Diagnostic Test (Pha) (Accucheck) 1 ea 02 XX Last administered on 12/01/16 02: 26; Admin Dose 1 EA; Start 11/23/16 at 02:00 Ascorbic Acid (Vitamin C) 500 mg BID GTB Last administered on 12/20/16 08:27; Admin Dose 500 MG; Start 11/23/16 at 21:00 Multivitamins Therapeutic (Theragran) 1 tab DAILY PO Last administered on 08:27; Admin Dose 1 TAB; Start 11/24/16 at 09:00 Linagliptin (Tradjenta) 5 mg DAILY PO Last administered on 12/20/16 08:27; Admin Dose 5 MG; Start 11/27/16 at 11:30 Metoclopramide HCl (Reglan) 5 mg TID PO Last administered on 12/20/16 12:21; Admin Dose 5 MG; Start 12/09/16 at 21:00 Insulin Glargine (Lantus) 14 unit DAILY@20 SC Last administered on 12/19/16 20: 39; Admin Dose 14 UNIT; Start 12/13/16 at 20:00 Sodium Hypochlorite (Dakin'S (Dilute 1/40%)) 1 applic DAILY IRR Last administered on 12/20/16 08:35; Admin Dose 1 APPLIC; Start 12/15/16 at 16:00 Trimethoprim/ Sulfamethoxazole (Bactrim (Ds)) 1 tab BID PO Last administered on 12/20/16 08:27; Admin Dose 1 TAB; Start 12/17/16 at 12:00 ROGE PAEZ MD Dec 20, 2016 21:18
[2016-12-21] MEDS: ACCU-CHEK XX SCH (02:00)
[2016-12-21] MEDS: morphine 2 MG INJ IV PRN ×5 (02:25→20:36)
[2016-12-21] MEDS: PANTOPRAZOLE (EC) 40 MG TAB PO SCH (06:30)
[2016-12-21] MEDS: INSULIN ASPART [NOVOLOG] 3 ML PEN SC SCH ×7 (08:00→20:36)
[2016-12-21 08:28] VITALS: BP 138/76; RESP 16
[2016-12-21] MEDS: SODIUM HYPOCHLORITE 1/40% 1L IRRIG IRR SCH (08:45)
[2016-12-21] MEDS: ENOXAPARIN 30 MG/0.3 ML SYG SC SCH (09:01)
[2016-12-21] MEDS: metFORMIN (XR) 500 MG TAB PO SCH ×2 (09:02→17:44)
[2016-12-21] MEDS: METOCLOPRAMIDE 5 MG TAB PO SCH ×3 (09:02→20:36)
[2016-12-21] MEDS: TRIMETHOPRIM/SULFAMETHOX (DS) TAB PO SCH ×2 (09:02→20:36)
[2016-12-21] MEDS: ARTIFICIAL TEARS 15 ML OPH BOTH EYES SCH ×4 (09:02→20:36)
[2016-12-21] MEDS: MULTIVITAMINS THERAPEUTIC TAB PO SCH (09:02)
[2016-12-21] MEDS: ASCORBIC ACID 500 MG TAB GTB SCH ×2 (09:02→20:36)
[2016-12-21] MEDS: LINAGLIPTIN 5 MG TABLET PO SCH (09:03)
[2016-12-21 11:20] LABS: ADD SCAN DIFF NO
[2016-12-21 11:25] LABS: BASOPHIL # 0.1 10^3/ul (0.0-0.1); BASOPHILS % 1.1 % (0.0-2.0); EOSINOPHILS # 0.1 10^3/ul (0.0-0.5); EOSINOPHILS % 1.8 % (0.0-7.0); HEMATOCRIT 37.1 % (42.0-52.0); HEMOGLOBIN 12.9 g/dl (14.0-18.0); LYMPHOCYTES # 2.1 10^3/ul (0.8-2.9); LYMPHOCYTES % 28.2 % (15.0-51.0); MEAN CORPUSCULAR HEMOGLOBIN 30.1 pg (29.0-33.0); MEAN CORPUSCULAR HGB CONC 34.8 g/dl (32.0-37.0); MEAN CORPUSCULAR VOLUME 86.5 fl (82.0-101.0); MONOCYTE # 0.7 10^3/ul (0.3-0.9); MONOCYTES % 9.6 % (0.0-11.0); NEUTROPHIL # 4.5 10^3/ul (1.6-7.5); PLATELET COUNT 504 10^3/UL (140-415); RED BLOOD COUNT 4.29 10^6/ul (4.70-6.10); RED CELL DISTRIBUTION WIDTH 13.6 % (11.5-14.5); WHITE BLOOD COUNT 7.6 10^3/ul (4.8-10.8)
[2016-12-21 11:53] LABS: CALCIUM 9.1 mg/dl (8.4-10.2); CREATININE 0.54 mg/dl (0.61-1.24); POTASSIUM 4.4 mmol/L (3.5-5.1)
--- NOTE | 2016-12-21 17:18 | CONS ---
Date/Time of Note Date/Time of Note DATE: 12/21/16 TIME: 17:16 Assessment/Plan Assessment/Plan Problems: (1) Type II diabetes mellitus, uncontrolled Status: Chronic Comment: Good glycemic control on current insulin doses w/ metformin and linagliptin. Will continue. Qualifiers: Diabetes mellitus complication status: with unspecified complications Diabetes mellitus senior living insulin use: unspecified senior living insulin use status Qualified Code: E11.8 - Uncontrolled type 2 diabetes mellitus with complication, unspecified senior living insulin use status Consultation Date/Type/Reason Admit Date/Time Nov 17, 2016 at 11:30 Initial Consult Date 11/17/16 Type of Consultation: Endocrinology Reason for Consultation DKA Referring Provider: ALEA WHITAKER 24 HR Interval Summary Constitutional: improved, no complaints Detailed Summary Respiratory: no complaints Cardiovascular: no complaints Gastrointestinal: no complaints Genitourinary: no complaints Musculoskeletal: back pain (wound vac painful) Neurologic: no complaints Exam/Review of Systems Vital Signs Vitals VS - Last 72 Hours, by Label Date Time Temp Pulse Resp B/P Pulse Ox O2 Delivery O2 Flow Rate FiO2 12/21/16 08:28 98.5 90 16 138/76 99 12/20/16 20:35 98.5 96 18 119/70 99 12/20/16 07:35 98.1 88 18 130/82 98 12/19/16 21:00 98.2 93 18 133/70 99 12/19/16 20:00 98.2 93 18 133/70 99 Room Air 12/19/16 07:50 98.6 97 18 132/88 99 12/18/16 20:12 98.1 98 17 130/81 99 Vital Signs Date Time Temp Pulse Resp B/P Pulse Ox O2 Delivery O2 Flow Rate FiO2 12/21/16 08:28 98.5 90 16 138/76 99 12/19/16 20:00 Room Air Intake and Output 12/20/16 12/20/16 12/21/16 15:00 23:00 07:00 Intake Total 1030 ml 700 ml Output Total 700 ml 1500 ml Balance 330 ml -800 ml Exam Constitutional: alert, oriented, well developed Psych: nl mood/affect, no complaints Respiratory: clear to auscultation, normal air movement Cardiovascular: nl pulses, regular rate and rhythm, No edema, No murmurs/extra sounds, No rub Gastrointestinal: bowel sounds, nl liver, spleen, non-tender, soft, No mass, No rebound or guarding Musculoskeletal: nl extremities to inspection Extremities: normal pulses, No clubbing, No cyanosis, No edema 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, nl mental status, nl speech, nl strength Additional Comments Bedside Glucose - 72 Hours Test 12/18/16 21:14 12/19/16 07:45 12/19/16 11:56 12/19/16 17:17 Bedside Glucose 144mg/dL (70-220) 147mg/dL (70-220) 140mg/dL (70-220) 147mg/dL (70-220) Test 12/19/16 20:16 12/20/16 07:40 12/20/16 11:31 12/20/16 17:04 Bedside Glucose 122mg/dL (70-220) 212mg/dL (70-220) 120mg/dL (70-220) 105mg/dL (70-220) Test 12/20/16 21:08 12/21/16 02:18 12/21/16 08:42 12/21/16 11:56 Bedside Glucose 212mg/dL (70-220) 105mg/dL (70-220) 113mg/dL (70-220) 162mg/dL (70-220) Results Result Diagram: 12/21/16 1039 12/21/16 1039 Results 24 hrs Laboratory Tests Test 12/20/16 21:08 12/21/16 02:18 12/21/16 08:42 12/21/16 10:39 Bedside Glucose 212 105 113 White Blood Count 7.6 # Red Blood Count 4.29 L Hemoglobin 12.9 L Hematocrit 37.1 L Mean Corpuscular Volume 86.5 Mean Corpuscular Hemoglobin 30.1 Mean Corpuscular Hemoglobin Concent 34.8 Red Cell Distribution Width 13.6 Platelet Count 504 H Mean Platelet Volume 9.0 Neutrophils % 59.0 Lymphocytes % 28.2 Monocytes % 9.6 Eosinophils % 1.8 Basophils % 1.1 Nucleated Red Blood Cells % 0.0 Neutrophils # 4.5 Lymphocytes # 2.1 Monocytes # 0.7 Eosinophils # 0.1 Basophils # 0.1 Nucleated Red Blood Cells # 0.0 Sodium Level 132 L Potassium Level 4.4 Chloride Level 96 L Carbon Dioxide Level 28 Anion Gap 12 Blood Urea Nitrogen 17 Creatinine 0.54 L Glucose Level 122 Hemoglobin A1c 8.8 H Calcium Level 9.1 Albumin 3.6 Test 12/21/16 11:56 Bedside Glucose 162 Medications Medications Current Medications Ondansetron HCl (Zofran Inj) 4 mg Q6H PRN IV NAUSEA AND/OR VOMITING Last administered on 12/17/16 21:28; Admin Dose 4 MG; Start 11/16/16 at 15:30 Acetaminophen (Tylenol Liquid) 650 mg Q6H PRN PO PAIN LEVEL 1-3 OR FEVER Last administered on 11/27/16 18:33; Admin Dose 650 MG; Start 11/16/16 at 15:30 Morphine Sulfate (morphine) 2 mg Q4H PRN IV PAIN LEVEL 7-10 Last administered on 12/21/16 15:38; Admin Dose 2 MG; Start 11/16/16 at 15:30 Enoxaparin Sodium (Lovenox) 30 mg DAILY SC Last administered on 12/21/16 09:01 ; Admin Dose 30 MG; Start 11/17/16 at 13:00 Eye Lubricant (Artificial Tears Oph) 2 drop QID BOTH EYES Last administered on 12/21/16 12:03; Admin Dose 2 DROP; Start 11/17/16 at 17:00 Pantoprazole (Protonix Tab) 40 mg DAILY@06 PO Last administered on 12/21/16 06 :30; Admin Dose 40 MG; Start 11/21/16 at 06:00 Miscellaneous Information 1 ea NOTE XX ; Start 11/21/16 at 15:30 Glucose (Glutose) 15 gm Q15M PRN PO DECREASED GLUCOSE; Start 11/21/16 at 15:30 Glucose (Glutose) 22.5 gm Q15M PRN PO DECREASED GLUCOSE; Start 11/21/16 at 15: 30 Dextrose (D50w Syringe) 25 ml Q15M PRN IV DECREASED GLUCOSE Last administered on 12/04/16 21:17; Admin Dose 25 ML; Start 11/21/16 at 15:30 Dextrose (D50w Syringe) 50 ml Q15M PRN IV DECREASED GLUCOSE; Start 11/21/16 at 15:30 Glucagon (Glucagen) 1 mg Q15M PRN IM DECREASED GLUCOSE; Start 11/21/16 at 15:30 Glucose (Glutose) 15 gm Q15M PRN BUCCAL DECREASED GLUCOSE; Start 11/21/16 at 15 :30 Diagnostic Test (Pha) (Accucheck) 1 ea 02 XX Last administered on 12/01/16 02: 26; Admin Dose 1 EA; Start 11/23/16 at 02:00 Ascorbic Acid (Vitamin C) 500 mg BID GTB Last administered on 12/21/16 09:02; Admin Dose 500 MG; Start 11/23/16 at 21:00 Multivitamins Therapeutic (Theragran) 1 tab DAILY PO Last administered on 09:02; Admin Dose 1 TAB; Start 11/24/16 at 09:00 Linagliptin (Tradjenta) 5 mg DAILY PO Last administered on 12/21/16 09:03; Admin Dose 5 MG; Start 11/27/16 at 11:30 Metoclopramide HCl (Reglan) 5 mg TID PO Last administered on 12/21/16 12:03; Admin Dose 5 MG; Start 12/09/16 at 21:00 Insulin Glargine (Lantus) 14 unit DAILY@20 SC Last administered on 12/20/16 21 :15; Admin Dose 14 UNIT; Start 12/13/16 at 20:00 Sodium Hypochlorite (Dakin'S (Dilute 1/40%)) 1 applic DAILY IRR Last administered on 12/20/16 08:35; Admin Dose 1 APPLIC; Start 12/15/16 at 16:00 Trimethoprim/ Sulfamethoxazole (Bactrim (Ds)) 1 tab BID PO Last administered on 12/21/16 09:02; Admin Dose 1 TAB; Start 12/17/16 at 12:00 ROGE PAEZ MD Dec 21, 2016 17:18
[2016-12-21 20:16] VITALS: BP 137/85; RESP 16
[2016-12-21] MEDS: INSULIN GLARGINE [LANtus] 3 ML PEN SC SCH (20:35)
[2016-12-22] MEDS: morphine 2 MG INJ IV PRN ×4 (01:03→15:31)
[2016-12-22] MEDS: ACCU-CHEK XX SCH (01:39)
[2016-12-22] MEDS: PANTOPRAZOLE (EC) 40 MG TAB PO SCH (05:17)
[2016-12-22 05:46] LABS: ADD SCAN DIFF NO
[2016-12-22 05:55] LABS: BASOPHIL # 0.1 10^3/ul (0.0-0.1); BASOPHILS % 1.2 % (0.0-2.0); EOSINOPHILS # 0.2 10^3/ul (0.0-0.5); EOSINOPHILS % 2.2 % (0.0-7.0); HEMATOCRIT 36.5 % (42.0-52.0); HEMOGLOBIN 12.6 g/dl (14.0-18.0); LYMPHOCYTES # 2.4 10^3/ul (0.8-2.9); LYMPHOCYTES % 32.7 % (15.0-51.0); MEAN CORPUSCULAR HEMOGLOBIN 29.4 pg (29.0-33.0); MEAN CORPUSCULAR HGB CONC 34.5 g/dl (32.0-37.0); MEAN CORPUSCULAR VOLUME 85.3 fl (82.0-101.0); MEAN PLATELET VOLUME 9.1 fl (7.4-10.4); MONOCYTE # 0.7 10^3/ul (0.3-0.9); NEUTROPHILS % 53.6 % (39.0-77.0); PLATELET COUNT 461 10^3/UL (140-415); RED BLOOD COUNT 4.28 10^6/ul (4.70-6.10); RED CELL DISTRIBUTION WIDTH 13.7 % (11.5-14.5); WHITE BLOOD COUNT 7.4 10^3/ul (4.8-10.8)
[2016-12-22 06:02] LABS: POTASSIUM 3.8 mmol/L (3.5-5.1)
[2016-12-22 06:04] LABS: CREATININE 0.5 mg/dl (0.61-1.24)
[2016-12-22 08:26] VITALS: BP 118/79; RESP 18
[2016-12-22] MEDS: METOCLOPRAMIDE 5 MG TAB PO SCH ×2 (08:48→12:25)
[2016-12-22] MEDS: ARTIFICIAL TEARS 15 ML OPH BOTH EYES SCH ×3 (08:49→17:05)
[2016-12-22] MEDS: TRIMETHOPRIM/SULFAMETHOX (DS) TAB PO SCH (08:49)
[2016-12-22] MEDS: ASCORBIC ACID 500 MG TAB GTB SCH (08:49)
[2016-12-22] MEDS: MULTIVITAMINS THERAPEUTIC TAB PO SCH (08:49)
[2016-12-22] MEDS: LINAGLIPTIN 5 MG TABLET PO SCH (08:49)
[2016-12-22] MEDS: metFORMIN (XR) 500 MG TAB PO SCH ×2 (08:50→17:25)
[2016-12-22] MEDS: ENOXAPARIN 30 MG/0.3 ML SYG SC SCH (08:51)
[2016-12-22] MEDS: INSULIN ASPART [NOVOLOG] 3 ML PEN SC SCH ×6 (08:52→17:27)
--- NOTE | 2016-12-22 11:52 | PDOCDIS ---
Discharge Instructions CONDITION Patient Condition: Stable HOME CARE INSTRUCTIONS: Special Diet: CCB ACTIVITY: Activity Restrictions: Slowly Increase Activity Rest between Activity Do not operate Machinery Do not operate Power Tool Avoid Heavy Housework Bathing Restrictions: Sponge Bath FOLLOW UP/APPOINTMENTS Appointments As recommended. [facility] staff/patient. HANNAH DIAS Dec 22, 2016 11:52
--- NOTE | 2016-12-22 12:04 | DS ---
Date/Time of Note Date/Time of Note DATE: 12/22/16 TIME: 12:04 Discharge Summary Admission/Discharge Info Admit Date/Time Nov 17, 2016 at 11:30 Discharge Date/Time Patient Condition: Stable Hospital Course ASSESSMENT AND PLAN - Sacral wound, status post debridement, perioperative culture growing MRSA, continue Bactrim, continue wound care per surgical recommendation. Dr Corbett is following in surgical consultation. - Severe diabetic ketoacidosis with coma, resolved. Dr. Andre is following in endocrinology consultation. - Diabetes mellitus type 2. Continue Lantus , pre-meal NovoLog and NovoLog per sliding scale. - Acute metabolic encephalopathy, resolved. - Severe sepsis 2 PNA, resolved. Dr. Callaway is following in infectious disease consultation. - Community-acquired pneumonia vs aspiration. - Acute respiratory failure, resolved. Dr Disla s following the patient in pulmonology consultation. - Altered level of consciousness on admission, resolved CT head is negative. - Amphetamine screen positive. - Homelessness, correctional case manager and transition social worker for discharge planning. Continue sequential compression device for deep venous thrombosis prophylaxis and Protonix for peptic ulcer disease prophylaxis. Further recommendations based on clinical course. Plan of care discussed with Dr. Ma. Home Meds Active Scripts Insulin Aspart* (Novolog Insulin Pen*) 100 Unit/Ml Soln, 1 UNIT SC WITH BREAKFAST, #1 PKG Prov:TONYA TRIANA MD 10/23/16 Metformin* (Glucophage*) 500 Mg Tab, 500 MG PO BID, #60 TAB Prov:TONYA TRIANA MD 10/23/16 Metformin* (Glucophage*) 1,000 Mg Tablet, 1000 MG PO BID, #40 TAB Prov:JOSE LUIS SPARROW MD 08/16/16 Insulin Regular, Human* (Novolin R*) 100 U/Ml Vial, 0 SC SLIDING SCALE AC, #1 VIAL Prov:ASHLEY PARKER 04/08/16 Glyburide* (Glyburide*) 5 Mg Tablet, 5 MG PO BID, #60 TAB Prov:ASHLEY PARKER 04/08/16 Insulin Glargine* (Lantus*) 100 Unit/Ml Soln, 42 UNIT SC QHS for 90 Days, 1 Refill Prov:GRIS FIGUEROA MD 11/02/15 Reported Medications Gabapentin* (Gabapentin*) 300 Mg Capsule, 300 MG PO QHS, #60 CAP 08/16/16 Atorvastatin Calcium* (Atorvastatin Calcium*) 20 Mg Tablet, 20 MG PO QHS, #30 TAB 08/16/16 Metformin Hcl* (Metformin Hcl*) 850 Mg Tablet, 850 MG PO BID, #30 TAB 08/16/16 Pending Labs Laboratory Tests Test 12/21/16 17:39 12/21/16 20:32 12/22/16 05:01 12/22/16 05:20 Bedside Glucose 191mg/dL (70-220) 82mg/dL (70-220) White Blood Count 7.410^3/ul (4.8-10.8) Red Blood Count 4.2810^6/ul (4.70-6.10) Hemoglobin 12.6g/dl (14.0-18.0) Hematocrit 36.5% (42.0-52.0) Mean Corpuscular Volume 85.3fl (82.0-101.0) Mean Corpuscular Hemoglobin 29.4pg (29.0-33.0) Mean Corpuscular Hemoglobin Concent 34.5g/dl (32.0-37.0) Red Cell Distribution Width 13.7% (11.5-14.5) Platelet Count 70109^3/UL (140-415) Mean Platelet Volume 9.1fl (7.4-10.4) Neutrophils % 53.6% (39.0-77.0) Lymphocytes % 32.7% (15.0-51.0) Monocytes % 10.0% (0.0-11.0) Eosinophils % 2.2% (0.0-7.0) Basophils % 1.2% (0.0-2.0) Nucleated Red Blood Cells % 0.0/100WBC (0.0-0.0) Neutrophils # 4.010^3/ul (1.6-7.5) Lymphocytes # 2.410^3/ul (0.8-2.9) Monocytes # 0.710^3/ul (0.3-0.9) Eosinophils # 0.210^3/ul (0.0-0.5) Basophils # 0.110^3/ul (0.0-0.1) Nucleated Red Blood Cells # 0.010^3/ul (0.0-0.0) Sodium Level 133mmol/L (135-144) Potassium Level 3.8mmol/L (3.5-5.1) Chloride Level 95mmol/L (97-110) Carbon Dioxide Level 28mmol/L (21-31) Anion Gap 14 (8-16) Blood Urea Nitrogen 17mg/dl (7-20) Creatinine 0.50mg/dl (0.61-1.24) Glucose Level 157mg/dl (70-220) Calcium Level 9.0mg/dl (8.4-10.2) Test 12/22/16 07:52 12/22/16 11:18 Bedside Glucose 196mg/dL (70-220) 99mg/dL (70-220) HANNAH DIAS Dec 22, 2016 12:04
[2016-12-22] MEDS: SODIUM HYPOCHLORITE 1/40% 1L IRRIG IRR SCH (15:32)
--- NOTE | 2016-12-22 17:36 | CONS ---
Date/Time of Note Date/Time of Note DATE: 12/22/16 TIME: 17:33 Assessment/Plan Assessment/Plan Problems: (1) Type II diabetes mellitus, uncontrolled Status: Chronic Comment: Good glycemic control. Pt. to go to SNF for wound care. Should go to sober living from there. Must stay on current DM regimen for rest of life or likely to get readmitted in DKA again or possibly . Qualifiers: Diabetes mellitus complication status: with unspecified complications Diabetes mellitus terminal superintendent insulin use: unspecified terminal superintendent insulin use status Qualified Code: E11.8 - Uncontrolled type 2 diabetes mellitus with complication, unspecified terminal superintendent insulin use status Consultation Date/Type/Reason Admit Date/Time Nov 17, 2016 at 11:30 Initial Consult Date 11/17/16 Type of Consultation: Endocrinology Reason for Consultation DKA Referring Provider: ALEA WHITAKER 24 HR Interval Summary Constitutional: improved, no complaints Detailed Summary Respiratory: no complaints Cardiovascular: no complaints Gastrointestinal: no complaints Genitourinary: no complaints Musculoskeletal: back pain (at site of wound vac on pre-sacral region) Neurologic: no complaints Exam/Review of Systems Vital Signs Vitals VS - Last 72 Hours, by Label Date Time Temp Pulse Resp B/P Pulse Ox O2 Delivery O2 Flow Rate FiO2 12/22/16 08:26 97.8 91 18 118/79 99 12/21/16 20:16 98.4 98 16 137/85 98 12/21/16 08:28 98.5 90 16 138/76 99 12/20/16 20:35 98.5 96 18 119/70 99 12/20/16 07:35 98.1 88 18 130/82 98 12/19/16 21:00 98.2 93 18 133/70 99 12/19/16 20:00 98.2 93 18 133/70 99 Room Air Vital Signs Date Time Temp Pulse Resp B/P Pulse Ox O2 Delivery O2 Flow Rate FiO2 12/22/16 08:26 97.8 91 18 118/79 99 12/19/16 20:00 Room Air Intake and Output 12/21/16 12/21/16 12/22/16 15:00 23:00 07:00 Intake Total 1320 ml 900 ml Output Total 0 ml 1000 ml Balance 1320 ml -100 ml Exam Constitutional: alert, oriented, well developed Psych: nl mood/affect, no complaints Respiratory: clear to auscultation, normal air movement Cardiovascular: nl pulses, regular rate and rhythm, No edema, No murmurs/extra sounds, No rub Gastrointestinal: bowel sounds, nl liver, spleen, non-tender, soft, No mass, No rebound or guarding Musculoskeletal: nl extremities to inspection Extremities: normal pulses, No clubbing, No cyanosis, No edema Neurological: 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 EXPERIMENTAL II-XII intact, nl mental status, nl speech, nl strength Additional Comments Bedside Glucose - 72 Hours Test 12/19/16 20:16 12/20/16 07:40 12/20/16 11:31 12/20/16 17:04 Bedside Glucose 122mg/dL (70-220) 212mg/dL (70-220) 120mg/dL (70-220) 105mg/dL (70-220) Test 12/20/16 21:08 12/21/16 02:18 12/21/16 08:42 12/21/16 11:56 Bedside Glucose 212mg/dL (70-220) 105mg/dL (70-220) 113mg/dL (70-220) 162mg/dL (70-220) Test 12/21/16 17:39 12/21/16 20:32 12/22/16 07:52 12/22/16 11:18 Bedside Glucose 191mg/dL (70-220) 82mg/dL (70-220) 196mg/dL (70-220) 99mg/dL (70-220) Test 12/22/16 17:01 Bedside Glucose 135mg/dL (70-220) Results Result Diagram: 12/22/16 0501 12/22/16 0520 Results 24 hrs Laboratory Tests Test 12/21/16 17:39 12/21/16 20:32 12/22/16 05:01 12/22/16 05:20 Bedside Glucose 191 82 White Blood Count 7.4 Red Blood Count 4.28 L Hemoglobin 12.6 L Hematocrit 36.5 L Mean Corpuscular Volume 85.3 Mean Corpuscular Hemoglobin 29.4 Mean Corpuscular Hemoglobin Concent 34.5 Red Cell Distribution Width 13.7 Platelet Count 461 H Mean Platelet Volume 9.1 Neutrophils % 53.6 Lymphocytes % 32.7 Monocytes % 10.0 Eosinophils % 2.2 Basophils % 1.2 Nucleated Red Blood Cells % 0.0 Neutrophils # 4.0 Lymphocytes # 2.4 Monocytes # 0.7 Eosinophils # 0.2 Basophils # 0.1 Nucleated Red Blood Cells # 0.0 Sodium Level 133 L Potassium Level 3.8 Chloride Level 95 L Carbon Dioxide Level 28 Anion Gap 14 Blood Urea Nitrogen 17 Creatinine 0.50 L Glucose Level 157 Calcium Level 9.0 Test 12/22/16 07:52 12/22/16 11:18 12/22/16 17:01 Bedside Glucose 196 99 135 Medications Medications Current Medications Ondansetron HCl (Zofran Inj) 4 mg Q6H PRN IV NAUSEA AND/OR VOMITING Last administered on 12/17/16 21:28; Admin Dose 4 MG; Start 11/16/16 at 15:30 Acetaminophen (Tylenol Liquid) 650 mg Q6H PRN PO PAIN LEVEL 1-3 OR FEVER Last administered on 11/27/16 18:33; Admin Dose 650 MG; Start 11/16/16 at 15:30 Morphine Sulfate (morphine) 2 mg Q4H PRN IV PAIN LEVEL 7-10 Last administered on 12/22/16 15:31; Admin Dose 2 MG; Start 11/16/16 at 15:30 Enoxaparin Sodium (Lovenox) 30 mg DAILY SC Last administered on 12/22/16 08:51 ; Admin Dose 30 MG; Start 11/17/16 at 13:00 Eye Lubricant (Artificial Tears Oph) 2 drop QID BOTH EYES Last administered on 12/22/16 17:05; Admin Dose 2 DROP; Start 11/17/16 at 17:00 Pantoprazole (Protonix Tab) 40 mg DAILY@06 PO Last administered on 12/22/16 05 :17; Admin Dose 40 MG; Start 11/21/16 at 06:00 Miscellaneous Information 1 ea NOTE XX ; Start 11/21/16 at 15:30 Glucose (Glutose) 15 gm Q15M PRN PO DECREASED GLUCOSE; Start 11/21/16 at 15:30 Glucose (Glutose) 22.5 gm Q15M PRN PO DECREASED GLUCOSE; Start 11/21/16 at 15: 30 Dextrose (D50w Syringe) 25 ml Q15M PRN IV DECREASED GLUCOSE Last administered on 12/04/16 21:17; Admin Dose 25 ML; Start 11/21/16 at 15:30 Dextrose (D50w Syringe) 50 ml Q15M PRN IV DECREASED GLUCOSE; Start 11/21/16 at 15:30 Glucagon (Glucagen) 1 mg Q15M PRN IM DECREASED GLUCOSE; Start 11/21/16 at 15:30 Glucose (Glutose) 15 gm Q15M PRN BUCCAL DECREASED GLUCOSE; Start 11/21/16 at 15 :30 Diagnostic Test (Pha) (Accucheck) 1 ea 02 XX Last administered on 12/01/16 02: 26; Admin Dose 1 EA; Start 11/23/16 at 02:00 Ascorbic Acid (Vitamin C) 500 mg BID GTB Last administered on 12/22/16 08:49; Admin Dose 500 MG; Start 11/23/16 at 21:00 Multivitamins Therapeutic (Theragran) 1 tab DAILY PO Last administered on 08:49; Admin Dose 1 TAB; Start 11/24/16 at 09:00 Linagliptin (Tradjenta) 5 mg DAILY PO Last administered on 12/22/16 08:49; Admin Dose 5 MG; Start 11/27/16 at 11:30 Metoclopramide HCl (Reglan) 5 mg TID PO Last administered on 12/22/16 12:25; Admin Dose 5 MG; Start 12/09/16 at 21:00 Insulin Glargine (Lantus) 14 unit DAILY@20 SC Last administered on 12/21/16 20 :35; Admin Dose 14 UNIT; Start 12/13/16 at 20:00 Sodium Hypochlorite (Dakin'S (Dilute 1/40%)) 1 applic DAILY IRR Last administered on 12/22/16 15:32; Admin Dose 1 APPLIC; Start 12/15/16 at 16:00 Trimethoprim/ Sulfamethoxazole (Bactrim (Ds)) 1 tab BID PO Last administered on 12/22/16 08:49; Admin Dose 1 TAB; Start 12/17/16 at 12:00 ROEG PAEZ MD Dec 22, 2016 17:36
== END 2016-12-22 18:05 | DRG 853 ==
LOC: E/R 11:52 → ICU 11-17 11:30 → TEL 11-19 15:50 → PP2 11-23 02:00
PROVIDERS: ADMIT Internal Medicine; ATTEND Internal Medicine
PROC: 5A1945Z Respiratory Ventilation, 24-96 Consecutive Hours (ICD-10-PCS; 2016-11-17)
PROC: 0BH17EZ Insertion of Endotracheal Airway into Trachea, Via Natural or Artificial Opening (ICD-10-PCS; 2016-11-17)
PROC: 0HB6XZZ Excision of Back Skin, External Approach (ICD-10-PCS; principal; 2016-12-13 17:30)
DX: A41.9 Sepsis, unspecified organism (principal); E13.11 Other specified diabetes mellitus with ketoacidosis with coma; J96.00 Acute respiratory failure, unspecified whether with hypoxia or hypercapnia; J69.0 Pneumonitis due to inhalation of food and vomit; G93.41 Metabolic encephalopathy; L89.153 Pressure ulcer of sacral region, stage 3; J18.9 Pneumonia, unspecified organism; R65.20 Severe sepsis without septic shock; E88.81 Metabolic syndrome and other insulin resistance; I10 Essential (primary) hypertension; F15.10 Other stimulant abuse, uncomplicated; E87.6 Hypokalemia; F17.210 Nicotine dependence, cigarettes, uncomplicated; B95.61 Methicillin susceptible Staphylococcus aureus infection as the cause of diseases classified elsewhere; Z91.14 Patient's other noncompliance with medication regimen; Z79.4 Long term (current) use of insulin; Z79.84 Long term (current) use of oral hypoglycemic drugs; Z59.0 Homelessness
CPT/HCPCS: 36415; 36600; 70450; 71010; 72131; 72192; 80048; 80053; 80202; 80306; 80307; 81001; 81003; 82040; 82803; 82947; 82962; 83036; 83605; 83735; 84100; 84134; 84484; 84681; 85025; 85610; 85730; 86341; 87040; 87070; 87081; 87086; 88304; 90686; 92526; 92610; 93005; 94002; 94003; 94770; 96365; 96366; 96367; 96375; 96376; 97110; 97116; 97162; 97530; C9113; J0690; J0692; J0743; J1170; J1650; J1815; J2060; J2250; J2270; J2370; J2405; J2710; J3010; J3370; J3480; J7030; J7050; J7120